=== PATIENT | male | born 1945 | race Caucasian/White ===

== ENCOUNTER → 2016-06-08 | Day surgery (SDC) | payer OTHER ==
[2016-05-26 11:11] VITALS: Ht 175.3 cm; Wt 113.6 kg
[~2016-06-08] VITALS: Ht 175.3 cm; Wt 113.6 kg
[~2016-06-08] MED LIST: ACET-24 PO; ACET-749 PO; ACET650S10 PO; ACETAMINOPHEN/CODEINE 300/30MG TAB PO PRN; ALBUT/IPRATROP 3MG/0.5MG NEB 3 ML VIAL INH PRN; ALBUT/IPRATROP 3MG/0.5MG NEB 3 ML VIAL ONE; AMIO0.1T PO; ARTICHOKE PO; ASCA500 PO; ASPCH81X PO; ATEN-174 PO; ATROPINE SULFATE 0.1 MG/ML 5ML SYR IV PRN; BUPIVACAINE 0.5 % 5 MG/1 ML PF 10ML VIAL ONE; CEFAZOLIN 2000 MG/60 ML D5W IV SCH; CEPH500C PO; COEN100C7 PO; CRD200 PO; EpHEDrine SULFATE INJ 50 MG/ML AMP IV PRN; FENTANYL CITRATE INJ 50 MCG/1 ML 2 ML VIAL IV PRN; FENTANYL CITRATE INJ 50 MCG/1 ML 2 ML VIAL ONE; FIBER PO; FLUT0.15 NAE; GLUC10007 PO; HYDR25TA4 PO; LACTATED RINGER'S 1000ML 1,000 ML IV SCH; LECI1200 PO; LECITHIN PO; LIDOCAINE HCL 2% 2 ML VIAL (20MG/ML) ONE; LIDOCAINE HCL 2% LOCAL 20 ML VIAL ONE; MCRK20 PO; MIDAZOLAM HCL 1 MG/ML 2ML VIAL ONE; MORP-157 PO; MULT-506 PO; ONDANSETRON INJ 2 MG/ML 2 ML VIAL IV PRN; POTA20TA13 PO; PROPOFOL IV EMULSION 10 MG/ML 20 ML VIAL IV ONE; RANI150T3 PO; RIVA1TAB4 PO; RXC5 PO; SODIUM CHLORIDE 0.9% 1000ML 1,000 ML IV SCH
[2016-06-08 12:24] VITALS: TEMP 36.7
--- NOTE | 2016-06-08 12:26 | Discharge Instructions-SurgCtr ---
Discharge Instructions Date of Service Jun 08, 2016. Visit Reason for Visit: Right Carpal Tunnel Syndrome Discharge Discharge Diagnosis / Problem: right carpal tunnel syndrome Discharge Goals Goal(s): Decrease discomfort, Therapeutic intervention Medications Stopped Medications Name(s): Merary last taken 06/06 Activity Recommendations Activity Limitations: per Instructions/Follow-up section limited use of right hand Anesthesia . Post Anesthesia Instructions: If you have had General Anesthesia or IV Sedation: * Do not drive today. * Resume driving when surgeon permits. * Do not make important decisions or sign legal documents today. * Call surgeon for: 1. Temperature elevations greater than 101 degrees F. 2. Uncontrollable pain. 3. Excessive bleeding. 4. Persistent nausea and vomiting. 5. Medication intolerance (nausea, vomiting or rash). * For nausea and vomiting use only clear liquids such as: tea, soda, bouillon until nausea subsides, then gradually increase diet as tolerated. * If you have any concerns or questions, call your surgeon's office. If physician is unavailable and it is an emergency, call 911 or go to the nearest emergency room. . Instructions / Follow-Up Instructions / Follow-Up MEDICATIONS: * Resume previous medications unless instructed otherwise by your surgeon. * Always take pain medication on a full stomach or with food to avoid upset stomach. * Do not drink alcohol or drive while taking narcotics. * Ibuprofen or Tylenol may be taken if narcotic not needed. SPECIAL CARE INSTRUCTIONS: __ None __ Keep extremity elevated and iced x 48 hours; apply ice 20-30 minutes 8-10 times/day. May remove at night. __ Sling __24 hrs/day __ Remove at night __ Shoulder Immobilizer __ 24 hrs/day __ Remove at night x__ Dressing x__ Maintain until seen in office, may shower with plastic over site __ Remove dressings in 24-48 hours and then may shower __ Cover incisions with band-aids after showering __ Do not remove steri-strips Call physician if chills or temperature rises above 102 degrees or pain unrelieved by prescribed pain medications at . .follow up in 2 weeks Diet Recommendations Home Diet: resume previous diet Procedures Procedures Performed: Right Carpal Tunnel Release Pending Studies Studies pending at discharge: no Medical Emergencies . Who to Call and When: Medical Emergencies: If at any time you feel your situation is an emergency, please call 911 immediately. . Non-Emergent Contact Non-Emergency issues call your: Primary Care Provider, Surgeon . . "Provider Documentation" section prepared by Elvis Enciso.
--- NOTE | 2016-06-08 12:46 | [facility] Post Operative Brief Note ---
Immediate Operative Summary Operative Date Jun 08, 2016. Pre-Operative Diagnosis Right Carpal Tunnel Syndrome Post-Operative Diagnosis Same Procedure(s) Performed Right Carpal Tunnel Release Surgeon Dr. Leung Power Generating Plant Operator Surgeon(s) Ira Enciso PA-C Estimated Blood Loss Minimal Findings Right Carpal Tunnel Syndrome Specimens None Anesthesia Local with IV Sedation Complication(s) None Disposition Recovery Room / PACU
--- NOTE | 2016-06-08 13:02 | Anesthesia Progress Nt - [facility] ---
Anesthesia Post Op Note Date & Time Jun 08, 2016 at 13:02 Vital Signs Pain Intensity: 0 Vital Signs Past 12 Hours Date Time Temp Pulse Resp B/P Pulse Ox O2 Delivery O2 Flow Rate FiO2 06/08/16 12:24 36.7 71 16 109/67 94 Room Air 06/08/16 10:27 36.5 65 16 123/77 93 Room Air Notes Mental Status: alert / awake / arousable, participated in evaluation Pt Amnestic to Procedure: Yes Nausea / Vomiting: adequately controlled Pain: adequately controlled Airway Patency, RR, SpO2: stable & adequate BP & HR: stable & adequate Hydration State: stable & adequate Anesthetic Complications: no major complications apparent
[2016-06-08 13:08] VITALS: BP 142/82; PULSE 62; O2SAT 96
--- NOTE | 2016-06-08 15:22 | OPERATIVE REPORT ---
DATE OF OPERATION: 06/08/2016 SURGEON: Ross Leung MD MANAGER RELATIONSHIP: MAHI Harris PREOPERATIVE DIAGNOSIS: Right carpal tunnel syndrome. POSTOPERATIVE DIAGNOSIS: Same. PROCEDURE PERFORMED: Right carpal tunnel release. COMPLICATIONS: None. ESTIMATED BLOOD LOSS: Minimal. TOURNIQUET TIME: 10 minutes at 250 mmHg. OPERATIVE INDICATIONS: The patient is a 71-year-old male, who has had a fairly long history of bilateral hand pain, discomfort and numbness right side greater than left. He failed all conservative care. The right hand was really bothering him significantly. Has had trouble sleeping. He had nerve studies, which revealed significant carpal tunnel syndrome on both sides with some underlying neuropathy. The patient elected to proceed with operative treatment. He is fully aware that surgery is less predictable in somebody with underlying neuropathy. OPERATIVE PROCEDURE: The patient was taken to the operating room, identified and placed on the operating table in supine position. All contact areas were appropriately padded. IV antibiotics were provided by anesthesia team. A right forearm tourniquet was placed. Some IV sedation was provided. 10 mL of a 50:50 combination of 0.5% Marcaine and 2% lidocaine was then injected in and around the proposed incision site. The right hand was then prepped and draped in the usual sterile fashion. The right arm was elevated and exsanguinated with Esmarch and tourniquet was placed at 250 mmHg. A 3 cm incision was made in the palm just ulnar to the palmaris longus tendon. Blunt dissection was carried through the subcutaneous tissue down to the level of the palmar fascia. The palmar fascia was incised longitudinally in line with skin incision. The underlying transverse carpal ligament was identified. It was transected distally with the use of a Daniels blade knife and bluntly spread. Attention was then drawn proximally. Blunt dissection was carried out above and below the ligament proximally. The ligament was then transected for a minimum distance of 3 cm proximal to the wrist flexion crease. The ligament was bluntly spread and found to be completely released. Of note, his ligament was extremely thick and was extremely tight. The tourniquet was then let down for a tourniquet time of 10 minutes. Hemostasis was assured with use of electrocautery. The wound was once again irrigated. The skin was then closed with 4-0 nylon suture in a simple fashion. The hand was then cleaned and dried and a sterile dressing of Xeroform, 4x4, sterile cast padding and Markell bandage were applied. The patient then transferred to the recovery room in stable condition. The patient tolerated the procedure well with no complications. All needle and sponge counts were correct at the end of the operation. I attest to the content of the Intraoperative Record and any orders documented therein. Any exceptio ns are noted below.
== END | disposition home or self-care (01) ==
LOC: X.SURG 10:02
PROVIDERS: ATTEND Orthopaedic Surgery Sports Medicine
DX: G56.01 Carpal tunnel syndrome, right upper limb (principal); I51.9 Heart disease, unspecified; I10 Essential (primary) hypertension; Z88.8 Allergy status to other drugs, medicaments and biological substances

== ENCOUNTER → 2016-07-08 | Outpatient (CLI) | payer OTHER ==
[~2016-07-08] MED LIST changes: -ACETAMINOPHEN/CODEINE 300/30MG TAB PO PRN; -ALBUT/IPRATROP 3MG/0.5MG NEB 3 ML VIAL INH PRN; -ALBUT/IPRATROP 3MG/0.5MG NEB 3 ML VIAL ONE; -ATROPINE SULFATE 0.1 MG/ML 5ML SYR IV PRN; -BUPIVACAINE 0.5 % 5 MG/1 ML PF 10ML VIAL ONE; -CEFAZOLIN 2000 MG/60 ML D5W IV SCH; -EpHEDrine SULFATE INJ 50 MG/ML AMP IV PRN; -FENTANYL CITRATE INJ 50 MCG/1 ML 2 ML VIAL IV PRN; -FENTANYL CITRATE INJ 50 MCG/1 ML 2 ML VIAL ONE; -LACTATED RINGER'S 1000ML 1,000 ML IV SCH; -LIDOCAINE HCL 2% 2 ML VIAL (20MG/ML) ONE; -LIDOCAINE HCL 2% LOCAL 20 ML VIAL ONE; -MIDAZOLAM HCL 1 MG/ML 2ML VIAL ONE; -ONDANSETRON INJ 2 MG/ML 2 ML VIAL IV PRN; -PROPOFOL IV EMULSION 10 MG/ML 20 ML VIAL IV ONE; -SODIUM CHLORIDE 0.9% 1000ML 1,000 ML IV SCH
[2016-07-08 12:57] LABS: CHOLESTEROL/HDL RATIO 5.5
== END | disposition home or self-care (01) ==
LOC: C.LABPVFM 09:25
PROVIDERS: ATTEND Nurse Practitioner
DX: E78.00 Pure hypercholesterolemia, unspecified (principal)

== ENCOUNTER → 2016-08-18 | Outpatient (CLI) | payer OTHER | END | disposition home or self-care (01) | LOC: C.LAB1850 13:35 | PROVIDERS: ATTEND Internal Medicine Pulmonary Disease | DX: J44.9 Chronic obstructive pulmonary disease, unspecified (principal) ==

== ENCOUNTER 2016-12-22 10:25 | Inpatient (IN) | payer OTHER ==
[2016-11-21 10:57] VITALS: BMI 38.0
--- NOTE | 2016-11-21 11:42 | PAT Medication Instructions ---
Service Date Nov 21, 2016. Current Home Medication List Acetaminophen (Tylenol), 1 TAB PO DAILY PRN for Pain Amiodarone Hcl (Amiodarone Hcl), 100 MG PO QAM Ascorbic Acid (Vitamin C), 1 TAB PO QPM Aspirin (Aspirin Chewable), 81 MG PO QPM Atenolol (Tenormin), 0.5 TAB PO BID Coenzyme Q10 (Ubidecarenone) (Coq10), 1 CAP PO QAM Fiber Laxative (Fiber Laxative), 1 TAB PO QPM Fluticasone Propionate (Nasal) (Flonase Allergy Relief), 1 SPRAY INGRID DAILY PRN for PRN Glucosamine Sulfate (Glucosamine), 1,000 MG PO QPM Hydrochlorothiazide (Hctz), 25 MG PO QAM Lecithin (Lecithin), 1,200 MG PO QAM Multivitamin (Multivitamin), 1 TAB PO QPM Potassium Chloride Microencaps (Potassium Chloride Er), 20 MEQ PO QAM Ranitidine Hcl (Zantac), 150 MG PO QAM Rivaroxaban (Xarelto), 20 MG PO QAM [artichoke], 1 TAB PO QAM Medication Instructions For Your Scheduled Surgery - Check with surgeon/hvac design engineer for instructions: Rivaroxaban (Xarelto), 20 MG PO QAM - Hold the following medications 2 weeks prior to surgery: [artichoke], 1 TAB PO QAM Lecithin (Lecithin), 1,200 MG PO QAM Glucosamine Sulfate (Glucosamine), 1,000 MG PO QPM Coenzyme Q10 (Ubidecarenone) (Coq10), 1 CAP PO QAM - Hold the following medications the morning of surgery: Potassium Chloride Microencaps (Potassium Chloride Er), 20 MEQ PO QAM Ranitidine Hcl (Zantac), 150 MG PO QAM Hydrochlorothiazide (Hctz), 25 MG PO QAM Ascorbic Acid (Vitamin C), 1 TAB PO QPM - Take the following medications the morning of surgery with a sip of water: Fluticasone Propionate (Nasal) (Flonase Allergy Relief), 1 SPRAY INGRID DAILY PRN for PRN (if needed) Atenolol (Tenormin), 0.5 TAB PO BID Acetaminophen (Tylenol), 1 TAB PO DAILY PRN for Pain Amiodarone Hcl (Amiodarone Hcl), 100 MG PO QAM - Take the following medications as scheduled the night before surgery: Multivitamin (Multivitamin), 1 TAB PO QPM Fluticasone Propionate (Nasal) (Flonase Allergy Relief), 1 SPRAY INGRID DAILY PRN for PRN (if needed) Fiber Laxative (Fiber Laxative), 1 TAB PO QPM Atenolol (Tenormin), 0.5 TAB PO BID Aspirin (Aspirin Chewable), 81 MG PO QPM (okay to continue per surgeon) Acetaminophen (Tylenol), 1 TAB PO DAILY PRN for Pain If you have any questions please call us at [phone] or [phone] or [phone]
[2016-11-21 12:21] LABS: BASO % 0.4 %; BASO ABS # 0.03 K/uL (0-0.2); COMPLETE YES; EOS % 2.5 %; HEMATOCRIT 52.1 % (42-52); IG% 0.2 %; LYMPH % 31.6 %; LYMPH ABS # 2.54 K/uL (1.2-3.4); MEAN CELL VOLUME 90.6 fL (80-100); MEAN CORPUSCULAR HEMOGLOBIN 28.5 pg (25-34); MEAN CORPUSCULAR HGB CONC 31.5 g/dl (32-36); MEAN PLATELET VOLUME 9.9 fL (7.4-10.4); MONO % 11.1 %; NEUT % 54.2 %; PLATELET COUNT 225 K/uL (130-400); RED BLOOD COUNT 5.75 M/uL (4.7-6.1); WHITE BLOOD COUNT 8.04 K/uL (4.8-10.8)
--- NOTE | 2016-11-21 12:29 | DIAGNOSTIC IMAGING REPORT ---
CHEST PREADMISSION(PA/LAT) CLINICAL HISTORY: Preoperative chest COMPARISON STUDY: 05/06/2013 FINDINGS: The cardiac and mediastinal contours are normal. There is no evidence of focal pulmonary consolidation. There is no evidence of failure. No pleural effusions are visualized.[ There is bibasal atelectasis/scarring. IMPRESSION: No active disease in the chest. Electronically signed by: Alan Aldana M.D. 11/21/2016 12:28 PM Dictated Date/Time: 11/21/2016 12:28 PM
[2016-11-21 12:36] LABS: BUN/CREATININE RATIO 20.7 (10-20); CREATININE 0.95 mg/dl (0.60-1.40); POTASSIUM 4.6 mmol/L (3.5-5.1)
[2016-11-21 12:59] LABS: INR 1.3 (0.9-1.1); PARTIAL THROMBOPLASTIN RATIO 1.7; PROTHROMBIN TIME (PATIENT) 14.6 SECONDS (9.0-12.0)
--- NOTE | 2016-12-17 22:59 | HISTORY & PHYSICAL EXAMINATION ---
DATE OF ADMISSION: 12/22/2016 CHIEF COMPLAINT: Right knee pain. 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 He has had a long history of bilateral knee pain and discomfort. He describes it has gotten worse over time. We have been putting shots in his knees every 3 months. He did pretty well up to about a year ago when he started having increased pain and discomfort, and less response to the shots. He has significant instability in his knees. The more he walks, the more it hurts. They feel like they are going to give out. He would like to begin having knee replacement surgery. Of note, patient has atrial fibrillation. He has been on Xarelto. He has been seen by Dr. Stoddard and cleared for surgery. PAST MEDICAL HISTORY: 1. Hypertension. 2. History of atrial fibrillation. 3. Emphysema/COPD. 4. Sleep apnea with CPAP machine. 5. Obesity. 6. Back pain. PAST SURGICAL HISTORY: Include: 1. Right knee arthroscopy done by Dr. Ring. 2. Right carpal tunnel release. ALLERGIES: HAYFEVER AND LISINOPRIL. CURRENT MEDICINES: 1. Amiodarone. 2. Aspirin. 3. Atenolol 50 mg a day. 4. Coenzyme Q. 5. Fluticasone nasal spray. 6. Hydrochlorothiazide 25 mg. 7. Unspecified med-120 mg a day. 8. Multivitamin once a day. 9. Naproxen. 10. Potassium chloride 20 mEq a day. 11. Ventolin inhaler 2 puffs every 4 hours. 12. Xarelto 20 mg a day. 13. Zantac 150 mg once a day. SOCIAL HISTORY: A 71-year-old male. 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. FAMILY HISTORY: Noncontributory. REVIEW OF SYSTEMS: Negative for diabetes, neurologic problems, vascular problems, bleeding disorders. He is on Xarelto. He has no current chest pain or shortness of breath. Has does have a history of atrial fibrillation. PHYSICAL EXAMINATION: GENERAL: Shows a pleasant, middle-aged male. He looks to be in reasonably good health. HEENT: Benign. NECK: Supple. No lymphadenopathy. LUNGS: Clear to auscultation. HEART: Regular rate and rhythm. ABDOMEN: Soft, nontender, nondistended. EXTREMITIES: Grossly neurovascularly intact except as follows: Examination of the right knee reveals patient ambulates independently. He has got varus alignment to his right knee. He has got small knee effusion. He has got varus thrust with weightbearing. He is tender over the medial joint line. Range of motion is 5-120. No instability. X-RAYS: X-rays of the right knee reviewed. It shows advanced right knee DJD. He has got complete loss of his medial joint space. He has got cystic changes and sclerotic changes in the medial femoral condyle and medial tibial plateau. ASSESSMENT: A 71-year-old male with a history of atrial fibrillation intermittently and a history of right knee arthroscopy in the past with advanced right knee degenerative joint disease. He has failed conservative treatment and would like to have his right knee replaced. He has been seen by Dr. Stoddard and cleared for surgery. PLAN: We are going to take him to the operating room and do a right total knee replacement. The risks and benefits of this procedure were explained to patient including but not limited to DVT, PE, , infection, neurological injury, vascular injury, bleeding problem, pain, limited range of motion, stiffness, failure to relieve symptoms, incomplete relief of symptoms, need for further surgery, anesthesia, fracture, leg length inequality, nerve palsy, persistent pain, etc. The patient understands and desires to proceed. Informed consent was obtained. He was instructed to stop his Xarelto 3 days preop. We will have Dr. Stoddard likely follow him in the hospital. He is hoping to be discharged to home with [facility] home health program. He was instructed also to take his amiodarone and his atenolol on the morning of surgery. ABILIO
[~2016-12-22] VITALS: Ht 175.3 cm; Wt 117.7 kg
[2016-12-22] VITALS (9 sets, daily range): BP systolic 121–162; BP diastolic 69–94; PULSE 66–74; TEMP 36.2–36.7; O2SAT 87–96; Ht 175.3 cm; Wt 117.7 kg
[~2016-12-22 10:25] MED LIST changes: -ACET-24 PO; -ACET-749 PO; +ACETAMINOPHEN 500 MG TAB PO SCH; +BUPIVACAINE 0.25% 30 ML VIAL ONE; +BUPIVACAINE 0.5 % 5 MG/1 ML PF 10ML VIAL ONE; +BUPIVACAINE LIPOSOME 266 MG, BUPIVACAINE/EPINEPHRINE INJ 50 ML, SODIUM CHLORIDE 0.9% PF... INFIL SCH; +CEFAZOLIN 2000 MG/60 ML D5W 60 ML IV SCH; -CEPH500C PO; -CRD200 PO; +FAMOTIDINE 20 MG TAB PO SCH; +GABAPENTIN 300 MG CAP PO SCH; +GENERAL ORDER PROBLEM SCH; +LACTATED RINGER'S 1000ML 1,000 ML IV SCH; +LACTATED RINGER'S 1000ML 500 ML IV ONE; +LACTATED RINGER'S 1000ML IV SCH; -LECITHIN PO; -MCRK20 PO; +METOCLOPRAMIDE HCL 10 MG TAB PO SCH; -MORP-157 PO; -RXC5 PO; +SCOPOLAMINE 1.5 MG TDSY TD SCH
--- NOTE | 2016-12-22 11:03 | History & Physical Bridge Note ---
H&P Re-Evaluation Bridge Note: I have examined the patient, reviewed the History & Physical and in the interval since the performance of the History & Physical I have noted the following changes of clinical significance: No changes noted
[2016-12-22] MEDS ORDERED: MIDAZOLAM HCL 1 MG/ML 2ML VIAL ONE (11:48)
[2016-12-22] MEDS ORDERED: FENTANYL CITRATE INJ 50 MCG/1 ML 2 ML VIAL ONE (11:48)
[2016-12-22] MEDS ORDERED: BUPIVACAINE LIPOSOME 1/3% 266 MG/20 ML VIAL INFIL ONE (12:41)
[2016-12-22] MEDS ORDERED: BACITRACIN 50000 UNIT VIAL ONE (12:41)
[2016-12-22] MEDS ORDERED: SODIUM CHLORIDE 0.9% PF 50 ML VIAL ONE (12:41)
[2016-12-22] MEDS ORDERED: BUPIVACAINE/EPINEPHRINE 0.25% 1:200,000 30 ML VIAL ONE (12:41)
[2016-12-22] MEDS ORDERED: ONDANSETRON INJ 2 MG/ML 2 ML VIAL ONE (13:38)
[2016-12-22] MEDS ORDERED: PROPOFOL IV EMULSION 10 MG/ML 20 ML VIAL IV ONE ×2 (13:38→15:03)
[2016-12-22] MEDS ORDERED: KETAMINE HCL INJ 50 MG/ML 10 ML VIAL ONE (13:38)
[2016-12-22] MEDS ORDERED: LIDOCAINE HCL 2% 2 ML VIAL (20MG/ML) ONE (13:38)
[2016-12-22] MEDS ORDERED: VANCOMYCIN HCL 1000MG/20ML VIAL ONE (13:40)
[2016-12-22] MEDS ORDERED: KETOROLAC TROMETHAMINE 15 MG/ML VIAL IV. PRN (13:45)
[2016-12-22] MEDS ORDERED: ATROPINE SULFATE 0.1 MG/ML 5ML SYR IV PRN (13:45)
[2016-12-22] MEDS ORDERED: PHENYLEPHRINE 100MCG/ML 5ML SYR IV PRN (13:45)
[2016-12-22] MEDS ORDERED: ONDANSETRON INJ 2 MG/ML 2 ML VIAL IV PRN ×2 (13:45→15:15)
[2016-12-22] MEDS ORDERED: HYDROmorphone INJ 2 MG/ML SYR/VIAL IV PRN (13:45)
[2016-12-22] MEDS ORDERED: EpHEDrine SULFATE INJ 50 MG/ML AMP IV PRN (13:45)
[2016-12-22] MEDS ORDERED: TRANEXAMIC ACID INJ 1,000 MG in SODIUM CHLORIDE 0.9% 100ML 100 ML IV ONE (14:30)
--- NOTE | 2016-12-22 15:11 | [facility] Post Operative Brief Note ---
Immediate Operative Summary Operative Date Dec 22, 2016. Pre-Operative Diagnosis Right knee degenerative joint disease Post-Operative Diagnosis Same as preoperative diagnosis Procedure(s) Performed Right total knee replacement Surgeon Dr. Ross Leung Blast Furnace Helper Surgeon(s) Elvis Enciso PA-C Estimated Blood Loss 50ml Findings Right Knee DJD Fluids (cc crystalloids) 1000 cc Specimens a. right knee bone and tissue Drains None Anesthesia Spinal Complication(s) None Disposition Recovery Room / PACU
[2016-12-22] MEDS ORDERED: MAGNESIUM HYDROXIDE SUSP 30 ML UDC PO PRN (15:15)
[2016-12-22] MEDS ORDERED: TAMSULOSIN HCL 0.4 MG CAP PO PRN (15:15)
[2016-12-22] MEDS ORDERED: FLUTICASONE PROPIONATE NA SPR 16 GM BTL NAE PRN (15:15)
[2016-12-22] MEDS ORDERED: METOCLOPRAMIDE HCL INJ 5 MG/ML 2 ML VIAL IV PRN (15:15)
[2016-12-22] MEDS ORDERED: BISACODYL 10 MG SUPP PR PRN (15:15)
[2016-12-22] MEDS ORDERED: HYDROmorphone INJ 0.5 MG/0.5 ML SYR IV PRN (15:15)
[2016-12-22] MEDS ORDERED: ZOLPIDEM TARTRATE 5 MG TAB PO PRN (15:15)
[2016-12-22] MEDS ORDERED: SILVER SULFADIAZINE 1% CR 50 GM JAR EXT PRN (15:15)
[2016-12-22] MEDS ORDERED: ALUMINUM/MAGNESIUM/SIMETH (MAALOX MAX) 30 ML UDC PO PRN (15:15)
[2016-12-22] MEDS: CHECK SCOPOLAMINE PATCH PLACEMENT SCH ×2 (16:00→23:48)
--- NOTE | 2016-12-22 16:18 | Anesthesiology Progress Note ---
Anesthesia Post Op Note Date & Time Dec 22, 2016 at 16:18 Vital Signs Pain Intensity: 0 Vital Signs Past 12 Hours Date Time Temp Pulse Resp B/P (MAP) Pulse Ox O2 Delivery O2 Flow Rate FiO2 12/22/16 15:15 36.2 16 116/56 97 Mask 10 12/22/16 10:43 36.7 66 20 129/73 92 Room Air Notes Mental Status: alert / awake / arousable, participated in evaluation Pt Amnestic to Procedure: Yes Nausea / Vomiting: adequately controlled Pain: adequately controlled Airway Patency, RR, SpO2: stable & adequate BP & HR: stable & adequate Hydration State: stable & adequate Neuraxial Anesthesia: was administered, sensory block is resolving Anesthetic Complications: no major complications apparent
--- NOTE | 2016-12-22 16:35 | DIAGNOSTIC IMAGING REPORT ---
R KNEE 1 OR 2 VIEWS ROUTINE CLINICAL HISTORY: AP/LATERAL IN PACU RIGHT KNEE joint replacement COMPARISON: None. DISCUSSION: Total right knee prosthetic in good position. Good contact between prosthetic and underlying bone. Expected postoperative soft tissue change. IMPRESSION: Anatomic alignment status post total right knee arthroplasty The above report was generated using voice recognition software. It may contain grammatical, syntax or spelling errors. Electronically signed by: Hansel Smith M.D. 12/22/2016 4:34 PM Dictated Date/Time: 12/22/2016 4:34 PM
[2016-12-22] MEDS: D5W AND 1/2NSS + 20MEQ KCL 1,000 ML IV SCH (17:57)
[2016-12-22] MEDS: FERROUS GLUCONATE 324 MG TAB PO SCH (17:58)
[2016-12-22] MEDS: KETOROLAC TROMETHAMINE 15 MG/ML VIAL IV. SCH ×2 (17:58→23:49)
--- NOTE | 2016-12-22 18:26 | Cardiology Follow-Up ---
Subjective Date of Service: Dec 22, 2016. Pt evaluation today including: conversation w/ patient, physical exam, chart review, lab review, review of studies, review of inpatient medication list History of Present Illness I was asked to see Mr. Villatoro for routine postop evaluation. Currently he is feeling well. He is just now beginning to have some discomfort in the right knee. He denies any breathing difficulty. He is tolerating his dinner. He has not report any chest pain or sense of palpitation. He does have some chronic numbness in the right hand. Social History Smoking Status: Former Smoker History of Alcohol Use: No Review of Systems Respiratory: + shortness of breath Cardiac: + palpitations Objective Vital Signs Past 12 Hours Date Time Temp Pulse Resp B/P (MAP) Pulse Ox O2 Delivery O2 Flow Rate FiO2 12/22/16 17:49 36.7 72 18 162/81 (108) 96 Room Air 4.0 12/22/16 17:21 36.2 71 18 144/74 (97) 96 Nasal Cannula 4.0 12/22/16 17:09 36.2 73 16 144/69 (94) 87 Nasal Cannula 4.0 12/22/16 17:03 87 Nasal Cannula 4.0 12/22/16 16:36 114/69 12/22/16 16:34 71 20 91 12/22/16 16:34 71 20 12/22/16 16:31 130/67 12/22/16 16:29 70 12 95 12/22/16 16:29 71 12 12/22/16 16:26 123/66 12/22/16 16:24 69 23 93 12/22/16 16:24 70 23 12/22/16 16:21 130/73 12/22/16 16:19 71 22 91 12/22/16 16:19 71 22 12/22/16 16:16 123/69 12/22/16 16:14 71 21 12/22/16 16:14 71 21 92 12/22/16 16:11 128/70 12/22/16 16:09 67 20 12/22/16 16:09 68 20 93 12/22/16 16:08 121/66 12/22/16 16:04 71 22 12/22/16 16:04 68 22 93 12/22/16 16:02 111/56 12/22/16 15:59 69 21 93 12/22/16 15:59 68 21 12/22/16 15:56 112/64 12/22/16 15:54 73 25 109/64 92 12/22/16 15:54 64 25 12/22/16 15:52 73/60 12/22/16 15:49 69 21 93 12/22/16 15:49 69 21 12/22/16 15:47 105/52 12/22/16 15:44 69 19 12/22/16 15:44 69 19 91 12/22/16 15:42 107/58 12/22/16 15:39 72 22 12/22/16 15:39 73 22 93 12/22/16 15:37 115/53 12/22/16 15:34 73 21 12/22/16 15:34 72 21 97 12/22/16 15:32 109/58 12/22/16 15:29 68 18 12/22/16 15:29 68 18 97 12/22/16 15:27 107/53 12/22/16 15:24 70 17 12/22/16 15:24 70 17 97 12/22/16 15:22 108/65 12/22/16 15:19 69 23 97 12/22/16 15:19 69 23 12/22/16 15:16 116/56 12/22/16 15:15 36.2 16 116/56 97 Mask 10 12/22/16 15:14 71 97 12/22/16 15:14 71 12/22/16 10:43 36.7 66 20 129/73 92 Room Air Last Recorded Weight-Kilograms: 117.700 Intake & Output 8-Hour Column 12/22/16 12/23/16 12/23/16 16:00 00:00 08:00 Intake Total 1250 ml Output Total 225 ml Balance 1025 ml 24-Hour Column 12/23/16 08:00 Intake Total 1250 ml Output Total 225 ml Balance 1025 ml Physical Exam The patient is alert and oriented. Mood and affect appeared normal. He answered all questions appropriately. HEENT: Pupils are equal and reactive to light and accommodation. Extraocular movements are intact. The sclerae are anicteric. Neuro: Cranial nerves intact Neck: Patient's neck is supple but redundant. He has palpable carotid pulses bilaterally without bruits on auscultation. There is no evidence of jugular venous distention. The thyroid is not enlarged. Lungs: Some crackles in the bases bilaterally Cardiac: Heart demonstrates a regular rate and rhythm. Normal S1 and S2. No murmurs on examination. Pulses: The patient has palpable radial pulses bilaterally that are equal in intensity Extremities: There was no evidence of hypoperfusion. There is no cyanosis or clubbing of the hands Skin: I did not appreciate any rashes on examination today. Assessment and Plan The patient seems to be doing well postoperatively. He has a regular rhythm. His breathing appears comfortable. He does have some bibasilar crackles which may improve with incentive spirometry. He is known to have preserved LV systolic function. He has a history of some conduction disease and atrial flutter. No sense of arrhythmia currently. Blood pressure is slightly elevated but may improve with better pain control. Recommendations: Continue outpatient medications as currently prescribed Restart Xarelto at the discretion of his surgeon Will reassess his blood pressure and rhythm tomorrow
--- NOTE | 2016-12-22 18:47 | OPERATIVE REPORT ---
DATE OF OPERATION: 12/22/2016 SURGEON: Dr. Ross Leung. LOCOMOTIVE INSPECTOR: MAHI Harris PREOPERATIVE DIAGNOSIS: Right knee degenerative joint disease. POSTOPERATIVE DIAGNOSIS: Same. PROCEDURE PERFORMED: Right cemented posterior stabilized total knee arthroplasty. COMPLICATIONS: None. ESTIMATED BLOOD LOSS: 50 mL. FLUID REPLACEMENT: 1000 mL crystalloid fluid replacement. ANESTHESIA: Spinal with adductor canal block. DRAINS: None. SPECIMENS: Right knee sent for pathology. TOURNIQUET TIME: 60 minutes at 300 mmHg. 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 We have been treating him over the years with injections. This became less successful over time. The right knee was bothered him more than the left. He was having trouble getting around and doing things he needed to do and he elected to proceed with right total knee arthroplasty. OPERATIVE FINDINGS: Operative findings revealed extensive grade 4 changes of medial femoral condyle and medial tibial plateau. He had a fixed varus deformity to his knee. The remained 2 compartments of his knee were fairly well preserved. He had a large knee joint effusion. OPERATIVE IMPLANTS: Operative implants consisted of: 1. Biomet Vanguard size 67.5 right posterior stabilized femoral component. 2. Biomet size 79 tibial tray. 3. A 10-mm posterior stabilized polyethylene insert. 4. A 31 x 8 all poly patella. OPERATIVE PROCEDURE: The patient was taken to the operating room, identified and placed on the operating table in the supine position. All contact areas were appropriately padded. IV antibiotics were provided by the anesthesia team. A spinal anesthetic and adductor canal block had been provided in the holding area. Sherwood catheter was placed in sterile fashion. Right thigh tourniquet was then placed and the right lower extremity was then prepped and draped in the usual sterile fashion. The right leg was elevated and exsanguinated with Esmarch and tourniquet was placed at 300 mmHg. An anterior approach to the right knee was then performed through a longitudinal incision centered over the patella. Sharp dissection was carried through the subcutaneous tissues down to the level of the extensor mechanism. A medial parapatellar arthrotomy incision was made. Some subperiosteal dissection was carried out medially. The fat pad was resected from beneath the patellar tendon. The lateral patellofemoral ligament was released. The patella was everted and the knee was flexed. The osteophytes were taken off the distal femur. The ACL and PCL were then released from the distal femur and the tibia subluxated anteriorly. The external tibial alignment jig was then placed in the anterior face of the tibia and adjusted 16 mm medially. Proximal tibial cut was made to take about a millimeter of bone from the most deficient aspect of the posteromedial tibial plateau. Tibia was then sized to a size 79. Some osteophytes were taken off medial and posteromedially. Attention was then drawn to the femur. The distal femur was entered with a sharp drill. Intramedullary canal was suctioned. A right 6-degree valgus cutting guide was placed. The distal femoral cutting block was pinned in place. Distal femoral cut was made to take an additional 3 mm of bone off the distal femur. The femur was then sized to a size 67.5. We did downsize this almost an entire size. The AP cutting block was pinned parallel to the epicondylar axis, which was 3 degrees of external rotation. The anterior cut, anterior chamfer, posterior cut, and posterior chamfer cuts were made. The box cutting guide was placed. It was adjusted slightly laterally. The box cut was made. The knee was flexed. The remnants of the medial and lateral menisci were excised. The osteophytes were taken off the posterior aspect of the femur. Trial femoral component was placed. Tibial tray was pinned in maximum external rotation and drill and stem punch were used to create defect in proximal tibia for the tibial tray. The knee was then trialed and a 10-mm insert fit most appropriately. Attention was then drawn to the patella. The patella was cleaned of all soft tissues. Patellar thickness measured 25 mm of thickness and it was cut down to 15. It was sized to a size 31 patella. Lug holes were drilled for the 31 patella. Lateral osteophyte was removed. Patella button was placed. Knee was taken through range of motion and the patella tracked nicely with no thumbs test. Attention was then drawn toward placement of the permanent components. All trial components were removed. A bone plug was placed in the distal femur to limit blood loss. A double batch of Palacos G cement was mixed. I did add an additional gram of vancomycin due to his tendency to get multiple scars and scabs onto his legs. A right size 67.5 posterior stabilized femoral component, size 79 tibial tray, a 10-mm posterior stabilized polyethylene insert, and a 31 x 8 all poly patella were then cemented in place. The knee was brought out into full extension until cement hardened. A final cement check was then performed. Pericapsular tissues were injected with a total of 100 mL of a combination of 20 mL of Exparel, 30 mL of normal saline, and 50 mL of 0.25% Marcaine with epinephrine. The patient did receive 1 gram of tranexamic acid. Of note, the patient is not in atrial fibrillation. The tourniquet was then let down for a tourniquet time of 60 minutes. Hemostasis was assured with use of electrocautery. The extensor mechanism was then closed with a combination of #1 PDS suture and #1 Vicryl suture in a [id number] fashion. Extensor mechanism was checked and found to be intact. Subcutaneous tissues were then closed with 2-0 Dexon suture in a buried interrupted fashion. Skin was closed skin stacey. Leg was then cleaned and dried and a sterile dressing of Xeroform, 4 x 4, sterile cast padding and Markell bandage were applied. The patient then transferred to the recovery room in stable condition. The patient tolerated the procedure well with no complications. All needle and sponge counts were correct at the end of the operation. I attest to the content of the Intraoperative Record and any orders documented therein. Any exception s are noted below.
[2016-12-22] MEDS ORDERED: INFLUENZA VACCINE HIGH DOSE 65+ 0.5 ML SYR IM. ONE (21:00)
[2016-12-22] MEDS ORDERED: INFLUENZA ADMINISTRATION CHARGE ONE (21:00)
[2016-12-22] MEDS: SENNA 8.6 MG TAB PO SCH (21:36)
[2016-12-22] MEDS: CALCIUM POLYCARBOPHIL 1 TAB PO SCH (21:37)
[2016-12-22] MEDS: MULTIVITAMIN TAB PO SCH (21:37)
[2016-12-22] MEDS: ASPIRIN 81 MG ECTAB PO SCH (21:37)
[2016-12-22] MEDS: TAPENTADOL ER 50 MG TABCR PO SCH (21:38)
[2016-12-22] MEDS: DOCUSATE SODIUM 100 MG CAP PO SCH (21:38)
[2016-12-22] MEDS: ASCORBIC ACID 500 MG TAB PO SCH (21:39)
[2016-12-22] MEDS: ACETAMINOPHEN 500 MG TAB PO SCH (21:48)
[2016-12-22] MEDS: CEFAZOLIN IV 2,000 MG in DEXTROSE 5% 50ML 50 ML IV SCH (21:49)
[2016-12-23] VITALS (7 sets, daily range): BP systolic 100–149; BP diastolic 52–71; PULSE 68–85; TEMP 36.4–37.2; O2SAT 91–94
[2016-12-23] MEDS: D5W AND 1/2NSS + 20MEQ KCL 1,000 ML IV SCH ×2 (01:19→09:32)
[2016-12-23] MEDS: CEFAZOLIN IV 2,000 MG in DEXTROSE 5% 50ML 50 ML IV SCH (05:24)
[2016-12-23] MEDS: ACETAMINOPHEN 500 MG TAB PO SCH ×3 (05:25→21:01)
[2016-12-23] MEDS: KETOROLAC TROMETHAMINE 15 MG/ML VIAL IV. SCH ×2 (05:25→11:41)
[2016-12-23 06:02] LABS: HEMATOCRIT 42.5 % (42-52); MEAN CORPUSCULAR HEMOGLOBIN 29.7 pg (25-34); MEAN CORPUSCULAR HGB CONC 32.9 g/dl (32-36); MEAN PLATELET VOLUME 10.3 fL (7.4-10.4); PLATELET COUNT 154 K/uL (130-400); RED BLOOD COUNT 4.72 M/uL (4.7-6.1); WHITE BLOOD COUNT 10.51 K/uL (4.8-10.8)
[2016-12-23 06:32] LABS: CREATININE 0.89 mg/dl (0.60-1.40)
[2016-12-23 06:33] LABS: BUN/CREATININE RATIO 24.4 (10-20); CALCIUM 8.2 mg/dl (8.5-10.1); POTASSIUM 4.3 mmol/L (3.5-5.1)
[2016-12-23] MEDS: OXYCODONE HCL IR 5 MG TAB (IMMEDIATE RELEASE) PO PRN ×4 (08:02→22:42)
[2016-12-23] MEDS: CHECK SCOPOLAMINE PATCH PLACEMENT SCH ×2 (08:02→15:41)
--- NOTE | 2016-12-23 08:02 | PROGRESS NOTE ---
DATE: 12/23/2016 SUBJECTIVE: A 71-year-old gentleman, postop day #1 from right knee replacement. He is doing pretty well. He says his pain has been off and on. No chest pain or shortness of breath. He is not feeling dizzy or lightheaded. OBJECTIVE: VITAL SIGNS: Temperature is 36.7. Vital signs are stable. GENERAL: Reveals a pleasant elderly male. He is sitting up in bed and doing his heel props. He looks pretty comfortable. LUNGS: Clear to auscultation. HEART: Regular rate and rhythm. ABDOMEN: Soft, nontender and nondistended. EXTREMITIES: Grossly neurovascularly intact except as follows: Examination of the right leg reveals a little bit of bloody drainage on the dressing. He can dorsiflex and plantarflex his foot appropriately. He is neurologically intact. LABORATORY DATA: Hemoglobin is 14.0 and hematocrit 42.5. Electrolytes are stable. ASSESSMENT: A 71-year-old gentleman postoperative day #1 from right knee replacement, doing pretty well. The pain seems to be controlled. He is neurologically intact. PLAN: 1. DVT prophylaxis including thigh-high TEDs, SCDs and Xarelto. We are going to start him back on prophylactic dose of Xarelto 24 hours postoperatively and then increase this probably in 2 days to the therapeutic dose. 2. PT/OT. Weight-bear as tolerated. Right total knee protocol. 3. Pain control, doing well with current pain regimen. 4. Disposition. He is planning to be discharged to home with some home health once medically stable. ABILIO
--- NOTE | 2016-12-23 08:25 | Anesthesiology Progress Note ---
Anesthesia Post Op Note Date & Time Dec 23, 2016 at 08:25 Vital Signs Pain Intensity: 8.0 Vital Signs Past 12 Hours Date Time Temp Pulse Resp B/P (MAP) Pulse Ox O2 Delivery O2 Flow Rate FiO2 12/23/16 08:14 Room Air 12/23/16 06:56 36.7 72 16 149/66 (93) 92 CPAP 12/23/16 03:21 36.4 68 16 100/58 (72) 94 CPAP 12/23/16 01:49 CPAP 12/22/16 23:06 36.6 74 18 121/71 (88) 91 Room Air 12/22/16 21:25 73 158/94 (115) Notes Mental Status: alert / awake / arousable, participated in evaluation Pt Amnestic to Procedure: Yes Nausea / Vomiting: adequately controlled Pain: adequately controlled, improving with treatment Airway Patency, RR, SpO2: stable & adequate BP & HR: stable & adequate Hydration State: stable & adequate Anesthetic Complications: no major complications apparent
[2016-12-23] MEDS: RANITIDINE HCL 150 MG TAB PO SCH (08:33)
[2016-12-23] MEDS: POTASSIUM CHLORIDE 20 MEQ TABCR PO SCH (08:33)
[2016-12-23] MEDS: FERROUS GLUCONATE 324 MG TAB PO SCH ×3 (08:33→18:12)
[2016-12-23] MEDS: TAPENTADOL ER 50 MG TABCR PO SCH ×2 (08:34→21:01)
[2016-12-23] MEDS: AMIODARONE 200 MG TAB PO SCH (08:34)
[2016-12-23] MEDS: DOCUSATE SODIUM 100 MG CAP PO SCH ×2 (08:34→19:42)
[2016-12-23] MEDS: PANTOprazole SOD 40 MG TAB PO SCH (08:34)
[2016-12-23] MEDS: HYDROCHLOROTHIAZIDE 25 MG TAB PO SCH (08:34)
--- NOTE | 2016-12-23 08:54 | Cardiology Follow-Up ---
Subjective Date of Service: Dec 23, 2016. Pt evaluation today including: conversation w/ patient, physical exam, chart review, lab review, review of inpatient medication list History of Present Illness This morning the patient feels well with the exception of some discomfort at the operative site. He has quit to be out of bed. He claims to have normal breathing. He has no symptoms of chest discomfort or sense of palpitation. Social History Smoking Status: Former Smoker History of Alcohol Use: No Review of Systems Respiratory: + shortness of breath Cardiac: + palpitations Objective Vital Signs Past 12 Hours Date Time Temp Pulse Resp B/P (MAP) Pulse Ox O2 Delivery O2 Flow Rate FiO2 12/23/16 08:14 Room Air 12/23/16 06:56 36.7 72 16 149/66 (93) 92 CPAP 12/23/16 03:21 36.4 68 16 100/58 (72) 94 CPAP 12/23/16 01:49 CPAP 12/22/16 23:06 36.6 74 18 121/71 (88) 91 Room Air 12/22/16 21:25 73 158/94 (115) Last Recorded Weight-Kilograms: 117.700 Physical Exam The patient is alert and oriented. Mood and affect appeared normal. He answered all questions appropriately. HEENT: Pupils are equal and reactive to light and accommodation. Extraocular movements are intact. The sclerae are anicteric. Neuro: Cranial nerves intact Neck: Patient's neck is supple but redundant. He has palpable carotid pulses bilaterally without bruits on auscultation. There is no evidence of jugular venous distention. The thyroid is not enlarged. Lungs: Bases were clear. There was occasional expiratory wheezing but no rales Cardiac: Heart demonstrates a regular rate and rhythm. Normal S1 and S2. No murmurs on examination. Pulses: The patient has palpable radial pulses bilaterally that are equal in intensity Extremities: There was no evidence of hypoperfusion. There is no cyanosis or clubbing of the hands Skin: I did not appreciate any rashes on examination today. Data Laboratory Results: Last 24 Hours Test 12/23/16 05:17 White Blood Count 10.51 K/uL Red Blood Count 4.72 M/uL Hemoglobin 14.0 g/dL Hematocrit 42.5 % Mean Corpuscular Volume 90.0 fL Mean Corpuscular Hemoglobin 29.7 pg Mean Corpuscular Hemoglobin Concent 32.9 g/dl RDW Standard Deviation 46.2 fL RDW Coefficient of Variation 14.0 % Platelet Count 154 K/uL Mean Platelet Volume 10.3 fL Sodium Level 137 mmol/L Potassium Level 4.3 mmol/L Chloride Level 104 mmol/L Carbon Dioxide Level 25 mmol/L Anion Gap 8.0 mmol/L Blood Urea Nitrogen 22 mg/dl Creatinine 0.89 mg/dl Est Creatinine Clear Calc Drug Dose 99.2 ml/min Estimated GFR () 101.1 Estimated GFR (Non- 87.2 BUN/Creatinine Ratio 24.4 Random Glucose 135 mg/dl Calcium Level 8.2 mg/dl Assessment and Plan He appears to be recovering well. His rhythm is normal. He has no symptoms of pulmonary vascular congestion. His overall blood pressure appears to be improved. He would be reasonable to continue him on his usual outpatient medical regimen including Xarelto. He is currently on a lower dose of Xarelto. At some point should be increased to his usual outpatient dose of 20 mg daily. The timing of this change can be left to the discretion of his surgeon.
[2016-12-23] MEDS ORDERED: NON-FORMULARY MEDICATION (Coenzyme Q10 (Ubidecarenone) (Coq10) 1 CAP) PO SCH (09:00)
[2016-12-23] MEDS ORDERED: NON-FORMULARY MEDICATION (Lecithin 1,200 MG) PO SCH (09:00)
[2016-12-23] MEDS ORDERED: MULTIVITAMIN TAB PO SCH (09:00)
[2016-12-23] MEDS ORDERED: RIVAROXABAN 10 MG TAB PO SCH (16:00)
[2016-12-23] MEDS: ASPIRIN 81 MG ECTAB PO SCH (19:42)
[2016-12-23] MEDS: SENNA 8.6 MG TAB PO SCH (19:42)
[2016-12-23] MEDS: MULTIVITAMIN TAB PO SCH (19:42)
[2016-12-23] MEDS: ASCORBIC ACID 500 MG TAB PO SCH (19:43)
[2016-12-23] MEDS ORDERED: ACET-24 PO (20:57)
[2016-12-23] MEDS ORDERED: RXC5 PO (20:57)
[2016-12-23] MEDS ORDERED: MORP-157 PO (20:57)
--- NOTE | 2016-12-23 20:59 | Discharge Instructions ---
Discharge Instructions Date of Service Dec 23, 2016. Admission Reason for Admission: Right Knee Degenerative Joint Disease Discharge Discharge Diagnosis / Problem: Right Knee Replacement Discharge Goals Goal(s): Decrease discomfort, Improve function, Increase independence, Improve disease control, Therapeutic intervention Activity Recommendations Activity Limitations: per Instructions/Follow-up section Weightbearing Status: Right weightbearing . Instructions / Follow-Up Instructions / Follow-Up ACTIVITY RECOMMENDATIONS: Physical Therapy: * You will go to physical therapy three times each week for four to six weeks after your surgery in order to regain your knee range of motion and to retrain your knee to work properly. * It is just as important to make sure you are getting your knee perfectly straight as it is to regain your knee bend. * Taking a pain pill an hour before therapy can help you have a more productive and comfortable therapy session. Home Exercise: * You were shown a series of exercises (heel props, heel slides, etc.) in the hospital. Do these exercises three to four times each day including the exercises you were shown in physical therapy. Walking: * Get up and walk several times each day. For the first four weeks, try not to stand or walk for more than one hour at a time. If you do stand or walk for more than one hour, you will not hurt anything, but your knee and leg will likely swell. * As you feel comfortable, you may change from the walker or crutches to a cane and then to independent walking. MEDICATIONS: New Medicine: * You will likely be taking one or more of these medications: 1. MS Contin - A long-acting pain medication. Take 1 tablet twice a day for the first ten days to decrease your baseline level of pain. 2. Oxycodone - A quick and shorter-acting pain medication. Take one to two tablets every four to six hours to lessen your pain. * The most common side effects of pain medicine and iron are nausea and constipation. If nausea or constipation is too much of a problem or if you have any questions about your new medicines or doses, call [facility] at [phone]. We will try to help you manage these issues. VERY IMPORTANT TO READ AND REVIEW" Pain: * The immediate post-operative period after knee replacement surgery is often quite painful. * You are given a prescription for pain medicine. You should take it, as directed, when you need it, especially before physical therapy and before going to bed. Pain that interferes with sleep is very common and can last several months. * You will likely need pain medicine for the first four to six weeks. It will not stop all of the pain. The pain will lessen and as you feel better, you may change to milder pain medicine such as Tylenol. * The most common side effects of pain medicine are nausea and constipation, so don't take more than you need. SPECIAL CARE INSTRUCTIONS: TEDs/Elastic Stockings: * The white elastic stockings help limit swelling and prevent blood clots from forming in your legs. The more you wear them, the more they work. * Wear them for six weeks after knee replacement surgery and four weeks after partial knee replacement. Prevention of Infection: * Take antibiotics one hour before any dental cleaning, dental work, urological procedure, gastrointestinal procedure or any invasive surgery in order to prevent your new joint from getting infected. * You may get the antibiotics from the doctor performing the procedure or you may call our office at before and we will call in a prescription to the pharmacy of your choice. Things to Watch For: * Drainage from the incision site that occurs more than one week after your surgery. * Severely increased knee/leg pain or swelling. * Increased redness at the incision site. * Fever above 102 degrees Fahrenheit. * Unusual chest pain or shortness of breath. * Unusual pain or burning with urination. Call [facility] at with any of the above problems or if you have any questions about your medicines or recovery. FOLLOW UP VISIT: Make an appointment to see your doctor for approximately two weeks after surgery for a progress check and staple removal by calling the office at . Current Hospital Diet Patient's current hospital diet: Regular Diet Discharge Diet Recommended Diet: Regular Diet Procedures Procedures Performed: Right total knee replacement Pending Studies Studies pending at discharge: no Medical Emergencies . Who to Call and When: Medical Emergencies: If at any time you feel your situation is an emergency, please call [phone] immediately. . Non-Emergent Contact Non-Emergency issues call your: Surgeon . "Provider Documentation" section prepared by Ross Leung. . VTE Core Measure Inpt VTE Proph given/why not?: Other Anticoagulation, T.E.D. Stockings, SCD's
[2016-12-23] MEDS: CALCIUM POLYCARBOPHIL 1 TAB PO SCH (21:01)
[2016-12-24] MEDS: OXYCODONE HCL IR 5 MG TAB (IMMEDIATE RELEASE) PO PRN ×2 (03:03→08:11)
[2016-12-24] MEDS: ACETAMINOPHEN 500 MG TAB PO SCH (05:43)
[2016-12-24 07:08] VITALS: BP 151/76; PULSE 81; TEMP 36.6; O2SAT 91
[2016-12-24] MEDS: CHECK SCOPOLAMINE PATCH PLACEMENT SCH ×2 (08:00)
[2016-12-24] MEDS: TAPENTADOL ER 50 MG TABCR PO SCH (08:11)
[2016-12-24] MEDS: PANTOprazole SOD 40 MG TAB PO SCH (08:11)
[2016-12-24] MEDS: FERROUS GLUCONATE 324 MG TAB PO SCH (08:11)
[2016-12-24] MEDS: RANITIDINE HCL 150 MG TAB PO SCH (08:12)
[2016-12-24] MEDS: POTASSIUM CHLORIDE 20 MEQ TABCR PO SCH (08:12)
[2016-12-24] MEDS: HYDROCHLOROTHIAZIDE 25 MG TAB PO SCH (08:12)
[2016-12-24] MEDS: AMIODARONE 200 MG TAB PO SCH (08:12)
[2016-12-24] MEDS: DOCUSATE SODIUM 100 MG CAP PO SCH (08:13)
--- NOTE | 2016-12-24 08:37 | PROGRESS NOTE ---
DATE: 12/24/2016 SUBJECTIVE: A 71-year-old gentleman postop day 2 from right knee replacement. He is doing pretty well. Pain is a little better today. He is getting around reasonably well. No chest pain or shortness of breath. Not feeling dizzy or lightheaded. OBJECTIVE: VITAL SIGNS: Temperature 36.6. Vital signs stable. PHYSICAL EXAMINATION: GENERAL: Reveals a healthy, pleasant middle-aged male. He is walking around his room with his walker when I visited him this morning. EXTREMITIES: Examination of the right leg reveals just a little bit of bloody drainage at the inferior aspect of his incision site. Leg is well aligned. Not a lot of swelling. NEUROLOGIC: He is neurologically intact. ASSESSMENT: A 71-year-old gentleman postop day 2 from right knee replacement, doing pretty well. PLAN: 1. DVT prophylaxis including thigh-high TEDs, SCDs, and he is back on Xarelto. He is on prophylactic dose today and we will increase him to a therapeutic dose tomorrow. 2. PT/OT. Weightbear as tolerated. Right total knee protocol. 3. Pain control, doing pretty well with current pain regimen. 4. Disposition: Plan to discharge to home with some home health, later today.
[2016-12-24 09:50] VITALS: BP 151/76; PULSE 81; TEMP 36.6; O2SAT 91
[2016-12-24 09:58] VITALS: BP 151/76; PULSE 81; O2SAT 91
--- NOTE | 2017-01-02 14:35 | DISCHARGE SUMMARY ---
ADMITTING PHYSICIAN AND SURGEON: Dr. Leung. ADMITTING DIAGNOSIS: Right knee degenerative joint disease. SURGERY PERFORMED: Right total knee arthroplasty. SECONDARY DIAGNOSES: Hypertension, atrial fibrillation, emphysema, COPD, sleep apnea, obesity, back pain. CONSULTS: Dr. Stoddard for postoperative cardiac management. HISTORY AND PHYSICAL EXAMINATION: Well documented in the patient's chart. HOSPITAL COURSE: The patient was admitted on 12/22/2016 and underwent total knee arthroplasty. He tolerated the procedure well. There were no complications. He was transferred to the PACU postoperatively and later to the orthopedic floor for further care. He was given Ancef for antibiotic prophylaxis, SMITA stockings, SCDs and Xarelto for DVT prophylaxis. Hemoglobin, hematocrit and vital signs were monitored during his hospital stay and remained stable. He did not require any blood transfusions. There were no complications. By postoperative day 2, he was tolerating a regular diet. Pain was controlled with oral pain medicine. He was participating in physical therapy and had no signs or symptoms of deep vein thrombosis. On postop day 2, he was discharged home and set up with home health services, given printed discharge instructions including new prescriptions for extra strength Tylenol, MS Contin and oxycodone. Continue his home medications including Xarelto. He was instructed to stop aspirin, continue physical therapy, weightbearing as tolerated, SMITA stockings. Follow up in 10-12 days or sooner if there are any problems or concerns.
== END 2016-12-24 10:22 | disposition home health service (06) | DRG 470 ==
LOC: C.ACU 10:25 → C.3E 11:18 → ENRESERV 16:15
PROVIDERS: ADMIT Orthopaedic Surgery Sports Medicine; ATTEND Orthopaedic Surgery Sports Medicine
PROC: 0SRC0J9 Replacement of Right Knee Joint with Synthetic Substitute, Cemented, Open Approach (ICD-10-PCS; principal; 2016-12-22 12:45)
DX: M17.11 Unilateral primary osteoarthritis, right knee (principal); I48.92 Unspecified atrial flutter; I48.91 Unspecified atrial fibrillation; I11.9 Hypertensive heart disease without heart failure; J44.9 Chronic obstructive pulmonary disease, unspecified; G47.30 Sleep apnea, unspecified; E66.9 Obesity, unspecified; Z79.899 Other long term (current) drug therapy; Z79.01 Long term (current) use of anticoagulants; Z79.82 Long term (current) use of aspirin; Z68.38 Body mass index [BMI] 38.0-38.9, adult; Z87.891 Personal history of nicotine dependence

== ENCOUNTER → 2017-01-09 | Outpatient (CLI) | payer OTHER ==
[~2017-01-09] MED LIST changes: +ACET-24 PO; -ACETAMINOPHEN 500 MG TAB PO SCH; -ASPCH81X PO; -BUPIVACAINE 0.25% 30 ML VIAL ONE; -BUPIVACAINE 0.5 % 5 MG/1 ML PF 10ML VIAL ONE; -BUPIVACAINE LIPOSOME 266 MG, BUPIVACAINE/EPINEPHRINE INJ 50 ML, SODIUM CHLORIDE 0.9% PF... INFIL SCH; -CEFAZOLIN 2000 MG/60 ML D5W 60 ML IV SCH; -FAMOTIDINE 20 MG TAB PO SCH; -GABAPENTIN 300 MG CAP PO SCH; -GENERAL ORDER PROBLEM SCH; -LACTATED RINGER'S 1000ML 1,000 ML IV SCH; -LACTATED RINGER'S 1000ML 500 ML IV ONE; -LACTATED RINGER'S 1000ML IV SCH; -METOCLOPRAMIDE HCL 10 MG TAB PO SCH; +RXC5 PO; -SCOPOLAMINE 1.5 MG TDSY TD SCH
[2017-01-09 16:33] LABS: CHOLESTEROL/HDL RATIO 2.7
== END | disposition home or self-care (01) ==
LOC: C.LABPVFM 10:00
PROVIDERS: ATTEND Internal Medicine Cardiovascular Disease
DX: E78.00 Pure hypercholesterolemia, unspecified (principal)

== ENCOUNTER → 2017-04-25 | Outpatient (CLI) | payer BC | END | disposition home or self-care (01) | LOC: C.LABPVFM 12:52 | PROVIDERS: ATTEND Family Medicine | DX: R10.9 Unspecified abdominal pain (principal); N39.0 Urinary tract infection, site not specified ==

== ENCOUNTER → 2017-05-04 | Outpatient (CLI) | payer BC ==
[2017-05-04 18:15] LABS: BLOOD UREA NITROGEN 17 mg/dl (7-18); CALCIUM 9.1 mg/dl (8.5-10.1); CARBON DIOXIDE 26 mmol/L (21-32); CREATININE 0.96 mg/dl (0.60-1.40); GLUCOSE 91 mg/dl (70-99); SODIUM 134 mmol/L (136-145)
== END | disposition home or self-care (01) ==
LOC: C.LABPVFM 14:11
PROVIDERS: ATTEND Nurse Practitioner
DX: I10 Essential (primary) hypertension (principal)

== ENCOUNTER 2020-08-11 06:27 | Inpatient (IN) ==
--- NOTE | 2020-06-30 09:08 | PAT Medication Instructions ---
Medication Instructions Date of Service June 30, 2020 Home Medications Medication Instructions Recorded amoxicillin 500 mg tablet 2,000 mg PO ONCE #4 tab 06/06/19 albuterol sulfate 90 mcg/actuation 2 puff INHALATION Q4H PRN #18 gm 03/11/20 aerosol inhaler rivaroxaban 20 mg tablet 20 mg PO HS #90 tab 04/06/20 potassium chloride 20 mEq 20 meq PO QAM #90 tab 06/15/20 tablet,extended release ascorbic acid (vitamin C) 500 mg tablet 500 mg PO QPM coenzyme Q10 100 mg capsule 100 mg PO QAM fluticasone propionate 50 mcg/actuation nasal spray,suspension 2 sprays INTRANASAL DAILY PRN amoxicillin 500 mg tablet 2,000 mg PO ONCE acetaminophen 650 mg tablet,extended release 650 mg PO Q4H PRN Artichoke Extract 1 tab PO QAM vit C,M-Xb-zvepr-lutein-zeaxan [PreserVision AREDS-2] 1 tab PO BID albuterol sulfate 90 mcg/actuation aerosol inhaler 2 puff INHALATION Q4H PRN rivaroxaban 20 mg tablet 20 mg PO HS Barley Supplement 1 dose PO QPM amiodarone 100 mg PO QAM atenolol 25 mg PO BID cholecalciferol (vitamin D3) 2,000 units PO QAM fiber 1 cap PO QPM glucosamine sulfate [Glucosamine] 500 mg PO QPM hydrochlorothiazide 25 mg PO QAM multivitamin 1 tab PO QAM potassium chloride 20 mEq tablet,extended release 20 meq PO QAM Continue as directed amoxicillin 500 mg tablet 2,000 mg PO ONCE (prior to dental procedure) ASK your prescriber and surgeon rivaroxaban 20 mg tablet 20 mg PO HS STOP taking 2 weeks before surgery (or as soon as possible if surgery is within 2 weeks) coenzyme Q10 100 mg capsule 100 mg PO QAM Artichoke Extract 1 tab PO QAM vit C,Z-Qx-dnuqd-lutein-zeaxan [PreserVision AREDS-2] 1 tab PO BID glucosamine sulfate [Glucosamine] 500 mg PO QPM DO NOT take the morning of surgery cholecalciferol (vitamin D3) 2,000 units PO QAM hydrochlorothiazide 25 mg PO QAM multivitamin 1 tab PO QAM potassium chloride 20 mEq tablet,extended release 20 meq PO QAM Take morning of surgery With a small sip of water, OTHERWISE NOTHING TO EAT OR DRINK AFTER MIDNIGHT: fluticasone propionate 50 mcg/actuation nasal spray,suspension 2 sprays INTRANASAL DAILY PRN (if needed) acetaminophen 650 mg tablet,extended release 650 mg PO Q4H PRN (okay to take up to 4 hours prior to surgery if needed) albuterol sulfate 90 mcg/actuation aerosol inhaler 2 puff INHALATION Q4H PRN (use if needed; please bring rescue inhaler with you to hospital day of surgery if possible) amiodarone 100 mg PO QAM atenolol 25 mg PO BID Take evening before surgery ascorbic acid (vitamin C) 500 mg tablet 500 mg PO QPM fluticasone propionate 50 mcg/actuation nasal spray,suspension 2 sprays INTRANASAL DAILY PRN (if needed) acetaminophen 650 mg tablet,extended release 650 mg PO Q4H PRN (if needed) albuterol sulfate 90 mcg/actuation aerosol inhaler 2 puff INHALATION Q4H PRN (if needed) Barley Supplement 1 dose PO QPM atenolol 25 mg PO BID fiber 1 cap PO QPM Other Notes If you have any questions please call us at [phone] or [phone] or [phone] or [phone]
--- NOTE | 2020-07-01 10:51 | Anesthesiology Consultation ---
Date of Service July 01, 2020 Assessment & Plan (1) Encounter for pre-operative examination: - COVID screening: Per assessment on 07/01: Travel screen negative, no known COVID-19 positive contacts or current COVID-19 related symptoms. Patient fully vaccinated. Surgeon arranged preop COVID testing (done 07/01 at surgeon's office). Awaiting results. - Cardiology office visit (03/11/20): "The patient is stable from a cardiovascul ar standpoint. He demonstrates excellent control of his blood pressure and LDL cholesterol. He is tolerating rhythm control and long-term anticoagulation without difficulty." - Xarelto instructions: per surgeon/prescriber Chart Review Chart Review: Acceptable Risk for Surgery and Patient seen in Pre Admission Testing Teaching & Discussion Pre-Anesthesia Teaching/Discussion Notes: Instructed NPO after midnight before surgery,except medications with 15 cc of water. Medication instructions provided according to the PAT guidelines. History Surgery Operation Date: 07/07/20 08:50 Proposed Procedures p Percutaneous Endovascular Aneurysm Repair - Mohsen Juarez MD Height/Weight Height: 5 ft 7 in Weight: 128.1 kg Allergies Allergy/AdvReac Type Severity Reaction Status Date / Time lisinopril Allergy Severe Angioedema Verified 06/30/20 14:21 adhesive Allergy Unknown Rash Verified 06/11/20 09:23 latex Allergy Unknown Contact Verified 06/30/20 14:21 dermatitis SEASONAL Allergy Unknown Hayfever Uncoded 06/30/20 14:21 s/s Medications Home Medications Medication Instructions Recorded Confirmed Last Taken ascorbic acid (vitamin C) 500 mg 500 mg PO QPM tab 12/18/18 06/11/20 Unknown tablet coenzyme Q10 100 mg capsule 100 mg PO QAM cap 12/18/18 06/11/20 02/06/20 fluticasone propionate 50 2 sprays INTRANASAL DAILY PRN #16 12/18/18 06/11/20 Unknown mcg/actuation nasal gm spray,suspension amoxicillin 500 mg tablet 2,000 mg PO ONCE #4 tab 06/06/19 06/11/20 Unknown acetaminophen 650 mg 650 mg PO Q4H PRN tab 09/09/19 06/11/20 Unknown tablet,extended release Artichoke Extract 1 tab PO QAM 02/06/20 06/11/20 Unknown vit C,R-Oc-gcvot-lutein-zeaxan 1 tab PO BID 02/06/20 06/11/20 Unknown [PreserVision AREDS-2] albuterol sulfate 90 mcg/actuation 2 puff INHALATION Q4H PRN #18 gm 03/11/20 Unknown aerosol inhaler rivaroxaban 20 mg tablet 20 mg PO HS #90 tab 04/06/20 06/11/20 Unknown Barley Supplement 1 dose PO QPM 06/11/20 06/11/20 Unknown amiodarone 100 mg PO QAM 06/11/20 06/11/20 Unknown atenolol 25 mg PO BID 06/11/20 06/11/20 Unknown cholecalciferol (vitamin D3) 2,000 units PO QAM 06/11/20 06/11/20 Unknown fiber 1 cap PO QPM 06/11/20 06/11/20 Unknown glucosamine sulfate [Glucosamine] 500 mg PO QPM 06/11/20 06/11/20 Unknown hydrochlorothiazide 25 mg PO QAM 06/11/20 06/11/20 Unknown multivitamin 1 tab PO QAM 06/11/20 06/11/20 Unknown potassium chloride 20 mEq 20 meq PO QAM #90 tab 06/15/20 Unknown tablet,extended release Past Medical History Medical History AAA (abdominal aortic aneurysm) Infrarenal AAA (67 mm) per 05/2020 CTA Abdomen/Pelvis Atrial fibrillation follows with Dr. Stoddard; on xarelto Carotid artery stenosis mild <50% B/L ICA stenosis on recent imaging per vascular note (Dr. Juarez) COPD (chronic obstructive pulmonary disease) [place] (hard of hearing) B/L DONATO HTN (hypertension) Macular degeneration Morbid obesity Neuropathy Osteoarthritis Sleep apnea Bi-PAP Exercise / Class Metabolic Activity III < 4 Walking/Shop/Light housework Past Family History Family History Mother Breast cancer Other Family history of breast cancer No family history of adverse response to anesthesia Denies family history of Ovarian cancer Prostate cancer Myocardial infarction Colorectal cancer Past Surgical History Surgical History History of carpal tunnel release Right History of right knee joint replacement Right TKA (12/22/16): SAB at L3/L4 + PNB at [facility] Past Anesthesia History No Hx of Anesthesia Complications and No Family Hx of Anesthesia Complications History of PONV No Hx of PONV and No Hx of Motion Sickness Social History Smoking Status: Former smoker Do You Dip or Chew Tobacco: No Smoking End Date: Quit years ago Hx Alcohol Use: No Hx Substance Use: No substance use type: does not use Review of Systems Patient denies chest pain, shortness of breath, dyspnea on exertion, fever, chills, cough, wheezing, palpitations. Physical Exam Vital Signs VITALS BP 132/77 P 62 TEMP 97.8 SP02 94%RA RESP 18 PHYSICAL Full cervical extension range of motion. Full TMJ range of motion. TMD 2.5 finger breaths Mallampati Score 2 (large tongue) Dentition: several missing teeth including front teeth, poor dentition/broken teeth Lungs: clear throughout to auscultation Cardiac: regular rate and rhythm, distant heart sounds Spine: normal Carotid arteries: negative bruit Extremities: no edema Testing Laboratory Results 07/01/20 11:14 07/01/20 11:14 PT 11.6 Seconds (9.0-12.0) 07/01/20 11:14 INR 1.2 (0.9-1.1) H 07/01/20 11:14 APTT 38.2 Seconds (21.0-31.0) H 07/01/20 11:14 Blood Type A Positive 07/01/20 11:14 Antibody Screen NEGATIVE 07/01/20 11:14 Electrocardiogram Date: 02/06/20 NSR at 67bpm. iRBBB. No significant change compared to 09/2017 per test grader review. Chest X-Ray Date: 07/01/20 FINDINGS: The heart is mildly enlarged. There is stable mild interstitial thickening likely chronic. There is left basilar atelectasis/scarring. There is no acute parenchymal consolidation. There is no failure. Degenerative changes are present within the dorsal spine[ IMPRESSION: No active disease in the chest. Echocardiogram Date: 01/04/19 EF 60 to 65%. No significant valvular disease. Mild concentric LVH. No significant valvular pathology. Grade 1 diastolic dysfunction. Mild LAD. Compared to study dated 11/25/2016, no significant change per report. Other Testing Abdomen/Pelvix CTA: 05/25/20: Images to the lung bases reveal pulmonary emphysema with subpleural reticulation and microcysts is a 22 mm left lower lobe pulmonary cyst. There is a minimal increase in the size of a 16 mm solid right lower lobe pulmonary nodule. This nodule has been visualized studies dating back to 2012, and given the minimal growth is likely benign. Continued interval enlargement of an infrarenal abdominal aortic aneurysm, currently measuring 67 mm in diameter. There is hepatic steatosis.
--- NOTE | 2020-07-01 12:08 | XRay Report ---
XR chest Pre-admission PA/Lat CLINICAL HISTORY: Preoperative chest COMPARISON STUDY: 02/06/2020 FINDINGS: The heart is mildly enlarged. There is stable mild interstitial thickening likely chronic. There is left basilar atelectasis/scarring. There is no acute parenchymal consolidation. There is no failure. Degenerative changes are present within the dorsal spine[ IMPRESSION: No active disease in the chest. ACT 112: Negative or not required by law. Electronically signed by: Alan Aldana M.D. 07/01/2020 12:06 PM
[2020-07-01 12:38] LABS: Basophils # (auto) 0.02 K/uL (0-0.2); Basophils % (auto) 0.2 %; Eosinophils # (auto) 0.19 K/uL (0-0.5); Eosinophils % (auto) 2.3 %; Hematocrit (blood only) 46.7 % (42-52); Hemoglobin 15.9 g/dL (14.0-18.0); Immature Granulocytes # (auto) 0.02 K/uL (0.00-0.02); Immature Granulocytes % (auto) 0.2 %; Lymphocytes # (auto) 2.34 K/uL (1.2-3.4); Lymphocytes % (auto) 27.8 %; Mean Corpuscular Hemoglobin 30.2 pg (25-34); Mean Corpuscular Volume 88.8 fL (80-100); Mean Platelet Volume 10.5 fL (7.4-10.4); Monocytes # (auto) 1.07 K/uL (0.11-0.59); Monocytes % (auto) 12.7 %; Neutrophils # (auto) 4.79 K/uL (1.4-6.5); Neutrophils % (auto) 56.8 %; Platelet Count 199 K/uL (130-400); RDW Coefficient of Variation 14.5 % (11.5-14.5); RDW Standard Deviation 47.2 fL (36.4-46.3); Red Blood Count 5.26 M/uL (4.7-6.1); White Blood Count 8.43 K/uL (4.8-10.8)
[2020-07-01 12:49] LABS: INR 1.2 (0.9-1.1); Partial Thromboplastin Ratio 1.5; Partial Thromboplastin Time 38.2 Seconds (21.0-31.0); Prothrombin Time 11.6 Seconds (9.0-12.0)
[2020-07-01 12:56] LABS: BUN Creatinine Ratio 22.7 (10-20); Calcium 9.1 mg/dl (8.5-10.1); Creatinine Clr Calc Pharmacy 98.4 ml/min; Est GFR (African American) 99.7; Potassium 4.2 mmol/L (3.5-5.1)
--- NOTE | 2020-08-11 06:16 | History & Physical Report ---
Date of Service August 11, 2020 Assessment & Plan (1) AAA (abdominal aortic aneurysm) without rupture: Patient admitted for a PEVAR of his AAA. I have discussed the risks options and benefits of the procedure with the patient. The patient understands the risks options and benefits and agrees to the procedure. History of Present Illness Primary Care Provider: Shweta Loyd MD Mr. Ghosh is an elderly male who presents to Dr. Juarez's vascular surgery clinic today for a 1 year follow-up visit regarding his abdominal aortic aneurysm and carotid stenosis. He underwent carotid ultrasound prior to today's appointment which continues to demonstrate less than 50% stenosis of his of bilateral internal carotid arteries, although there is calcified plaque at the bifurcation. His aortoiliac ultrasound continues to demonstrate an infrarenal abdominal aortic aneurysm, however, it appears to be measuring 5.6 x 5.7 cm, which is an increase compared to the ultrasound from last year of about 2 mm. When his initial surveillance ultrasound had indicated his aneurysm to be over 5 cm approximately 3 or 4 years ago, patient was sent for a CT angiogram which demonstrated a tortuous aorta that did not appear to be over 5 cm. Ultrasounds performed since that time had not demonstrated significant changes until this year. Patient continues to have problems with macular degeneration, and recent ly underwent injection in his right eye which is causing him some discomfort today. He denies any new neurological symptoms, including amaurosis, extremity weakness numbness or tingling, sudden onset confusion, difficulty speaking or swallowing, facial droop. Additionally he continues to have some knee discomfort but denies any lower extremity claudication, rest pain, nonhealing wounds or ulcers, other complaints. Allergies Allergy/AdvReac Type Severity Reaction Status Date / Time lisinopril Allergy Severe Angioedema Verified 07/03/20 11:04 adhesive Allergy Unknown Rash Verified 07/03/20 11:04 latex Allergy Unknown Contact Verified 07/03/20 11:04 dermatitis SEASONAL Allergy Unknown Hayfever Uncoded 07/03/20 11:04 s/s Home Medications Medication Instructions Recorded Confirmed Type ascorbic acid (vitamin C) 500 mg 500 mg PO QPM tab 12/18/18 07/03/20 History tablet coenzyme Q10 100 mg capsule 100 mg PO QAM cap 12/18/18 07/03/20 History fluticasone propionate 50 2 sprays INTRANASAL DAILY PRN #16 12/18/18 07/03/20 History mcg/actuation nasal gm spray,suspension amoxicillin 500 mg tablet 2,000 mg PO ONCE #4 tab 06/06/19 07/03/20 Rx acetaminophen 650 mg 650 mg PO Q4H PRN tab 09/09/19 07/03/20 History tablet,extended release Artichoke Extract 1 tab PO QAM 02/06/20 07/03/20 History vit C,M-Uz-bsutk-lutein-zeaxan 1 tab PO BID 02/06/20 07/03/20 History [PreserVision AREDS-2] albuterol sulfate 90 mcg/actuation 2 puff INHALATION Q4H PRN #18 gm 03/11/20 07/03/20 Rx aerosol inhaler rivaroxaban 20 mg tablet 20 mg PO HS #90 tab 04/06/20 07/03/20 Rx Barley Supplement 1 dose PO QPM 06/11/20 07/03/20 History amiodarone 100 mg PO QAM 06/11/20 07/03/20 History atenolol 25 mg PO BID 06/11/20 07/03/20 History cholecalciferol (vitamin D3) 2,000 units PO QAM 06/11/20 07/03/20 History fiber 1 cap PO QPM 06/11/20 07/03/20 History glucosamine sulfate [Glucosamine] 500 mg PO QPM 06/11/20 07/03/20 History hydrochlorothiazide 25 mg PO QAM 06/11/20 07/03/20 History multivitamin 1 tab PO QAM 06/11/20 07/03/20 History potassium chloride 20 mEq 20 meq PO QAM #90 tab 06/15/20 07/03/20 Rx tablet,extended release Past Med/Surg History Medical History AAA (abdominal aortic aneurysm) Infrarenal AAA (67 mm) per 05/2020 CTA Abdomen/Pelvis Atrial fibrillation follows with Dr. Stoddard; on xarelto Carotid artery stenosis mild <50% B/L ICA stenosis on recent imaging per vascular note (Dr. Juarez) COPD (chronic obstructive pulmonary disease) [place] (hard of hearing) B/L DONATO HTN (hypertension) Macular degeneration Morbid obesity Neuropathy Osteoarthritis Sleep apnea Bi-PAP Surgical History History of carpal tunnel release Right History of right knee joint replacement Right TKA (12/22/16): SAB at L3/L4 + PNB at [facility] Family History Mother Breast cancer Other Family history of breast cancer No family history of adverse response to anesthesia Denies family history of Ovarian cancer Prostate cancer Myocardial infarction Colorectal cancer Social History Smoking Status: Never smoker Second Hand Exposure: No; Hx Alcohol Use: No Hx Substance Use: No Preferred Language: Czech Communication Ability: Effective Steel Fabricator Required: No Beliefs That Will Affect Care: None marital status: Current Living Situation: Spouse Feels Safe at Home: Yes Dental Care, Regularly: Yes Seatbelt Use: always Assistive Devices: Cane, Glasses and Hearing Aid - Bilateral Review of Systems All systems reviewed & are unremarkable except as noted in HPI & below Physical Exam Physical Exam: Constitutional: In general patient is an obese but generally healthy-appearing well-nourished well-developed elderly male no distress. He is alert and oriented without any focal deficits. His heart is irregular, lungs are clear throughout. He does have a faint bilateral carotid bruits. His abdomen is soft and nontender, but is protuberant due to body habitus, was also inhibits the ability to palpate his aneurysm. Femoral pulses are +3 bilaterally. Lower extremities the pulses are +1. His brisk capillary refill and no sign of distal ischemia. There is trace edema at the ankles
[~2020-08-11 06:27] MED LIST changes: -ACET-24 PO; -ACET650S10 PO; -AMIO0.1T PO; -ARTICHOKE PO; -ASCA500 PO; -ATEN-174 PO; +CEFAZOLIN IV SCH; -COEN100C7 PO; +DEXTROSE IV SCH; -FIBER PO; -FLUT0.15 NAE; -GLUC10007 PO; -HYDR25TA4 PO; +LACTATED RINGER'S 1,000 ML IV SCH; -LECI1200 PO; +LR 15ML/HR IV SCH; -MULT-506 PO; -POTA20TA13 PO; -RANI150T3 PO; -RIVA1TAB4 PO; -RXC5 PO
[2020-08-11] MEDS ORDERED: ACETAMINOPHEN 1000 MG/100 ML IV IV ONE (07:20)
[2020-08-11] MEDS ORDERED: ROCURONIUM BROMIDE 10 MG/ML 5 ML VIAL IV ONE ×3 (07:21→09:29)
[2020-08-11] MEDS ORDERED: MIDAZOLAM HCL 1 MG/ML 2ML VIAL ONE (07:29)
[2020-08-11] MEDS ORDERED: fentaNYL citrate 100 MCG/2 ML VIAL ONE (07:30)
--- NOTE | 2020-08-11 07:39 | History & Physical Bridge Note ---
Date of Service August 11, 2020 History & Physical Bridge Note I have examined the patient, reviewed the History & Physical and in the interval since the performance of the History & Physical I have noted the following changes of clinical significance: no changes noted
[2020-08-11] MEDS ORDERED: fentaNYL citrate 100 MCG/2 ML VIAL IV PRN (08:58)
[2020-08-11] MEDS ORDERED: ONDANSETRON INJ 2 MG/ML 2 ML VIAL IV PRN ×2 (08:58→11:37)
[2020-08-11] MEDS ORDERED: ePHEDrine sulfate 50 MG/ML AMP IV PRN (08:58)
[2020-08-11] MEDS ORDERED: ATROPINE SULFATE 0.1 MG/ML 10ML SYR IV PRN (08:58)
--- NOTE | 2020-08-11 09:00 | Procedure Note ---
Procedure Note Date of Service August 11, 2020 Radial arterial line placed in OR 12 after induction in preparation for PEVAR with Dr. Juarez. Left wrist prepped with chlorhexidine and draped with sterile towels. 20 G angiocath placed under sterile technique utilizing sterile gloves, surgical hats and masks. Catheter threaded using seldinger technique with return of pulsatile, bright red blood. Site covered with occlusive dressing and taped in place. Waveform consistent with correct arterial placement. After placement, fingers of procedural hand had normal perfusion. Patient tolerated procedure well without complications. Mansi Adorno MD, PhD Anesthesiologist Coding
[2020-08-11] MEDS ORDERED: PROPOFOL IV EMULSION 10 MG/ML 20 ML VIAL IV ONE (09:01)
[2020-08-11] MEDS ORDERED: LIDOCAINE 2% 2 ML VIAL/AMP(20MG/ML) INFIL ONE (09:02)
[2020-08-11] MEDS ORDERED: ePHEDrine sulfate 50 MG/ML AMP ONE ×2 (09:02→09:42)
[2020-08-11] MEDS ORDERED: PHENYLEPHRINE HCL 10 MG/ML VIAL ONE (09:02)
[2020-08-11] MEDS ORDERED: EPINEPHrine INJ 1 MG/ML AMP ONE (09:02)
[2020-08-11] MEDS ORDERED: ONDANSETRON INJ 2 MG/ML 2 ML VIAL ONE (09:28)
[2020-08-11] MEDS ORDERED: VISIPAQUE IV PRN (10:01)
[2020-08-11] MEDS ORDERED: ARISTA ABSORBABLE HEMOSTAT 3GM TOP ONE (10:01)
[2020-08-11] MEDS ORDERED: SUGAMMADEX SODIUM 200 MG/2 ML VIAL IV ONE (10:04)
--- NOTE | 2020-08-11 10:09 | Operative Report ---
Post Operative Report Pre & Post Diagnosis Operation Date: 08/11/20 08:00 Pre-Op Diagnosis: Abdominal Aortic Aneurysm Post-Op Diagnosis: Abdominal Aortic Aneurysm I identified the patient and participated in the time-out.: Yes Procedure Operation Date: 08/11/20 08:00 Actual Procedures p Percutaneous Endovascular Aneurysm Repair, Percutaneous Approach Bilateral, Ultrasound Localization Of Right Femoral Arteries(Bilateral) - Mohsen Juarez MD Surgeon Mohsen Juarez MD Carpenter Apprentice Simi,PAC Estimated Blood Loss 100 Findings Consistent with Post-Op Diagnosis Specimens none Anesthesia Type General Complications none Disposition Accompanied Patient To Recovery: No Disposition: Recovery Room Indications This 75-year-old gentleman with a large abdominal aortic aneurysm. Endovascular pair is recommended. I have discussed the risks options and benefits of the procedure with the patient. The patient understands the risks options and benefits and agrees to the procedure. Description of Procedure The patient was taken to the operating room and placed in supine position. After general anesthesia was accomplished the groins were prepped and draped in a sterile manner. The patient was identified and a timeout was performed. Using ultrasound the right common femoral artery was identified. It was patent. Under ultrasound guidance a puncture was made of the right common femoral artery. A 5 Canadian sheath was inserted. Arteriography was performed showing the puncture to be in the common femoral artery proper. 2 Pro-glide devices w ere then placed in the right common femoral artery at 10:00 and 2:00. The sheath was exchanged an 8 Canadian sheath. Same procedure was done on the left side. The artery was punctured without the use of ultrasound due to knowing where the common femoral location was because of the right side. A 5 Canadian sheath was inserted. Arteriography confirmed that the puncture was in the common femoral artery proper. 2 pro glide devices were then placed again at 10:00 and 2:00. 8 Canadian sheath was then inserted. 035 Glidewire was inserted through the right groin. This was passed up into the infrarenal aortic neck. Kumpe catheter was then passed over the wire. The wire was exchanged to a Dominguez wire. The 8 Canadian sheath was removed. Used a 12 Canadian dilator followed by a 16 Canadian dry seal sheath into the right groin. Next the 035 wire was passed up the left groin again followed by a Kumpe. Dominguez wire was exchanged for the 035 wire and placed in the suprarenal aorta. The Kumpe was removed. The 8 Canadian sheath was removed using a 12 Canadian 16 Canadian dilators the puncture site was dilated. 18 Canadian dry seal sheath was then inserted. Pigtail was then passed up the right groin. Arteriography was performed showing the renal artery origins. The excluder device was placed up the left groin. We used a 28.5 x 14-1/2 x 16 cm C3. This was placed right at the inferior margin of the renal arteries. It was deployed at that level. Arteriography then confirmed the positioning to be just below the renals. The pigtail was pulled out into the sac and the hooks deployed. We then tried to cannulate the gate from the right side. The gate cannot be cannulated after using multiple wires. We then passed an 035 followed by a fine's supervisor screen making the left groin after deploying the left limb. Arteriography was performed prior to deployment to reyes the internal iliac artery origins. The graft was pushed up slightly so deployed just in front of the internal iliac origin. Once this was done using the fine's hook the 035 wire was passed down through the gate. 25 mm snare was then passed up the right groin and the wire snared. Wire was brought out through the right groin. Kumpe catheter was then inserted up to the main body. The wire was removed and a stiff wire was inserted. Pigtail was inserted over the wire. The sheath was pulled back into the external iliac. An injection confirmed the location of the internal iliac artery. It was decided to use a 16 x 23 x 10 mm contralateral limb. 12 Canadian sheath was reinserted over the wire and the sheath advanced into the gate. The device was then inserted. Sheath was pulled back and the device was deployed in the appropriate position. After this was done the Q50 balloon was passed up the left side. All attachment sites and overlaps were then ballooned without difficulty. The balloon was passed up the left groin and the left groin attachment sites were then ballooned. Pigtail was then reinserted. Completion arteriogram was then performed which showed a small type II endoleak in the midportion. No type I endoleak's were noted. Good flow was seen through the graft. The and an 035 wire was then reinserted and the pigtail removed. The 16 Canadian sheath was then pulled and the proglide sutures tied. Added hemostasis was noted on the right side. Same was done on the left side. Again active hemostasis was noted. Pressure dressings were then applied to the groins.The patient left the operation room in satisfactory condition and tolerated the procedure well. All needle and sponge counts were correct at the end of the procedure. [place] Barnes Pac assisted due to lack of resident availability and was necessary for positioning, draping, retraction, wound closure deep layers, subcutaneous tissue, and skin closure and was necessary for assisting with the case. I attest to the content of the Intraoperative Record and any orders documented therein. Any exceptions are noted below.
[2020-08-11] MEDS ORDERED: ALBUTEROL HFA 8 GM INHALER INH PRN (11:37)
[2020-08-11] MEDS ORDERED: NON-FORMULARY MEDICATION (Amoxicillin 500 mg tablet) PO SCH (11:37)
[2020-08-11] MEDS ORDERED: FLUTICASONE PROPIONATE NA SPR 16 GM BTL PRN (11:37)
--- NOTE | 2020-08-11 11:42 | Anesthesiology Progress Note ---
Date of Service August 11, 2020 Anesthesia Post Procedure Vital Signs Vital Signs: Temp Pulse Pulse Resp BP BP Pulse Ox 08/11/20 11:05 36.2 C L 61 18 144/61 H 93 08/11/20 11:00 65 22 150/69 H 92 08/11/20 10:50 66 18 141/61 H 92 08/11/20 10:40 66 22 137/66 92 08/11/20 10:30 71 20 147/67 H 93 08/11/20 10:20 36.2 C L 72 15 119/62 94 08/11/20 07:25 36.9 C 73 22 153/81 H 94 Pain Intensity Right Leg: Pain Intensity: 6 Transfer of Care Handoff Completed per policy Notes Mental Status: alert / awake / arousable and participated in evaluation Patient Amnestic to Procedure: Yes Nausea / Vomiting: adequately controlled Pain: adequately controlled Airway Patency, RR, SpO2: stable & adequate BP & HR: stable & adequate Hydration State: stable & adequate Anesthetic Complications: no major complications apparent and Pt Satisfied with anesthetic care
--- NOTE | 2020-08-11 11:43 | Critical Care Consultation ---
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 He is doing well clinically. Recommendations: 1. Endovascular repair of aortic aneurysm: Management per vascular surgery. Will defer blood pressure management to them. 2. Sleep disordered breathing: Patient states his has his BiPAP unit. I will have them bring it in and use it when the patient is sleeping. Were unable to get his unit, empiric BiPAP will be used when the patient is sleeping. 3. Atrial fibrillation: Rate controlled currently. Continue amiodarone. Blood pressure medications per vascular surgery. Anticoagulation per vascular surgery 4. COPD: Not bronchospastic currently. Continue outpatient regiment. As needed duo nebs. Incentive spirometry and out of bed as tolerated. 5. Await postoperative labs and will make additional changes to the medical regimen as needed. Thanks for the opportunity to participate in the care of this patient. Feel free to contact us with additional critical care questions. History of Present Illness Attending Physician: Mohsen Juarez MD History of Present Illness Asked by vascular surgery to assist in management of this patient postoperative endovascular repair of an aortic aneurysm. History is obtained from discussion with the patient as well as review of the electronic medical record. The patient is a 75-year-old male who is been followed in the vascular clinic for an abdominal aortic aneurysm as well as carotid stenosis. Recent imaging demonstrated that the abdominal aneurysm was increasing in size and the patient was felt appropriate to undergo endovascular repair. He was taken to the OR today where he underwent endovascular repair of the aortic aneurysm. He returns to the ICU awake alert and conversant without neurological complaints. His blood pressure has been stable. He denies nausea vomiting chest pain palpitations or significant shortness of breath. Patient has a history of advanced COPD and is under the care of Dr. Osorio. He also has significant sleep disordered breathing treated with auto titrating BiPAP. Allergies Allergy/AdvReac Type Severity Reaction Status Date / Time lisinopril Allergy Severe Angioedema Verified 08/11/20 06:59 adhesive Allergy Unknown Rash Verified 08/11/20 06:59 latex Allergy Unknown Contact Verified 08/11/20 06:59 dermatitis SEASONAL Allergy Unknown Hayfever Uncoded 08/11/20 06:59 s/s Home Medications Medication Instructions Recorded Confirmed Type ascorbic acid (vitamin C) 500 mg 500 mg PO QPM tab 12/18/18 08/11/20 History tablet coenzyme Q10 100 mg capsule 100 mg PO QAM cap 12/18/18 08/11/20 History fluticasone propionate 50 2 sprays INTRANASAL DAILY PRN #16 12/18/18 08/11/20 History mcg/actuation nasal gm spray,suspension amoxicillin 500 mg tablet 2,000 mg PO ONCE #4 tab 06/06/19 08/11/20 Rx acetaminophen 650 mg 650 mg PO Q4H PRN tab 09/09/19 08/11/20 History tablet,extended release Artichoke Extract 1 tab PO QAM 02/06/20 08/11/20 History vit C,N-Ol-pmxxh-lutein-zeaxan 1 tab PO BID 02/06/20 08/11/20 History [PreserVision AREDS-2] albuterol sulfate 90 mcg/actuation 2 puff INHALATION Q4H PRN #18 gm 03/11/20 07/03/20 Rx aerosol inhaler rivaroxaban 20 mg tablet 20 mg PO HS #90 tab 04/06/20 08/11/20 Rx Barley Supplement 1 dose PO QPM 06/11/20 08/11/20 History amiodarone 100 mg PO QAM 06/11/20 08/11/20 History atenolol 25 mg PO BID 06/11/20 08/11/20 History fiber 1 cap PO QPM 06/11/20 08/11/20 History glucosamine sulfate [Glucosamine] 500 mg PO QPM 06/11/20 08/11/20 History hydrochlorothiazide 25 mg PO QAM 06/11/20 08/11/20 History multivitamin 1 tab PO QAM 06/11/20 08/11/20 History potassium chloride 20 mEq 20 meq PO QAM #90 tab 06/15/20 08/11/20 Rx tablet,extended release Patient History Medical History AAA (abdominal aortic aneurysm) Infrarenal AAA (67 mm) per 05/2020 CTA Abdomen/Pelvis Atrial fibrillation follows with Dr. Stoddard; on xarelto Carotid artery stenosis mild <50% B/L ICA stenosis on recent imaging per vascular note (Dr. Juarez) COPD (chronic obstructive pulmonary disease) [place] (hard of hearing) B/L DONATO HTN (hypertension) Macular degeneration Morbid obesity Neuropathy Osteoarthritis Sleep apnea Bi-PAP Surgical History History of carpal tunnel release Right History of right knee joint replacement Right TKA (12/22/16): SAB at L3/L4 + PNB at [facility] Family History Mother Breast cancer Other Family history of breast cancer No family history of adverse response to anesthesia Denies family history of Ovarian cancer Prostate cancer Myocardial infarction Colorectal cancer Social History Smoking Status: Never smoker Smoking End Date: Quit years ago; Second Hand Exposure: No; Do You Dip or Chew Tobacco: No; Tobacco Cessation Education Requested by Patient: No Hx Alcohol Use: No Hx Substance Use: No Preferred Language: Faroese Communication Ability: Effective Smoking Pipe Coater Required: No Beliefs That Will Affect Care: None marital status: Current Living Situation: Spouse Feels Safe at Home: Yes Safety Concerns: Feels Safe At This Time Dental Care, Regularly: Yes Seatbelt Use: always Assistive Devices: Cane, Glasses and Hearing Aid - Bilateral Review of Systems Review of Systems: See H&P. No changes Physical Exam Constitutional: WD/WN, vitals as above + obese Neck: trachea midline, no thyromegaly Respiratory: normal respiratory effort, lungs clear to auscultation Cardiovascular: RRR, no murmur, no edema Gastrointestinal (Abdomen): normal bowel sounds, soft, nontender, no hepatosplenomegaly Musculoskeletal: Extremities: extremities normal to inspection Skin: no rashes, warm and dry Neurologic: Nonfocal exam Lymphatic: no cervical lymphadenopathy Results & Data Results & Data ([facility]) Vital Signs (Past 12 Hours) Vital Signs Temp Pulse Pulse Resp BP BP Pulse Ox 08/11/20 11:05 36.2 C L 61 18 144/61 H 93 08/11/20 11:00 65 22 150/69 H 92 08/11/20 10:50 66 18 141/61 H 92 08/11/20 10:40 66 22 137/66 92 08/11/20 10:30 71 20 147/67 H 93 08/11/20 10:20 36.2 C L 72 15 119/62 94 08/11/20 07:25 36.9 C 73 22 153/81 H 94 Laboratory Results 07/01/20 11:14 07/01/20 11:14 Postoperative labs are currently pending Diagnostic Findings Preoperative chest x-ray from 07/01/2020 was reviewed. Lungs are well aerated without focal airspace opacity or interstitial markings. Coding Level of Care Code 66819 Inpt Consult Level 4 Diagnoses AAA (abdominal aortic aneurysm) without rupture I71.4 Paroxysmal atrial fibrillation I48.0 COPD (chronic obstructive pulmonary disease) case management patient J44.9 GERRY (obstructive sleep apnea) G47.33 Time Spent (min) 45
[2020-08-11 11:48] LABS: Hematocrit (blood only) 45.2 % (42-52); Hemoglobin 14.9 g/dL (14.0-18.0)
[2020-08-11] MEDS ORDERED: ACETAMINOPHEN 325 MG TAB PO PRN (12:04)
[2020-08-11] MEDS: MoRPHine SULFATE 4 MG/ML 1 ML CARP\\VIAL IV PRN ×2 (12:11→15:18)
[2020-08-11] MEDS ORDERED: NEOSTIGMINE METHYLSULFATE 1 MG/ML 10ML VIAL ONE (12:15)
[2020-08-11] MEDS ORDERED: GLYCOPYRROLATE 0.2 MG/ML VIAL ONE (12:15)
[2020-08-11] MEDS ORDERED: HEPARIN SOD (PORCINE) 1000 UNIT/ML ONE (12:16)
[2020-08-11] MEDS: D5W AND 1/2NSS 1,000 ML IV SCH ×2 (12:33→20:42)
[2020-08-11] MEDS: ceFAZolin 2000MG 2,000 MG/15 ML SYR IV SCH ×2 (15:17→23:57)
[2020-08-11] MEDS: oxyCODONE/ACETAMINOPHEN 5mg/325mg TAB PO PRN (19:51)
[2020-08-11] MEDS: ATENOLOL 25 MG TABLET PO SCH (19:53)
[2020-08-11] MEDS: MULTIVITAMIN TAB PO SCH (19:54)
[2020-08-11] MEDS: CEROVITE ADV FORMULA TAB PO SCH (19:55)
[2020-08-11] MEDS ORDERED: [UNRECOGNIZED DRUG - OTHER] PO SCH (21:00)
[2020-08-11] MEDS ORDERED: ASCORBIC ACID 500 MG TAB PO SCH (21:00)
[2020-08-11] MEDS ORDERED: RIVAROXABAN 20 MG TAB PO SCH (21:00)
[2020-08-11] MEDS ORDERED: GLUCOSAMINE SULFATE 500 MG CAP PO SCH (21:00)
[2020-08-11] MEDS ORDERED: NON-FORMULARY MEDICATION (Fiber Capsule) PO SCH (21:00)
[2020-08-12] MEDS: oxyCODONE/ACETAMINOPHEN 5mg/325mg TAB PO PRN ×2 (00:09→08:23)
[2020-08-12] MEDS: D5W AND 1/2NSS 1,000 ML IV SCH ×2 (02:08→10:39)
[2020-08-12 05:12] LABS: Basophils # (auto) 0.02 K/uL (0-0.2); Basophils % (auto) 0.2 %; Eosinophils % (auto) 1.8 %; Hematocrit (blood only) 46.6 % (42-52); Hemoglobin 14.9 g/dL (14.0-18.0); Immature Granulocytes # (auto) 0.03 K/uL (0.00-0.02); Immature Granulocytes % (auto) 0.3 %; Lymphocytes # (auto) 1.74 K/uL (1.2-3.4); Lymphocytes % (auto) 15.2 %; Mean Corpuscular Volume 90.7 fL (80-100); Mean Platelet Volume 10.2 fL (7.4-10.4); Monocytes % (auto) 12.3 %; Neutrophils # (auto) 8.03 K/uL (1.4-6.5); Neutrophils % (auto) 70.2 %; Platelet Count 184 K/uL (130-400); RDW Coefficient of Variation 14.4 % (11.5-14.5); RDW Standard Deviation 48.1 fL (36.4-46.3); Red Blood Count 5.14 M/uL (4.7-6.1); White Blood Count 11.42 K/uL (4.8-10.8)
[2020-08-12 05:27] LABS: BUN Creatinine Ratio 17.6 (10-20); Calcium 8.4 mg/dl (8.5-10.1); Creatinine Clr Calc Pharmacy 101.5 ml/min; Est GFR (African American) 100.7 ml/min; Est GFR (Non-African American) 86.9 ml/min; Potassium 4.5 mmol/L (3.5-5.1)
[2020-08-12] MEDS: CEROVITE ADV FORMULA TAB PO SCH (08:21)
[2020-08-12] MEDS: MULTIVITAMIN TAB PO SCH (08:21)
[2020-08-12] MEDS: ATENOLOL 25 MG TABLET PO SCH (08:21)
[2020-08-12] MEDS ORDERED: NON-FORMULARY MEDICATION (Coenzyme Q10 100 mg capsule) PO SCH (09:00)
[2020-08-12] MEDS ORDERED: POTASSIUM CHLORIDE CRTAB 20 MEQ TABCR PO SCH (09:00)
[2020-08-12] MEDS ORDERED: ARTICHOKE EXTRACT PO SCH (09:00)
[2020-08-12] MEDS ORDERED: hydroCHLOROthiazide 25 MG TAB PO SCH (09:00)
[2020-08-12] MEDS ORDERED: AMIODARONE 200 MG TAB PO SCH (09:00)
--- NOTE | 2020-08-12 10:10 | Pulmonology Progress Note ---
Date of Service August 12, 2020 Assessment & Plan (1) AAA (abdominal aortic aneurysm) without rupture: (2) Paroxysmal atrial fibrillation: (3) COPD (chronic obstructive pulmonary disease) case management patient: (4) GERRY (obstructive sleep apnea): Impression: 75-year-old male with severe COPD and GERRY/overlap syndrome postop day 1 endovascular repair of an aneurysm. He is doing well clinically. Recommendations: 1. Endovascular repair of aortic aneurysm: Management per vascular surgery. Will defer blood pressure management to them. 2. Sleep disordered breathing: Continue home BiPAP when sleeping 3. Atrial fibrillation: Rate controlled currently. Continue amiodarone. Blood pressure medications per vascular surgery. Anticoagulation per vascular surgery 4. COPD: Not bronchospastic currently. Continue outpatient regiment. As needed duo nebs. Incentive spirometry and out of bed as tolerated. Can follow- up with his outpatient pediatrician managing partner as needed Patient appears to be doing well clinically. Disposition per vascular surgery. His critical care issues appear to have resolved. Critical care services will sign off. Feel free to contact us if we can be of additional assistance Admission and Anticipated Discharge Date Admission Date: August 11, 2020 Subjective Patient seen and examined. EMR reviewed. Discussed with patient and critical c are nurse at bedside. The patient is doing well clinically. He denies any chest pain palpitations or shortness of breath. He is tolerating a diet. No abdominal pain. No significant paresthesias or numbness. Review of Systems Review of Systems: All systems reviewed & are unremarkable except as noted in HPI & below Physical Exam Constitutional: WD/WN, vitals as above + obese Neck: trachea midline, no thyromegaly Respiratory: normal respiratory effort, lungs clear to auscultation Cardiovascular: RRR, no murmur, no edema Gastrointestinal (Abdomen): normal bowel sounds, soft, nontender, no hepatosplenomegaly Musculoskeletal: Extremities: extremities normal to inspection Skin: no rashes, warm and dry Lymphatic: no cervical lymphadenopathy Results & Data Results & Data ([facility]) Vital Signs (Past 12 Hours) Vital Signs Temp Pulse Resp BP Pulse Ox 08/12/20 09:23 36.8 C 08/12/20 09:00 76 25 H 113/46 L 90 08/12/20 08:01 78 127/53 L 91 08/12/20 08:00 83 25 H 91 05/19/21 07:00 75 22 118/49 L 91 08/12/20 06:04 80 19 90 08/12/20 06:03 79 24 132/67 91 08/12/20 05:00 70 23 117/58 L 92 08/12/20 04:00 36.9 C 68 21 118/57 L 93 08/12/20 03:00 66 22 115/57 L 92 08/12/20 02:00 71 21 113/52 L 91 08/12/20 01:00 69 23 117/54 L 90 08/12/20 00:00 36.8 C 78 27 H 138/68 92 08/11/20 23:00 67 25 H 122/58 L 90 Laboratory Results 08/12/20 04:52 08/12/20 04:52 Diagnostic Findings No new imaging PG Care Time/CCT Total # of Minutes Spent Total Time Spent with Patient: Total time spent is greater than 50% in coordination of care (as documented) at patient's floor/unit and/or counseling patient: Coding Level of Care Code 87765 Subseq Hosp Care Lvl 2 Diagnoses AAA (abdominal aortic aneurysm) without rupture I71.4 Paroxysmal atrial fibrillation I48.0 COPD (chronic obstructive pulmonary disease) case management patient J44.9 GERRY (obstructive sleep apnea) G47.33
[2020-08-12] MEDS: MoRPHine SULFATE 4 MG/ML 1 ML CARP\\VIAL IV PRN (11:49)
--- NOTE | 2020-08-12 12:21 | Surgery Progress Note ---
Date of Service August 12, 2020 Assessment & Plan (1) AAA (abdominal aortic aneurysm) without rupture: Post endovascular repair of his AAA. Doing well. d/c today Admission and Anticipated Discharge Date Admission Date: August 11, 2020 Subjective Awake and alert. Up in chair. No complaints. Physical Exam Constitutional: well developed and well nourished Respiratory: normal respiratory effort Cardiovascular: Rate/Rhythm: regular rate and regular rhythm Gastrointestinal (Abdomen): Inspection/Auscultation: abdomen normal to inspection Percussion/Palpation: abdomen soft; abdomen nontender Skin: + incision (dry and clean, no hematomas) Results & Data ([facility]) Vital Signs (Past 12 Hours) Vital Signs Temp Pulse Resp BP Pulse Ox 08/12/20 10:01 75 24 90 08/12/20 10:00 72 26 H 119/47 L 91 08/12/20 09:23 36.8 C 08/12/20 09:00 76 25 H 113/46 L 90 08/12/20 08:01 78 127/53 L 91 08/12/20 08:00 83 25 H 91 08/12/20 07:00 75 22 118/49 L 91 08/12/20 06:04 80 19 90 08/12/20 06:03 79 24 132/67 91 08/12/20 05:00 70 23 117/58 L 92 08/12/20 04:00 36.9 C 68 21 118/57 L 93 08/12/20 03:00 66 22 115/57 L 92 08/12/20 02:00 71 21 113/52 L 91 08/12/20 01:00 69 23 117/54 L 90
--- NOTE | 2020-08-14 08:43 | Discharge Summary ---
Date of Service August 14, 2020 Admission HPI Per Admitting Provider Mr. Ghosh is an elderly male who presents to Dr. Juarez's vascular surgery clinic today for a 1 year follow-up visit regarding his abdominal aortic aneurysm and carotid stenosis. He underwent carotid ultrasound prior to today's appointment which continues to demonstrate less than 50% stenosis of his of bilateral internal carotid arteries, although there is calcified plaque at the bifurcation. His aortoiliac ultrasound continues to demonstrate an infrarenal abdominal aortic aneurysm, however, it appears to be measuring 5.6 x 5.7 cm, which is an increase compared to the ultrasound from last year of about 2 mm. When his initial surveillance ultrasound had indicated his aneurysm to be over 5 cm approximately 3 or 4 years ago, patient was sent for a CT angiogram which demonstrated a tortuous aorta that did not appear to be over 5 cm. Ultrasounds performed since that time had not demonstrated significant changes until this year. Patient continues to have problems with macular degeneration, and recently underwent injection in his right eye which is causing him some discomfort today. He denies any new neurological symptoms, including amaurosis, extremity weakness numbness or tingling, sudden onset confusion, difficulty speaking or swallowing, facial droop. Additionally he continues to have some knee discomfort but denies any lower extremity claudication, rest pain, nonhealing wounds or ulcers, other complaints. Admission Exam Per Admitting Provider Constitutional: In general patient is an obese but generally healthy-appearing well-nourished well-developed elderly male no distress. He is alert and oriented without any focal deficits. His heart is irregular, lungs are clear throughout. He does have a faint bilateral carotid bruits. His abdomen is soft and nontender, but is protuberant due to body habitus, was also inhibits the ability to palpate his aneurysm. Femoral pulses are +3 bilaterally. Lower extremities the pulses are +1. His brisk capillary refill and no sign of distal ischemia. There is trace edema at the ankles Principal Diagnosis 1. s/p PEVAR 2. AAA Discharge Exam Constitutional well developed and well nourished Respiratory normal respiratory effort Cardiovascular Rate/Rhythm: regular rate and regular rhythm Gastrointestinal (Abdomen) Inspection/Auscultation: abdomen normal to inspection Percussion/Palpation: abdomen soft; abdomen nontender Skin + incision (dry and clean, no hematomas) Discharge Data Allergies Allergy/AdvReac Type Severity Reaction Status Date / Time lisinopril Allergy Severe Angioedema Verified 08/11/20 06:59 adhesive Allergy Unknown Rash Verified 08/11/20 06:59 latex Allergy Unknown Contact Verified 08/11/20 06:59 dermatitis SEASONAL Allergy Unknown Hayfever Uncoded 08/11/20 06:59 s/s Consultations 08/11/20 07:40 Consult Coffee Shop Manager Routine Procedures Performed Operation Date: 08/11/20 08:00 Actual Procedures p Percutaneous Endovascular Aneurysm Repair, Percutaneous Approach Bilateral, Ultrasound Localization Of Bilateral Femoral Arteries(Bilateral) - Mohsen Juarez MD Ordered Studies 08/11/20 07:27 EV AAA repair aorta only Routine US EV guide vascular access Routine Hospital Course (1) AAA (abdominal aortic aneurysm) without rupture: Day 1 Post endovascular repair of his AAA. Doing well. d/c home today Total Time Total Time Spent Total Time Spent (In Minutes): 0 Discharge Plan Discharge Items Patient Disposition: Home - Self-Care Reason For Visit: Abdominal Aortic Aneurysm Discharge Diagnosis: AAA, post endovascular repair Activity: Per Instructions section Non-emergency contact: Surgeon Call non-emergency contact if: your temperature is above 101.5, your wound has increased redness, your wound has increased drainage and your wound pain has increased Follow-up/Referrals: Shweta Loyd MD [Primary Care Provider] - Diet: Heart Healthy Addtl Attending Provider Instructions: SPECIAL CARE INSTRUCTIONS: Medications: * Continue to take your medications as directed. Incision/Puncture Site Care: * You will have an incision or puncture in each of your groins. Liquid glue will be used to seal your incisions/puncture site. This will lift off as the incisions/puncture sites heal. * If Liquid glue is not used, there will be small dressings covering your incisions. After you get home, you may remove the dressings and shower - allowing the warm soapy water to run over it. * Be sure to dry the sites well and keep them dry. * DO NOT SOAK IN A TUB/POOL/etc. UNTIL ALL SURGICAL SITES ARE HEALED. DO NOT REMOVE THE GLUE UNTIL THE INCISIONS HEAL. 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 * You may walk and go up and down steps. * Avoid excessive bending or movement at the level of the incisions or punctures. Risks and Possible Complications: * Infection/Drainage/Bleeding - Drainage or bleeding from the incisions/puncture site should be minimal. If you have excessive bleeding or drainage, call our office ([phone]) right away. * Pain/Numbness - You may experience some mild pain or soreness at your incision sites. You may also have some numbness around the incisions or into the insides of your thighs. Bruising is normal and should resolve within 2 weeks. * Changes in Appetite or Bowel Habits - Mostly related to anesthesia and pain medication, some patients have reported decreased appetite and/or problems with constipation. These symptoms usually improve over a few weeks. Remembering to take an flza-vsw-ydqdvrs stool softener, as directed, will help you to avoid constipation. Call our office and seek emergent treatment if you develop: * Fever or chills * Have a temperature greater than 101 degrees F * Any redness or purulent drainage from your incisions or punctures * Severe abdominal, chest or back pain SKIN IRRITATION: * You may experience some redness and/or swelling in the area where radiation was administered. If any skin irritation occurs, please contact your family physician. You will be receiving a call from the Vascular Surgery Nurse after you are discharged. FOLLOW UP VISIT: It is important for you to keep your follow up appointments with your medical provider. Keep any scheduled doctor appointments. Call [phone] to schedule a follow up appointment if one not already scheduled. Pending Studies at Discharge: No Stand-Alone Forms: My [facility] [employer], Smoking Cessation Medications and DC Order Prescriptions: New oxycodone-acetaminophen [Percocet] 5-325 mg tablet 1 tab PO Q6H PRN (Reason: pain) Qty: 20 RF: 0 Continued amoxicillin 500 mg tablet 2,000 mg PO ONCE Qty: 4 RF: 2 Xarelto 20 mg tablet 20 mg PO HS Qty: 90 RF: 3 potassium chloride 20 mEq tablet extended release 20 meq PO QAM Qty: 90 RF: 3 acetaminophen [Tylenol 8 Hour] 650 mg tablet extended release 650 mg PO Q4H PRN (Reason: pain) RF: 0 albuterol sulfate 90 mcg/actuation HFA aerosol inhaler 2 puff inhalation Q4H PRN (Reason: shortness of breath or wheezing) Qty: 18 RF: 11 fluticasone propionate 50 mcg/actuation spray,suspension 2 sprays intranasal DAILY PRN (Reason: Congestion) Qty: 16 RF: 0 coenzyme Q10 100 mg capsule 100 mg PO QAM RF: 0 ascorbic acid (vitamin C) 500 mg tablet 500 mg PO QPM RF: 0 Artichoke Extract 0 mg 1 tab PO QAM RF: 0 PreserVision AREDS-2 [id number] cq-jlge-wb-mg Capsule 1 tab PO BID RF: 0 hydrochlorothiazide 25 mg tablet 25 mg PO QAM RF: 0 atenolol 50 mg tablet 25 mg PO BID RF: 0 amiodarone 100 mg tablet 100 mg PO QAM RF: 0 multivitamin Tablet 1 tab PO QAM RF: 0 glucosamine sulfate [Glucosamine] 500 mg Tablet 500 mg PO QPM RF: 0 fiber Capsule 1 cap PO QPM RF: 0 Barley Supplement 1 dose PO QPM RF: 0 Discharge Orders: Discharge Order (Routine); Ordered 08/12/20 Ordered By: Mohsen Juarez Admission Data Admit Date/Time: 08/11/20 07:39 Attending Provider: Mohsen Juarez Admit Provider: Mohsen Juarez Primary Care Provider: Shweta Loyd Other Providers: Donte Garibay ; Oh Garcia ; Alo Penny ; Robert Crawford ; Mike Ochoa ; Nando Ewing ; Madhu Leon Other Interventions: Discharge Summary Assessment (RN) Last Done: 08/12/20 12:23
== END 2020-08-12 13:30 | disposition home or self-care (01) | DRG 269 ==
LOC: ASU 06:27 → 1E 07:39

== ENCOUNTER 2022-03-09 06:38 | Inpatient (IN) ==
--- NOTE | 2022-01-25 15:01 | PAT Medication Instructions ---
Medication Instructions Date of Service January 25, 2022 Home Medications Medication Instructions Recorded albuterol sulfate 90 mcg/actuation 2 puff inhalation Q4H PRN 03/11/20 aerosol inhaler shortness of breath or wheezing #18 grams Lift Chair #1 ea 05/11/21 potassium chloride 20 mEq 20 meq PO QAM #90 tabs 06/14/21 tablet,extended release rivaroxaban 20 mg tablet (Xarelto) 20 mg PO HS #90 tabs 06/14/21 atenolol 50 mg tablet 25 mg PO BID #90 tabs 06/18/21 hydrochlorothiazide 25 mg tablet 25 mg PO QAM #90 tabs 06/18/21 amiodarone 100 mg tablet 100 mg PO QAM #90 tabs 11/30/21 Wheeled Walker #1 ea 01/21/22 ascorbic acid (vitamin C) 500 mg tablet 500 mg PO QPM coenzyme Q10 100 mg capsule 100 mg PO QAM fluticasone propionate 50 mcg/actuation nasal spray,suspension 2 sprays intranasal DAILY PRN acetaminophen 650 mg tablet,extended release (Tylenol 8 Hour) 650 mg PO Q4H PRN Artichoke Extract 1 tab PO QAM vit C 250 mg-vit E 90 mg-zinc 40 mg-copper 1 zr-drvwpf-tkphsb capsule (PreserVision AREDS-2) 1 tab PO BID albuterol sulfate 90 mcg/actuation aerosol inhaler 2 puff inhalation Q4H PRN Barley Supplement 1 dose PO QPM fiber 1 cap PO QPM multivitamin 1 tab PO QAM Lift Chair potassium chloride 20 mEq tablet,extended release 20 meq PO QAM rivaroxaban 20 mg tablet (Xarelto) 20 mg PO HS atenolol 50 mg tablet 25 mg PO BID hydrochlorothiazide 25 mg tablet 25 mg PO QAM glucosamine 750 ts-gjedfmwwkfm-tfv no1 644 mg-C 30 mg-jesu 1 mg tablet (Osteo Bi-Flex Triple Strength) 1 tab PO BID amiodarone 100 mg tablet 100 mg PO QAM amoxicillin 500 mg tablet 2,000 mg PO DIRECTED PRN PRIOR TO DENTAL APPT famotidine 20 mg tablet (Pepcid AC) 20 mg PO BID Wheeled Lanre cinnamon bark 500 mg capsule (Cinnamon) 500 mg PO QAM magnesium oxide 250 mg PO QAM melatonin 10 mg tablet 10 mg PO HS vit [id number]-aapuovr-pnckchiav-[id number] 500 mg-50 mg-25 mg-40 mg tablet (Bioflex) 1 tab PO BID Continue as directed fluticasone propionate 50 mcg/actuation nasal spray,suspension 2 sprays intranasal DAILY PRN(if needed) amoxicillin 500 mg tablet 2,000 mg PO DIRECTED PRN PRIOR TO DENTAL APPT(if needed) ASK your prescriber and surgeon rivaroxaban 20 mg tablet (Xarelto) 20 mg PO HS(in order for spinal or epidural anesthesia, Xarelto needs to be stopped 72 hours/3 days before surgery. Please check if okay with doctor that prescribes this to you) STOP taking 2 weeks before surgery Or as soon as possible if surgery is within 2 weeks coenzyme Q10 100 mg capsule 100 mg PO QAM Artichoke Extract 1 tab PO QAM vit C 250 mg-vit E 90 mg-zinc 40 mg-copper 1 zu-hxuviz-nggoav capsule (PreserVision AREDS-2) 1 tab PO BID Barley Supplement 1 dose PO QPM glucosamine 750 uv-vfsutdwcjhz-vaj no1 644 mg-C 30 mg-jesu 1 mg tablet (Osteo Bi-Flex Triple Strength) 1 tab PO BID cinnamon bark 500 mg capsule (Cinnamon) 500 mg PO QAM vit S-gxqkjgt-nqlddgefw-rutin-axuc476 500 mg-50 mg-25 mg-40 mg tablet (Bioflex) 1 tab PO BID DO NOT take the morning of surgery multivitamin 1 tab PO QAM potassium chloride 20 mEq tablet,extended release 20 meq PO QAM hydrochlorothiazide 25 mg tablet 25 mg PO QAM magnesium oxide 250 mg PO QAM Take morning of surgery With a small sip of water, OTHERWISE NOTHING TO EAT OR DRINK AFTER MIDNIGHT: acetaminophen 650 mg tablet,extended release (Tylenol 8 Hour) 650 mg PO Q4H PRN (if needed) albuterol sulfate 90 mcg/actuation aerosol inhaler 2 puff inhalation Q4H PRN(use if needed; please bring with you to hospital day of surgery if possible) atenolol 50 mg tablet 25 mg PO BID amiodarone 100 mg tablet 100 mg PO QAM famotidine 20 mg tablet (Pepcid AC) 20 mg PO BID Take evening before surgery ascorbic acid (vitamin C) 500 mg tablet 500 mg PO QPM acetaminophen 650 mg tablet,extended release (Tylenol 8 Hour) 650 mg PO Q4H PRN (if needed) albuterol sulfate 90 mcg/actuation aerosol inhaler 2 puff inhalation Q4H PRN(if needed) fiber 1 cap PO QPM atenolol 50 mg tablet 25 mg PO BID famotidine 20 mg tablet (Pepcid AC) 20 mg PO BID melatonin 10 mg tablet 10 mg PO HS Other Notes If you have any questions please call us at [phone] or [phone] or [phone] or [phone]
--- NOTE | 2022-01-28 10:26 | Anesthesiology Consultation ---
Date of Service January 28, 2022 Assessment & Plan (1) Encounter for preoperative assessment: - wheezing on exam-consistent since PCP visit per PCP records, dyspnea with 1 FOS denied to cardio, pt declining maintenance inhalers per PCP note. Case discussed in detail with Dr. Edwards who advised patient can proceed at this time from his anesthesia standpoint not requiring further evaluation, testing or intervention. - PCP pre-op evaluation 01/12/22 [place]: "...COPD, GERRY, AAA s/p EVAR, atrial fibrillation, hypertension, LVH, carotid stenosis, GERD, and DJD of multiple joints who presents for follow up from ER and for preoperative evaluation. Regarding the abdominal pain/chest pain that led him to the emergency room, I suspect that this is most likely related to acid reflux versus gallbladder sludge versus component of constipation. I have a lower suspicion for cardiopulmonary etiology given his work-up in the ER and evaluation by cardiology 1 day ago. I recommend continuing with Pepcid and as needed Tums. I also recommended maintaining soft regular bowel movementsdiscussed initiating bowel regimen if he becomes constipated again. For his gallbladder sludge, I referred him to general surgery for discussion of management. One of the questions would be whether or not they recommend having a cholecystectomy and if so the timing of that in relation to pursuing hip replacement surgery. Regarding hepatic steatosis, we discussed fatty liver disease and its progressio n the possible hepatic cirrhosis. He has been intolerant to statins in the past. He is already making some lifestyle changes from a dietary standpoint which ought to help. We will continue to monitor this. For his right hip arthritis and preoperative evaluation for total hip arthroplasty, his NSQIP surgical risk calculator places him at an average to above average risk of complications across multiple domains. I discussed this at length with patient and his , and ultimately was agreed to that for quality life standpoint, they would like to pursue right hip replacement in spite of the risks. Reassuringly, patient has been evaluated by cardiology and has been deemed at an acceptable risk for hip surgery. He also follows with pulmonology for his COPD and GERRY, last seen August 2021. Controller inhalers have previously been discussed, but patient elects to use only as needed rescue inhaler, which he uses only rarely, however he does have extensive wheezing on exam. He does use his BiPAP compliantly..." - cardiology 01/11/22 [place]: "...stable from cardiovascular standpoint. He demonstrates excellent control of his blood pressure and LDL cholesterol. His HDL cholesterol remains low. Fortunately, there has been no recurrence of his atrial fibrillation. He is tolerating rhythm control and long-term anticoagulation without difficulty. He is an acceptable cardiac risk for hip replacement surgery without further testing. Demonstrates excellent functional status without limiting cardiac symptoms. Highly complex medical issues were managed and discussed today...Acceptable cardiac risk for hip replacement surgery without further testing. Patient knows to hold Xarelto 3 full days prior to any surgical procedure..." Chart Review Chart Review: Acceptable Risk for Surgery and Patient seen in Pre Admission Testing Teaching & Discussion Pre-Anesthesia Teaching/Discussion Notes: Instructed NPO after midnight before surgery, except medications with 15 cc of water. Medication instructions provided according to the PAT guidelines. History Surgery Operation Date: 02/15/22 08:50 Proposed Procedures p Right Total Hip Arthroplasty - Ross Leung MD Height/Weight Height: 5 ft 7 in Weight: 129.8 kg Allergies Allergy/AdvReac Type Severity Reaction Status Date / Time lisinopril Allergy Severe Angioedema Verified 01/27/22 10:31 adhesive Allergy Intermediate Rash Verified 01/27/22 10:31 latex Allergy Intermediate Contact Verified 01/27/22 10:31 dermatitis SEASONAL Allergy Intermediate Hayfever Uncoded 01/27/22 10:31 s/s Medications Home Medications Medication Instructions Recorded Confirmed Last Taken ascorbic acid (vitamin C) 500 mg 500 mg PO QPM 12/18/18 01/27/22 01/04/22 tablet coenzyme Q10 100 mg capsule 100 mg PO QAM 12/18/18 01/27/22 01/05/22 fluticasone propionate 50 2 sprays intranasal DAILY PRN 12/18/18 01/27/22 08/10/20 20:00 mcg/actuation nasal Congestion #16 grams spray,suspension acetaminophen 650 mg 650 mg PO Q4H PRN pain 09/09/19 01/27/22 Unknown tablet,extended release (Tylenol 8 Hour) Artichoke Extract 1 tab PO QAM cholesterol 02/06/20 01/27/22 01/05/22 vit C 250 mg-vit E 90 mg-zinc 40 1 tab PO BID 02/06/20 01/27/22 01/05/22 08:00 mg-copper 1 [id number] capsule (PreserVision AREDS-2) albuterol sulfate 90 mcg/actuation 2 puff inhalation Q4H PRN 03/11/20 01/27/22 Unknown aerosol inhaler shortness of breath or wheezing #18 grams Barley Supplement 1 dose PO QPM 06/11/20 01/27/22 01/04/22 fiber 1 cap PO QPM 06/11/20 01/27/22 01/04/22 multivitamin 1 tab PO QAM 06/11/20 01/27/22 01/05/22 Lift Chair #1 ea 05/11/21 01/27/22 Unknown potassium chloride 20 mEq 20 meq PO QAM #90 tabs 06/14/21 01/27/22 01/05/22 tablet,extended release rivaroxaban 20 mg tablet (Xarelto) 20 mg PO HS #90 tabs 06/14/21 01/27/22 01/04/22 atenolol 50 mg tablet 25 mg PO BID #90 tabs 06/18/21 01/27/22 01/05/22 08:00 hydrochlorothiazide 25 mg tablet 25 mg PO QAM #90 tabs 06/18/21 01/27/22 01/05/22 glucosamine 750 [id number]-[id number] 1 tab PO BID 09/16/21 01/27/22 01/05/22 08:00 no1 644 mg-C 30 mg-jesu 1 mg tablet (Osteo Bi-Flex Triple Strength) amiodarone 100 mg tablet 100 mg PO QAM #90 tabs 11/30/21 01/27/22 01/05/22 amoxicillin 500 mg tablet 2,000 mg PO DIRECTED PRN PRIOR 01/05/22 01/27/22 Unknown TO DENTAL APPT. famotidine 20 mg tablet (Pepcid AC) 20 mg PO BID 01/12/22 01/27/22 Unknown Wheeled Walker #1 ea 01/21/22 01/27/22 Unknown cinnamon bark 500 mg capsule 500 mg PO QAM 01/25/22 01/27/22 Unknown (Cinnamon) magnesium oxide 250 mg PO QAM 01/25/22 01/27/22 Unknown melatonin 10 mg tablet 10 mg PO HS 01/25/22 01/27/22 Unknown vit 1 tab PO BID 01/25/22 01/27/22 Unknown [id number] 500 mg-50 mg-25 mg-40 mg tablet (Vivaty) Past Medical History Medical History (Updated 01/28/22 @ 11:11 by Daniella Marlow PA-C) AAA (abdominal aortic aneurysm) s/p repair 07/2020 Atrial fibrillation follows with Dr. Stoddard; on xarelto Carotid artery stenosis 50-69% stenosis L ICA, < 50% stenosis R ICA COPD (chronic obstructive pulmonary disease) controlled, stable per pt; last rescue inhaler use 1 month ago Degenerative joint disease of right hip GERD (gastroesophageal reflux disease) controlled, stable per pt [place] (hard of hearing) B/L DONATO HTN (hypertension) controlled, stable per pt Macular degeneration Morbid obesity Neuropathy feet bilat Pulmonary nodule Second-degree heart block Sleep apnea [id number] Sludge in gallbladder general surgery 01/27/22 "would not push to have [laparoscopic cholecy stectomy] unless he has more symptoms..." Patient denies h/o stroke, seizures, heart attack, heart failure, DM, blood clots or blood transfusions. Exercise / Class Metabolic Activity II 4-5 Yardwork/Stairs/Walk up hill (SOB with 1 FOS, ongoing x several yrs, denies change or worsening; denies chest discomfort) Past Family History Family History Mother Breast cancer Other Family history of breast cancer No family history of adverse response to anesthesia Denies family history of Ovarian cancer Prostate cancer Myocardial infarction Colorectal cancer Past Surgical History Surgical History (Updated 01/28/22 @ 10:31 by Daniella Marlow PA-C) History of carpal tunnel release Right History of right knee joint replacement RT. 12/22/16: SAB at L3-L4 + PNB. History of tooth extraction S/P aneurysm repair Percutaneous Endovascular Aneurysm Repair 08/11/2020: Grade 2 view, MAC 4, ETT 8. Past Anesthesia History No Hx of Anesthesia Complications and No Family Hx of Anesthesia Complications History of PONV No Hx of PONV and No Hx of Motion Sickness Social History Smoking Status: Former smoker tobacco type: cigarettes Do You Dip or Chew Tobacco: No Smoking End Date: OVER 20 YEARS AGO ??? Hx Alcohol Use: No substance use type: does not use Review of Systems Chronic intermittent cough and wheezing with COPD, denies change or worsening. Patient denies chest pain, fever, chills, dizziness, lightheadedness, visual changes, syncope or palpitations. Physical Exam Vital Signs Vitals BP 140/76 P 63 TEMP 97.9 SP02 94% on RA RESP 17 Physical Full cervical extension range of motion without pain TMD 3.5 finger breadths Mallampati Score 3 Dentition: multiple missing teeth; denies chipped or loose teeth, caps/crowns, implants or bridges Lungs: normal respiratory effort. Normal respiratory effort, good air movement; mild end expiratory wheezes throughout, no rales or rhonchi Cardiac: regular rate and rhythm, no murmurs noted Carotid arteries: negative bruit bilat Lab Results Anesthesia Preop Results Results Anesthesia Widget: WBC 8.69 K/ul (4.8-10.8) 01/05/22 Hgb 15.2 g/dl (14.0-18.0) 01/05/22 Hct 45.9 % (40.1-51.0) 01/05/22 Plt 236 K/uL (130-400) 01/05/22 Na 134 mmol/L (136-145) L 01/05/22 K 4.0 mmol/L (3.5-5.1) 01/05/22 Cl 97 mmol/L (98-107) L 01/05/22 CO2 29 mmol/L (21-32) 01/05/22 BUN 19 mg/dl (6-23) 01/05/22 Creat 0.86 mg/dl (0.6-1.4) 01/05/22 Glucose Level 108 mg/dl (70-99(Fasting)) H 01/05/22 PT 11.6 Seconds (9.0-12.0) 01/28/22 PTT 34.7 Seconds (21.0-31.0) H 01/28/22 INR 1.1 (0.9-1.1) 01/28/22 Urine Color Yellow 01/05/22 Urine Appearance Clear (Clear) 01/05/22 Urine pH 7.5 (4.5-7.5) 01/05/22 Urine Specific [place] 1.016 (1.000-1.030) 01/05/22 Urine Protein Negative (Negative) 01/05/22 Urine Glucose (UA) Negative (Negative) 01/05/22 Urine Ketones Negative (Negative) 01/05/22 Urine Blood Negative (Negative) 01/05/22 Urine Nitrite Negative (Negative) 01/05/22 Urine Bilirubin Negative (Negative) 01/05/22 Urine Urobilinogen Negative (Negative) 01/05/22 Urine Leukocyte Esterase Negative (Negative) 01/05/22 Blood Type A Positive 01/28/22 Antibody Screen NEGATIVE 01/28/22 Testing Electrocardiogram Date: 01/05/22 NSR, rate 65 bpm Incomplete RBBB Cannot rule out anterior infarct, age undetermined Minimal criteria for anterior infarct now present when compared with 02/06/2020 ECG T wave inversion now evident in anterior leads Cleared at [place] 01/11/22 cardiology appointment for upcoming surgery Chest X-Ray Date: 01/28/22 No pneumothorax. No pleural effusions. The heart is top normal in size. No new focal lung consolidations to suggest a pneumonia. No evidence for pulmonary edema. Bibasilar linear densities persist and favor subsegmental atelectasis or scarring. There is mild chronic interstitial thickening, unchanged. There is a partially visualized aortic stent. Mild emphysema again noted. IMPRESSION: 1. No significant change compared to the prior study. No acute process. 2. Emphysema and mild chronic interstitial thickening persists. Echocardiogram Date: 01/04/19 EF 60-65% Mild cLVH No regional wall motion abnormalities Grade I diastolic dysfunction No significant valvular pathology Other Testing Abdomen pelvis CT 01/05/22 1. Satisfactory appearance of aortobiiliac stent graft. No endoleak in this nondedicated exam. 2. Diverticulosis without diverticulitis. 3. Questionable irregularity of the liver which may represent cirrhosis. Abdomen pelvis CTA 04/16/21 1. Status post placement of a bifurcated aortoiliac stent graft. No endoleak. Slight decrease in aneurysm sac size, now measuring 6.6 x 5.8 cm. 2. No acute process within the abdomen or pelvis. 3. Colonic diverticulosis without evidence for acute diverticulitis. 4. Possible cirrhosis. Carotid doppler 01/04/19 50-69% stenosis L ICA < 50% stenosis R ICA COVID-19 Risk Screen Screening Information COVID-19 Screen Date: 01/28/22 Exposure 21 Days Family/Household +COVID Last 21 Days: No Exposure 10 Days Any COVID Exposure Last 10 Days: No Symptoms Last 10 Days Experienced COVID Sx Last 10 Days: No + COVID 0-90 Days COVID + in Last 0-90 Days: No
--- NOTE | 2022-03-04 18:38 | History and Physical Report ---
CHIEF COMPLAINT: Persistent right hip pain and discomfort, stiffness. HISTORY OF PRESENT ILLNESS: The patient is a 77-year-old gentleman who I have been following for raymundo albarado for multiple orthopedic issues. He did have his right knee replaced about 5 years ago. More rece ntly, he has developed increasing right leg pain and discomfort and stiffness. On exam, an x-ray lisa wed advanced right hip arthritis. His knee exam is pretty benign. We treated him conservatively, he continues to be limited by pain. He limps more as the day goes on. He has been through extensive c onservative treatment, which has become less successful. He does have some left knee arthritis, whic h is being treated conservatively and acceptably. He would now like to have his right hip replaced. He was scheduled about 2 weeks ago, but came down with an illness and has now recovered and would li ke to proceed. The patient does see Dr. Stoddard has been cleared from a cardiac standpoint. He recently had some gall bladder issues and saw Dr. Wallace and they have elected to treat this nonoperatively. He would like to have his right hip fixed. PAST MEDICAL HISTORY: 1. Hypertension. 2. Atrial fibrillation, on Xarelto. 3. Emphysema/COPD 4. Sleep apnea. 5. Obesity, BMI 45. 6. Low back pain. PAST SURGICAL HISTORY: Includes; 1. Right knee replacement done on 12/22/2016. 2. Carpal tunnel release. ALLERGIES: LISINOPRIL AND LATEX. CURRENT MEDICATIONS: Include; 1. Tylenol. 2. Albuterol. 3. Amiodarone. 4. Ascorbic acid. 5. Atenolol. 6. Coenzyme Q. 7. Pepcid. 8. Glucosamine. 9. Hydrochlorothiazide. 10. Multivitamin. SOCIAL HISTORY: Significant for a 77-year-old male. 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 . Does not smo ke. FAMILY HISTORY: Noncontributory. REVIEW OF SYSTEMS: Significant for atrial fibrillation, on Xarelto. He has been cleared by Dr. Nisreen mehta. No current chest pain or shortness of breath. No PE in the past. He does have a history of AAA repair. He also has gallbladder issue, which seems to calm down. PHYSICAL EXAMINATION: GENERAL: Shows a large middle-aged male. Looks to be in reasonably good health. HEENT: Benign. NECK: Supple. No lymphadenopathy. LUNGS: Clear to auscultation. HEART: Irregular rate and rhythm. ABDOMEN: Fairly large, but soft and nontender. He has got positive bowel sounds. EXTREMITIES: Grossly neurovascularly intact except as follows. Examination of the right hip revealed patient walks with a slight bit of a limp. Leg lengths are pre tty equal. He does have stiffness with hip motion. Limited internal rotation to about neutral. Thi s does recreate pain. Negative straight leg raise. Examination of the right knee reveals a well-healed incision. No real significant swelling. Range o f motion is 0 to 120. Good straight leg raise. X-RAYS: X-rays of the right hip are reviewed. It shows advanced right hip DJD. He has got complete loss of superior joint space. He has got Cam type impingement. X-rays of the right knee reveal cemented posterior stabilized total knee arthroplasty. Components lo oked to be in good position. No signs of problems. ASSESSMENT: A 77-year-old male with multiple medical comorbidities including atrial fibrillation, mo rbid obesity, emphysema, hypertension, sleep apnea, status post a right knee replacement with advance d right hip degenerative joint disease. He has failed conservative treatment. I suspect some of his knee pain is probably coming from his hip. He has been previously scheduled for hip surgery, but ca nceled 2 weeks ago due to an illness and would like to now proceed. PLAN: We are going to proceed with right hip replacement. Risks and benefits of this procedure were explained to the patient and include but not limited to DVT, PE, , infection, neurological inju ry, vascular injury, bleeding problem, pain, limited range of motion, stiffness, failure to relieve s ymptoms, incomplete relief of symptoms, need for further surgery in the future, etc. The patient und erstands and desires to proceed. Informed consent was obtained. I did tell him that I think he is a t some risk from a medical standpoint just due to his large size and obesity and he is fully aware of this keep living like he is. He has held his Xarelto 3 days preop. He is planned to be disch arged to home with [facility] program. Job ID: [id number]
[~2022-03-09 06:38] MED LIST changes: +ACETAMINOPHEN 500 MG TAB PO SCH; +BUPIVACAINE 0.5 % 5 MG/1 ML PF 10ML VIAL ONE; -CEFAZOLIN IV SCH; +CeleBREX 200 MG CAP PO SCH; -DEXTROSE IV SCH; +FAMOTIDINE 20 MG TAB PO SCH; -LACTATED RINGER'S 1,000 ML IV SCH; -LR 15ML/HR IV SCH; +LR 500ML BOLUS, THEN 15ML/HR IV SCH; +LR 60ML/HR IV SCH; +METOCLOPRAMIDE HCL 10 MG TABLET PO SCH; +TRANEXAMIC ACID 1,000 MG **IV Pre-op IV SCH
--- NOTE | 2022-03-09 06:54 | History & Physical Bridge Note ---
Date of Service March 09, 2022 History & Physical Bridge Note I have examined the patient, reviewed the History & Physical and in the interval since the performance of the History & Physical I have noted the following changes of clinical significance: no changes noted
[2022-03-09] MEDS ORDERED: MIDAZOLAM HCL 1 MG/ML 2ML VIAL ONE ×2 (07:17→07:32)
[2022-03-09] MEDS ORDERED: ATROPINE SULFATE 0.1 MG/ML 10ML SYR IV PRN (08:07)
[2022-03-09] MEDS ORDERED: ePHEDrine sulfate 50 MG/ML AMP IV PRN (08:07)
[2022-03-09] MEDS ORDERED: fentaNYL citrate 100 MCG/2 ML VIAL IV PRN (08:07)
[2022-03-09] MEDS ORDERED: ONDANSETRON INJ 2 MG/ML 2 ML VIAL IV PRN ×2 (08:07→13:33)
[2022-03-09] MEDS ORDERED: BUPIVACAINE/EPINEPHRINE 0.5% MPF 1:200,000 30 ML VIAL ONE (08:37)
[2022-03-09] MEDS ORDERED: KETAMINE 50 MG/5 ML SYRINGE ONE (09:16)
[2022-03-09] MEDS ORDERED: ONDANSETRON INJ 2 MG/ML 2 ML VIAL ONE (09:18)
[2022-03-09] MEDS ORDERED: GLYCOPYRROLATE 0.2 MG/ML VIAL ONE (09:18)
[2022-03-09] MEDS ORDERED: PROPOFOL IV EMULSION 10 MG/ML 20 ML VIAL IV ONE ×5 (09:27→09:40)
--- NOTE | 2022-03-09 11:01 | Operative Report ---
PG Post Operative Report Pre & Post Diagnosis Operation Date: 03/09/22 08:50 Pre-Op Diagnosis: Right Hip Degenerative Joint Disease Post-Op Diagnosis: Right Hip Degenerative Joint Disease I identified the patient and participated in the time-out.: Yes Procedure Operation Date: 03/09/22 08:50 Actual Procedures p Right Total Hip Arthroplasty, Uncemented(Right) - Ross Leung MD Surgeon Ross Leung MD Furniture Builder Kulwant Jimenez PA-C Estimated Blood Loss 200 Findings Consistent with Post-Op Diagnosis Fluids 1500 cc Specimens Right femoral head sent for pathology Complications none Disposition Accompanied Patient To Recovery: No Indications Patient 77-year-old gentleman who has a several year history of gradual progressive increased right hip pain discomfort describes gotten worse over time. Failed conservative measures. X-rays show progressive hip arthritis. He elected proceed with surgical treatment. Description of Procedure Operative implants consist of: 1 Biomet G7 size 58 mm acetabular shell. 2. 6.5 cancellous acetabular screws 1 of 35 mm in length and 1 of 30 mm length. 3. [place] hole singer and unloader. 4. Highly cross-linked polyethylene liner with a 58 mm outer diam and 36 mm inner diameter. 5. DePuy Karaya size 12 KLA femoral stem. 6. +5/36 mm ceramic articular ball. The patient was taken the operating, identified, placed on the operating table supine position protectors were properly padded. IV antibiotics tried by anesthesia team. Spinal anesthetic and been implemented holding area. Sherwood catheter was placed in sterile fashion. The patient then placed in the right lateral decubitus position. Axillary roll was placed. Stulberg hip positioner was used for positioning. The right hip and leg were then prepped and draped in usual sterile fashion. A posterolateral approach of the right hip was then performed through a curvilinear incision centered over the greater trochanter. Sharp dissection Through subcutaneous tissue down to the IT band gluteal fascia. IT band gluteal fascia incised longitudinally in line with skin incision. The underlying greater bursa was excised. The piriformis and external rotators and the posterior hip joint capsule released from the posterior aspect hip as a single layer. Hip was internally rotated and dislocated. Great care was taken throughout the procedure protect the sciatic nerve at all times. A femoral neck osteotomy cut was made with Final Cut about 15 mm above the lesser trochanter. Femoral head was removed and sent for pathology. It did did look quite diseased. Attention drawn the acetabulum. The acetabulum was excised. The pulmonary fat was excised. Sequential reaming the acetabular was then performed begin with size 49 and progressing up to 57. I did ream some with a 58 reamer and then placed a 58 mm Biomet G7 acetabular shell in about 40 degrees lateral opening and 20 degrees of anteversion. It was fixed with two 6.5 cancellous acetabular screws. A trial liner was placed. Attention drawn the femur. The proximal femur was entered with a cookie cutter followed by canal finder. I then broached beginning with a size 8 and progressing up to a 12. Got excellent fit at 12. I trialed the hip and the +5 articular ball seem to recreate soft tissue tension appropriately and was fully stable in full extension and external rotation and flexion to 9 degrees internal Tatian over [address] I like to place these implants. All trial implants were removed. An apex hole singer and unloader was placed. Highly cross-linked polyethylene liner was placed. A size 12 KLA femoral stem was impacted in position. +5/36 mm ceramic articular ball was placed. Hip was located once again found to be stable. Wounds irrigated cosigns pulsatile lavage solution. I did inject locally with 60 cc of half percent Marcaine with epinephrine. The patient did get 1 g tranexamic acid. The posterior hip joint capsule and the external rotators were then repaired through drill holes in the posterior trochanter with #2 Tycron suture. The IT band gluteal fascia then closed in 1 PDS suture in a running fashion. The subcutaneous tissues then closed with 2 layers with a deep layer #1 Vicryl suture and subcutaneous tissues with 2-0 Dexon suture in a buried interrupted fashion. Skin was closed skin stacey. Leg was then cleaned and dried a sterile dressing was Xeroform, 4 x 4's, sterile ABD pad and foam tape was applied. The patient then transferred to the recovery room in stable condition. The patient tolerated procedure well no complications. Kulwant Jimenez, my physician nursing assistants teacher, was present for the entire procedure. His assistance was required for proper patient positioning, prepping and draping, surgical exposure, retraction, perform the technical details the operation, closure of the wound, placement implants, and placement of the sterile bandage. I attest to the content of the Intraoperative Record and any orders documented therein. Any exceptions are noted below.
--- NOTE | 2022-03-09 11:35 | XRay Report ---
XR hip 1V RT w pelvis HISTORY: 77 years-old Male IN PACU - Post Surgical right hip arthroplasty COMPARISON: Hip radiographs 01/06/2022 TECHNIQUE: AP view of the pelvis with crosstable lateral view of the right hip FINDINGS: Mild to moderate left hip osteoarthritis. Surgical clips of the scrotum. Right hip total joint arthro plasty demonstrates satisfactory alignment. Overlying skin stacey are noted along with expected post operative soft tissue swelling with deep tissue air. No acute fracture or unexpected opaque foreign b ronda identified. IMPRESSION: Right hip total joint arthroplasty with expected postoperative findings. ACT 112: Negative or not required by law. The above report was generated using voice recognition software. It may contain grammatical, syntax o r spelling errors. Electronically signed by: Gonzalo Sanz M.D. 03/09/2022 11:34 AM
--- NOTE | 2022-03-09 12:41 | Anesthesiology Progress Note ---
Date of Service March 09, 2022 Anesthesia Post Procedure Vital Signs Vital Signs: Temp Pulse Pulse Resp BP Pulse Ox O2 Del Method 03/09/22 12:30 60 20 106/54 L 93 Oxymask 03/09/22 12:20 64 19 113/62 93 Oxymask 03/09/22 12:10 60 18 91/55 L 92 Oxymask 03/09/22 12:00 97.5 F L 64 17 94/48 L 93 Nasal Cannula 03/09/22 11:50 65 18 93/49 L 95 Oxymask 03/09/22 11:40 65 22 91/49 L 95 Oxymask 03/09/22 11:30 70 24 98/52 L 94 Oxymask 03/09/22 11:20 75 22 92/46 L 94 Oxymask 03/09/22 11:10 81 19 91/48 L 94 Oxymask 03/09/22 11:00 96.8 F L 78 19 121/50 L 95 Oxymask 03/09/22 07:31 97.9 F 64 20 139/59 L 95 Room Air 03/09/22 07:31 BiPAP O2 Flow Rate 03/09/22 12:30 3 03/09/22 12:20 4 03/09/22 12:10 4 03/09/22 12:00 2.5 03/09/22 11:50 4 03/09/22 11:40 4 03/09/22 11:30 6 03/09/22 11:20 6 03/09/22 11:10 10 03/09/22 11:00 15 03/09/22 07:31 03/09/22 07:31 Pain Intensity Right Hip: Pain Intensity: 8 Right Knee: Pain Intensity: 5 Transfer of Care Handoff Completed per policy Notes Mental Status: alert / awake / arousable and participated in evaluation Patient Amnestic to Procedure: Yes Nausea / Vomiting: adequately controlled Pain: adequately controlled Airway Patency, RR, SpO2: stable & adequate BP & HR: stable & adequate Hydration State: stable & adequate Neuraxial Anesthesia: was administered and sensory block is resolving Anesthetic Complications: no major complications apparent and Pt Satisfied with anesthetic care
[2022-03-09] MEDS ORDERED: ALUMINUM/MAGNESIUM SUSP 30 ML UDC PO PRN (13:33)
[2022-03-09] MEDS ORDERED: MAGNESIUM HYDROXIDE SUSP 30 ML UDC PO PRN (13:33)
[2022-03-09] MEDS ORDERED: bisacodyL 10 MG SUPP PR PRN (13:33)
[2022-03-09] MEDS ORDERED: METOCLOPRAMIDE HCL INJ 5 MG/ML 2 ML VIAL IV PRN (13:33)
[2022-03-09] MEDS ORDERED: ALBUTEROL HFA 8 GM INHALER INH PRN (13:33)
[2022-03-09] MEDS ORDERED: NALOXONE HCL 0.4 MG/1 ML VIAL/CARP IV PRN (13:33)
[2022-03-09] MEDS ORDERED: FLUTICASONE PROPIONATE NA SPR 16 GM BTL NAE PRN (13:33)
[2022-03-09] MEDS: SODIUM CHLORIDE 0.9% 1000ML 1,000 ML IV SCH (13:45)
[2022-03-09] MEDS: HYDROmorphone INJ 0.5 MG/0.5 ML SYR IV PRN ×2 (13:55→21:30)
[2022-03-09] MEDS: KETOROLAC TROMETHAMINE 15 MG/ML VIAL IV SCH ×2 (13:58→18:34)
[2022-03-09] MEDS ORDERED: NON-FORMULARY MEDICATION (Amino Acids [Amino Acid] Capsule) PO SCH (14:00)
[2022-03-09] MEDS: ACETAMINOPHEN 500 MG TAB PO SCH ×2 (14:54→21:21)
[2022-03-09] MEDS: traMADol HCL 50 MG TABLET PO PRN ×2 (15:36→22:51)
[2022-03-09] MEDS: ceFAZolin 2000MG 2,000 MG/15 ML SYR IV SCH (16:20)
[2022-03-09] MEDS: TAMSULOSIN HCL 0.4 MG CAP PO SCH (16:51)
[2022-03-09] MEDS ORDERED: TRANEXAMIC ACID / 0.7% NACL 1,000 MG/100 ML BAG IV SCH (17:00)
--- NOTE | 2022-03-09 19:23 | Progress Notes ---
SUBJECTIVE: A 77-year-old gentleman postop from a right hip replacement. He is doing pretty well. He was having a decent amount of pain earlier, but much improved after the medicine. No chest pain o r shortness of breath. Not feeling dizzy or lightheaded. OBJECTIVE/PHYSICAL EXAMINATION: VITAL SIGNS: Temperature is 36.7. Vital signs are stable. GENERAL: A large middle-aged male. He was lying in bed, sleeping when I had to wake him this evenin g. LUNGS: Clear to auscultation. HEART: Regular rate and rhythm. ABDOMEN: Soft, nontender, nondistended. EXTREMITIES: Grossly neurovascularly intact except as follows. Examination of the right hip and leg reveals the leg lengths were equal. Dressing is clean, dry and intact. Thigh is soft and supple. He can dorsiflex and plantarflex his foot appropriately. X-RAYS: X-rays of the right hip from recovery room are reviewed. It shows right uncemented total hi p arthroplasty, but components looked to be in good position. No signs of problems. ASSESSMENT: A 77-year-old gentleman, postoperative from a right hip replacement, doing well. He has got multiple medical comorbidities, but seems to be doing well. His pain is controlled. His hip is located. He is neurologically intact. PLAN: 1. DVT prophylaxis includes bilateral thigh-high TEDs, SCDs and we will start him back on his Xarelt o at a prophylactic dose 24 hours postop. 2. PT/OT, weightbear as tolerated. Right total hip protocol. 3. Pain control, doing okay with current pain regimen. 4. IV antibiotics x24 hours. 5. Disposition: Plan to discharge to home with some home health once adequately recovered and medic ally stable. We will see how therapy goes tomorrow. Job ID: [id number]
[2022-03-09] MEDS: MELATONIN 3 MG TAB PO SCH (20:13)
[2022-03-09] MEDS: FAMOTIDINE 20 MG TAB PO SCH (20:14)
[2022-03-09] MEDS: hydroCHLOROthiazide 25 MG TAB PO SCH (20:14)
[2022-03-09] MEDS: CALCIUM POLYCARBOPHIL 625MG TAB PO SCH (20:15)
[2022-03-09] MEDS: ATENOLOL 25 MG TABLET PO SCH (20:15)
[2022-03-09] MEDS: ASCORBIC ACID 500 MG TAB PO SCH (20:15)
[2022-03-09] MEDS: DOCUSATE SODIUM/SENNA 50/8.6MG TAB PO SCH (20:15)
[2022-03-09] MEDS: DOCUSATE SODIUM 100 MG CAP PO SCH (20:16)
[2022-03-09] MEDS: SENNA 8.6 MG TAB PO SCH (20:16)
[2022-03-09] MEDS ORDERED: NON-FORMULARY MEDICATION (Vit C-Bioflav-Hesp-Rutin-Hb196 [Bioflex] 500-50-25-40 mg Tablet) PO SCH (21:00)
[2022-03-09] MEDS ORDERED: CEROVITE ADV FORMULA TAB PO SCH (21:00)
[2022-03-09] MEDS ORDERED: NON-FORMULARY MEDICATION (Glucosam-Chon-Msm1-C-Mang-Bosw [Osteo Bi-Flex Triple Strength] 7 PO SCH (21:00)
[2022-03-09] MEDS ORDERED: [UNRECOGNIZED DRUG - OTHER] PO SCH (21:00)
[2022-03-10] MEDS: SODIUM CHLORIDE 0.9% 1000ML 1,000 ML IV SCH (00:08)
[2022-03-10] MEDS: ceFAZolin 2000MG 2,000 MG/15 ML SYR IV SCH (01:02)
[2022-03-10] MEDS: KETOROLAC TROMETHAMINE 15 MG/ML VIAL IV SCH ×2 (01:03→08:50)
[2022-03-10] MEDS: ACETAMINOPHEN 500 MG TAB PO SCH ×3 (05:46→20:41)
[2022-03-10 07:46] LABS: Basophils # (auto) 0.02 K/uL (0-0.2); Basophils % (auto) 0.2 %; Eosinophils # (auto) 0.02 K/uL (0-0.50); Eosinophils % (auto) 0.2 %; Hematocrit (blood only) 38.6 % (40.1-51.0); Hemoglobin 12.3 g/dl (14.0-18.0); Immature Granulocytes # (auto) 0.05 K/uL (0.00-0.02); Immature Granulocytes % (auto) 0.4 %; Lymphocytes # (auto) 1.02 K/uL (1.2-3.4); Lymphocytes % (auto) 8.1 %; Mean Corpuscular Hemoglobin 28.7 pg (25.0-34.0); Mean Corpuscular Hgb Conc 31.9 g/dL (32.0-36.0); Monocytes # (auto) 1.67 K/uL (0.24-0.82); Monocytes % (auto) 13.3 %; Neutrophils # (auto) 9.77 K/uL (1.4-6.5); Neutrophils % (auto) 77.8 %; Platelet Count 178 K/uL (130-400); Red Blood Count 4.29 M/uL (4.63-6.08); White Blood Count 12.55 K/ul (4.8-10.8)
[2022-03-10] MEDS ORDERED: dexAMETHasone 10 MG in SYRINGE 0 ML IV SCH (08:00)
[2022-03-10 08:14] LABS: Calcium 8.3 mg/dl (8.5-10.1); Creatinine Clr Calc Pharmacy 86.3 ml/min; Est GFR (African American) 89.3 ml/min; Potassium 4.4 mmol/L (3.5-5.1)
--- NOTE | 2022-03-10 08:19 | Progress Notes ---
SUBJECTIVE: A 77-year-old gentleman, postoperative day 1 from right hip replacement. He is doing pretty well thi s morning. Really not having any pain in bed. He got up and walked around yesterday and seemed to d o okay. OBJECTIVE: VITAL SIGNS: Temperature is 37.0. Vital signs are stable. GENERAL: Shows a pleasant, elderly male. He is lying in bed, looks pretty comfortable. EXTREMITIES: Examination of the right hip reveals the leg to be well aligned. Dressing is clean, dr y and intact. He can dorsiflex and plantarflex his foot appropriately. He is neurologically intact. LABORATORY DATA: Hemoglobin is 12.3. Hematocrit 38.6. Electrolytes are pending. ASSESSMENT: A 77-year-old gentleman postoperative day 1 from right hip replacement, doing pretty wel l. Pain is controlled. His hip is located. He is neurologically intact. He does have multiple com orbidities. PLAN: 1. DVT prophylaxis includes thigh-high TEDs, SCDs, and start him back on his Xarelto. We will start him at a prophylactic dose today and then a full dose on discharge. 2. PT/OT, weightbear as tolerated. Right total hip protocol. 3. Pain control, doing okay with current pain regimen. 4. Disposition: Plan to discharge to home with some home health. We will see how he does in therap y today. Job ID: [id number]
[2022-03-10] MEDS: AMIODARONE 200 MG TAB PO SCH (08:45)
[2022-03-10] MEDS: CEROVITE ADV FORMULA TAB PO SCH (08:46)
[2022-03-10] MEDS: TAMSULOSIN HCL 0.4 MG CAP PO SCH (08:47)
[2022-03-10] MEDS: MAGNESIUM OXIDE 400 MG TAB PO SCH (08:47)
[2022-03-10] MEDS: POTASSIUM CHLORIDE CRTAB 20 MEQ TABCR PO SCH (08:48)
[2022-03-10] MEDS: ATENOLOL 25 MG TABLET PO SCH ×2 (08:49→20:12)
[2022-03-10] MEDS: FAMOTIDINE 20 MG TAB PO SCH (08:49)
[2022-03-10] MEDS: DOCUSATE SODIUM 100 MG CAP PO SCH ×2 (08:49→20:11)
[2022-03-10] MEDS: DOCUSATE SODIUM/SENNA 50/8.6MG TAB PO SCH ×2 (08:50→20:12)
[2022-03-10] MEDS ORDERED: ARTICHOKE EXTRACT PO SCH (09:00)
[2022-03-10] MEDS ORDERED: NON-FORMULARY MEDICATION (Multivitamin Tablet) PO SCH (09:00)
[2022-03-10] MEDS ORDERED: MULTIVITAMIN TAB PO SCH (09:00)
[2022-03-10] MEDS ORDERED: TAMSULOSIN HCL 0.4 MG CAP PO SCH (09:00)
[2022-03-10] MEDS ORDERED: NON-FORMULARY MEDICATION (Coenzyme Q10 100 mg capsule) PO SCH (09:00)
[2022-03-10] MEDS: RIVAROXABAN 10 MG TABLET PO SCH (12:13)
--- NOTE | 2022-03-10 12:27 | Hospitalist Consultation ---
Date of Consultation March 10, 2022 Assessment & Plan (1) Hypoxia: -Patient is currently afebrile, hemodynamically stable, and stable on 5L NC -At this time the patient's acute hypoxia is most likely due to pulmonary edema from volume overload with IV fluids. He also has baseline COPD and GERRY on HS Bipap, but has not been getting consistent breathing treatments/pulm hygiene and was not ordered his HS Bipap -Patient is currently comfortable and asymptomatic. -No chest pain, No acute ECG changes, CXR showing pulm edema and pleural effusions, no obvious consolidation at this time -Would hold all IV fluids at this time. -Will place the patient on his Bipap for 2-3 hours, giving 20 mg IV lasix now, i ncentive spirometry, flutter therapy, and scheduled DuoNebs ordered. -Nurse will reach out to respiratory now -Will also place the patient on aspiration precautions and have him evaluated by speech language pathology today to monitor for high risk of aspiration -If patient does not improve with the current treatment plan would obtain procal and consider CTPE to monitor for PE -Will continue to monitor closely, HS bipap ordered -Will follow up with VBG and troponin ordered at the time of the consult (2) Status post right hip replacement: -No reported complications -Pain control, DVT PPX, and Abx per the primary team -Continue PT/OT (3) GERD (gastroesophageal reflux disease): -on pepcid at home (4) Atrial fibrillation with rapid ventricular response: -Currently rate controlled ,in NSR -Continue amiodarone and agree with restarting Xarelto as long as the primary team is comfortable at this time (5) GERRY (obstructive sleep apnea): -HS bipap now ordered (6) Hypertension: -Continue atenlol and hydrochlorothiazide (7) LVH (left ventricular hypertrophy): -Last echo was in 2019, will order repeat while admitted to monitor for any progression of known HFpEF -Continue hydrochlorothiazide and giving 20 mg IV lasix (8) COPD with emphysema: -Ordered scheduled DuoNebs and pulmonary hygiene -Goal SpO2 is 89-92 %, confirmed that his O2 order shows this -Wean to RA as able Plan The patient was discussed with Dr. Brennan at the time of the consult Supervising Physician Co-Signing Physician Notes PA Supervision Note: I personally saw and examined the patient. I verified all rizzo points and agree with MAHI Liz with the following exceptions and/or additions: S-Pt feeling fine. Does not feel any dyspnea over his usual with his COPD. Denies CP, nausea. Has been having trouble swallowing he thinks for several weeks at least. His tongue is large but his tells me on the phone it doesn't look any bigger to her than it usually is but since he doesn't wear his dentures and had his teeth removed, it does seem bigger. But she did notice his speech seemed a little different over the phone today. He does not feel his tongue is swollen or tingly. Does not feel throat is swollen. He does have a h/o angioedema from lisinopril requiring ICU stay w/ intubation. New medications recently include pepcid and amino acids prior to surgery. History and ROS reviewed O- Vitals reviewed Gen: [AAOx3, NAD,obese] HEENT: [anicteric sclerae, EOMI, large tongue but widely patent airway when palate elevated] CV: [RRR no mgr nl S1S2] Pulm: [+bilat exp wheezes,diminished BS throughout due to body habitus] Abd: [+BS soft NT ND no masses or hernias] Ext: [SCDs in place, trace edema legs] Skin: [no rashes, warm/dry] Labs, Rads, and ECG reviewed, ECHO reviewed A/P-77 yo male here with acute respiratory failure with hypoxia in setting of likely acute HFpEF and COPD. Diuresing as above start nebs scheduled encouraged ICS, flutter valve Speech consult appreciated for swallowing issues--> plan for VFSS tomorrow With enlarged tongue--> not sure if any worse than usual. Airway does appear patent, no distress, no lip swelling. Will STOP home Pepcid and AMino Acids in case causing issues fo rhim Discussed care with on phone History of Present Illness Reason for Consultation: Hypoxia and post-op medical management Requesting Physician: Ross Leung MD Attending Physician: Dr. Natividad Brennan History of Present Illness Ross is a 77 year old male with a PMH significant for Afib on Xarelto, HTN, Hyperlipidemia, S/P AAA repair in 07/[address] Juarez, left ventricular hypertrophy (LVEF of 60-65%, Grade I diastolic dysfunction as of 2019) , diastolic dysfunction, cerebral vascular disease, GERD, GERRY, COPD, who presented to the [facility] on 03/09/22 for elective right total hip arthropathy with Dr. Leung. Per the post-op report on 03/09/22 EBL was listed as 200, the patient received 1500 cc of fluids, and no intraoperative complications were reported. Labs this morning were remarkable for a leukocytosis of 12.55, hgb of 12.3 (down from 15 as of 03/02/22), left shift of 9.77, stable platelets, stable renal function, elevated BUN at 25, calcium of 8.3, otherwise no other electrolyte abnormalities. Of note, the patient tested negative for covid 19 on 03/09/22. At the time of the exam the patient was lying comfortably in bed in no acute distress, currently having the ECG ordered by myself obtained. He is currently stable on 5L via NC. When asked, he states that he is feeling good. He denies recent fevers, chills, headache, changes in vision , hearing, taste, and smell, chest pain, SOB, abdominal pain, nausea, vomiting, dysuria, hematuria, and recent falls. He has been noting a wet, productive cough since last night. He states that his sputum is white-yellow. When asked, his nurse states that the patient did receive IV fluids overnight. The patient confirmed that he normally wears HS Bipap, his nurse reports that it was not used last night as it had not been ordered yesterday. When asked, his nurse states that the patient has been on O2 since yesterday, but had been on 2-3L NC for most of his admission. She states that he has been saturating between 89-90% for most of his admission. I explained that with his COPD the patient's goal SpO2 should be 89-92%. The patient still has a stevenson catheter inserted and his nurse confirms that he has been having good urine output. I asked if he felt as though his tongue/mouth/throat was swollen at all and he denied any issues. He did mention, however, that for the past 3 weeks he has had to tilt his head the whole way back in order to drink liquids. When asked if he has been chocking recently when eating or drinking he said he has been at times. Please refer to Dr. Brennan's attestation for any changes to the treatment plan. Allergies Allergy/AdvReac Type Severity Reaction Status Date / Time lisinopril Allergy Severe Angioedema Verified 03/09/22 07:19 adhesive Allergy Intermediate Rash Verified 03/09/22 07:19 latex Allergy Intermediate Contact Verified 03/09/22 07:19 dermatitis SEASONAL Allergy Intermediate Hayfever Uncoded 03/09/22 07:19 s/s Home Medications Medication Instructions Recorded Confirmed Type ascorbic acid (vitamin C) 500 mg 500 mg PO QPM 12/18/18 03/09/22 History tablet coenzyme Q10 100 mg capsule 100 mg PO QAM 12/18/18 03/09/22 History fluticasone propionate 50 2 sprays intranasal DAILY PRN 12/18/18 03/09/22 History mcg/actuation nasal Congestion #16 grams spray,suspension acetaminophen 650 mg 650 mg PO Q4H PRN pain 09/09/19 03/09/22 History tablet,extended release (Tylenol 8 Hour) Artichoke Extract 1 tab PO QAM cholesterol 02/06/20 03/09/22 History vit C 250 mg-vit E 90 mg-zinc 40 1 tab PO BID 02/06/20 03/09/22 History mg-copper 1 bx-mjtokt-[id number] capsule (PreserVision AREDS-2) albuterol sulfate 90 mcg/actuation 2 puff inhalation Q4H PRN 03/11/20 03/09/22 Rx aerosol inhaler shortness of breath or wheezing #18 grams Barley Supplement 1 dose PO QPM 06/11/20 03/09/22 History fiber 1 cap PO QPM 06/11/20 03/09/22 History multivitamin 1 tab PO QAM 06/11/20 03/09/22 History Lift Chair #1 ea 05/11/21 01/27/22 Rx potassium chloride 20 mEq 20 meq PO QAM #90 tabs 06/14/21 03/09/22 Rx tablet,extended release rivaroxaban 20 mg tablet (Xarelto) 20 mg PO HS #90 tabs 06/14/21 03/09/22 Rx atenolol 50 mg tablet 25 mg PO BID #90 tabs 06/18/21 03/09/22 Rx glucosamine 750 it-tjvljbxbtaa-kvn 1 tab PO BID 09/16/21 03/09/22 History no1 644 mg-C 30 mg-jesu 1 mg tablet (Osteo Bi-Flex Triple Strength) amoxicillin 500 mg tablet 2,000 mg PO DIRECTED PRN PRIOR 01/05/22 03/09/22 History TO DENTAL APPT. famotidine 20 mg tablet (Pepcid AC) 20 mg PO BID 01/12/22 03/09/22 History Wheeled Walker #1 ea 01/21/22 01/27/22 Rx magnesium oxide 250 mg PO QAM 01/25/22 03/09/22 History melatonin 10 mg tablet 10 mg PO HS 01/25/22 03/09/22 History vit 1 tab PO BID 01/25/22 01/27/22 History [id number] 500 mg-50 mg-25 mg-40 mg tablet (Bioflex) acetaminophen 500 mg capsule 1,000 mg PO TID Pain 30 days #180 02/14/22 03/09/22 Rx caps ondansetron HCl 4 mg tablet 4 mg PO Q6 PRN nausea #20 tabs 02/14/22 03/09/22 Rx sennosides 8.6 mg-docusate sodium 1 tab-cap PO BID 14 days #28 tabs 02/14/22 03/09/22 Rx 50 mg tablet (Senokot-S) tamsulosin 0.4 mg capsule (Flomax) 0.4 mg PO DAILY #7 caps 02/14/22 03/09/22 Rx tramadol 50 mg tablet 50 - 100 mg PO Q6H PRN pain #40 02/14/22 03/09/22 Rx tabs amino acids (Amino Acid capsule) 2 cap PO TID 03/09/22 03/09/22 History amiodarone 100 mg tablet (Pacerone) 100 mg PO QAM 03/09/22 03/09/22 History hydrochlorothiazide 25 mg tablet 25 mg PO QPM 03/09/22 03/09/22 History Patient History Medical History (Updated 03/10/22 @ 13:16 by Santiago Liz PA-C) AAA (abdominal aortic aneurysm) s/p repair 07/2020 Atrial fibrillation follows with Dr. Stoddard; on xarelto Carotid artery stenosis 50-69% stenosis L ICA, < 50% stenosis R ICA COPD (chronic obstructive pulmonary disease) controlled, stable per pt; last rescue inhaler use 1 month ago Degenerative joint disease of right hip GERD (gastroesophageal reflux disease) controlled, stable per pt NUIQSUT (hard of hearing) B/L DONATO HTN (hypertension) controlled, stable per pt Macular degeneration Morbid obesity Neuropathy feet bilat Pulmonary nodule Second-degree heart block Sleep apnea Jg-ORV-mmejryyik Sludge in gallbladder general surgery 01/27/22 "would not push to have [laparoscopic cholecystectomy] unless he has more symptoms..." Surgical History (Updated 03/10/22 @ 13:16 by Santiago Liz PA-C) History of carpal tunnel release Right History of right knee joint replacement RT. 12/22/16: SAB at L3-L4 + PNB. History of tooth extraction S/P aneurysm repair Percutaneous Endovascular Aneurysm Repair 08/11/2020: Grade 2 view, MAC 4, ETT 8. Family History Mother Breast cancer Other Family history of breast cancer No family history of adverse response to anesthesia Denies family history of Ovarian cancer Prostate cancer Myocardial infarction Colorectal cancer Social History Smoking Status: Former smoker Smoking End Date: OVER 20 YEARS AGO ???; Do You Dip or Chew Tobacco: No; Hx Alcohol Use: No Preferred Language: Mohawk Communication Ability: Effective Visual Impairment: No Limitations Hearing Ability: Use of Hearing Aid New Product Trainer Required: No Beliefs That Will Affect Care: None marital status: Current Living Situation: Spouse Feels Safe at Home: Yes Safety Concerns: Feels Safe At This Time Dental Care, Regularly: Yes Seatbelt Use: always Assistive Devices: BiPap, Cane and Walker Review of Systems Review of Systems: Denies current fever, chills, headache, changes in vision, hearing, taste, and smell, chest pain, SOB, abdominal pain, nausea, vomiting, diarrhea, hematemesis, melena, dysuria, hematuria, and recent falls. All systems have been reviewed and are otherwise negative. Physical Exam Physical Exam: Physical Exam: General: In no acute distress, stated age, chronically ill-appearing, non- toxic appearing HEENT: Normocephalic, atraumatic, no scleral icterus, pupils around round, symmetrical, and reactive to light, large tongue, dry mucus membranes, trachea midline, no thyromegaly Chest/Pulm: No respiratory distress, symmetrical chest expansion, decrease breath sounds in the BL lower lung garcia, expiratory wheezing and crackles noted in all other lung garcia Cardiac: RRR, no murmurs noted Abdomen: Negative for ascites and bruising, normoactive bowel sounds, soft, non-tender to palpation throughout Musculoskeletal: Patient with bandage over the right hip which is clean and without signs of drainage, intake ROM in the upper and lower extremities Extremities: Radial, dorsalis pedis, and posterior tibial pulses are intact and symmetrical, patient currently with SMITA stockings on the BL LE's, no signifi cant pitting edema noted Skin: Warm, dry, no rashes , lesions, or scars noted Neuro: Alert and oriented to person, place, month, year, and president, no focal defects, CN II-XII tested and intact, finger to nose test negative, no tremors noted Psych: No acute distress, calm and cooperative during the exam Results & Data Results & Data ([facility]) Vital Signs (Past 12 Hours) Vital Signs Temp Pulse Resp BP BP Pulse Ox O2 Del Method 03/10/22 12:10 36.9 C 76 18 120/67 92 Nasal Cannula 03/10/22 11:14 36.8 C 76 20 114/62 91 Nasal Cannula 03/10/22 07:40 Nasal Cannula 03/10/22 09:42 37 C 88 18 133/67 95 Nasal Cannula 03/10/22 08:36 37 C 80 18 132/66 91 Nasal Cannula 03/10/22 07:51 37.0 C 80 20 115/55 L 90 Nasal Cannula 03/10/22 05:57 37.2 C 75 18 104/62 Nasal Cannula O2 Flow Rate FiO2 03/10/22 12:10 5 03/10/22 11:14 4 03/10/22 07:40 5 03/10/22 09:42 5 03/10/22 08:36 4 03/10/22 07:51 4 03/10/22 05:57 4 93 Laboratory Results Abnormal lab results 03/10/22 03/10/22 03/10/22 Range/Units 07:14 07:14 07:14 WBC 12.55 H (4.8-10.8) K/ul RBC 4.29 L (4.63-6.08) M/uL Hgb 12.3 L (14.0-18.0) g/dl Hct 38.6 L (40.1-51.0) % MCHC 31.9 L (32.0-36.0) g/dL Neut # (Auto) 9.77 H (1.4-6.5) K/uL Lymph # (Auto) 1.02 L (1.2-3.4) K/uL [place] # (Auto) 1.67 H (0.24-0.82) K/uL Immature Gran # (Auto) 0.05 H (0.00-0.02) K/uL BUN 25 H (6-23) mg/dl BUN/Creatinine Ratio 26.0 H (10-20) Glucose 135 H (70-99(Fasting)) mg/dl Calcium 8.3 L (8.5-10.1) mg/dl Total Creatine Kinase 2871 H (30-223) U/L Diagnostic Findings Hip/Pelvis X-Ray 03/09/22 10:59 XR hip 1V RT w pelvis HISTORY: 77 years-old Male IN PACU - Post Surgical right hip arthroplasty COMPARISON: Hip radiographs 01/06/2022 TECHNIQUE: AP view of the pelvis with crosstable lateral view of the right hip FINDINGS: Mild to moderate left hip osteoarthritis. Surgical clips of the scrotum. Right hip total joint arthroplasty demonstrates satisfactory alignment. Overlying skin stacey are noted along with expected postoperative soft tissue swelling with deep tissue air. No acute fracture or unexpected opaque foreign body identified. IMPRESSION: Right hip total joint arthroplasty with expected postoperative findings. ACT 112: Negative or not required by law. The above report was generated using voice recognition software. It may contain grammatical, syntax or spelling errors. Electronically signed by: Gonzalo Sanz M.D. 03/09/2022 11:34 AM Chest X-Ray 03/10/22 12:20 SINGLE VIEW CHEST CLINICAL HISTORY: Hypoxia. FINDINGS: An AP, portable, upright chest radiograph is compared to study dated 01/28/2022 and correlated with chest CT dated 01/25/2016. The heart is enlarged. Atherosclerotic calcification of the thoracic aorta. There is pulmonary vascular congestion. Bilateral airspace opacities likely represent pulmonary edema. Emphysema and chronic interstitial thickening similar to previous. There are small pleural effusions with dependent consolidation. No pneumothorax is seen. The skeletal structures are osteopenic. The bony thorax is grossly intact. Degenerative change is noted in the shoulders and spine. IMPRESSION: 1. Cardiomegaly and emphysema with evidence of congestive failure. 2. Bilateral airspace opacities likely represent pulmonary edema. Correlate clinically for evidence of a superimposed infectious/inflammatory pneumonitis. Radiographic follow-up to resolution is recommended. 3. Small pleural effusions with dependent consolidation ACT 112: Negative or not required by law. Electronically signed by: Donte Canseco M.D. 03/10/2022 12:39 PM ECG Additional Comments: Sinus rhythm with 1st degree A-V block Otherwise normal ECG When compared with ECG of 05-JAN-2022 16:52, Minimal criteria for Anterior infarct are no longer Present QT has shortened PG Care Time/CCT Total # of Minutes Spent Total Time Spent with Patient: Total time spent is greater than 50% in coordination of care (as documented) at patient's floor/unit and/or counseling patient: Coding [place] [address] Office/OBS Consult Lvl 4 Patient Type Established Medical Decision Making Moderate Complexity Diagnoses Hypoxia R09.02 Status post right hip replacement Z96.641 GERD (gastroesophageal reflux disease) K21.9 Atrial fibrillation with rapid ventricular response I48.91 GERRY (obstructive sleep apnea) G47.33 Hypertension I10 LVH (left ventricular hypertrophy) I51.7 COPD with emphysema J43.9
--- NOTE | 2022-03-10 12:40 | XRay Report ---
SINGLE VIEW CHEST CLINICAL HISTORY: Hypoxia. FINDINGS: An AP, portable, upright chest radiograph is compared to study dated 01/28/2022 and correlat ed with chest CT dated 01/25/2016. The heart is enlarged. Atherosclerotic calcification of the thorac ic aorta. There is pulmonary vascular congestion. Bilateral airspace opacities likely represent pulmo nary edema. Emphysema and chronic interstitial thickening similar to previous. There are small pleura l effusions with dependent consolidation. No pneumothorax is seen. The skeletal structures are osteop enic. The bony thorax is grossly intact. Degenerative change is noted in the shoulders and spine. IMPRESSION: 1. Cardiomegaly and emphysema with evidence of congestive failure. 2. Bilateral airspace opacities likely represent pulmonary edema. Correlate clinically for evidence o f a superimposed infectious/inflammatory pneumonitis. Radiographic follow-up to resolution is recomme nded. 3. Small pleural effusions with dependent consolidation ACT 112: Negative or not required by law. Electronically signed by: Donte Canseco M.D. 03/10/2022 12:39 PM
[2022-03-10 12:57] LABS: Troponin I High Sensitivity 10.6 pg/ml (0-20)
[2022-03-10 13:00] LABS: HCO3 VBG 32 mmol/L; Oxygen Saturation VBG 66.8 %; PCO2 VBG 55 mmHg (38-50); PO2 VBG 37 mmHg; pH VBG 7.37 (7.36-7.41)
[2022-03-10] MEDS ORDERED: FUROSEMIDE INJ 20 MG/2 ML VIAL IV ONE (13:09)
[2022-03-10] MEDS: ALBUT/IPRATROP 3MG/0.5MG NEB 3 ML VIAL NEB SCH ×3 (13:36→20:00)
--- NOTE | 2022-03-10 15:01 | Electrocardiogram Report ---
Test Reason : Blood Pressure : / mmHG Vent. Rate : 067 BPM Atrial Rate : 067 BPM P-R Int : 216 ms QRS Dur : 096 ms QT Int : 388 ms P-R-T Axes : 055 023 046 degrees QTc Int : 409 ms Sinus rhythm with 1st degree A-V block Incomplete right bundle branch block Otherwise normal ECG When compared with ECG of 05-JAN-2022 16:52, Minimal criteria for Anterior infarct are no longer Present Confirmed by Dakota Capellan ([id number]) on 03/10/2022 3:00:55 PM Referred By: Ross Leung Confirmed By:Dakota Capellan
--- NOTE | 2022-03-10 15:30 | XCELERA ---
[id number]
[2022-03-10] MEDS: HYDROmorphone INJ 0.5 MG/0.5 ML SYR IV PRN ×2 (15:45→23:17)
[2022-03-10] MEDS: CALCIUM POLYCARBOPHIL 625MG TAB PO SCH (20:11)
[2022-03-10] MEDS: MELATONIN 3 MG TAB PO SCH (20:11)
[2022-03-10] MEDS: hydroCHLOROthiazide 25 MG TAB PO SCH (20:11)
[2022-03-10] MEDS: SENNA 8.6 MG TAB PO SCH (20:11)
[2022-03-10] MEDS: ASCORBIC ACID 500 MG TAB PO SCH (20:11)
[2022-03-10] MEDS: traMADol HCL 50 MG TABLET PO PRN (20:40)
[2022-03-10] MEDS ORDERED: PANTOprazole 40 MG TAB PO SCH (21:00)
[2022-03-11] MEDS: ACETAMINOPHEN 500 MG TAB PO SCH ×3 (06:21→21:12)
[2022-03-11] MEDS: ALBUT/IPRATROP 3MG/0.5MG NEB 3 ML VIAL NEB SCH ×4 (07:32→20:03)
[2022-03-11] MEDS: CEROVITE ADV FORMULA TAB PO SCH (08:36)
[2022-03-11] MEDS: ATENOLOL 25 MG TABLET PO SCH ×3 (08:36→21:12)
[2022-03-11] MEDS: DOCUSATE SODIUM 100 MG CAP PO SCH ×2 (08:36→19:57)
[2022-03-11] MEDS: RIVAROXABAN 10 MG TABLET PO SCH (08:37)
[2022-03-11] MEDS: AMIODARONE 200 MG TAB PO SCH (08:37)
[2022-03-11] MEDS: MAGNESIUM OXIDE 400 MG TAB PO SCH (08:38)
[2022-03-11] MEDS: POTASSIUM CHLORIDE CRTAB 20 MEQ TABCR PO SCH (08:39)
[2022-03-11] MEDS: TAMSULOSIN HCL 0.4 MG CAP PO SCH (08:39)
[2022-03-11] MEDS: DOCUSATE SODIUM/SENNA 50/8.6MG TAB PO SCH ×2 (08:40→20:07)
[2022-03-11 09:01] LABS: Basophils # (auto) 0.03 K/uL (0-0.2); Basophils % (auto) 0.2 %; Hematocrit (blood only) 37.9 % (40.1-51.0); Hemoglobin 12.3 g/dl (14.0-18.0); Immature Granulocytes # (auto) 0.14 K/uL (0.00-0.02); Immature Granulocytes % (auto) 0.7 %; Lymphocytes # (auto) 1.39 K/uL (1.2-3.4); Lymphocytes % (auto) 7.4 %; Mean Corpuscular Hemoglobin 28.7 pg (25.0-34.0); Mean Corpuscular Hgb Conc 32.5 g/dL (32.0-36.0); Mean Corpuscular Volume 88.6 fL (80.0-100.0); Mean Platelet Volume 10.5 fL (9.4-12.4); Monocytes % (auto) 12.3 %; Neutrophils # (auto) 14.85 K/uL (1.4-6.5); Neutrophils % (auto) 79.4 %; Platelet Count 184 K/uL (130-400); RDW Coefficient of Variation 14.1 % (11.5-14.5); RDW Standard Deviation 45.1 fL (36.4-46.3); Red Blood Count 4.28 M/uL (4.63-6.08); White Blood Count 18.71 K/ul (4.8-10.8)
[2022-03-11 09:24] LABS: BUN Creatinine Ratio 28.4 (10-20); Calcium 9.5 mg/dl (8.5-10.1); Creatinine Clr Calc Pharmacy 102.2 ml/min; Est GFR (African American) 100.8 ml/min; Est GFR (Non-African American) 86.9 ml/min; Magnesium 2.1 mg/dl (1.7-2.4); Potassium 3.9 mmol/L (3.5-5.1)
[2022-03-11] MEDS ORDERED: FUROSEMIDE INJ 20 MG/2 ML VIAL IV ONE (10:22)
--- NOTE | 2022-03-11 11:01 | Fluoroscopy Report ---
MODIFIED BARIUM SWALLOW CLINICAL HISTORY: r/o aspiration COMPARISON STUDY: None. FLUOROSCOPY TIME: 2.8 minutes. TECHNIQUE: A modified barium swallow was performed in conjunction with Speech Pathology. The patient ingested varying consistencies of barium containing material. Video fluoroscopy was performed. FINDINGS: Several episodes of penetration were noted with thin liquids. However, no tracheal aspirati on was noted. There is no aspiration with thin liquids, mildly thick liquids, pudding or crackers wit h paste. Epiglottic inversion was normal. Laryngeal elevation was normal. Severe esophageal dysmotili ty was incidentally noted. IMPRESSION: 1. No tracheal aspiration. Several episodes of penetration with thin liquids. 2. Severe esophageal dysmotility. 3. Full recommendations by Speech pathology to follow. ACT 112: Negative or not required by law. Electronically signed by: Austin Kaur M.D. 03/11/2022 10:58 AM
--- NOTE | 2022-03-11 11:43 | Progress Notes ---
SUBJECTIVE: A 77-year-old gentleman, postoperative day 2 from a right hip replacement. He is doing okay. His O2 sats were down yesterday and we got Medicine to see him, they have been working on tryi ng to maximize his pulmonary function. He is really asymptomatic from this. He is currently using t he nebulizer. His pain seems to be controlled. No chest pain or shortness of breath. He says his b reathing feels normal. OBJECTIVE: VITAL SIGNS: Temperature 36.7. Vital signs are stable. GENERAL: This is a large middle-aged male. He is sitting up in bed and using the nebulizer. EXTREMITIES: Examination of the right hip reveals the dressing to be clean, dry, and intact. The le g lengths are equal. He is neurologically intact. ASSESSMENT: A 77-year-old gentleman, postoperative day 2 from a right hip replacement, doing okay. His O2 sats had dropped, probably not too much below what his baseline is. He has been asymptomatic. Could be some component of fat emboli in addition. PLAN: 1. DVT prophylaxis includes thigh-high TEDs, SCDs, and back on his Xarelto. 2. PT/OT, weightbear as tolerated. Right total hip protocol. He can weight bear as tolerated. 3. Pain control, doing okay with current pain regimen. 4. Medical management. Medicines to try and optimize his pulmonary function. We will see how this progresses. 5. Disposition: Plan to discharge to home with some home health once adequately recovered and medic ally stable. Job ID: [id number]
[2022-03-11] MEDS: traMADol HCL 50 MG TABLET PO PRN (11:49)
[2022-03-11] MEDS: HYDROmorphone INJ 0.5 MG/0.5 ML SYR IV PRN (14:46)
--- NOTE | 2022-03-11 16:19 | Hospitalist Progress Note ---
Date of Service March 11, 2022 Assessment & Plan (1) Hypoxia: Plan: 77 yo male here with acute respiratory failure with hypoxia in setting of likely acute HFpEF and COPD. Diuresing and improving-was on 5LNC, now weaned down to 3LNC Had some wheezing; CXR with bilat pleural effusions and atelectasis compressive Trop and ECG negative, no CP ECHO with preserved EF, no WMAs, no significant valvular disease -continue scheduled nebs , encouraged ICS, flutter valve -with GERRY on HS Bipap -continue supplemental O2 as needed to keep POx>90 -give another dose of IV lasix today (2) (HFpEF) heart failure with preserved ejection fraction: Plan: as above (3) Status post right hip replacement: Plan: -No reported complications -Pain control, DVT PPX, and Abx per the primary team -Continue PT/OT -WBC count up due to dexamethasone received yesterday continue bowel regimen for constipation (4) GERD (gastroesophageal reflux disease): Plan: -on pepcid (5) Atrial fibrillation with rapid ventricular response: Plan: -Currently rate controlled ,in NSR -Continue amiodarone and agree with restarting Xarelto as long as the primary team is comfortable at this time (6) GERRY (obstructive sleep apnea): Plan: -HS bipap ordered (7) Hypertension: Plan: -Continue atenlol and hydrochlorothiazide BPs controlled to somewhat elevated (8) COPD with emphysema: Plan: -Ordered scheduled DuoNebs and pulmonary hygiene -Goal SpO2 is 89-92 %, confirmed that his O2 order shows this -Wean to RA as able (9) Enlarged tongue: Plan: -With enlarged tongue--> not sure if any worse than usual. Airway does appear patent, no distress, no lip swelling. 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 No SOB, weaned to 3LNC, working on ICS. His is at bedside and feels his tongue size and speech seem much less and improved today. He wore his BiPAP through the night. No nausea. No BM yet. No CP. Review of Systems Review of Systems: All systems reviewed & are unremarkable except as noted in HPI & below Physical Exam Constitutional: WD/WN, vitals as above Eyes: + anicteric sclerae ENMT: Large tongue but much smaller than yesterday; edentulous except a few bottom teeth OP widely patent Neck: trachea midline, no thyromegaly Respiratory: normal respiratory effort; no cough Auscultation: + diminished lung sounds (at bases); no crackles, no rhonchi and no wheezes NC in place Cardiovascular: RRR, no murmur, no edema Chest (Breasts): Chest: normal inspection of chest Gastrointestinal (Abdomen): normal bowel sounds, soft, nontender, no hepatosplenomegaly Musculoskeletal: Extremities: + extremities abnormal to inspection (Rt lateral hip with dressing c/d/i), no cyanosis and no clubbing Skin: no rashes, warm and dry Neurologic: moves all extremities and awake; no focal motor deficits Psychiatric: A+Ox3, euthymic affect Genitourinary: Sherwood catheter in place Lymphatic: no lymphedema Results & Data Results & Data ([facility]) Vital Signs (Past 12 Hours) Vital Signs Temp Pulse Resp BP BP Pulse Ox O2 Del Method 03/11/22 15:19 36.4 C L 62 16 141/62 H 92 CPAP 03/11/22 15:14 71 18 93 CPAP 03/11/22 07:40 Nasal Cannula 03/11/22 11:20 86 18 93 Room Air 03/11/22 08:35 85 146/72 H 03/11/22 08:05 88 155/85 H 03/11/22 07:36 20 92 Nasal Cannula 03/11/22 07:05 36.7 C 76 18 150/64 H 94 CPAP O2 Flow Rate 03/11/22 15:19 7 03/11/22 15:14 3 03/11/22 07:40 4 03/11/22 11:20 03/11/22 08:35 03/11/22 08:05 03/11/22 07:36 3 03/11/22 07:05 3 Laboratory Results 03/11/22 03/11/22 Range/Units 07:34 07:34 WBC 18.71 H (4.8-10.8) K/ul RBC 4.28 L (4.63-6.08) M/uL Hgb 12.3 L (14.0-18.0) g/dl Hct 37.9 L (40.1-51.0) % MCV 88.6 (80.0-100.0) fL MCH 28.7 (25.0-34.0) pg MCHC 32.5 (32.0-36.0) g/dL RDW Std Deviation 45.1 (36.4-46.3) fL RDW Coeff of Salome 14.1 (11.5-14.5) % Plt Count 184 (130-400) K/uL MPV 10.5 (9.4-12.4) fL Immature Gran % (Auto) 0.7 % Neut % (Auto) 79.4 % Lymph % (Auto) 7.4 % [place] % (Auto) 12.3 % Eos % (Auto) 0.0 % Baso % (Auto) 0.2 % Neut # (Auto) 14.85 H (1.4-6.5) K/uL Lymph # (Auto) 1.39 (1.2-3.4) K/uL [place] # (Auto) 2.30 H (0.24-0.82) K/uL Eos # (Auto) 0.00 (0-0.50) K/uL Baso # (Auto) 0.03 (0-0.2) K/uL Immature Gran # (Auto) 0.14 H (0.00-0.02) K/uL Sodium 137 (136-145) mmol/L Potassium 3.9 (3.5-5.1) mmol/L Chloride 99 (98-107) mmol/L Carbon Dioxide 31 (21-32) mmol/L Anion Gap 7 (3-11) BUN 23 (6-23) mg/dl Creatinine 0.81 (0.6-1.4) mg/dl Est Cr Clr Drug Dosing 102.2 ml/min Est GFR ( Amer) 100.8 ml/min Est GFR (Non-Af Amer) 86.9 ml/min BUN/Creatinine Ratio 28.4 H (10-20) Glucose 123 H (70-99(Fasting)) mg/dl Calcium 9.5 (8.5-10.1) mg/dl Magnesium 2.1 (1.7-2.4) mg/dl PG Care Time/CCT Total # of Minutes Spent Total Time Spent with Patient: Total time spent is greater than 50% in coordination of care (as documented) at patient's floor/unit and/or counseling patient: Coding Level of Care Code 58713 Subseq Hosp Care Lvl 3 Diagnoses Hypoxia R09.02 (HFpEF) heart failure with preserved ejection fraction I50.30 Status post right hip replacement Z96.641 GERD (gastroesophageal reflux disease) K21.9 Atrial fibrillation with rapid ventricular response I48.91 GERRY (obstructive sleep apnea) G47.33 Hypertension I10 COPD with emphysema J43.9 Enlarged tongue K14.8 Dysphagia R13.10
[2022-03-11] MEDS: ASCORBIC ACID 500 MG TAB PO SCH (20:07)
[2022-03-11] MEDS: SENNA 8.6 MG TAB PO SCH (20:07)
[2022-03-11] MEDS: CALCIUM POLYCARBOPHIL 625MG TAB PO SCH (20:07)
[2022-03-11] MEDS: MELATONIN 3 MG TAB PO SCH (20:08)
[2022-03-11] MEDS: hydroCHLOROthiazide 25 MG TAB PO SCH (20:09)
[2022-03-12] MEDS: traMADol HCL 50 MG TABLET PO PRN (05:05)
[2022-03-12] MEDS: ACETAMINOPHEN 500 MG TAB PO SCH ×3 (05:05→22:42)
[2022-03-12] MEDS: ALBUT/IPRATROP 3MG/0.5MG NEB 3 ML VIAL NEB SCH ×4 (07:12→19:15)
--- NOTE | 2022-03-12 09:02 | Progress Notes ---
DATE OF NOTE: 03/12/2022. SUBJECTIVE: A 77-year-old gentleman now postop day 3 from a right total hip replacement. He seems t o be improving. He has intermittent bouts of pain that seems to kind of wax and wane. His breathing seems to be getting a little bit better. He denies any real complaints with respect to breathing. No chest pain or shortness of breath. OBJECTIVE: VITAL SIGNS: Temperature is 36.9. Vital signs are stable. GENERAL: Shows a pleasant, elderly male. I did wake him this morning. He is lying in bed and looks comfortable. EXTREMITIES: Examination of the right hip reveals dressing to be clean, dry and intact. Leg lengths were equal. Hip is located. He is neurologically intact. LABORATORY DATA: No new labs. ASSESSMENT: A 77-year-old gentleman with multiple medical comorbidities, now postop day 3 from a rig ht total hip replacement. Orthopedically doing fine. He has had a little bit of fluid/congestive he art failure and respiratory difficulties, which seemed to be improving with diuresis and steroids. H is pain is controlled. Hip is located. He is neurologically intact. He is a very large gentleman, who is deconditioned with multiple medical issues. PLAN: 1. DVT prophylaxis includes thigh-high TEDs, SCDs and he is back on his Xarelto. He is currently at a prophylactic dose. 2. PT/OT weightbear as tolerated. Right total hip protocol. 3. Pain control, seems to be doing okay with current pain regimen. 4. Medical management. This is the thing that is keeping him in the hospital at this point along wi th just therapy issues and mobilization. Continue medical management as per the medicine service. 5. Disposition. He is orthopedically okay for discharge any time. He is a large gentleman. I think he would best go to rehab. He is considering this. We will see how his medical situation is today. We will see how therapy goes. Any orthopedic questions can be directed to me at [phone]. Job ID: [id number]
[2022-03-12] MEDS: DOCUSATE SODIUM/SENNA 50/8.6MG TAB PO SCH ×2 (09:52→20:03)
[2022-03-12] MEDS: AMIODARONE 200 MG TAB PO SCH (09:52)
[2022-03-12] MEDS: MAGNESIUM OXIDE 400 MG TAB PO SCH (09:53)
[2022-03-12] MEDS: ATENOLOL 25 MG TABLET PO SCH ×2 (09:53→20:05)
[2022-03-12] MEDS: DOCUSATE SODIUM 100 MG CAP PO SCH ×2 (09:53→20:04)
[2022-03-12] MEDS: CEROVITE ADV FORMULA TAB PO SCH (09:54)
[2022-03-12] MEDS: TAMSULOSIN HCL 0.4 MG CAP PO SCH (09:54)
[2022-03-12] MEDS: POTASSIUM CHLORIDE CRTAB 20 MEQ TABCR PO SCH (09:54)
[2022-03-12] MEDS: RIVAROXABAN 10 MG TABLET PO SCH (09:54)
[2022-03-12 11:11] LABS: Basophils # (auto) 0.05 K/uL (0-0.2); Basophils % (auto) 0.3 %; Eosinophils # (auto) 0.07 K/uL (0-0.50); Eosinophils % (auto) 0.5 %; Hematocrit (blood only) 40.7 % (40.1-51.0); Hemoglobin 13.2 g/dl (14.0-18.0); Immature Granulocytes # (auto) 0.08 K/uL (0.00-0.02); Immature Granulocytes % (auto) 0.6 %; Lymphocytes # (auto) 1.54 K/uL (1.2-3.4); Lymphocytes % (auto) 10.6 %; Mean Corpuscular Hemoglobin 28.5 pg (25.0-34.0); Mean Corpuscular Hgb Conc 32.4 g/dL (32.0-36.0); Mean Corpuscular Volume 87.9 fL (80.0-100.0); Mean Platelet Volume 10.2 fL (9.4-12.4); Monocytes # (auto) 1.55 K/uL (0.24-0.82); Monocytes % (auto) 10.7 %; Neutrophils # (auto) 11.19 K/uL (1.4-6.5); Neutrophils % (auto) 77.3 %; Platelet Count 220 K/uL (130-400); RDW Coefficient of Variation 14.4 % (11.5-14.5); RDW Standard Deviation 45.5 fL (36.4-46.3); Red Blood Count 4.63 M/uL (4.63-6.08); White Blood Count 14.48 K/ul (4.8-10.8)
[2022-03-12 11:37] LABS: BUN Creatinine Ratio 32.5 (10-20); Calcium 9.6 mg/dl (8.5-10.1); Creatinine Clr Calc Pharmacy 103.5 ml/min; Est GFR (African American) 101.3 ml/min; Est GFR (Non-African American) 87.4 ml/min; Potassium 3.7 mmol/L (3.5-5.1)
[2022-03-12] MEDS ORDERED: FUROSEMIDE 40 MG/4 ML VIAL IV ONE (13:42)
--- NOTE | 2022-03-12 14:15 | Hospitalist Progress Note ---
Date of Service March 12, 2022 Assessment & Plan (1) Hypoxia: Plan: 77 yo male here with acute respiratory failure with hypoxia in setting of likely acute HFpEF and COPD. Diuresing and with some improvement-was on 5LNC, now weaned down to 3LNC but not able to further wean at this point Had some wheezing; CXR with bilat pleural effusions and compressive atelectasis Trop and ECG negative, no CP ECHO with preserved EF, no WMAs, no significant valvular disease -continue scheduled nebs , encouraged ICS, flutter valve, mobilization with physical therapy -Continue with GERRY on HS Bipap -continue supplemental O2 as needed to keep POx>90 -Increased dose of Lasix to 40 Mg IV today to achieve increased diuresis -Add fluid restriction of 1500 mL and change diet to low-sodium from regular -Continue daily HCTZ -Ordered daily weights (2) (HFpEF) heart failure with preserved ejection fraction: Plan: as above (3) Status post right hip replacement: Plan: -No reported complications -Pain control, DVT PPX, and Abx per the primary team -Continue PT/OT -WBC count up due to dexamethasone received on the day of surgery is now impro ving -Continue bowel regimen for constipation-had a bowel movement on 03/12 (4) GERD (gastroesophageal reflux disease): Plan: discontinued Pepcid as he reports difficulty swallowing and enlarged tongue over the last several weeks and this is a new medication for him His tongue swelling is improved since discontinuing Pepcid but now he is having indigestion He reports he has gotten sick in the past with Protonix so we will avoid that -Add Tums as needed (5) Atrial fibrillation with rapid ventricular response: Plan: -Currently rate controlled ,in NSR -Continue amiodarone -Discussed with orthopedics today-okay to increase Xarelto to 20 mg daily for tomorrow's dose (6) GERRY (obstructive sleep apnea): Plan: -HS bipap ordered and he is compliant with this (7) Hypertension: Plan: -Continue atenolol and hydrochlorothiazide, Lasix BPs controlled (8) COPD with emphysema: Plan: -Continue scheduled DuoNebs and pulmonary toilet -Goal SpO2 is 89-92 %, confirmed that his O2 order shows this -Wean to RA as able but given severe underlying COPD, most likely will need O2 on discharge (9) Enlarged tongue: Plan: -With enlarged tongue--> appeared quite enlarged on the day of surgery postoperatively but airway does appear patent, no distress, no lip swelling. He reports difficulty with swallowing for the last several weeks. 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 He reports he cannot take Protonix because it makes him feel sick. Otherwise denies shortness of breath and nursing reports he frequently takes off the supplemental O2. Attempts to wean him down off of it so far have been unsuccessful. He still complains of pain in the hip. He is urinating quite a bit and moved his bowels today. I did discuss his care with his attending physician, Dr. Leung of orthopedics. Review of Systems Review of Systems: All systems reviewed & are unremarkable except as noted in HPI & below Physical Exam Constitutional: WD/WN, vitals as above Eyes: + anicteric sclerae ENMT: Tongue is enlarged but much smaller than previous Neck: trachea midline, no thyromegaly Respiratory: normal respiratory effort; no cough Auscultation: + diminished lung sounds (at bases); no crackles, no rhonchi and no wheezes Cardiovascular: RRR, no murmur, no edema Chest (Breasts): Chest: normal inspection of chest Gastrointestinal (Abdomen): normal bowel sounds, soft, nontender, no hepatosplenomegaly Musculoskeletal: Extremities: + extremities abnormal to inspection (Rt lateral hip with dressing c/d/i), no cyanosis and no clubbing Skin: no rashes, warm and dry Neurologic: moves all extremities and awake; no focal motor deficits Psychiatric: A+Ox3, euthymic affect Lymphatic: no lymphedema Results & Data Results & Data ([facility]) Vital Signs (Past 12 Hours) Vital Signs Temp Pulse Resp BP Pulse Ox O2 Del Method O2 Flow Rate 03/12/22 09:28 Nasal Cannula 3 03/12/22 11:00 94 Nasal Cannula 3 03/12/22 11:08 86 16 90 Nasal Cannula 3 03/12/22 07:53 36.9 C 80 16 145/63 H 93 Nasal Cannula 3 03/12/22 07:12 79 16 93 Nasal Cannula 3 Laboratory Results 03/12/22 03/12/22 Range/Units 10:22 10:22 WBC 14.48 H (4.8-10.8) K/ul RBC 4.63 (4.63-6.08) M/uL Hgb 13.2 L (14.0-18.0) g/dl Hct 40.7 (40.1-51.0) % MCV 87.9 (80.0-100.0) fL MCH 28.5 (25.0-34.0) pg MCHC 32.4 (32.0-36.0) g/dL RDW Std Deviation 45.5 (36.4-46.3) fL RDW Coeff of Salome 14.4 (11.5-14.5) % Plt Count 220 (130-400) K/uL MPV 10.2 (9.4-12.4) fL Immature Gran % (Auto) 0.6 % Neut % (Auto) 77.3 % Lymph % (Auto) 10.6 % [place] % (Auto) 10.7 % Eos % (Auto) 0.5 % Baso % (Auto) 0.3 % Neut # (Auto) 11.19 H (1.4-6.5) K/uL Lymph # (Auto) 1.54 (1.2-3.4) K/uL [place] # (Auto) 1.55 H (0.24-0.82) K/uL Eos # (Auto) 0.07 (0-0.50) K/uL Baso # (Auto) 0.05 (0-0.2) K/uL Immature Gran # (Auto) 0.08 H (0.00-0.02) K/uL Sodium 138 (136-145) mmol/L Potassium 3.7 (3.5-5.1) mmol/L Chloride 98 (98-107) mmol/L Carbon Dioxide 29 (21-32) mmol/L Anion Gap 11 (3-11) BUN 26 H (6-23) mg/dl Creatinine 0.80 (0.6-1.4) mg/dl Est Cr Clr Drug Dosing 103.5 ml/min Est GFR ( Amer) 101.3 ml/min Est GFR (Non-Af Amer) 87.4 ml/min BUN/Creatinine Ratio 32.5 H (10-20) Glucose 150 H (70-99(Fasting)) mg/dl Calcium 9.6 (8.5-10.1) mg/dl Magnesium 2.0 (1.7-2.4) mg/dl PG Care Time/CCT Total # of Minutes Spent Total Time Spent with Patient: Total time spent is greater than 50% in coordination of care (as documented) at patient's floor/unit and/or counseling patient: Coding Level of Care Code 64226 Subseq Hosp Care Lvl 3 Diagnoses Hypoxia R09.02 (HFpEF) heart failure with preserved ejection fraction I50.30 Status post right hip replacement Z96.641 GERD (gastroesophageal reflux disease) K21.9 Atrial fibrillation with rapid ventricular response I48.91 GERRY (obstructive sleep apnea) G47.33 Hypertension I10 COPD with emphysema J43.9 Enlarged tongue K14.8 Dysphagia R13.10
[2022-03-12] MEDS: CALCIUM CARBONATE 500 MG CHEWABLE TAB PO PRN (14:18)
[2022-03-12] MEDS: hydroCHLOROthiazide 25 MG TAB PO SCH (20:03)
[2022-03-12] MEDS: MELATONIN 3 MG TAB PO SCH (20:03)
[2022-03-12] MEDS: CALCIUM POLYCARBOPHIL 625MG TAB PO SCH (20:03)
[2022-03-12] MEDS: ASCORBIC ACID 500 MG TAB PO SCH (20:04)
[2022-03-12] MEDS: SENNA 8.6 MG TAB PO SCH (20:05)
[2022-03-13] MEDS: ACETAMINOPHEN 500 MG TAB PO SCH ×3 (05:33→21:13)
[2022-03-13 05:56] LABS: Basophils # (auto) 0.04 K/uL (0-0.2); Basophils % (auto) 0.3 %; Eosinophils # (auto) 0.11 K/uL (0-0.50); Eosinophils % (auto) 0.9 %; Hematocrit (blood only) 40.6 % (40.1-51.0); Hemoglobin 13.4 g/dl (14.0-18.0); Immature Granulocytes # (auto) 0.05 K/uL (0.00-0.02); Immature Granulocytes % (auto) 0.4 %; Lymphocytes # (auto) 1.63 K/uL (1.2-3.4); Lymphocytes % (auto) 14.1 %; Mean Corpuscular Hemoglobin 28.6 pg (25.0-34.0); Mean Corpuscular Volume 86.8 fL (80.0-100.0); Mean Platelet Volume 10.2 fL (9.4-12.4); Monocytes # (auto) 1.35 K/uL (0.24-0.82); Monocytes % (auto) 11.6 %; Neutrophils # (auto) 8.41 K/uL (1.4-6.5); Neutrophils % (auto) 72.7 %; Platelet Count 212 K/uL (130-400); RDW Coefficient of Variation 14.1 % (11.5-14.5); RDW Standard Deviation 44.5 fL (36.4-46.3); Red Blood Count 4.68 M/uL (4.63-6.08); White Blood Count 11.59 K/ul (4.8-10.8)
[2022-03-13 06:45] LABS: BUN Creatinine Ratio 38.8 (10-20); Calcium 9.2 mg/dl (8.5-10.1); Creatinine Clr Calc Pharmacy 123.6 ml/min; Est GFR (African American) 108.9 ml/min; Magnesium 2.1 mg/dl (1.7-2.4); Potassium 4.1 mmol/L (3.5-5.1)
[2022-03-13] MEDS: ALBUT/IPRATROP 3MG/0.5MG NEB 3 ML VIAL NEB SCH ×4 (07:16→20:13)
--- NOTE | 2022-03-13 08:39 | Progress Notes ---
DATE OF SERVICE: 03/13/2022 SUBJECTIVE: A 77-year-old gentleman postoperative day #4 from a right uncemented hip replacement. This has been complicated postoperatively with some hypoxia, likely related to some slight heart failure and pulmon anum edema. The medicine's team has been gently diuresing him and he seems to be improving. He has h ad no complaints during the whole time. Denies any chest pain or shortness of breath. OBJECTIVE: VITAL SIGNS: Temperature 36.7. Vital signs are stable. O2 sats is 91%. GENERAL: Shows a pleasant, elderly male. We had to wake him this morning. He is lying in bed, look s pretty comfortable. He is miserable with the oxygen as it is drying the mouth. EXTREMITIES: Examination of the right hip reveals the dressing clean, dry and intact. Leg lengths w ere equal. He is neurologically intact. LABORATORY DATA: Hemoglobin 13.4. Hematocrit 40.6. Electrolytes are stable. ASSESSMENT: A 77-year-old gentleman, postoperative day #4 from right uncemented hip replacement, com plicated by some hypoxia and fluid overload. He seems to be improving. O2 sats acceptable but I wou ld imagine pretty much his baseline. He is asymptomatic. BUN and creatinine look stable. Volume st atus appears pretty good. PLAN: 1. DVT prophylaxis includes thigh-high TEDs, SCDs and back on his regular Xarelto. He can be on ful l-strength at this time. 2. PT/OT. Weightbear as tolerated. Right total hip protocol. 3. Pain control, doing okay with current pain regimen. 4. Medical management as per the medicine service. 5. Disposition: Plan to discharge to rehab once medically stable. Job ID: [id number]
[2022-03-13] MEDS: AMIODARONE 200 MG TAB PO SCH (08:49)
[2022-03-13] MEDS: ATENOLOL 25 MG TABLET PO SCH ×2 (08:50→21:07)
[2022-03-13] MEDS: FUROSEMIDE 40 MG/4 ML VIAL IV SCH (08:50)
[2022-03-13] MEDS: DOCUSATE SODIUM/SENNA 50/8.6MG TAB PO SCH ×2 (08:50→21:08)
[2022-03-13] MEDS: DOCUSATE SODIUM 100 MG CAP PO SCH ×2 (08:50→21:08)
[2022-03-13] MEDS: MAGNESIUM OXIDE 400 MG TAB PO SCH (08:50)
[2022-03-13] MEDS: TAMSULOSIN HCL 0.4 MG CAP PO SCH (08:51)
[2022-03-13] MEDS: CEROVITE ADV FORMULA TAB PO SCH (08:51)
[2022-03-13] MEDS: RIVAROXABAN 20 MG TAB PO SCH (08:51)
[2022-03-13] MEDS: POTASSIUM CHLORIDE CRTAB 20 MEQ TABCR PO SCH (08:51)
[2022-03-13] MEDS ORDERED: SODIUM CHLORIDE 0.65% NA SOLN 45 ML (OCEAN) PRN (15:09)
[2022-03-13] MEDS: FLUTICASONE PROPIONATE NA SPR 16 GM BTL NAE SCH (16:08)
[2022-03-13] MEDS: guaiFENesin 600 MG TABCR PO SCH ×2 (16:08→21:09)
--- NOTE | 2022-03-13 17:31 | Hospitalist Progress Note ---
Date of Service March 13, 2022 Assessment & Plan (1) Hypoxia: Plan: Acute respiratory failure with hypoxia in setting of likely acute HFpEF and COPD. Peak O2 requirement was 5LNC - now weaned to RA this am. ECHO with preserved EF with normal LV wall motion. No significant valvular disease. Due to sinus congestion, nasal congestion, etc - recheck a COVID/flu/RSV swab. (2) (HFpEF) heart failure with preserved ejection fraction: Plan: cont IV diuresis would recommend changing atenolol to metoprolol succinate hold HCTZ while on IV lasix overall his volume status is improving (3) Status post right hip replacement: Plan: POD #4 s/p right THR by Dr Leung. DVT proph - Xarelto 20mg daily. Received steroids day of operation - mild leukocytosis was likely due to such and/or stress of #1. Pain in hip overall controlled. PT, OT. defer management to ortho (4) GERD (gastroesophageal reflux disease): Plan: issues with both PPI and pepcid add carafate or tums prn (5) Atrial fibrillation with rapid ventricular response: Plan: cont amiodarone change atenolol to metoprolol succinate cont Xarelto examines in NSR today (6) GERRY (obstructive sleep apnea): Plan: has home BIPAP unit at bedside cont such (7) Hypertension: Plan: change atenolol to metoprolol succinate hold HCTZ while on IV lasix follow BPs (8) COPD with emphysema: Plan: noted cont nebs scheduled add mucinex pulm toilet with flutter valve & incentive lizet mild exacerbation? (9) Enlarged tongue: Plan: per prior attending the tongue seemed large on day of his right THR since then the tongue has improved per prior attending etiology?? due to trauma from surgery? amyloid process? other? TSH 08/2021 wnl follow this carefully (10) Dysphagia: Plan: mild oropharyngeal airway dysphagia and suspected esophageal dysmotility as per speech therapy aspiration precautions and slippery diet recommended Plan DVT proph - xarelto 20mg daily not medically ready for d/c - needs further diuresis family updated at bedside Admission and Anticipated Discharge Date Admission Date: March 11, 2022 Subjective patient states that overall his breathing is ok however, when he rolled over in the bed, he looked outwardly dyspneic he continues to produce copious urine with IV lasix , son were at bedside during the visit; questions answered moving bowels right hip pain remains but not severe feels congested in nose/sinuses mild cough only with respect to tongue - he feels it is normal size for him today Review of Systems Review of Systems: gen - no fevers cv - no chest pain, no orthopnea pulm - mild dyspnea, mild wheeze GI - no nausea or emesis Physical Exam Physical Exam: gen - morbidly obese, became dyspneic with moving in bed neck - mild JVD present mouth - relative macroglossia, MM slightly dry, no oral lesions heart - RRR, s1 s2, 2/6 systolic murmur lungs - mild end-exp wheezes b/l, occasional crackle, got tachypneic with moving in bed but no retractions abd - soft NT BS+ ext - no edema, pulses 2+ b/l skin - dressings intact right hip region psych - a/o x 3 Results & Data Results & Data ([facility]) Vital Signs (Past 12 Hours) Vital Signs Temp Pulse Pulse Resp BP Pulse Ox O2 Del Method 03/13/22 17:04 94 Room Air 03/13/22 16:13 36.8 C 80 16 162/72 H 90 Room Air 03/13/22 14:49 78 16 91 Room Air 03/13/22 09:23 Nasal Cannula 03/13/22 10:57 75 16 90 Room Air 03/13/22 07:50 36.7 C 75 16 155/72 H 91 Nasal Cannula 03/13/22 07:17 74 16 90 Nasal Cannula O2 Flow Rate 03/13/22 17:04 03/13/22 16:13 03/13/22 14:49 03/13/22 09:23 3 03/13/22 10:57 03/13/22 07:50 3 03/13/22 07:17 3 Laboratory Results Laboratory Results - last 24 hr 03/13/22 03/13/22 05:24 18:30 Sodium 137 Potassium 4.1 Chloride 99 Carbon Dioxide 30 Anion Gap 8 BUN 26 H Creatinine 0.67 Est Cr Clr Drug Dosing 123.6 Est GFR ( Amer) 108.9 Est GFR (Non-Af Amer) 94.0 BUN/Creatinine Ratio 38.8 H Glucose 120 H Calcium 9.2 Magnesium 2.1 SARS-CoV-2 (PCR) NEGATIVE Influenza Type A (PCR) Negative Influenza Type B (PCR) Negative RSV (RT-PCR) Negative PG Care Time/CCT Total # of Minutes Spent Total Time Spent with Patient: Total time spent is greater than 50% in coordination of care (as documented) at patient's floor/unit and/or counseling patient: Coding Level of Care Code 87131 Subseq Hosp Care Lvl 3 Diagnoses Hypoxia R09.02 (HFpEF) heart failure with preserved ejection fraction I50.30 Status post right hip replacement Z96.641 GERD (gastroesophageal reflux disease) K21.9 Atrial fibrillation with rapid ventricular response I48.91 GERRY (obstructive sleep apnea) G47.33 Hypertension I10 COPD with emphysema J43.9 Enlarged tongue K14.8 Dysphagia R13.10
[2022-03-13 19:17] LABS: Influenza A virus by PCR Negative (Neg); Influenza B virus by PCR Negative (Neg); RSV by PCR Negative (Neg); SARS CoV2 RNA(COVID-19) Ceph NEGATIVE (Negative)
[2022-03-13] MEDS: ASCORBIC ACID 500 MG TAB PO SCH (21:07)
[2022-03-13] MEDS: CALCIUM POLYCARBOPHIL 625MG TAB PO SCH (21:08)
[2022-03-13] MEDS: MELATONIN 3 MG TAB PO SCH (21:10)
[2022-03-13] MEDS: SENNA 8.6 MG TAB PO SCH (21:11)
[2022-03-13] MEDS: CALCIUM CARBONATE 500 MG CHEWABLE TAB PO PRN (22:11)
[2022-03-14] MEDS: traMADol HCL 50 MG TABLET PO PRN (00:17)
[2022-03-14] MEDS: ACETAMINOPHEN 500 MG TAB PO SCH ×3 (05:16→21:34)
[2022-03-14] MEDS: ALBUT/IPRATROP 3MG/0.5MG NEB 3 ML VIAL NEB SCH ×4 (07:31→19:50)
--- NOTE | 2022-03-14 08:04 | Progress Notes ---
DATE OF SERVICE: 03/14/2022. SUBJECTIVE: A 77-year-old gentleman postoperative day #5 from a right hip replacement. He continues to make gradual improvements daily. Really his pain is getting better. No other real complaints. Denies any chest pain or shortness of breath. He says he feels normal. OBJECTIVE: VITAL SIGNS: Temperature 36.8. Vital signs are stable. O2 sats 94%. GENERAL: Shows a pleasant, elderly male. He is lying in bed, looks pretty comfortable. EXTREMITIES: Examination of the right hip reveals dressing clean, dry and intact. Thigh is soft and supple. Leg lengths were equal. He is neurologically intact. ASSESSMENT: A 77-year-old gentleman postoperative day #5 from a right hip replacement, doing better. Had little bit of heart failure/pulmonary edema, congestion, but now seems to be better. sym ptoms. Looks at baseline. PLAN: 1. DVT prophylaxis includes thigh-high TEDs, SCDs and back on regular Xarelto. 2. PT, OT, weightbear as tolerated. Right total hip protocol. 3. Pain control, doing okay with current pain regimen. 4. Disposition: Plan to discharge to rehab today if accepted. If not, possibly discharged to home if medically acceptable. Job ID: [id number]
[2022-03-14] MEDS: DOCUSATE SODIUM/SENNA 50/8.6MG TAB PO SCH ×2 (08:15→20:26)
[2022-03-14] MEDS: POTASSIUM CHLORIDE CRTAB 20 MEQ TABCR PO SCH (08:15)
[2022-03-14] MEDS: DOCUSATE SODIUM 100 MG CAP PO SCH ×2 (08:15→20:27)
[2022-03-14] MEDS: TAMSULOSIN HCL 0.4 MG CAP PO SCH (08:16)
[2022-03-14] MEDS: CEROVITE ADV FORMULA TAB PO SCH (08:16)
[2022-03-14] MEDS: RIVAROXABAN 20 MG TAB PO SCH (08:16)
[2022-03-14] MEDS: FLUTICASONE PROPIONATE NA SPR 16 GM BTL NAE SCH (08:17)
[2022-03-14] MEDS: AMIODARONE 200 MG TAB PO SCH (08:17)
[2022-03-14] MEDS: MAGNESIUM OXIDE 400 MG TAB PO SCH (08:18)
[2022-03-14] MEDS: guaiFENesin 600 MG TABCR PO SCH ×2 (08:18→20:25)
[2022-03-14] MEDS: FLUTICASONE/VILANTEROL 100/25MCG 14 PUFFS/INHALER INH SCH (08:18)
[2022-03-14 08:46] LABS: Hematocrit (blood only) 42.5 % (40.1-51.0); Mean Corpuscular Hemoglobin 28.7 pg (25.0-34.0); Mean Corpuscular Hgb Conc 32.9 g/dL (32.0-36.0); Mean Corpuscular Volume 87.1 fL (80.0-100.0); Mean Platelet Volume 10.4 fL (9.4-12.4); Platelet Count 248 K/uL (130-400); RDW Coefficient of Variation 13.9 % (11.5-14.5); RDW Standard Deviation 43.7 fL (36.4-46.3); Red Blood Count 4.88 M/uL (4.63-6.08); White Blood Count 11.81 K/ul (4.8-10.8)
[2022-03-14] MEDS: FUROSEMIDE 40 MG/4 ML VIAL IV SCH (08:59)
[2022-03-14] MEDS ORDERED: METOPROLOL SUCC 25MG EXT REL TAB PO SCH (09:00)
[2022-03-14 09:21] LABS: BUN Creatinine Ratio 40.2 (10-20); Calcium 9.3 mg/dl (8.5-10.1); Creatinine Clr Calc Pharmacy 96.2 ml/min; Est GFR (African American) 100.3 ml/min; Est GFR (Non-African American) 86.5 ml/min; Potassium 3.6 mmol/L (3.5-5.1)
--- NOTE | 2022-03-14 20:05 | Hospitalist Progress Note ---
Date of Service March 14, 2022 Assessment & Plan (1) Hypoxia: Plan: Acute respiratory failure with hypoxia in setting of likely acute HFpEF and COPD. Peak O2 requirement was 5LNC - now weaned to RA 03/13/22. ECHO with preserved EF with normal LV wall motion. No significant valvular disease. Due to sinus congestion, nasal congestion, etc - rechecked a COVID/flu/RSV swab - fully negative. (2) (HFpEF) heart failure with preserved ejection fraction: Plan: volume status looks euvolemic today stop IV lasix today re-eval tomorrow BMP in am hold HCTZ as well until am labs return (3) Status post right hip replacement: Plan: POD #5 s/p right THR by Dr Leung. DVT proph - Xarelto 20mg daily. Received steroids day of operation - mild leukocytosis was likely due to such and/or stress of #1. Pain in hip overall controlled. PT, OT. defer management to ortho (4) GERD (gastroesophageal reflux disease): Plan: issues with both PPI and pepcid add carafate or tums prn if needed (5) Atrial fibrillation with rapid ventricular response: Plan: cont amiodarone changed atenolol to metoprolol succinate; titrate latter for HR/BP control cont Xarelto examines in NSR once again today EKG several days ago with NSR (6) GERRY (obstructive sleep apnea): Plan: has home BIPAP unit at bedside cont such (7) Hypertension: Plan: changed atenolol to metoprolol succinate due to CHF, a.fib, etc. titrate metoprolol as needed hold HCTZ again today follow BPs recheck BMP am (8) COPD with emphysema: Plan: noted cont nebs scheduled cont mucinex pulm toilet with flutter valve & incentive lizet recent wheezing was likely due to pulmonary edema rather than COPD flare or infectious process wheezing resolved today (9) Enlarged tongue: Plan: per prior attending the tongue seemed large on day of his right THR since then the tongue has improved per prior attending etiology?? due to trauma from surgery? amyloid process? other? TSH 08/2021 wnl follow this carefully (10) Dysphagia: Plan: mild oropharyngeal airway dysphagia and suspected esophageal dysmotility as per speech therapy aspiration precautions and slippery diet recommended keep MM moist in mouth we discussed sucking on hard candy, frequent sips of water, Biotene, etc Plan DVT proph - xarelto 20mg daily will message Dr Leung regarding his medical status Admission and Anticipated Discharge Date Admission Date: March 11, 2022 Subjective patient feels MUCH better breathing siddiqui denies cough, dyspnea or NIELSEN no orthopnea eating well walked well in hallway today with PT - mild R hip pain only nasal congestion slightly better today Review of Systems Review of Systems: gen - no fevers mouth - very dry MM - this is chronic CV - no chest pain pulm - no sputum GI - no abd pain Physical Exam Physical Exam: gen - morbidly obese, NAD, lying flat in bed comfortably neck - no JVD present mouth - relative macroglossia, MM dry, no oral lesions heart - RRR, s1 s2, 2/6 systolic murmur lungs - CTA b/l; no rales/wheeze today abd - soft NT BS+ ext - no edema, pulses 2+ b/l skin - dressings intact right hip region psych - a/o x 3 Results & Data Results & Data ([facility]) Vital Signs (Past 12 Hours) Vital Signs Temp Pulse Resp BP Pulse Ox O2 Del Method 03/14/22 19:52 101 H 18 91 Room Air 03/14/22 15:25 37.1 C 76 16 157/69 H 90 Room Air 03/14/22 14:56 85 18 90 Room Air 03/14/22 11:08 81 18 91 Room Air Laboratory Results Laboratory Results - last 24 hr 03/14/22 03/14/22 07:45 07:45 WBC 11.81 H RBC 4.88 Hgb 14.0 Hct 42.5 MCV 87.1 MCH 28.7 MCHC 32.9 RDW Std Deviation 43.7 RDW Coeff of Salome 13.9 Plt Count 248 MPV 10.4 Sodium 140 Potassium 3.6 Chloride 100 Carbon Dioxide 29 Anion Gap 11 BUN 33 H Creatinine 0.82 Est Cr Clr Drug Dosing 96.2 Est GFR ( Amer) 100.3 Est GFR (Non-Af Amer) 86.5 BUN/Creatinine Ratio 40.2 H Glucose 126 H Calcium 9.3 PG Care Time/CCT Total # of Minutes Spent Total Time Spent with Patient: Total time spent is greater than 50% in coordination of care (as documented) at patient's floor/unit and/or counseling patient: Coding Level of Care Code 92199 Subseq Hosp Care Lvl 2 Diagnoses Hypoxia R09.02 (HFpEF) heart failure with preserved ejection fraction I50.30 Status post right hip replacement Z96.641 GERD (gastroesophageal reflux disease) K21.9 Atrial fibrillation with rapid ventricular response I48.91 GERRY (obstructive sleep apnea) G47.33 Hypertension I10 COPD with emphysema J43.9 Enlarged tongue K14.8 Dysphagia R13.10
[2022-03-14] MEDS: MELATONIN 3 MG TAB PO SCH (20:24)
[2022-03-14] MEDS: SENNA 8.6 MG TAB PO SCH (20:27)
[2022-03-14] MEDS: CALCIUM POLYCARBOPHIL 625MG TAB PO SCH (20:28)
[2022-03-14] MEDS: ASCORBIC ACID 500 MG TAB PO SCH (20:28)
[2022-03-15] MEDS: FLUTICASONE PROPIONATE NA SPR 16 GM BTL NAE SCH ×2 (00:27→08:42)
[2022-03-15] MEDS: traMADol HCL 50 MG TABLET PO PRN ×2 (00:36→20:18)
[2022-03-15] MEDS: ACETAMINOPHEN 500 MG TAB PO SCH ×3 (06:21→22:30)
--- NOTE | 2022-03-15 07:55 | Progress Notes ---
DATE OF SERVICE: 03/15/2022 SUBJECTIVE: A 77-year-old gentleman postoperative day #6 from a right uncemented total hip replaceme nt. He is doing well. Feels he is back to baseline. Hoping to go home. OBJECTIVE: VITAL SIGNS: Temperature is 37.1. Vital signs are stable. GENERAL: Shows a pleasant middle-aged male. He is lying in bed and looks comfortable this morning. EXTREMITIES: Examination of the right hip reveals dressing is clean, dry and intact. Hip is located . Leg lengths were equal. He is neurologically intact. ASSESSMENT: A 77-year-old gentleman with multiple medical comorbidities, now 6 days out from a total hip replacement. We have been waiting for rehab placement. That has been difficult. He did have s ome congestive heart failure, fluid overload, but looks back to baseline. PLAN: 1. DVT prophylaxis includes thigh-high TEDs, SCDs and back on his Xarelto. 2. PT, OT, weightbear as tolerated. Right total hip protocol. 3. Pain control, doing okay with current pain regimen. 4. Disposition, waiting for rehab approval. It is likely we may send him home with home health if [facility] okay with that. Job ID: [id number]
[2022-03-15] MEDS: ALBUT/IPRATROP 3MG/0.5MG NEB 3 ML VIAL NEB SCH ×4 (07:56→18:52)
[2022-03-15] MEDS: RIVAROXABAN 20 MG TAB PO SCH (08:40)
[2022-03-15] MEDS: TAMSULOSIN HCL 0.4 MG CAP PO SCH (08:40)
[2022-03-15] MEDS: POTASSIUM CHLORIDE CRTAB 20 MEQ TABCR PO SCH (08:41)
[2022-03-15] MEDS: AMIODARONE 200 MG TAB PO SCH (08:41)
[2022-03-15] MEDS: CEROVITE ADV FORMULA TAB PO SCH (08:41)
[2022-03-15] MEDS: MAGNESIUM OXIDE 400 MG TAB PO SCH (08:41)
[2022-03-15] MEDS: DOCUSATE SODIUM 100 MG CAP PO SCH ×2 (08:42→20:20)
[2022-03-15] MEDS: guaiFENesin 600 MG TABCR PO SCH ×2 (08:42→20:18)
[2022-03-15] MEDS: FLUTICASONE/VILANTEROL 100/25MCG 14 PUFFS/INHALER INH SCH (08:42)
[2022-03-15] MEDS: DOCUSATE SODIUM/SENNA 50/8.6MG TAB PO SCH ×2 (08:42→20:21)
[2022-03-15] MEDS ORDERED: METOPROLOL SUCC 50MG EXT REL TAB PO SCH (09:00)
[2022-03-15 10:48] LABS: BUN Creatinine Ratio 40.6 (10-20); Creatinine Clr Calc Pharmacy 82.1 ml/min; Est GFR (African American) 89.3 ml/min; Potassium 3.5 mmol/L (3.5-5.1)
--- NOTE | 2022-03-15 11:19 | XRay Report ---
XR chest 2V PA/lateral CLINICAL HISTORY: recent CHF, interval change COMPARISON STUDY: Chest radiograph March 10, 2022. FINDINGS: Lung volumes are normal. There is no pneumothorax or pleural effusion. Cardiomegaly is unch anged. Linear left basilar opacities favor atelectasis or scarring. Additional linear opacities withi n lungs favor scarring. These are unchanged from earlier exams. Interstitial thickening shown on rece nt chest radiograph has improved. No evidence for pulmonary edema is noted on this exam. IMPRESSION: Interval resolution of pulmonary edema. ACT 112: Negative or not required by law. Electronically signed by: Austin Kaur M.D. 03/15/2022 11:18 AM
[2022-03-15] MEDS ORDERED: COUGH DROP (SUGAR FREE) LOZ 24 LOZ/1 BOX BUCCAL PRN (14:05)
[2022-03-15] MEDS: CALCIUM POLYCARBOPHIL 625MG TAB PO SCH (20:19)
[2022-03-15] MEDS: SENNA 8.6 MG TAB PO SCH (20:19)
[2022-03-15] MEDS: MELATONIN 3 MG TAB PO SCH (20:20)
[2022-03-15] MEDS: ASCORBIC ACID 500 MG TAB PO SCH (20:21)
[2022-03-15] MEDS: METOPROLOL SUCC 50MG EXT REL TAB PO SCH (20:21)
--- NOTE | 2022-03-15 21:08 | Hospitalist Progress Note ---
Date of Service March 15, 2022 Assessment & Plan (1) Hypoxia: Plan: Acute respiratory failure with hypoxia in setting of likely acute HFpEF and COPD. Peak O2 requirement was 5LNC - now weaned to RA 03/13/22. ECHO with preserved EF with normal LV wall motion. No significant valvular disease. Due to sinus congestion, nasal congestion, etc - rechecked a COVID/flu/RSV swab - fully negative. O2 sats are borderline low at times despite aggressive diuresis while here. Suspect ongoing borderline hypoxia is from COPD. He will need a formal 2-step here if he goes home, or a 2step at [facility] after his rehab stay there. (2) (HFpEF) heart failure with preserved ejection fraction: Plan: volume status - again euvolemic today no further lasix hold HCTZ today BMP in am atenolol has been changed to metoprolol succinate 50mg BID (3) Status post right hip replacement: Plan: POD #6 s/p right THR by Dr Leung. DVT proph - Xarelto 20mg daily. Received steroids day of operation - mild leukocytosis was likely due to such and/or stress of #1. Pain in hip overall controlled. PT, OT. awaiting auth for rehab (4) GERD (gastroesophageal reflux disease): Plan: issues with both PPI and pepcid add carafate or tums prn if needed (5) Atrial fibrillation with rapid ventricular response: Plan: cont amiodarone changed atenolol to metoprolol succinate; titrated latter for HR/BP control cont Xarelto examines in NSR once again today EKG several days ago with NSR EKG today also with NSR (6) GERRY (obstructive sleep apnea): Plan: has home BIPAP unit at bedside cont such (7) Hypertension: Plan: changed atenolol to metoprolol succinate due to CHF, a.fib, etc. titrate metoprolol to 50mg BID hold HCTZ again today (BUN nearly 39 following diuresis) but resume 03/16 flomax for BPH will also provide some BP control follow BPs recheck BMP am (8) COPD with emphysema: Plan: noted cont nebs scheduled cont mucinex pulm toilet with flutter valve & incentive lizet recent wheezing was likely due to pulmonary edema rather than COPD flare or infectious process wheezing resolved will need 2 step to assess for home O2 (9) Enlarged tongue: Plan: per prior attending the tongue seemed large on day of his right THR since then the tongue has improved per prior attending etiology?? due to trauma from surgery? amyloid process? other? TSH 08/2021 wnl follow this carefully (10) Dysphagia: Plan: mild oropharyngeal airway dysphagia and suspected esophageal dysmotility as per speech therapy aspiration precautions and slippery diet recommended keep MM moist in mouth we discussed sucking on hard candy, frequent sips of water, Biotene, etc Plan DVT proph - xarelto 20mg daily sent message Dr Leung regarding his medical status will cont to follow Admission and Anticipated Discharge Date Admission Date: March 11, 2022 Subjective patient without any cough, dyspnea or NIELSEN despite such his O2 sats at rest are often 89% or so he feels good with walking mild right hip pain only waiting on insurance auth for [facility] voiding ok no new complaints Review of Systems Review of Systems: gen - anxious to leave hospital, eating ok pulm - using his BiPAP device for GERRY; no dyspnea GI - moved bowels 2 days ago, passing flatus, no nausea or emesis cv - no orthopnea or PND Physical Exam Physical Exam: gen - morbidly obese, NAD, lying flat in bed comfortably neck - no JVD present mouth - relative macroglossia, MM dry, no oral lesions heart - RRR, s1 s2, 2/6 systolic murmur lungs - CTA b/l; no rales/wheeze today abd - soft NT BS+ND ext - no edema, pulses 2+ b/l skin - dressings intact right hip region psych - a/o x 3 Results & Data Results & Data ([facility]) Vital Signs (Past 12 Hours) Vital Signs Temp Pulse Resp BP BP Pulse Ox O2 Del Method 03/15/22 18:52 93 H 18 93 Room Air 03/15/22 15:23 36.8 C 110 H 20 149/79 H 92 Room Air 03/15/22 14:35 87 18 89 L Room Air 03/15/22 11:23 99 H 18 90 Room Air 03/15/22 10:39 104 H 160/81 H 91 Room Air Laboratory Results Laboratory Results - last 24 hr 03/15/22 09:52 Sodium 142 Potassium 3.5 Chloride 103 Carbon Dioxide 29 Anion Gap 10 BUN 39 H Creatinine 0.96 Est Cr Clr Drug Dosing 82.1 Est GFR ( Amer) 89.3 Est GFR (Non-Af Amer) 77.0 BUN/Creatinine Ratio 40.6 H Glucose 206 H Calcium 10.0 PG Care Time/CCT Total # of Minutes Spent Total Time Spent with Patient: Total time spent is greater than 50% in coordination of care (as documented) at patient's floor/unit and/or counseling patient: Coding Level of Care Code 08525 Subseq Hosp Care Lvl 2 Diagnoses Hypoxia R09.02 (HFpEF) heart failure with preserved ejection fraction I50.30 Status post right hip replacement Z96.641 GERD (gastroesophageal reflux disease) K21.9 Atrial fibrillation with rapid ventricular response I48.91 GERRY (obstructive sleep apnea) G47.33 Hypertension I10 COPD with emphysema J43.9 Enlarged tongue K14.8 Dysphagia R13.10
[2022-03-16] MEDS: ACETAMINOPHEN 500 MG TAB PO SCH ×2 (05:54→14:30)
[2022-03-16 08:15] LABS: BUN Creatinine Ratio 44.7 (10-20); Calcium 9.1 mg/dl (8.5-10.1); Creatinine Clr Calc Pharmacy 94.4 ml/min; Est GFR (African American) 98.8 ml/min; Est GFR (Non-African American) 85.2 ml/min; Potassium 3.9 mmol/L (3.5-5.1)
[2022-03-16] MEDS: ALBUT/IPRATROP 3MG/0.5MG NEB 3 ML VIAL NEB SCH ×3 (08:23→16:28)
[2022-03-16 08:43] LABS: Estimated Average Glucose 134 mg/dl; Hemoglobin A1C 6.3 % (4.5-5.6)
[2022-03-16] MEDS: MAGNESIUM OXIDE 400 MG TAB PO SCH (08:52)
[2022-03-16] MEDS: METOPROLOL SUCC 50MG EXT REL TAB PO SCH (08:52)
[2022-03-16] MEDS: POTASSIUM CHLORIDE CRTAB 20 MEQ TABCR PO SCH (08:53)
[2022-03-16] MEDS: RIVAROXABAN 20 MG TAB PO SCH (08:53)
[2022-03-16] MEDS: TAMSULOSIN HCL 0.4 MG CAP PO SCH (08:53)
[2022-03-16] MEDS: AMIODARONE 200 MG TAB PO SCH (08:54)
[2022-03-16] MEDS: DOCUSATE SODIUM/SENNA 50/8.6MG TAB PO SCH (08:54)
[2022-03-16] MEDS: CEROVITE ADV FORMULA TAB PO SCH (08:54)
[2022-03-16] MEDS: guaiFENesin 600 MG TABCR PO SCH (08:55)
[2022-03-16] MEDS: DOCUSATE SODIUM 100 MG CAP PO SCH (08:55)
[2022-03-16] MEDS: FLUTICASONE PROPIONATE NA SPR 16 GM BTL NAE SCH (08:57)
[2022-03-16] MEDS: FLUTICASONE/VILANTEROL 100/25MCG 14 PUFFS/INHALER INH SCH (08:57)
--- NOTE | 2022-03-16 09:17 | Orthopedic Progress Note ---
Date of Service March 16, 2022 Assessment & Plan (1) Status post right hip replacement: Doing well on POD 6 -DVT ppx w/ thigh high teds/SCDs; back on Xarelto -PT/OT; WBAT RLE; THR protocol -Pain controlled with current regimen Dispo: He has inpatient rehab referral pending approval. He seems stable to be discharged home with home health from Ortho perspective. Will need 2 step prior to discharge d/t oxygenation per Medicine. D/w Dr. Leung. Subjective Feels good today. Minimal pain. No issues breathing. Ready to go home. Review of Systems All systems reviewed & are unremarkable except as noted in HPI & below. Physical Exam General: Pleasant 77 y/o/m resting comfortably in chair in no acute distress. AAO x 4. RLE: Dressing clean/dry/intact. Minimal incisional tenderness, no swelling/ecchymosis. Distally NVI. Results & Data Results & Data Laboratory Results Reviewed - Stable . Diagnostic Findings None recent . PG Care Time/CCT Total # of Minutes Spent Total Time Spent with Patient: Total time spent is greater than 50% in coordination of care (as documented) at patient's floor/unit and/or counseling patient: Coding Level of Care Code 25177 Post Operative Follow-Up Diagnoses Status post right hip replacement Z96.641
--- NOTE | 2022-03-16 12:51 | Hospitalist Progress Note ---
Date of Service March 16, 2022 Assessment & Plan (1) Hypoxia: Plan: Acute respiratory failure with hypoxia in setting of likely acute HFpEF and COPD. Peak O2 requirement was 5LNC - now weaned to room air ECHO with preserved EF with normal LV wall motion. No significant valvular disease. Due to sinus congestion, nasal congestion, etc - rechecked a COVID/flu/RSV swab - fully negative. 2 step - does not qualify for O2 No wheezing on exam (2) (HFpEF) heart failure with preserved ejection fraction: Plan: volume status - euvolemic no further lasix Can restart HCTZ on discharge Atenolol switched to metoprolol succinate 50mg BID on discharge meds (3) Status post right hip replacement: Plan: POD #6 s/p right THR by Dr Leung. DVT proph - Xarelto 20mg daily. Received steroids day of operation - mild leukocytosis was likely due to such and/or stress of #1. Pain in hip overall controlled. PT, OT. awaiting auth for rehab (4) GERD (gastroesophageal reflux disease): Plan: issues with both PPI and pepcid add carafate or tums prn if needed (5) Atrial fibrillation with rapid ventricular response: Plan: cont amiodarone changed atenolol to metoprolol succinate; titrated latter for HR/BP control cont Xarelto examines in NSR once again today EKG several days ago with NSR EKG today also with NSR (6) GERRY (obstructive sleep apnea): Plan: has home BIPAP unit at bedside cont such (7) Hypertension: Plan: changed atenolol to metoprolol succinate due to CHF, a.fib, etc. titrate metoprolol to 50mg BID hold HCTZ again today (BUN nearly 39 following diuresis) but resume 03/16 flomax for BPH will also provide some BP control follow BPs recheck BMP am (8) COPD with emphysema: Plan: noted cont nebs scheduled cont mucinex pulm toilet with flutter valve & incentive lizet recent wheezing was likely due to pulmonary edema rather than COPD flare or infectious process wheezing resolved will need 2 step to assess for home O2 (9) Enlarged tongue: Plan: per prior attending the tongue seemed large on day of his right THR since then the tongue has improved per prior attending etiology?? due to trauma from surgery? amyloid process? other? TSH 08/2021 wnl follow this carefully (10) Dysphagia: Plan: mild oropharyngeal airway dysphagia and suspected esophageal dysmotility as per speech therapy aspiration precautions and slippery diet recommended keep MM moist in mouth we discussed sucking on hard candy, frequent sips of water, Biotene, etc Plan DVT proph - xarelto 20mg daily sent message Dr Leung regarding his medical status will cont to follow Admission and Anticipated Discharge Date Admission Date: March 11, 2022 Subjective Passed 2 step with no need for oxygen. Wanting to go home today and ok for discharge per orthopedics. No shortness of breath on exertion per patient and back to baseline from this perspective. No chest pain. Reports his tongue is always dry. Had 3 BM this morning (takes BID Senokot-S normally - not watery). Review of Systems Review of Systems: All systems reviewed & are unremarkable except as noted in Subjective Physical Exam Constitutional: WD/WN, vitals as above + morbidly obese Eyes: + anicteric sclerae; normal pupil size Respiratory: normal respiratory effort, lungs clear to auscultation Cardiovascular: Rate/Rhythm: regular rate and regular rhythm Extremities: normal capillary refill; no pedal edema Gastrointestinal (Abdomen): normal bowel sounds, soft, nontender, no hepatosplenomegaly Psychiatric: A+Ox3, euthymic affect Results & Data Results & Data ([facility]) Vital Signs (Past 12 Hours) Vital Signs Temp Pulse Pulse Pulse Pulse Resp Resp 03/16/22 12:24 90 93 H 82 26 H 03/16/22 08:50 91 H 03/16/22 07:15 36.9 C 82 16 Resp Resp BP Pulse Ox Pulse Ox Pulse Ox Pulse Ox 03/16/22 12:24 26 H 20 90 92 91 03/16/22 08:50 146/78 H 89 L 03/16/22 07:15 118/67 88 L O2 Del Method 03/16/22 12:24 03/16/22 08:50 Room Air 03/16/22 07:15 Room Air PG Care Time/CCT Total # of Minutes Spent Total Time Spent with Patient: Total time spent is greater than 50% in coordination of care (as documented) at patient's floor/unit and/or counseling patient: Coding Diagnoses Hypoxia R09.02 (HFpEF) heart failure with preserved ejection fraction I50.30 Status post right hip replacement Z96.641 GERD (gastroesophageal reflux disease) K21.9 Atrial fibrillation with rapid ventricular response I48.91 GERRY (obstructive sleep apnea) G47.33 Hypertension I10 COPD with emphysema J43.9 Enlarged tongue K14.8 Dysphagia R13.10
[2022-03-16 15:44] LABS: Appearance Urine Clear (Clear); Bilirubin Urine Negative (Negative); Blood Urine Negative (Negative); Color Urine Dark Yellow; Glucose Urine UA Negative (Negative); Ketones Urine Negative (Negative); Leukocyte Esterase Urine Negative (Negative); Nitrite Urine Negative (Negative); Protein Urine Negative (Negative); Specific Gravity Urine 1.026 (1.000-1.030); Urobilinogen Urine Negative (Negative)
--- NOTE | 2022-03-17 22:38 | Electrocardiogram Report ---
Test Reason : Blood Pressure : / mmHG Vent. Rate : 087 BPM Atrial Rate : 087 BPM P-R Int : 160 ms QRS Dur : 100 ms QT Int : 398 ms P-R-T Axes : 064 021 058 degrees QTc Int : 478 ms Normal sinus rhythm Incomplete right bundle branch block Prolonged QT When compared with ECG of 10-MAR-2022 12:38, [place] interval has decreased QT has lengthened Confirmed by Vincent Duff ([id number] on 03/17/2022 10:38:42 PM Referred By: Ross Leung Confirmed By:Vincent Duff
--- NOTE | 2022-03-18 09:24 | Discharge Summary ---
Date of Service March 18, 2022 Admission HPI (Per Admitting) HISTORY OF PRESENT ILLNESS: The patient is a 77-year-old gentleman who I have been following for years for multiple orthopedic issues. He did have his right knee replaced about 5 years ago. More recently, he has developed increasing right leg pain and discomfort and stiffness. On exam, an x-ray showed advanced right hip arthritis. His knee exam is pretty benign. We treated him conservatively, he continues to be limited by pain. He limps more as the day goes on. He has been through extensive conservative treatment, which has become less successful. 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 He would now like to have his right hip replaced. He was scheduled about 2 weeks ago, but came down with an illness and has now recovered and would like to proceed. The patient does see Dr. Stoddard has been cleared from a cardiac standpoint. He recently had some gallbladder issues and saw Dr. Wallace and they have elected to treat this nonoperatively. He would like to have his right hip fixed. PAST MEDICAL HISTORY: 1. Hypertension. 2. Atrial fibrillation, on Xarelto. 3. Emphysema/COPD 4. Sleep apnea. 5. Obesity, BMI 45. 6. Low back pain. PAST SURGICAL HISTORY: Includes; 1. Right knee replacement done on 12/22/2016. 2. Carpal tunnel release. ALLERGIES: LISINOPRIL AND LATEX. CURRENT MEDICATIONS: Include; 1. Tylenol. 2. Albuterol. 3. Amiodarone. 4. Ascorbic acid. 5. Atenolol. 6. Coenzyme Q. 7. Pepcid. 8. Glucosamine. 9. Hydrochlorothiazide. 10. Multivitamin. SOCIAL HISTORY: Significant for a 77-year-old male. 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 . Does not smoke. FAMILY HISTORY: Noncontributory. REVIEW OF SYSTEMS: Significant for atrial fibrillation, on Xarelto. He has been cleared by Dr. Stoddard. No current chest pain or shortness of breath. No PE in the past. He does have a history of AAA repair. He also has gallbladder issue, which seems to calm down. PHYSICAL EXAMINATION: GENERAL: Shows a large middle-aged male. Looks to be in reasonably good health. HEENT: Benign. NECK: Supple. No lymphadenopathy. LUNGS: Clear to auscultation. HEART: Irregular rate and rhythm. ABDOMEN: Fairly large, but soft and nontender. He has got positive bowel sounds. EXTREMITIES: Grossly neurovascularly intact except as follows. Principal Diagnosis Same as "Discharge Diagnosis" noted below under Discharge Instructions. Discharge Exam General: Pleasant 77 y/o/m resting comfortably in chair in no acute distress. AAO x 4. RLE: Dressing clean/dry/intact. Minimal incisional tenderness, no swelling/ecchymosis. Distally NVI. Discharge Data Consultations 03/10/22 12:03 Consult Hospitalist Routine Procedures Performed Operation Date: 03/09/22 08:50 Actual Procedures p Right Total Hip Arthroplasty, Uncemented(Right) - Ross Leung MD Ordered Studies 03/11/22 10:00 FL video swallow Routine Hospital Course (1) S/P total right hip arthroplasty: Admitted post operatively after elective R THR on 03/09. Procedure was without complications, post operatively he developed asymptomatic hypoxia. He required supplemental O2 and was treated with diuresis and inhalers. He was able to be weaned from supplemental oxygen. He otherwise did well after surgery and was discharged home with home health on 03/16. PG Care Time/CCT Total # of Minutes Spent Total Time Spent with Patient: Total time spent is greater than 50% in coordination of care (as documented) at patient's floor/unit and/or counseling patient: Discharge Plan Discharge Items Patient Disposition: Home - Home Health Services Reason For Visit: Right Hip Degenerative Joint Disease Discharge Diagnosis: Right Hip Replacement Acute heart failure with preserved ejection fraction Urinary retention Activity: Per Instructions section Activity Comment: Follow/Obey hip precautions at all times. Non-emergency contact: Surgeon Call non-emergency contact if: you have any medication questions Follow-up/Referrals: Niraj Galvez DO [Physician] - 03/25/22 10:30 am (1-2 week follow up for urinary retention) Shweta Loyd MD [Primary Care Provider] - Diet: Regular Addtl Attending Provider Instructions: ACTIVITY RECOMMENDATIONS: Physical Therapy: * Aggressive physical therapy is not usually needed. You will learn to take care of yourself safely and walk. * Follow the "Hip Precautions Instructions." * In some cases, the high school social science teacher at the hospital will arrange to have a therapist come to your house for the first couple of weeks to help you learn these skills. * You need to practice on your own or with the help of a family member as needed. * When you learn these skills, most of the therapy can be done on your own. Home Exercise: * You were shown a series of exercises in the hospital. Do these exercises three to four times each day including the exercises you were shown in physical therapy. Walking: * Get up and walk several times each day. For the first four weeks, try not to stand or walk for more than one hour at a time. If you do stand or walk for more than one hour, you will not hurt anything, but your leg will likely swell. * As you feel comfortable, you may change from the walker or crutches to a cane and then to independent walking. MEDICATIONS: New Medicine: * You will likely be taking one or more of these medicines: 1. Tramadol - Take, as directed, when you need it, every six hours to control your pain. 2. Xarelto - Thins your blood to lessen the chance of forming a blood clot. * The most common side effects of pain medicine and iron are nausea and constipation. If nausea or constipation is too much of a problem or if you have any questions about your new medicines or doses, call [facility] at . We will try to help you manage these issues. "VERY IMPORTANT TO READ AND REVIEW" Pain: * The immediate post-operative period after hip replacement surgery is often quite painful. * You are given a prescription for pain medicine. You should take it, as directed, when you need it, especially before physical therapy and before going to bed. Pain that interferes with sleep is very common and can last several months. * You will likely need pain medicine for the first two to four weeks. It will not stop all of the pain. The pain will lessen and as you feel better, you may change to milder pain medicine such as Tylenol. * The most common side effects of pain medicine are nausea and constipation, so don't take more than you need. SPECIAL CARE INSTRUCTIONS: TEDs/Elastic Stockings: * The white elastic stockings help limit swelling and prevent blood clots from forming in your legs. The more you wear them, the more they work. * Wear them for six weeks. Incision Site Care: * Remove dressing postoperative day 2 and then shower. Keep direct shower pressure off the incision site. * After showering, cover stacey with dry gauze and change daily or more frequently if the dressing is getting saturated with drainage. * May completely stop using bandage if wound is dry and no drainage * [place] are removed between 2 and 3 weeks post-op. If your follow-up appointment is made before 2 weeks, please have your appointment re- scheduled. It is too early to remove the stacey. Prevention of Infection: * Take antibiotics one hour before any dental cleaning, dental work, urological procedure, gastrointestinal procedure or any invasive surgery in order to prevent your new joint from getting infected. * You may get the antibiotics from the doctor performing the procedure or you may call our office at before and we will call in a prescription to the pharmacy of your choice. Things to Watch For: * Drainage from the incision site that occurs more than one week after your surgery. * Severely increased leg pain or swelling. * Increased redness at the incision site. * Fever above 102 degrees Fahrenheit. * Unusual chest pain or shortness of breath. * Unusual pain or burning with urination. Call [facility] at with any of the above problems or if you have any questions about your medicines or recovery. FOLLOW UP VISIT: Make an appointment to see your doctor for approximately two weeks after surgery for a progress check and staple removal by calling the office at . [employer] Consultant Provider Instructions: Medicine consultation: Postoperative complication of diastolic congestive heart failure. Now resolved. Atenolol switched to Metoprolol succinate due to heart failure diagnosis. Please resume hydrochlorothiazide on discharge - consider taking this in the morning if it is causing you to urinate throughout the night. If still having diarrhea on discharge consider reducing your laxatives (Senokot- S) to aim for 1 BM/day. You also had urinary retention which was treated with a stevenson catheter. You are already taking tamsulosin and should continue this and follow up with urology in 1-2 weeks for trial without a catheter. Please call for an appointment with urology (number above). Pending Studies at Discharge: No Stand-Alone Forms: My [facility] [employer], Pain - Opioid Pain Management, Smoking Cessation Medications and DC Order Prescriptions: New metoprolol succinate [Toprol XL] 50 mg tablet extended release 24 hr 50 mg PO BID Qty: 60 0RF Continued (DME) Lift Chair Misc See Rx Instructions .Route Qty: 1 0RF Rx Instructions: As directed Dx:M51.36 potassium chloride 20 mEq tablet extended release 20 meq PO QAM Qty: 90 3RF Xarelto 20 mg tablet 20 mg PO HS Qty: 90 3RF ondansetron HCl 4 mg tablet 4 mg PO Q6 PRN (Reason: nausea) Qty: 20 1RF sennosides-docusate sodium [Senokot-S] 8.6-50 mg tablet 1 tab-cap PO BID 14 Days Qty: 28 0RF Rx Instructions: Take twice daily to prevent constipation tramadol 50 mg tablet 50 - 100 mg PO Q6H PRN (Reason: pain) Qty: 40 0RF Rx Instructions: Take as needed for Pain. tamsulosin [Flomax] 0.4 mg capsule 0.4 mg PO DAILY Qty: 7 0RF Rx Instructions: Begin night BEFORE surgery to prevent urinary retention acetaminophen 500 mg capsule 1,000 mg PO TID 30 Days Qty: 180 0RF Rx Instructions: Take 3 times per day to lessen pain. albuterol sulfate 90 mcg/actuation HFA aerosol inhaler 2 puff inhalation Q4H PRN (Reason: shortness of breath or wheezing) Qty: 18 11RF fluticasone propionate 50 mcg/actuation spray,suspension 2 sprays intranasal DAILY PRN (Reason: Congestion) Qty: 16 coenzyme Q10 100 mg capsule 100 mg PO QAM ascorbic acid (vitamin C) 500 mg tablet 500 mg PO QPM Label Comments: 500 MG PO DAILY; Rx Instructions: unknown strength. does not take daily Osteo Bi-Flex Triple Strength 750 mg-644 mg- 30 mg-1 mg tablet 1 tab PO BID famotidine [Pepcid AC] 20 mg tablet 20 mg PO BID (DME) Wheeled Walker [facility] See Rx Instructions .MEDSUPPLY Qty: 1 0RF Rx Instructions: As directed Artichoke Extract 0 mg 1 tab PO QAM PreserVision AREDS-2 [id number] Capsule 1 tab PO BID multivitamin Tablet 1 tab PO QAM fiber Capsule 1 cap PO QPM Barley Supplement 1 dose PO QPM amoxicillin 500 mg tablet 2,000 mg PO DIRECTED PRN (Reason: PRIOR TO DENTAL APPT.) Rx Instructions: TAKE 4 TABLETS ONE HOUR PRIOR TO DENTAL WORK Bioflex [id number] mg Tablet 1 tab PO BID melatonin 10 mg Tablet 10 mg PO HS magnesium oxide 250 mg magnesium Tablet 250 mg PO QAM hydrochlorothiazide 25 mg tablet 25 mg PO QPM amiodarone [Pacerone] 100 mg tablet 100 mg PO QAM Discontinued atenolol 50 mg tablet 25 mg PO BID Qty: 90 3RF acetaminophen [Tylenol 8 Hour] 650 mg tablet extended release 650 mg PO Q4H PRN (Reason: pain) Discharge Orders: Discharge Order (Routine); Ordered 03/15/22 Ordered By: Ross Ball/Other Patient Handouts: Prediabetes, 5 Steps for Eating Healthier, In dwelling Urinary Catheter Dc, Leg Bag Care Dc Admission Data Admit Date/Time: 03/11/22 19:18 Attending Provider: Ross Leung Admit Provider: Ross Leung Primary Care Provider: Shweta Loyd Other Providers: [facility] ; Abad Hutchinson ; Mikel Arguelles Other Interventions: Discharge Summary Assessment (RN) Last Done: 03/16/22 13:44
== END 2022-03-16 16:50 | disposition home health service (06) | DRG 469 ==
LOC: 3W 06:38 → ASU 06:38 → 3N 03-16 08:23

== ENCOUNTER 2022-03-19 11:57 | Inpatient (IN) ==
[2022-03-19] MEDS ORDERED: SODIUM CHLORIDE 0.9% 500 ML IV STA (12:32)
[2022-03-19 12:42] LABS: Basophils # (auto) 0.06 K/uL (0-0.2); Basophils % (auto) 0.3 %; Eosinophils # (auto) 0.06 K/uL (0-0.50); Eosinophils % (auto) 0.3 %; Hematocrit (blood only) 32.1 % (40.1-51.0); Hemoglobin 10.3 g/dl (14.0-18.0); Immature Granulocytes # (auto) 0.45 K/uL (0.00-0.02); Immature Granulocytes % (auto) 2.3 %; Lymphocytes # (auto) 2.04 K/uL (1.2-3.4); Lymphocytes % (auto) 10.4 %; Mean Corpuscular Hemoglobin 28.8 pg (25.0-34.0); Mean Corpuscular Hgb Conc 32.1 g/dL (32.0-36.0); Mean Corpuscular Volume 89.7 fL (80.0-100.0); Mean Platelet Volume 10.2 fL (9.4-12.4); Monocytes # (auto) 1.07 K/uL (0.24-0.82); Monocytes % (auto) 5.5 %; Neutrophils # (auto) 15.88 K/uL (1.4-6.5); Neutrophils % (auto) 81.2 %; Platelet Count 349 K/uL (130-400); RDW Standard Deviation 45.8 fL (36.4-46.3); Red Blood Count 3.58 M/uL (4.63-6.08); White Blood Count 19.56 K/ul (4.8-10.8)
--- NOTE | 2022-03-19 12:45 | Emergency Department Note ---
Impression & Plan Acute lower GI bleeding, Anemia ED Provider Note NAME: JANIE CURRAN AGE: 77 SEX: M : 1945 ARRIVES VIA: Ambulance INFORMANT: Patient, ED PROVIDER(S): Heriberto Bynum DO CHIEF COMPLAINT: Lower GI bleeding HPI: The patient is a 77-year-old male who presented to the emergency department for lower GI bleeding. The patient has a history of having similar episodes in the past from time to time but he states he was told by his family doctor that he likely has internal hemorrhoids. The patient has never had a colonoscopy. He denies having any abdominal pain. He does complain of dizziness upon standing as well as generalized weakness. He had multiple episodes of loose bowel movements this morning that had ru blood. He denies having any chest pain or difficulty breathing. He does take Xarelto for history of paroxysmal atrial fibrillation. The patient states that he was recent discharged from our facility. He was admitted for right hip replacement. He denies having any lower extremity swelling greater than usual. ROS: See above HPI for pertinent positives & negatives. A total of 10 systems reviewed and were otherwise negative. PAST MEDICAL HISTORY: See Below PAST SURGICAL HISTORY: See Below FAMILY HISTORY: See Below SOCIAL HISTORY: See Below HOME MEDICATIONS: See Below ALLERGIES: See Below VITALS: See Below PHYSICAL EXAMINATION: GENERAL: Patient is awake alert in no acute distress patient is resting comfortably and showing no signs of anxiety EYES: The conjunctivae are clear. The pupils are round and reactive. EARS, NOSE, MOUTH AND THROAT: The nose is without any evidence of any deformity. Mucous membranes are moist. Tongue is midline. NECK: The neck is nontender and supple. RESPIRATORY: Normal respiratory effort is noted there is no evidence of wheezing rhonchi or rales CARDIOVASCULAR: Regular rate and rhythm noted there no murmurs rubs or gallops normal S1 normal S2. GASTROINTESTINAL: The abdomen is soft and nondistended. There is no tenderness guarding rigidity. Rectal exam revealed gross blood per rectum. MUSCULOSKELETAL/EXTREMITIES: There is no evidence of gross deformity in either lower extremities. SKIN: No edema was noted bilaterally. Surgical site on the right lateral hip was evaluated. Skin stacey are in place. There is no drainage erythema or dehiscence. NEUROLOGIC: Patient is awake alert and oriented x3. MEDICAL DECISION MAKING: The patient is a 77-year-old male who presented to the emergency department for an evaluation of lower GI bleeding. The patient was told that he had a history of internal hemorrhoids but he never had a colonoscopy. He is currently taking blood thinners. The patient was found to have anemia but this could also be because he recently had his hip replaced. I discussed the patient's laboratory and radiographic studies with him. He was treated with a small fluid bolus. I also discussed his case with the on-call [facility]. They have agreed to evaluate the patient in the emergency department for further management and disposition. Triage Nursing notes reviewed. Prior medical records reviewed Vital Signs: reviewed and remarkable for no significant abnormalities Differential diagnosis: Diverticulosis, AVM, coagulopathy, colitis, inflammatory bowel disease, malignancy, Maritza-Ramirez tear, esophagitis, peptic ulcer disease, variceal bleed, gastritis, epistaxis, fissure, hemorrhoids, as well as other pathologies. ER treatment provided: See below Diagnostics interpreted by me: ECG: EKG was obtained in the emergency department. My interpretation is normal sinus rhythm at 93 bpm. Single PVC was noted. Nonspecific ST segment abnormalities were noted in the lower lateral leads. This was compared to a tracing from March 18, 2022. No changes were noted. Cardiac Monitoring: An order was placed for continuous cardiac monitoring. The monitor shows a rate of 79 bpm with sinus rhythm. Laboratory studies: As stated above and show below. Imaging studies: See below Consultation(s): I discussed this case with Santiago who is on for the [facility]. Past Med/Surg History Medical History (Updated 03/19/22 @ 17:33 by Heriberto Bynum DO) (HFpEF) heart failure with preserved ejection fraction AAA (abdominal aortic aneurysm) s/p repair 07/2020 Atrial fibrillation follows with Dr. Stoddard; on xarelto Carotid artery stenosis 50-69% stenosis L ICA, < 50% stenosis R ICA COPD (chronic obstructive pulmonary disease) controlled, stable per pt; last rescue inhaler use 1 month ago Degenerative joint disease of right hip Dysphagia GERD (gastroesophageal reflux disease) controlled, stable per pt [place] (hard of hearing) B/L DONATO HTN (hypertension) controlled, stable per pt Macular degeneration Morbid obesity Neuropathy feet bilat Pulmonary nodule Second-degree heart block Sleep apnea [id number] Sludge in gallbladder general surgery 01/27/22 "would not push to have [laparoscopic cholecystectomy] unless he has more symptoms..." Surgical History History of carpal tunnel release Right History of right knee joint replacement RT. 12/22/16: SAB at L3-L4 + PNB. History of tooth extraction S/P aneurysm repair Percutaneous Endovascular Aneurysm Repair 08/11/2020: Grade 2 view, MAC 4, ETT 8. Family History Mother Breast cancer Other Family history of breast cancer No family history of adverse response to anesthesia Denies family history of Ovarian cancer Prostate cancer Myocardial infarction Colorectal cancer Social History Smoking Status: Former smoker Hx Alcohol Use: No Preferred Language: Divehi Communication Ability: Effective Visual Impairment: No Limitations Hearing Ability: Use of Hearing Aid [place] Required: No Beliefs That Will Affect Care: None marital status: Current Living Situation: Spouse Feels Safe at Home: Yes Dental Care, Regularly: Yes Seatbelt Use: always Assistive Devices: BiPap, Cane and Walker Allergies Allergies Allergy/AdvReac Type Severity Reaction Status Date / Time lisinopril Allergy Severe Angioedema Verified 03/17/22 11:04 adhesive Allergy Intermediate Rash Verified 03/17/22 11:04 latex Allergy Intermediate Contact Verified 03/17/22 11:04 dermatitis Home Meds Home Medications Medication Instructions Recorded Confirmed ascorbic acid (vitamin C) 500 mg 500 mg PO QPM 12/18/18 03/19/22 tablet coenzyme Q10 100 mg capsule 100 mg PO QAM 12/18/18 03/19/22 fluticasone propionate 50 2 sprays intranasal DAILY PRN 12/18/18 03/19/22 mcg/actuation nasal Congestion #16 grams spray,suspension Artichoke Extract 1 tab PO QAM cholesterol 02/06/20 03/19/22 vit C 250 mg-vit E 90 mg-zinc 40 1 tab PO BID 02/06/20 03/19/22 mg-copper 1 ne-stkldw-aosujh capsule (PreserVision AREDS-2) Barley Supplement 1 dose PO QPM 06/11/20 03/19/22 fiber 1 cap PO QPM 06/11/20 03/19/22 multivitamin 1 tab PO QAM 06/11/20 03/19/22 glucosamine 750 vv-pbtqwwriwyf-aaf 1 tab PO BID 09/16/21 03/19/22 no1 644 mg-C 30 mg-jesu 1 mg tablet (Osteo Bi-Flex Triple Strength) amoxicillin 500 mg tablet 2,000 mg PO DIRECTED PRN PRIOR 01/05/22 03/19/22 TO DENTAL APPT. famotidine 20 mg tablet (Pepcid AC) 20 mg PO BID 01/12/22 03/19/22 magnesium oxide 250 mg PO QAM 01/25/22 03/19/22 melatonin 10 mg tablet 10 mg PO HS 01/25/22 03/19/22 vit 1 tab PO BID 01/25/22 03/19/22 O-oaxpvbv-jnjurnndm-rutin-lcok780 500 mg-50 mg-25 mg-40 mg tablet (Bioflex) amiodarone 100 mg tablet (Pacerone) 100 mg PO QAM 03/09/22 03/19/22 hydrochlorothiazide 25 mg tablet 25 mg PO QPM 03/09/22 03/19/22 Previous Rx's Medication Instructions Recorded albuterol sulfate 90 mcg/actuation 2 puff inhalation Q4H PRN 03/11/20 aerosol inhaler shortness of breath or wheezing #18 grams Lift Chair #1 ea 05/11/21 potassium chloride 20 mEq 20 meq PO QAM #90 tabs 06/14/21 tablet,extended release rivaroxaban 20 mg tablet (Xarelto) 20 mg PO HS #90 tabs 06/14/21 Wheeled Walker #1 ea 01/21/22 acetaminophen 500 mg capsule 1,000 mg PO TID Pain 30 days #180 02/14/22 caps ondansetron HCl 4 mg tablet 4 mg PO Q6 PRN nausea #20 tabs 02/14/22 sennosides 8.6 mg-docusate sodium 1 tab-cap PO BID 14 days #28 tabs 02/14/22 50 mg tablet (Senokot-S) tamsulosin 0.4 mg capsule (Flomax) 0.4 mg PO DAILY #7 caps 02/14/22 tramadol 50 mg tablet 50 - 100 mg PO Q6H PRN pain #40 02/14/22 tabs metoprolol succinate 50 mg 50 mg PO BID #60 tabs 03/16/22 tablet,extended release 24 hr (Toprol XL) Results & Data (ED) Vital Signs Vital Signs - 24 hr 03/19/22 12:07 03/19/22 12:07 03/19/22 12:38 Temperature 36.6 C Temperature Source Oral Pulse Rate 96 H Pulse Rate [Right Finger] 91 H Respiratory Rate 23 Blood Pressure 110/56 L Blood Pressure Mean 74 Pulse Oximetry 94 94 Oxygen Delivery Method Room Air Room Air Sepsis Recent Fever Within 48 Hours No Sepsis New/Unexplained Change in Mental Status No Sepsis Action Taken by Nursing No Action Required Home Medications Current Medication List: was personally reviewed by me Laboratory Data Attestation: I reviewed the patient's lab results. Result diagrams: 03/19/22 17:04 03/19/22 12:16 Lab Results 03/19/22 03/19/22 03/19/22 Range/Units 12:14 12:16 12:16 WBC 19.56 H (4.8-10.8) K/ul RBC 3.58 L (4.63-6.08) M/uL Hgb 10.3 L (14.0-18.0) g/dl Hct 32.1 L (40.1-51.0) % MCV 89.7 (80.0-100.0) fL MCH 28.8 (25.0-34.0) pg MCHC 32.1 (32.0-36.0) g/dL RDW Std Deviation 45.8 (36.4-46.3) fL RDW Coeff of Salome 14.0 (11.5-14.5) % Plt Count 349 (130-400) K/uL MPV 10.2 (9.4-12.4) fL Immature Gran % (Auto) 2.3 % Neut % (Auto) 81.2 % Lymph % (Auto) 10.4 % Nye % (Auto) 5.5 % Eos % (Auto) 0.3 % Baso % (Auto) 0.3 % Neut # (Auto) 15.88 H (1.4-6.5) K/uL Lymph # (Auto) 2.04 (1.2-3.4) K/uL Nye # (Auto) 1.07 H (0.24-0.82) K/uL Eos # (Auto) 0.06 (0-0.50) K/uL Baso # (Auto) 0.06 (0-0.2) K/uL Immature Gran # (Auto) 0.45 H (0.00-0.02) K/uL PT 13.0 H (9.0-12.0) Seconds INR 1.2 H (0.9-1.1) APTT 25.7 (21.0-31.0) Seconds PTT Ratio 0.9 Sodium (136-145) mmol/L Potassium (3.5-5.1) mmol/L Chloride (98-107) mmol/L Carbon Dioxide (21-32) mmol/L Anion Gap (3-11) BUN (6-23) mg/dl Creatinine (0.6-1.4) mg/dl Est Cr Clr Drug Dosing ml/min Est GFR ( Amer) ml/min Est GFR (Non-Af Amer) ml/min BUN/Creatinine Ratio (10-20) Glucose (70-99(Fasting)) mg/dl Calcium (8.5-10.1) mg/dl Total Bilirubin (0.2-1.0) mg/dl AST (13-39) U/L ALT (7-52) U/L Alkaline Phosphatase (34-104) U/L Troponin I High Sens (0-20) pg/ml Total Protein (6.0-8.3) gm/dl Albumin (3.4-5.0) gm/dl Globulin (2.5-4.0) gm/dl Albumin/Globulin Ratio (0.9-2) Lipase (11-82) U/L SARS-CoV-2, RNA, NAAT (NEGATIVE) Blood Type A Positive Antibody Screen NEGATIVE 03/19/22 03/19/22 Range/Units 12:16 12:43 WBC (4.8-10.8) K/ul RBC (4.63-6.08) M/uL Hgb (14.0-18.0) g/dl Hct (40.1-51.0) % MCV (80.0-100.0) fL MCH (25.0-34.0) pg MCHC (32.0-36.0) g/dL RDW Std Deviation (36.4-46.3) fL RDW Coeff of Salome (11.5-14.5) % Plt Count (130-400) K/uL MPV (9.4-12.4) fL Immature Gran % (Auto) % Neut % (Auto) % Lymph % (Auto) % Nye % (Auto) % Eos % (Auto) % Baso % (Auto) % Neut # (Auto) (1.4-6.5) K/uL Lymph # (Auto) (1.2-3.4) K/uL Nye # (Auto) (0.24-0.82) K/uL Eos # (Auto) (0-0.50) K/uL Baso # (Auto) (0-0.2) K/uL Immature Gran # (Auto) (0.00-0.02) K/uL PT (9.0-12.0) Seconds INR (0.9-1.1) APTT (21.0-31.0) Seconds PTT Ratio Sodium 143 (136-145) mmol/L Potassium 4.7 (3.5-5.1) mmol/L Chloride 108 H (98-107) mmol/L Carbon Dioxide 25 (21-32) mmol/L Anion Gap 10 (3-11) BUN 45 H (6-23) mg/dl Creatinine 1.20 (0.6-1.4) mg/dl Est Cr Clr Drug Dosing 69.2 ml/min Est GFR ( Amer) 68.1 ml/min Est GFR (Non-Af Amer) 58.8 ml/min BUN/Creatinine Ratio 37.5 H (10-20) Glucose 220 H (70-99(Fasting)) mg/dl Calcium 8.6 (8.5-10.1) mg/dl Total Bilirubin 0.4 (0.2-1.0) mg/dl AST 14 (13-39) U/L ALT 31 (7-52) U/L Alkaline Phosphatase 58 (34-104) U/L Troponin I High Sens 15.9 (0-20) pg/ml Total Protein 6.3 (6.0-8.3) gm/dl Albumin 3.0 L (3.4-5.0) gm/dl Globulin 3.3 (2.5-4.0) gm/dl Albumin/Globulin Ratio 0.9 (0.9-2) Lipase 25 (11-82) U/L SARS-CoV-2, RNA, NAAT NEGATIVE (NEGATIVE) Blood Type Antibody Screen Administered Medications Discontinued Medications Sodium Chloride (Nss) 500 mls @ 999 mls/hr IV .Q31M STA Stop: 03/19/22 13:02 Last Infusion: 03/19/22 13:17 Dose: 0 mls/hr Documented By: Admin: 03/19/22 12:44 Dose: 999 mls/hr Documented By: ESTER Piperacillin Sod/Tazobactam Sod (Zosyn) 4.5 gm in 120 mls @ 240 mls/hr IV NOW STA Stop: 03/19/22 14:59 Last Infusion: 03/19/22 15:55 Dose: 0 mls/hr Documented By: Admin: 03/19/22 14:43 Dose: 240 mls/hr Documented By: ESTER Morphine Sulfate (Morphine Sulfate 4 Mg/Ml 1 Ml Carp\\Vial) 4 mg IV Q30M PRN PRN Reason: Pain Stop: 04/02/22 13:14 Last Admin: 03/19/22 13:20 Dose: 4 mg Documented By: ESTER Ondansetron HCl (Ondansetron Inj 2 Mg/Ml 2 Ml Vial) 4 mg IV NOW STA Stop: 03/19/22 13:16 Last Admin: 03/19/22 13:20 Dose: 4 mg Documented By: ESTER Pantoprazole Sodium (Pantoprazole 40 Mg Tab) 40 mg PO DAILY STA Stop: 03/19/22 14:38 Last Admin: 03/19/22 16:47 Dose: 40 mg Documented By: KTS Imaging Data Radiologist's Impression: Chest X-Ray 03/19/22 12:33 XR chest 1V portable CLINICAL HISTORY: GIB TECHNIQUE: Single frontal radiograph of the chest was obtained. Comparison: Comparison is made to chest radiograph 03/15/2022 FINDINGS: No lines and tubes are seen. Calcified aortic knob is seen. The lungs are clear. No evidence of pleural effusion or pneumothorax. IMPRESSION: No acute chest disease. ACT 112: Negative or not required by law. Electronically signed by: George Miller M.D. 03/19/2022 12:55 PM Discharge Plan Visit Data Chief Complaint: Rectal Bleed Stated Complaint: BLEEDING FROM HEMORRHOIDS ED Provider: Heriberto Bynum Discharge Problem: Acute lower GI bleeding, Anemia Patient Disposition: Admitted As Inpatient Discharge Instructions Interventions: ED Discharge Assessment Last Done: 03/19/22 14:41
[2022-03-19 12:50] LABS: INR 1.2 (0.9-1.1); Partial Thromboplastin Ratio 0.9; Partial Thromboplastin Time 25.7 Seconds (21.0-31.0)
--- NOTE | 2022-03-19 12:56 | XRay Report ---
XR chest 1V portable CLINICAL HISTORY: GIB TECHNIQUE: Single frontal radiograph of the chest was obtained. Comparison: Comparison is made to chest radiograph 03/15/2022 FINDINGS: No lines and tubes are seen. Calcified aortic knob is seen. The lungs are clear. No evidence of pleur al effusion or pneumothorax. IMPRESSION: No acute chest disease. ACT 112: Negative or not required by law. Electronically signed by: George Miller M.D. 03/19/2022 12:55 PM
[2022-03-19 12:58] LABS: Troponin I High Sensitivity 15.9 pg/ml (0-20)
[2022-03-19 13:06] LABS: Albumin Globulin Ratio 0.9 (0.9-2); BUN Creatinine Ratio 37.5 (10-20); Bilirubin,Total 0.4 mg/dl (0.2-1.0); Calcium 8.6 mg/dl (8.5-10.1); Creatinine Clr Calc Pharmacy 69.2 ml/min; Est GFR (African American) 68.1 ml/min; Est GFR (Non-African American) 58.8 ml/min; Globulin 3.3 gm/dl (2.5-4.0); Potassium 4.7 mmol/L (3.5-5.1); Total Protein 6.3 gm/dl (6.0-8.3)
[2022-03-19] MEDS ORDERED: MoRPHine SULFATE 4 MG/ML 1 ML CARP\\VIAL IV PRN (13:15)
[2022-03-19] MEDS ORDERED: ONDANSETRON INJ 2 MG/ML 2 ML VIAL IV STA (13:15)
--- NOTE | 2022-03-19 13:30 | History & Physical Report ---
Date of Service March 19, 2022 Assessment & Plan (1) Rectal bleeding: Plan: -Admit to med tele -Patient is currently afebrile, hemodynamically stable, and stable on RA -Patient noted to have multiple bloody bowel moments this am prior to ED arrival, Hgb today noted to be 10, was 14 on 03/14/22 -Patient is on Xarelto for Afib and is S/P right hip arthropathy on 03/09/[address] leung. -Unsure if his Hgb drop can be totally attributed to his GI bleed with his recent surgery -Type/screen ordered, patient's blood consent from last admission will also cover this admission -Monitor CBC q6h, transfuse as needed -Would likely need lasix with any blood transfusions if needed with his CHF history -Two large bore IV and orthostatic vitals ordered -Monitor on tele and pulse oximetry -Will start a clear liquid diet for now -Patient is S/P 1L NSS bolus in the ED, hold additional IV fluids for now with his CHF history -AM CMP as well (2) (HFpEF) heart failure with preserved ejection fraction: Plan: -Appears Euvolemic on exam -Will continue with his metoprolol succinate as prescribed on last admission -Continue HCTZ for now, but would likely hold if he needs to be NPO (3) S/P total right hip arthroplasty: Plan: -Stable -Fall precautions ordered -Continue tylenol and tramadol for pain (4) GERD (gastroesophageal reflux disease): Plan: -Daily pantoprazole for ulcer prophylaxis (5) GERRY (obstructive sleep apnea): Plan: -HS Bipap ordered (6) Hypertension: Plan: -Continue metoprolol and hydrochlorothiazide (7) Paroxysmal atrial fibrillation: Plan: -Rate controlled -Continue metoprolol and amiodarone -Hold Xarelto for now with GI bleed (8) COPD with emphysema: Plan: -Stable on RA -Continue breathing treatments and pulm hygiene (9) Dysphagia: Plan: -Aspiration precautions ordered -Would switched to minced/moist diet when his diet can be advanced Plan The patient was discussed with Dr. Berger at the time of the admission History of Present Illness Chief Complaint: Rectal bleeding Primary Care Provider: Shweta Loyd MD Ross is a 77 year old male with a PMH significant for Afib on Xarelto, HTN, Hyperlipidemia, S/P AAA repair in 07/[address] Juarez, left ventricular hypertrophy (LVEF of 60-65%, Grade I diastolic dysfunction as of 2018) , diastolic dysfunction, cerebral vascular disease, GERD, GERRY, COPD, who presented to the [facility] ED on 03/19/22 with a chief complaint of rectal bleeding. In the ED the patient was found to be afebrile, hemodynamically stable, and stable on RA. Labs were remarkable for Leukocytosis of 19.56 with left shift 15.88, Hgb of 10.3 (was 14 as of 03/14/22), INR of 1.2, Cr of 1.20 (baseline appears around 0.8), BUN of 45, stable electrolytes, glucose of 220. Chest xray was read as no acute disease. Prio to admission the patient was given 4 mg IV morphine, 1L NSS bolus, and 4 mg IV zofran. Per chart review, the patient was recently admitted to [facility] from 03/09-03/18 for elective right total hip arthropathy with Dr. Leung on 03/09/22. His admission was complicated by acute hypoxic respiratory failure thought to be due from Heart Failure exacerbation and acute urinary retention. His CHF exacerbation was treated with IV diuresis and his atenlol was switched to Metoprolol Succinate due to his CHF diagnosis. He was able to be weaned to room air prior to discharge home. He was also noted to have acute urinary retention. He was discharged home with a Stevenson catheter and has an outpatient appointment with Urology scheduled for 03/25/22. He was also evaluated by speech language pathology due to concerns for aspiration and an enlarged tongue noted on initial Hospitalist evaluation during their consult. Speech recommended aspiration precautions and a slippery diet. At the time of the exam the patient was resting comfortably in bed in no acute distress with his sitting bedside, history was obtained from both. They state that the patient had been doing well since discharge, until this morning. His states that the patient takes senna daily for consistently bowel movements. This am the patient had the sensation that he needed to have a bowel movement but was unable to get to the bathroom fast enough. He ended up having a large, bloody bowel movement. He had another large, bloody bowel movement at home prior to coming to the ED. He notes some lightheadedness/dizziness with standing and walking since having the bloody bowel movements. When asked, the patient states that he has a history of hemorrhoids but has never had a colonoscopy in the past. His last dose of Xarelto was last night as prescribed. His has been unable to brass pickler his new prescription for the metoprolol succinate so he has been taking his atenolol. He denies recent fevers, chills, headache, changes in vision, hearing, taste, and smell, chest pain, SOB, abdominal pain, nausea, vomiting, dysuria, hematuria, and recent falls. His right hip pain has been well-controlled on tylenol and tramadol since discharge. I spoke to he and his regarding code status, he is a full code and his would make decisions for him if he could not make them himself. I explained to the patient and his that we will hold his Xarelto for now with his current bleeding, I explained that his daily stroke risk is low. They expressed understading and are in agreement with holding his Xarelto for now as his bleeding risk is high than his stroke risk at this time. Please refer to Dr. Berger's attestation for any changes to the treatment plan Allergies Allergy/AdvReac Type Severity Reaction Status Date / Time lisinopril Allergy Severe Angioedema Verified 03/17/22 11:04 adhesive Allergy Intermediate Rash Verified 03/17/22 11:04 latex Allergy Intermediate Contact Verified 03/17/22 11:04 dermatitis Home Medications Medication Instructions Recorded Confirmed Type ascorbic acid (vitamin C) 500 mg 500 mg PO QPM 12/18/18 03/19/22 History tablet coenzyme Q10 100 mg capsule 100 mg PO QAM 12/18/18 03/19/22 History fluticasone propionate 50 2 sprays intranasal DAILY PRN 12/18/18 03/19/22 History mcg/actuation nasal Congestion #16 grams spray,suspension Artichoke Extract 1 tab PO QAM cholesterol 02/06/20 03/19/22 History vit C 250 mg-vit E 90 mg-zinc 40 1 tab PO BID 02/06/20 03/19/22 History mg-copper 1 sk-vodkmu-cyigau capsule (PreserVision AREDS-2) albuterol sulfate 90 mcg/actuation 2 puff inhalation Q4H PRN 03/11/20 03/19/22 Rx aerosol inhaler shortness of breath or wheezing #18 grams Barley Supplement 1 dose PO QPM 06/11/20 03/19/22 History fiber 1 cap PO QPM 06/11/20 03/19/22 History multivitamin 1 tab PO QAM 06/11/20 03/19/22 History Lift Chair #1 ea 05/11/21 03/17/22 Rx potassium chloride 20 mEq 20 meq PO QAM #90 tabs 06/14/21 03/19/22 Rx tablet,extended release rivaroxaban 20 mg tablet (Xarelto) 20 mg PO HS #90 tabs 06/14/21 03/19/22 Rx glucosamine 750 mt-ehgewararwo-aka 1 tab PO BID 09/16/21 03/19/22 History no1 644 mg-C 30 mg-jesu 1 mg tablet (Osteo Bi-Flex Triple Strength) amoxicillin 500 mg tablet 2,000 mg PO DIRECTED PRN PRIOR 01/05/22 03/19/22 History TO DENTAL APPT. famotidine 20 mg tablet (Pepcid AC) 20 mg PO BID 01/12/22 03/19/22 History Wheeled Walker #1 ea 01/21/22 03/17/22 Rx magnesium oxide 250 mg PO QAM 01/25/22 03/19/22 History melatonin 10 mg tablet 10 mg PO HS 01/25/22 03/19/22 History vit 1 tab PO BID 01/25/22 03/19/22 History I-wqqdlfx-abebnbmtf-rutin-qakd400 500 mg-50 mg-25 mg-40 mg tablet (Bioflex) acetaminophen 500 mg capsule 1,000 mg PO TID Pain 30 days #180 02/14/22 03/19/22 Rx caps ondansetron HCl 4 mg tablet 4 mg PO Q6 PRN nausea #20 tabs 02/14/22 03/19/22 Rx sennosides 8.6 mg-docusate sodium 1 tab-cap PO BID 14 days #28 tabs 02/14/22 03/19/22 Rx 50 mg tablet (Senokot-S) tamsulosin 0.4 mg capsule (Flomax) 0.4 mg PO DAILY #7 caps 02/14/22 03/19/22 Rx tramadol 50 mg tablet 50 - 100 mg PO Q6H PRN pain #40 02/14/22 03/19/22 Rx tabs amiodarone 100 mg tablet (Pacerone) 100 mg PO QAM 03/09/22 03/19/22 History hydrochlorothiazide 25 mg tablet 25 mg PO QPM 03/09/22 03/19/22 History metoprolol succinate 50 mg 50 mg PO BID #60 tabs 03/16/22 03/19/22 Rx tablet,extended release 24 hr (Toprol XL) Past Med/Surg History Medical History (Updated 03/19/22 @ 14:31 by Santiago Liz PA-C) (HFpEF) heart failure with preserved ejection fraction AAA (abdominal aortic aneurysm) s/p repair 07/2020 Atrial fibrillation follows with Dr. Stoddard; on xarelto Carotid artery stenosis 50-69% stenosis L ICA, < 50% stenosis R ICA COPD (chronic obstructive pulmonary disease) controlled, stable per pt; last rescue inhaler use 1 month ago Degenerative joint disease of right hip Dysphagia GERD (gastroesophageal reflux disease) controlled, stable per pt [place] (hard of hearing) B/L DONATO HTN (hypertension) controlled, stable per pt Macular degeneration Morbid obesity Neuropathy feet bilat Pulmonary nodule Second-degree heart block Sleep apnea Hg-PJV-nzmscovem Sludge in gallbladder general surgery 01/27/22 "would not push to have [laparoscopic cholecystectomy] unless he has more symptoms..." Surgical History History of carpal tunnel release Right History of right knee joint replacement RT. 12/22/16: SAB at L3-L4 + PNB. History of tooth extraction S/P aneurysm repair Percutaneous Endovascular Aneurysm Repair 08/11/2020: Grade 2 view, MAC 4, ETT 8. Family History Mother Breast cancer Other Family history of breast cancer No family history of adverse response to anesthesia Denies family history of Ovarian cancer Prostate cancer Myocardial infarction Colorectal cancer Social History Smoking Status: Former smoker Hx Alcohol Use: No Preferred Language: Bengali Communication Ability: Effective Visual Impairment: No Limitations Hearing Ability: Use of Hearing Aid Bulk Picker Required: No Beliefs That Will Affect Care: None marital status: Current Living Situation: Spouse Feels Safe at Home: Yes Dental Care, Regularly: Yes Seatbelt Use: always Assistive Devices: BiPap, Cane and Walker Review of Systems Review of Systems: Denies current fever, chills, headache, changes in vision, hearing, taste, and smell, chest pain, SOB, cough, abdominal pain, nausea, vomiting, hematemesis, melena, dysuria, hematuria, and recent falls. All systems have been reviewed and are otherwise negative. Physical Exam Physical Exam: Physical Exam: General: In no acute distress, stated age, chronically ill-appearing, non- toxic appearing HEENT: Normocephalic, atraumatic, no scleral icterus, pupils around round, symmetrical, and reactive to light, Dry mucus membranes, no swelling of the tongue on exam or signs of airway compromise, trachea midline, no thyromegaly Chest/Pulm: No respiratory distress, symmetrical chest expansion, expiratory wheezing noted throughout Cardiac: RRR, no murmurs noted Abdomen: Negative for ascites and bruising, normoactive bowel sounds, soft, non-tender to palpation throughout : Patient currently with stevenson catheter in place without signs of drainage, currently with clear, yellow urine in the Stevenson bag Musculoskeletal: Symmetrical and without signs of acute trauma, upper and lower extremities with full ROM, no atrophy, spasticity, or flaccidity Extremities: Radial, dorsalis pedis, and posterior tibial pulses are intact and symmetrical, no edema noted in the BL LE's Skin: Warm, dry, no rashes , lesions, or scars noted Neuro: Alert and oriented to person, place, month, year, and president, no focal defects, CN II-XII tested and intact, finger to nose test negative, no tremors noted Psych: No acute distress, calm and cooperative during the exam Results & Data Results & Data ([facility]) Vital Signs (Past 12 Hours) Vital Signs Temp Pulse Pulse Resp BP Pulse Ox O2 Del Method 03/19/22 12:38 94 Room Air 03/19/22 12:07 91 H 03/19/22 12:07 36.6 C 96 H 23 110/56 L 94 Room Air Laboratory Results Abnormal lab results 03/19/22 03/19/22 03/19/22 Range/Units 12:16 12:16 12:16 WBC 19.56 H (4.8-10.8) K/ul RBC 3.58 L (4.63-6.08) M/uL Hgb 10.3 L (14.0-18.0) g/dl Hct 32.1 L (40.1-51.0) % Neut # (Auto) 15.88 H (1.4-6.5) K/uL [place] # (Auto) 1.07 H (0.24-0.82) K/uL Immature Gran # (Auto) 0.45 H (0.00-0.02) K/uL PT 13.0 H (9.0-12.0) Seconds INR 1.2 H (0.9-1.1) Chloride 108 H (98-107) mmol/L BUN 45 H (6-23) mg/dl BUN/Creatinine Ratio 37.5 H (10-20) Glucose 220 H (70-99(Fasting)) mg/dl Albumin 3.0 L (3.4-5.0) gm/dl Diagnostic Findings Chest X-Ray 03/19/22 12:33 XR chest 1V portable CLINICAL HISTORY: GIB TECHNIQUE: Single frontal radiograph of the chest was obtained. Comparison: Comparison is made to chest radiograph 03/15/2022 FINDINGS: No lines and tubes are seen. Calcified aortic knob is seen. The lungs are clear. No evidence of pleural effusion or pneumothorax. IMPRESSION: No acute chest disease. ACT 112: Negative or not required by law. Electronically signed by: George Miller M.D. 03/19/2022 12:55 PM ECG Additional Comments: Sinus rhythm with Premature atrial complexes Otherwise normal ECG When compared with ECG of 15-MAR-2022 11:36, Premature atrial complexes are now Present Code Status & VTE Plan Code Status Full code VTE Prophylaxis Plan VTE Prophylaxis will be ordered: Yes Supervising Physician Co-Signing Physician Notes Patient was seen and examined independently I discussed the case with Santiago CHRISTOPHER I reviewed pertinent past medical social family history and also the plan of care and agree with the plan of care. Patient presents with painless bright red blood per rectum. He is history of the same and not as voluminous. He also became dizzy with this event this morning. Patient chronically takes Xarelto for atrial fibrillation. Patient recently had a hip surgery of a right total hip arthroplasty Patient is stable with regard to his vital signs but because he had voluminous hematochezia in the emergency department we will observe him to determine any reduction in his blood count. Examination is otherwise benign his hip is healing well as expected Any exceptions will be noted below PG Care Time/CCT Total # of Minutes Spent Total Time Spent with Patient: Total time spent is greater than 50% in coordination of care (as documented) at patient's floor/unit and/or counseling patient: Coding Level of Care Code Established Pt INT OBSERVATION CARE 70M LVL 3 Patient Type Established Medical Decision Making High Complexity Diagnoses Rectal bleeding K62.5 (HFpEF) heart failure with preserved ejection fraction I50.30 S/P total right hip arthroplasty Z96.641 GERD (gastroesophageal reflux disease) K21.9 GERRY (obstructive sleep apnea) G47.33 Hypertension I10 Paroxysmal atrial fibrillation I48.0 COPD with emphysema J43.9 Dysphagia R13.10
[2022-03-19] MEDS ORDERED: PIPERACILLIN/TAZOBACTAM 4.5 GM/120 ML BAG IV STA (14:30)
[2022-03-19] MEDS ORDERED: PANTOprazole 40 MG TAB PO STA (14:37)
[2022-03-19] MEDS ORDERED: ALBUTEROL HFA 8 GM INHALER INH PRN (15:45)
[2022-03-19 17:22] LABS: Hemoglobin 8.7 g/dl (14.0-18.0); Mean Corpuscular Hemoglobin 28.6 pg (25.0-34.0); Mean Corpuscular Hgb Conc 32.2 g/dL (32.0-36.0); Mean Corpuscular Volume 88.8 fL (80.0-100.0); Mean Platelet Volume 10.2 fL (9.4-12.4); Platelet Count 279 K/uL (130-400); RDW Coefficient of Variation 14.1 % (11.5-14.5); RDW Standard Deviation 45.3 fL (36.4-46.3); Red Blood Count 3.04 M/uL (4.63-6.08); White Blood Count 17.74 K/ul (4.8-10.8)
[2022-03-19] MEDS ORDERED: hydroCHLOROthiazide 25 MG TAB PO SCH (21:00)
[2022-03-19] MEDS: METOPROLOL SUCC 50MG EXT REL TAB PO SCH (21:26)
[2022-03-19] MEDS: MELATONIN 3 MG TAB PO SCH (21:26)
[2022-03-19] MEDS: DOCUSATE SODIUM/SENNA 50/8.6MG TAB PO SCH (21:28)
[2022-03-19] MEDS: PIPERACILLIN/TAZOBACTAM 3.375 GM in DEXTROSE 5% 100 ML IV SCH (22:03)
[2022-03-19] MEDS: FLUTICASONE PROPIONATE NA SPR 16 GM BTL PRN (23:09)
[2022-03-19 23:44] LABS: Hematocrit (blood only) 25.4 % (40.1-51.0); Mean Corpuscular Hemoglobin 28.8 pg (25.0-34.0); Mean Corpuscular Hgb Conc 31.5 g/dL (32.0-36.0); Mean Corpuscular Volume 91.4 fL (80.0-100.0); Mean Platelet Volume 10.1 fL (9.4-12.4); Nucleated RBC # (auto) 0.02 K/uL (0-0); Nucleated RBC % (auto) 0.1 %; Platelet Count 323 K/uL (130-400); RDW Standard Deviation 46.9 fL (36.4-46.3); Red Blood Count 2.78 M/uL (4.63-6.08); White Blood Count 22.68 K/ul (4.8-10.8)
[2022-03-20] MEDS ORDERED: SODIUM CHLORIDE 0.9% 250 ML IV PRN (00:03)
[2022-03-20] MEDS: PIPERACILLIN/TAZOBACTAM 3.375 GM in DEXTROSE 5% 100 ML IV SCH (06:10)
[2022-03-20 06:25] LABS: Appearance Urine Clear (Clear); Bacteria Urine Automated Negative (Negative); Bilirubin Urine Negative (Negative); Blood Urine 1+ (Negative); Color Urine Yellow; Epithelial Cell Urine Auto 0-5 /lpf (0-5); Glucose Urine UA Negative (Negative); Ketones Urine Negative (Negative); Leukocyte Esterase Urine Negative (Negative); Nitrite Urine Negative (Negative); Protein Urine Negative (Negative); RBC Urine Automated 0-4 /hpf (0-4); Specific Gravity Urine 1.021 (1.000-1.030); Urobilinogen Urine Negative (Negative)
[2022-03-20] MEDS: ACETAMINOPHEN 325 MG TAB PO PRN ×2 (06:41→20:23)
[2022-03-20] MEDS: METOPROLOL SUCC 50MG EXT REL TAB PO SCH ×2 (08:48→20:24)
[2022-03-20] MEDS: AMIODARONE 200 MG TAB PO SCH (09:20)
[2022-03-20] MEDS: MAGNESIUM OXIDE 400 MG TAB PO SCH (09:20)
[2022-03-20] MEDS: TAMSULOSIN HCL 0.4 MG CAP PO SCH (09:20)
[2022-03-20] MEDS: DOCUSATE SODIUM/SENNA 50/8.6MG TAB PO SCH ×2 (09:20→20:23)
[2022-03-20] MEDS: POTASSIUM CHLORIDE CRTAB 20 MEQ TABCR PO SCH (09:20)
[2022-03-20 10:14] LABS: Hematocrit (blood only) 25.4 % (40.1-51.0); Hemoglobin 8.2 g/dl (14.0-18.0); Mean Corpuscular Hemoglobin 29.7 pg (25.0-34.0); Mean Corpuscular Hgb Conc 32.3 g/dL (32.0-36.0); Mean Platelet Volume 9.9 fL (9.4-12.4); Nucleated RBC # (auto) 0.04 K/uL (0-0); Nucleated RBC % (auto) 0.2 %; Platelet Count 260 K/uL (130-400); RDW Coefficient of Variation 14.1 % (11.5-14.5); RDW Standard Deviation 46.5 fL (36.4-46.3); Red Blood Count 2.76 M/uL (4.63-6.08); White Blood Count 22.37 K/ul (4.8-10.8)
--- NOTE | 2022-03-20 10:19 | Electrocardiogram Report ---
Test Reason : Blood Pressure : / mmHG Vent. Rate : 093 BPM Atrial Rate : 093 BPM P-R Int : 150 ms QRS Dur : 090 ms QT Int : 372 ms P-R-T Axes : 054 042 054 degrees QTc Int : 462 ms Sinus rhythm with Premature ventricular complexes Otherwise normal ECG When compared with ECG of 15-MAR-2022 11:36, Premature ventricular complexes are now Present Confirmed by Rogerio Oneal ([id number]) on 03/20/2022 10:18:52 AM Referred By: REFERRED SELF Confirmed By:Rogerio Oneal
[2022-03-20 10:23] LABS: INR 1.2 (0.9-1.1); Prothrombin Time 12.4 Seconds (9.0-12.0)
[2022-03-20 10:33] LABS: Albumin Globulin Ratio 0.9 (0.9-2); Albumin Level 2.5 gm/dl (3.4-5.0); Bilirubin,Total 0.5 mg/dl (0.2-1.0); Creatinine Clr Calc Pharmacy 82.1 ml/min; Est GFR (Non-African American) 73.3 ml/min; Globulin 2.7 gm/dl (2.5-4.0); Potassium 4.1 mmol/L (3.5-5.1); Total Protein 5.2 gm/dl (6.0-8.3)
[2022-03-20] MEDS: SODIUM CHLORIDE 0.9% 1000ML 1,000 ML IV SCH (13:53)
--- NOTE | 2022-03-20 14:32 | Gastrointestinal Consultation ---
Date of Consultation March 20, 2022 History of Present Illness Attending Physician: Rasheed Avery MD History of Present Illness HPI: 77 yo M with complicated med history, notable for CHF, AAA repair, A fib on Xarelto admit last night with complaint of pain less rectal bleeding x 3. He is s/p recent hospitalition in February for hip replacement, complicated by resp failure from CHF. Normotensive on admit On admit, Hgb 10 from prior 12-14 2 weeks ago. Overnight, Xarelto held. Hgb 8 this am. , Systolic in 80-90's overnight, currently normotensive. No further rectal bleed since admit. No record of prior colonoscopy. General:Comfortable, watching TV, pleasant. HEENT:OC clear, pink Chest/Pulm: Expiratory wheezing noted throughout Cardiac:RRR, no murmurs noted Abdomen:Negative for ascites and bruising, normoactive bowel sounds, soft, non-tender to palpation throughout Extrem: Mild edema Labs sig for WBC 22, plts 260, INR 1.2, BUN 47/ Creat 1 A/P: REctal bleeding - Hold Xarelto - Consider CT AP to w/u leukocytosis - Consider cscopy Allergies Allergy/AdvReac Type Severity Reaction Status Date / Time lisinopril Allergy Severe Angioedema Verified 03/17/22 11:04 adhesive Allergy Intermediate Rash Verified 03/17/22 11:04 latex Allergy Intermediate Contact Verified 03/17/22 11:04 dermatitis Home Medications Medication Instructions Recorded Confirmed Type ascorbic acid (vitamin C) 500 mg 500 mg PO QPM 12/18/18 03/19/22 History tablet coenzyme Q10 100 mg capsule 100 mg PO QAM 12/18/18 03/19/22 History fluticasone propionate 50 2 sprays intranasal DAILY PRN 12/18/18 03/19/22 History mcg/actuation nasal Congestion #16 grams spray,suspension Artichoke Extract 1 tab PO QAM cholesterol 02/06/20 03/19/22 History vit C 250 mg-vit E 90 mg-zinc 40 1 tab PO BID 02/06/20 03/19/22 History mg-copper 1 rw-yuiphm-xvkwky capsule (PreserVision AREDS-2) albuterol sulfate 90 mcg/actuation 2 puff inhalation Q4H PRN 03/11/20 03/19/22 Rx aerosol inhaler shortness of breath or wheezing #18 grams Barley Supplement 1 dose PO QPM 06/11/20 03/19/22 History fiber 1 cap PO QPM 06/11/20 03/19/22 History multivitamin 1 tab PO QAM 06/11/20 03/19/22 History Lift Chair #1 ea 05/11/21 03/17/22 Rx potassium chloride 20 mEq 20 meq PO QAM #90 tabs 06/14/21 03/19/22 Rx tablet,extended release rivaroxaban 20 mg tablet (Xarelto) 20 mg PO HS #90 tabs 06/14/21 03/19/22 Rx glucosamine 750 ox-vbrvqsfvmqk-tfe 1 tab PO BID 09/16/21 03/19/22 History no1 644 mg-C 30 mg-jesu 1 mg tablet (Osteo Bi-Flex Triple Strength) amoxicillin 500 mg tablet 2,000 mg PO DIRECTED PRN PRIOR 01/05/22 03/19/22 History TO DENTAL APPT. famotidine 20 mg tablet (Pepcid AC) 20 mg PO BID 01/12/22 03/19/22 History Wheeled Walker #1 ea 01/21/22 03/17/22 Rx magnesium oxide 250 mg PO QAM 01/25/22 03/19/22 History melatonin 10 mg tablet 10 mg PO HS 01/25/22 03/19/22 History vit 1 tab PO BID 01/25/22 03/19/22 History G-tosojej-blhncmlhb-rutin-kmmt775 500 mg-50 mg-25 mg-40 mg tablet (Bioflex) acetaminophen 500 mg capsule 1,000 mg PO TID Pain 30 days #180 02/14/22 03/19/22 Rx caps ondansetron HCl 4 mg tablet 4 mg PO Q6 PRN nausea #20 tabs 02/14/22 03/19/22 Rx sennosides 8.6 mg-docusate sodium 1 tab-cap PO BID 14 days #28 tabs 02/14/22 03/19/22 Rx 50 mg tablet (Senokot-S) tamsulosin 0.4 mg capsule (Flomax) 0.4 mg PO DAILY #7 caps 02/14/22 03/19/22 Rx tramadol 50 mg tablet 50 - 100 mg PO Q6H PRN pain #40 02/14/22 03/19/22 Rx tabs amiodarone 100 mg tablet (Pacerone) 100 mg PO QAM 03/09/22 03/19/22 History hydrochlorothiazide 25 mg tablet 25 mg PO QPM 03/09/22 03/19/22 History metoprolol succinate 50 mg 50 mg PO BID #60 tabs 03/16/22 03/19/22 Rx tablet,extended release 24 hr (Toprol XL) Patient History Medical History (Updated 03/20/22 @ 17:29 by Rasheed Avery MD) (HFpEF) heart failure with preserved ejection fraction AAA (abdominal aortic aneurysm) s/p repair 07/2020 Atrial fibrillation follows with Dr. Stoddard; on xarelto Carotid artery stenosis 50-69% stenosis L ICA, < 50% stenosis R ICA COPD (chronic obstructive pulmonary disease) controlled, stable per pt; last rescue inhaler use 1 month ago Degenerative joint disease of right hip Dysphagia GERD (gastroesophageal reflux disease) controlled, stable per pt [place] (hard of hearing) B/L DONATO HTN (hypertension) controlled, stable per pt Macular degeneration Morbid obesity Neuropathy feet bilat Pulmonary nodule Second-degree heart block Sleep apnea Ir-GBC-kpsjunrtj Sludge in gallbladder general surgery 01/27/22 "would not push to have [laparoscopic cholecystectomy] unless he has more symptoms..." Surgical History History of carpal tunnel release Right History of right knee joint replacement RT. 12/22/16: SAB at L3-L4 + PNB. History of tooth extraction S/P aneurysm repair Percutaneous Endovascular Aneurysm Repair 08/11/2020: Grade 2 view, MAC 4, ETT 8. Family History Mother Breast cancer Other Family history of breast cancer No family history of adverse response to anesthesia Denies family history of Ovarian cancer Prostate cancer Myocardial infarction Colorectal cancer Social History Smoking Status: Former smoker Hx Alcohol Use: No Preferred Language: Bengali Communication Ability: Effective Visual Impairment: No Limitations Hearing Ability: Use of Hearing Aid Servicing Manager Required: No Beliefs That Will Affect Care: None marital status: Current Living Situation: Spouse Feels Safe at Home: Yes Dental Care, Regularly: Yes Seatbelt Use: always Assistive Devices: BiPap, Cane and Walker Results & Data ([facility]) Vital Signs (Past 12 Hours) Vital Signs Temp Pulse Pulse Resp BP BP Pulse Ox 03/20/22 06:05 36.8 C 77 20 95/59 L 93 03/20/22 05:35 36.9 C 85 18 105/64 91 03/20/22 05:05 36.9 C 83 20 92/53 L 94 03/20/22 04:35 36.8 C 83 18 93/48 L 90 03/20/22 04:20 36.8 C 82 18 79/47 L 95 03/20/22 04:20 36.8 C 82 18 79/47 L 95 03/20/22 04:00 36.8 C 85 20 82/45 L 88 L 03/20/22 03:26 36.9 C 86 20 101/61 90 03/20/22 02:57 81 O2 Del Method O2 Flow Rate 03/20/22 06:05 2 03/20/22 05:35 2 03/20/22 05:05 2 03/20/22 04:35 2 03/20/22 04:20 2 03/20/22 04:20 2 03/20/22 04:00 03/20/22 03:26 Room Air 03/20/22 02:57
--- NOTE | 2022-03-20 15:59 | Hospitalist Progress Note ---
Date of Service March 20, 2022 Assessment & Plan (1) (HFpEF) heart failure with preserved ejection fraction: Plan: -Appears Euvolemic on exam -Will continue with his metoprolol succinate as prescribed on last admission -Continue HCTZ for now, but would likely hold if he needs to be NPO (2) S/P total right hip arthroplasty: Plan: -Stable -Fall precautions ordered -Continue tylenol and tramadol for pain (3) GERD (gastroesophageal reflux disease): Plan: -Daily pantoprazole for ulcer prophylaxis (4) GERRY (obstructive sleep apnea): Plan: -HS Bipap ordered (5) Hypertension: Plan: -Continue metoprolol and hydrochlorothiazide (6) Paroxysmal atrial fibrillation: Plan: -Rate controlled -Continue metoprolol and amiodarone -Hold Xarelto for now with GI bleed (7) COPD with emphysema: Plan: -Stable on RA -Continue breathing treatments and pulm hygiene (8) Dysphagia: Plan: -Aspiration precautions ordered -Would switched to minced/moist diet when his diet can be advanced Plan The patient was discussed with Dr. Berger at the time of the admission Admission and Anticipated Discharge Date Admission Date: March 19, 2022 Review of Systems Review of Systems: Denies current fever, chills, headache, changes in vision, hearing, taste, and smell, chest pain, SOB, cough, abdominal pain, nausea, vomiting, hematemesis, melena, dysuria, hematuria, and recent falls. All systems have been reviewed and are otherwise negative. Physical Exam Physical Exam: Physical Exam: General: In no acute distress, stated age, chronically ill-appearing, non- toxic appearing HEENT: Normocephalic, atraumatic, no scleral icterus, pupils around round, symmetrical, and reactive to light, Dry mucus membranes, no swelling of the tongue on exam or signs of airway compromise, trachea midline, no thyromegaly Chest/Pulm: No respiratory distress, symmetrical chest expansion, expiratory wheezing noted throughout Cardiac: RRR, no murmurs noted Abdomen: Negative for ascites and bruising, normoactive bowel sounds, soft, non-tender to palpation throughout : Patient currently with stevenson catheter in place without signs of drainage, currently with clear, yellow urine in the Stevenson bag Musculoskeletal: Symmetrical and without signs of acute trauma, upper and lower extremities with full ROM, no atrophy, spasticity, or flaccidity Extremities: Radial, dorsalis pedis, and posterior tibial pulses are intact and symmetrical, no edema noted in the BL LE's Skin: Warm, dry, no rashes , lesions, or scars noted Neuro: Alert and oriented to person, place, month, year, and president, no focal defects, CN II-XII tested and intact, finger to nose test negative, no tremors noted Psych: No acute distress, calm and cooperative during the exam Results & Data Results & Data ([facility]) Vital Signs (Past 12 Hours) Vital Signs Temp Pulse Pulse Resp BP BP Pulse Ox 03/20/22 14:54 37.0 C 85 16 121/62 91 03/20/22 06:05 36.8 C 77 20 95/59 L 93 03/20/22 05:35 36.9 C 85 18 105/64 91 03/20/22 05:05 36.9 C 83 20 92/53 L 94 03/20/22 04:35 36.8 C 83 18 93/48 L 90 03/20/22 04:20 36.8 C 82 18 79/47 L 95 03/20/22 04:20 36.8 C 82 18 79/47 L 95 03/20/22 04:00 36.8 C 85 20 82/45 L 88 L O2 Del Method O2 Flow Rate 03/20/22 14:54 Nasal Cannula 2 03/20/22 06:05 2 03/20/22 05:35 2 03/20/22 05:05 2 03/20/22 04:35 2 03/20/22 04:20 2 03/20/22 04:20 2 03/20/22 04:00 PG Care Time/CCT Total # of Minutes Spent Total Time Spent with Patient: Total time spent is greater than 50% in coordination of care (as documented) at patient's floor/unit and/or counseling patient: Coding Diagnoses (HFpEF) heart failure with preserved ejection fraction I50.30 S/P total right hip arthroplasty Z96.641 GERD (gastroesophageal reflux disease) K21.9 GERRY (obstructive sleep apnea) G47.33 Hypertension I10 Paroxysmal atrial fibrillation I48.0 COPD with emphysema J43.9 Dysphagia R13.10
--- NOTE | 2022-03-20 17:10 | Hospitalist Progress Note ---
Date of Service March 20, 2022 Assessment & Plan (1) Rectal bleeding: Plan: The patient 77-year-old male with a past medical history significant for A. fib on Xarelto, hypertension hyperlipidemia status post AAA repair in 07/2020, diastolic heart failure stroke. Obstructive sleep apnea COPD who presented to the hospital with rectal bleed. Per chart review the patient had recently admitted to this facility from 03/09 till 03/18 for a right total hip arthroplasty. His admission was complicated with hypoxic respiratory failure possibly secondary to diastolic heart failure and CHF exacerbation responded to IV diuretic. He also developed urinary retention and discharged with Stevenson catheter to follow-up with urology scheduled for 03/25/2022. Also he was found to concern for aspiration due to enlarged tongue and speech recommended aspiration precaution and a sleepy diet -Patient had multiple bloody bowel movement prior to admission Hemoglobin dropped from 14-10 It is unclear if the whole drop in hemoglobin is because of rectal bleed or recent surgery also contribute to that -Currently on clear liquid diet Patient had episode of hypotension Hydrochlorothiazide has been held Continue metoprolol history of A. fib -Hemoglobin up to 8.2 today -Awaiting for GI input if the patient is going for colonoscopy (2) Anemia: Plan: Acute anemia, hemoglobin was 14 and now is 8 Most likely due to GI bleed, also due to recent surgery could be contributing factor (3) Leukocytosis: Plan: Evidence of ongoing active infectious process, possibly reactive to GI bleed, monitor for now off antibiotics (4) Urinary retention: Plan: Stevenson cath is placed during the recent admission, -Continue Flomax we will proceed with voiding trial (5) (HFpEF) heart failure with preserved ejection fraction: Plan: -Appears Euvolemic on exam -Will continue with his metoprolol succinate as prescribed on last admission (6) S/P total right hip arthroplasty: Plan: -Stable -Fall precautions ordered -Continue tylenol and tramadol for pain (7) GERD (gastroesophageal reflux disease): Plan: -Daily pantoprazole for ulcer prophylaxis (8) GERRY (obstructive sleep apnea): Plan: -HS Bipap ordered (9) Hypertension: Plan: -Continue metoprolol and hydrochlorothiazide (10) Paroxysmal atrial fibrillation: Plan: -Rate controlled -Continue metoprolol and amiodarone -Hold Xarelto for now with GI bleed (11) COPD with emphysema: Plan: -Stable on RA -Continue breathing treatments and pulm hygiene (12) Dysphagia: Plan: -Aspiration precautions ordered -Would switched to minced/moist diet when his diet can be advanced Plan The patient was discussed with Dr. Berger at the time of the admission Admission and Anticipated Discharge Date Admission Date: March 19, 2022 Subjective Patient presented to hospital with lower GI bleed, patient used to take antiplatelet agent, that has been stopped, hemoglobin is trending down slightly, consulted with GI for possible colonoscopy, patient leukocytosis, possibly reactive, no evidence of ongoing infectious process Review of Systems Review of Systems: Denies current fever, chills, headache, changes in vision, hearing, taste, and smell, chest pain, SOB, cough, abdominal pain, nausea, vomit ing, hematemesis, melena, dysuria, hematuria, and recent falls. All systems have been reviewed and are otherwise negative. Physical Exam Physical Exam: Physical Exam: General: In no acute distress, stated age, chronically ill-appearing, non- toxic appearing HEENT: Normocephalic, atraumatic, no scleral icterus, pupils around round, symmetrical, and reactive to light, Dry mucus membranes, no swelling of the tongue on exam or signs of airway compromise, trachea midline, no thyromegaly Chest/Pulm: No respiratory distress, symmetrical chest expansion, expiratory wheezing noted throughout Cardiac: RRR, no murmurs noted Abdomen: Negative for ascites and bruising, normoactive bowel sounds, soft, non-tender to palpation throughout : Patient currently with stevenson catheter in place without signs of drainage, currently with clear, yellow urine in the Stevenson bag Musculoskeletal: Symmetrical and without signs of acute trauma, upper and lower extremities with full ROM, no atrophy, spasticity, or flaccidity Extremities: Radial, dorsalis pedis, and posterior tibial pulses are intact and symmetrical, no edema noted in the BL LE's Skin: Warm, dry, no rashes , lesions, or scars noted Neuro: Alert and oriented to person, place, month, year, and president, no focal defects, CN II-XII tested and intact, finger to nose test negative, no tremors noted Psych: No acute distress, calm and cooperative during the exam Results & Data Results & Data ([facility]) Vital Signs (Past 12 Hours) Vital Signs Temp Pulse Pulse Resp BP BP Pulse Ox 03/20/22 15:47 03/20/22 14:54 37.0 C 85 16 121/62 91 03/20/22 06:05 36.8 C 77 20 95/59 L 93 03/20/22 05:35 36.9 C 85 18 105/64 91 O2 Del Method O2 Flow Rate 03/20/22 15:47 Room Air 03/20/22 14:54 Nasal Cannula 2 03/20/22 06:05 2 03/20/22 05:35 2 PG Care Time/CCT Total # of Minutes Spent Total Time Spent with Patient: Total time spent is greater than 50% in coordination of care (as documented) at patient's floor/unit and/or counseling patient: Coding Level of Care Code 05685 Subseq Hosp Care Lvl 3 Diagnoses Rectal bleeding K62.5 Anemia D64.9 Anemia type: unspecified type Leukocytosis D72.829 Urinary retention R33.9 (HFpEF) heart failure with preserved ejection fraction I50.30 S/P total right hip arthroplasty Z96.641 GERD (gastroesophageal reflux disease) K21.9 GERRY (obstructive sleep apnea) G47.33 Hypertension I10 Paroxysmal atrial fibrillation I48.0 COPD with emphysema J43.9 Dysphagia R13.10 (1) Anemia Anemia type: unspecified type Qualified Code(s): D64.9 - Anemia, unspecified
[2022-03-20] MEDS ORDERED: bisacodyL 5 MG TABEC PO ONE (19:23)
[2022-03-20] MEDS ORDERED: METOCLOPRAMIDE HCL INJ 5 MG/ML 2 ML VIAL IV ONE (19:24)
[2022-03-20] MEDS: LAVAGE SOLUTION 4000ML PO SCH (20:24)
[2022-03-20] MEDS: MELATONIN 3 MG TAB PO SCH (20:24)
[2022-03-21] MEDS: LAVAGE SOLUTION 4000ML PO SCH ×4 (00:07→00:10)
[2022-03-21] MEDS ORDERED: MELATONIN 3 MG TAB PO STA (01:15)
[2022-03-21] MEDS: SODIUM CHLORIDE 0.9% 1000ML 1,000 ML IV SCH ×2 (02:08→20:16)
[2022-03-21] MEDS: FLUTICASONE PROPIONATE NA SPR 16 GM BTL PRN (02:11)
[2022-03-21] MEDS ORDERED: SODIUM CHLORIDE 0.65% NA SOLN 45 ML (OCEAN) STA (02:53)
[2022-03-21] MEDS ORDERED: SODIUM CHLORIDE 0.65% NA SOLN 45 ML (OCEAN) ONE (02:54)
[2022-03-21] MEDS ORDERED: SODIUM CHLORIDE 0.65% NA SOLN 45 ML (OCEAN) PRN (03:03)
[2022-03-21] MEDS: DOCUSATE SODIUM/SENNA 50/8.6MG TAB PO SCH ×2 (08:23→20:16)
[2022-03-21] MEDS: METOPROLOL SUCC 50MG EXT REL TAB PO SCH ×2 (08:23→20:17)
[2022-03-21] MEDS: POTASSIUM CHLORIDE CRTAB 20 MEQ TABCR PO SCH (08:23)
[2022-03-21] MEDS: MAGNESIUM OXIDE 400 MG TAB PO SCH (08:23)
[2022-03-21] MEDS: AMIODARONE 200 MG TAB PO SCH (08:23)
[2022-03-21] MEDS: TAMSULOSIN HCL 0.4 MG CAP PO SCH (08:24)
[2022-03-21 08:30] LABS: INR 1.2 (0.9-1.1); Prothrombin Time 12.4 Seconds (9.0-12.0)
--- NOTE | 2022-03-21 08:39 | Anesthesiology Consultation ---
Date of Service March 21, 2022 Assessment & Plan (1) Encounter for pre-operative examination: Chart Review Chart Review: entry specialists initiated History Surgery Operation Date: 03/21/22 18:00 Proposed Procedures p Colonoscopy Dr Scott - Tramaine Scott MD Height/Weight Height: 5 ft 9 in Weight: 122.3 kg Allergies Allergy/AdvReac Type Severity Reaction Status Date / Time lisinopril Allergy Severe Angioedema Verified 03/17/22 11:04 adhesive Allergy Intermediate Rash Verified 03/17/22 11:04 latex Allergy Intermediate Contact Verified 03/17/22 11:04 dermatitis Medications Home Medications Medication Instructions Recorded Confirmed Last Taken ascorbic acid (vitamin C) 500 mg 500 mg PO QPM 12/18/18 03/19/22 03/08/22 20:00 tablet coenzyme Q10 100 mg capsule 100 mg PO QAM 12/18/18 03/19/22 03/02/22 fluticasone propionate 50 2 sprays intranasal DAILY PRN 12/18/18 03/19/22 03/08/22 23:00 mcg/actuation nasal Congestion #16 grams spray,suspension Artichoke Extract 1 tab PO QAM cholesterol 02/06/20 03/19/22 02/23/22 vit C 250 mg-vit E 90 mg-zinc 40 1 tab PO BID 02/06/20 03/19/22 02/23/22 mg-copper 1 [id number] capsule (PreserVision AREDS-2) albuterol sulfate 90 mcg/actuation 2 puff inhalation Q4H PRN 03/11/20 03/19/22 03/09/22 06:30 aerosol inhaler shortness of breath or wheezing #18 grams Barley Supplement 1 dose PO QPM 06/11/20 03/19/22 02/23/22 fiber 1 cap PO QPM 06/11/20 03/19/22 03/08/22 20:00 multivitamin 1 tab PO QAM 06/11/20 03/19/22 02/23/22 Lift Chair #1 ea 05/11/21 03/17/22 Unknown potassium chloride 20 mEq 20 meq PO QAM #90 tabs 06/14/21 03/19/22 03/08/22 08:00 tablet,extended release rivaroxaban 20 mg tablet (Xarelto) 20 mg PO HS #90 tabs 06/14/21 03/19/22 03/05/22 glucosamine 750 gu-hrvjvmzhpsj-oow 1 tab PO BID 09/16/21 03/19/22 02/23/22 no1 644 mg-C 30 mg-jesu 1 mg tablet (Osteo Bi-Flex Triple Strength) amoxicillin 500 mg tablet 2,000 mg PO DIRECTED PRN PRIOR 01/05/22 03/19/22 Unknown TO DENTAL APPT. famotidine 20 mg tablet (Pepcid AC) 20 mg PO BID 01/12/22 03/19/22 03/09/22 05:30 Wheeled Walker #1 ea 01/21/22 03/17/22 Unknown magnesium oxide 250 mg PO QAM 01/25/22 03/19/22 03/08/22 08:00 melatonin 10 mg tablet 10 mg PO HS 01/25/22 03/19/22 03/08/22 23:00 vit 1 tab PO BID 01/25/22 03/19/22 Unknown [id number] 500 mg-50 mg-25 mg-40 mg tablet (Bioflex) acetaminophen 500 mg capsule 1,000 mg PO TID Pain 30 days #180 02/14/22 03/19/22 03/09/22 05:30 caps ondansetron HCl 4 mg tablet 4 mg PO Q6 PRN nausea #20 tabs 02/14/22 03/19/22 Unknown sennosides 8.6 mg-docusate sodium 1 tab-cap PO BID 14 days #28 tabs 02/14/22 03/19/22 Unknown 50 mg tablet (Senokot-S) tamsulosin 0.4 mg capsule (Flomax) 0.4 mg PO DAILY #7 caps 02/14/22 03/19/22 03/08/22 23:00 tramadol 50 mg tablet 50 - 100 mg PO Q6H PRN pain #40 02/14/22 03/19/22 Unknown tabs amiodarone 100 mg tablet (Pacerone) 100 mg PO QAM 03/09/22 03/19/22 03/09/22 05:30 hydrochlorothiazide 25 mg tablet 25 mg PO QPM 03/09/22 03/19/22 03/07/22 metoprolol succinate 50 mg 50 mg PO BID #60 tabs 03/16/22 03/19/22 Unknown tablet,extended release 24 hr (Toprol XL) Active Medications Generic Name Dose Route Start Last Admin Trade Name Grayq PRN Reason Stop Dose Admin Acetaminophen 650 mg 03/19/22 15:45 03/20/22 20:23 Acetaminophen 325 Mg Tab PO 04/18/22 15:44 650 mg Q4H PRN Administration Pain (1,2,3) Or Fever Amiodarone HCl 100 mg 03/20/22 09:00 03/21/22 08:23 Amiodarone 200 Mg Tab PO 04/19/22 08:59 100 mg QAM YANNA Administration Fluticasone Propionate 2 sprays 03/19/22 15:45 03/21/22 02:11 Fluticasone Propionate Na Spr 16 Gm Btl NA 04/18/22 15:44 2 sprays DAILY PRN Administration Congestion Hydrochlorothiazide 25 mg 03/19/22 21:00 03/19/22 21:27 Hydrochlorothiazide 25 Mg Tab PO 04/18/22 20:59 25 mg QPM YANNA Administration Sodium Chloride 1,000 mls @ 80 mls/hr 03/20/22 13:15 03/21/22 02:08 Nss 1000ml IV 04/19/22 13:14 80 mls/hr .[id number] YANNA Administration Magnesium Oxide 400 mg 03/20/22 09:00 03/21/22 08:23 Magnesium Oxide 400 Mg Tab PO 04/19/22 08:59 400 mg QAM YANNA Administration Melatonin 9 mg 03/19/22 21:00 03/20/22 20:24 Melatonin 3 Mg Tab PO 04/18/22 20:59 Not Given HS YANNA Metoprolol Succinate 50 mg 03/19/22 21:00 03/21/22 08:23 Metoprolol Succ 50mg Ext Rel Tab PO 04/18/22 20:59 50 mg BID YANNA Administration Potassium Chloride 20 meq 03/20/22 09:00 03/21/22 08:23 Potassium Chloride Crtab 20 Meq Tabcr PO 04/19/22 08:59 20 meq QAM YANNA Administration Senna/Docusate Sodium 1 tab 03/19/22 21:00 03/21/22 08:23 Docusate Sodium/Senna 50/8.6mg Tab PO 04/18/22 20:59 1 tab BID YANNA Administration Sodium Chloride 1 sprays 03/21/22 03:03 03/21/22 03:24 Sodium Chloride 0.65% Na Soln 45 Ml (Thayer) NA 04/20/22 03:00 1 sprays Q4 PRN Administration Dryness Tamsulosin HCl 0.4 mg 03/20/22 09:00 03/21/22 08:24 Tamsulosin Hcl 0.4 Mg Cap PO 04/19/22 08:59 0.4 mg DAILY YANNA Administration Past Medical History Medical History (HFpEF) heart failure with preserved ejection fraction AAA (abdominal aortic aneurysm) s/p repair 07/2020 Atrial fibrillation follows with Dr. Stoddard; on xarelto Carotid artery stenosis 50-69% stenosis L ICA, < 50% stenosis R ICA COPD (chronic obstructive pulmonary disease) controlled, stable per pt; last rescue inhaler use 1 month ago Degenerative joint disease of right hip Dysphagia GERD (gastroesophageal reflux disease) controlled, stable per pt [place] (hard of hearing) B/L DONATO HTN (hypertension) controlled, stable per pt Macular degeneration Morbid obesity Neuropathy feet bilat Pulmonary nodule Second-degree heart block Sleep apnea [id number] Sludge in gallbladder general surgery 01/27/22 "would not push to have [laparoscopic cholecystectomy] unless he has more symptoms..." Past Family History Family History Mother Breast cancer Other Family history of breast cancer No family history of adverse response to anesthesia Denies family history of Ovarian cancer Prostate cancer Myocardial infarction Colorectal cancer Past Surgical History Surgical History History of carpal tunnel release Right History of right knee joint replacement RT. 12/22/16: SAB at L3-L4 + PNB. History of tooth extraction S/P aneurysm repair Percutaneous Endovascular Aneurysm Repair 08/11/2020: Grade 2 view, MAC 4, ETT 8. Social History Smoking Status: Former smoker tobacco type: cigarettes Hx Alcohol Use: No substance use type: does not use Physical Exam Vital Signs Last Vital Signs Temp 98.8 F 03/21/22 08:09 Pulse 91 H 03/21/22 08:09 Resp 20 03/21/22 08:09 BP 166/64 H 03/21/22 08:09 Pulse Ox 90 03/21/22 08:09 O2 Del Method 03/21/22 08:09 O2 Flow Rate 2 03/21/22 08:09 Testing Laboratory Results 03/20/22 09:59 03/20/22 09:59 PT 12.4 Seconds (9.0-12.0) H 03/21/22 07:33 INR 1.2 (0.9-1.1) H 03/21/22 07:33 APTT 25.7 Seconds (21.0-31.0) 03/19/22 12:16 Urine Color Yellow 03/20/22 05:15 Urine Appearance Clear (Clear) 03/20/22 05:15 Urine pH 5.0 (4.5-7.5) 03/20/22 05:15 Ur Specific [place] 1.021 (1.000-1.030) 03/20/22 05:15 Urine Protein Negative (Negative) 03/20/22 05:15 Urine Glucose (UA) Negative (Negative) 03/20/22 05:15 Urine Ketones Negative (Negative) 03/20/22 05:15 Urine Nitrite Negative (Negative) 03/20/22 05:15 Ur Leukocyte Esterase Negative (Negative) 03/20/22 05:15 Urine WBC (Auto) 1-5 /hpf (0-5) 03/20/22 05:15 Urine RBC (Auto) 0-4 /hpf (0-4) 03/20/22 05:15 U Hyaline Cast (Auto) 1-5 /lpf (0-5) 03/20/22 05:15 U Epithel Cells (Auto) 0-5 /lpf (0-5) 03/20/22 05:15 Urine Bacteria (Auto) Negative (Negative) 03/20/22 05:15 Blood Type A Positive 03/19/22 12:14 Antibody Screen NEGATIVE 03/19/22 12:14 Electrocardiogram Date: 03/19/22 Sinus rhythm with Premature ventricular complexes, rate 93 bpm Otherwise normal ECG When compared with ECG of 15-MAR-2022 11:36, Premature ventricular complexes are now Present Confirmed by Rogerio Oneal ([id number]) on 03/20/2022 10:18:52 AM Chest X-Ray Date: 03/19/22 Findings: + NAD Echocardiogram Date: 03/10/22 Compared with 01/04/19 study, mild pulmonary hypertension now seen, otherwise no significant change. LV systolic function is normal EF 65-70% LV wall motion is normal Mild concentric LVH Grade 1 diastolic dysfunction RV is mildly dilated RV systolic function is normal No significant valvular disease RVSP is elevated at 30-40mmHg IVC is mildly dilated
--- NOTE | 2022-03-21 09:52 | History & Physical Bridge Note ---
Date of Service March 21, 2022 History & Physical Bridge Note I have examined the patient, reviewed the History & Physical and in the interval since the performance of the History & Physical I have noted the following changes of clinical significance: no changes noted
[2022-03-21] MEDS ORDERED: PROPOFOL IV EMULSION 10 MG/ML 20 ML VIAL IV ONE ×2 (10:48→11:53)
[2022-03-21] MEDS ORDERED: fentaNYL citrate 100 MCG/2 ML VIAL ONE (10:48)
[2022-03-21] MEDS ORDERED: LIDOCAINE 2% MPF LOCAL 5 ML VIAL INFIL ONE (10:48)
[2022-03-21] MEDS ORDERED: CIPROFLOXACIN / D5W 400 MG/200 ML BAG IV STA (11:41)
[2022-03-21] MEDS ORDERED: metroNIDAZOLE 500 MG/100 ML BAG IV STA (11:42)
[2022-03-21] MEDS: CIPROFLOXACIN 400MG / 200ML D5W IV ONE ×2 (11:43→12:23)
[2022-03-21] MEDS ORDERED: PHENYLEPHRINE 100MCG/ML 5ML SYR ONE (11:53)
--- NOTE | 2022-03-21 13:15 | GI REPORT ---
Patient Name: Ross Ghosh Procedure Date: 03/21/2022 10:44 AM Date of : 1945 Admit Type: Inpatient Age: 77 Gender: Male Attending MD: Tramaine Scott MD, Procedure: Colonoscopy Providers: Tramaine Scott MD Referring MD: Rasheed Avery Md Indications: Hematochezia Medicines: See the Anesthesia note for documentation of the administered medications Complications: No immediate complications. Estimated Blood Loss: Estimated blood loss: none. Procedure: Pre-Anesthesia Assessment: - ASA Grade Assessment: III - A patient with severe systemic disease. After I obtained informed consent, the scope was passed under direct vision. Throughout the procedure, the patient's blood pressure, pulse, and oxygen saturations were monitored continuously. The Colonoscope was introduced through the anus and advanced to the terminal ileum. The colonoscopy was performed without difficulty. The patient tolerated the procedure well. The quality of the bowel preparation was poor. Findings: The perianal and digital rectal examinations were normal. There was blackish green stool throughout the entire colon. There was no blood throughout the colon, and no evidence of active bleeding. There was a 4 cm wide based sessile polyp extending over two folds at 20 cm. The pit pattern appeared non-advanced by NBI (NICE 2, Kudo 3). There were small white spots or small surface ulcers on the surface of this polyp; however, there was no evidence of high risk stigmata on this polyp. It was soft to probing, and without clear endoscopic features of submucosal invasion. This was not biopsied or tattoooed, so as to not disrupt tissue planes for future resection. There was a diverticulum at 25 cm with focal edema and erythema, with a small amount of pus. Appearance consistent with diverticulitis. There as a 5 mm polyp in the sigmoid colon removed by cold snare. Three clips placed on polypectomy site. There were diverticula throughout the entire left colon. There was a large amount of bilious fluid in the right colon, that could not be cleared. The right colon could not be well evaluated due to prep quality. It seems most likely that pt has a diverticular bleed. The large sigmoid polyp is also possible cause of bleeding, although there was an absence of stigmata of recent bleeding on polyp surface. Recommendation: Discharge pt to floor. CLEAR LIQUIDS only today. Cipro and Flagyl for diverticulitis. Regarding anti-coagulation -- there is a risk of bleeding from polyp if anticoagulation is resumed, although this risk appears low based on the endoscopic appearance of the polyp. Will defer need to resume anticoagulation to primary service; if benefits are thought to outweigh risks, AC can be resumed in 48 hours if hgb stable; I have educated pt about bleeding risk if AC is resumed. Refer for repeat procedure for resection of polyp. Tramaine Scott M.D. Tramaine Scott MD 03/21/2022 1:15:19 PM This report has been signed electronically. Note Initiated On: 03/21/2022 10:44 AM Number of Addenda: 0 I attest to the content of the Intraoperative Record and orders documented therein, exceptions below {[id number]}
--- NOTE | 2022-03-21 13:34 | GI REPORT ---
Patient Name: Ross Ghosh Procedure Date: 03/21/2022 10:45 AM Date of : 1945 Admit Type: Inpatient Age: 77 Gender: Male Attending MD: Tramaine Scott MD, Procedure: Upper GI endoscopy Providers: Tramaine Scott MD Referring MD: Rasheed Avery Md Indications: Hematochezia Medicines: See the Anesthesia note for documentation of the administered medications Complications: No immediate complications. Estimated Blood Loss: Estimated blood loss: none. Procedure: Pre-Anesthesia Assessment: - ASA Grade Assessment: III - A patient with severe systemic disease. After obtaining informed consent, the endoscope was passed under direct vision. Throughout the procedure, the patient's blood pressure, pulse, and oxygen saturations were monitored continuously. The Colonoscope was introduced through the mouth, and advanced to the third part of duodenum. The upper GI endoscopy was accomplished without difficulty. The patient tolerated the procedure well. Findings: The examined esophagus was normal. There was a small hiatal hernia. Hill 2. The stomach was normal. The examined duodenum was normal. Impression: - Normal esophagus. - Normal stomach. - Normal examined duodenum. - No specimens collected. Recommendation: - Discharge patient to floor. See colonoscopy report for recommendations. Tramaine Scott M.D. Tramaine Scott MD 03/21/2022 1:33:54 PM This report has been signed electronically. Note Initiated On: 03/21/2022 10:45 AM Number of Addenda: 0 I attest to the content of the Intraoperative Record and orders documented therein, exceptions below {[id number]}
--- NOTE | 2022-03-21 14:27 | Anesthesiology Progress Note ---
Date of Service March 21, 2022 Anesthesia Post Procedure Vital Signs Vital Signs: Temp Pulse Pulse Pulse Resp BP BP 03/21/22 13:51 36.7 C 97 H 20 116/62 03/21/22 12:21 85 18 121/43 L 03/21/22 12:06 83 18 121/42 L 03/21/22 11:51 84 18 104/47 L 03/21/22 09:52 36.6 C 92 H 20 153/71 H 03/21/22 08:09 37.1 C 91 H 20 166/64 H 03/21/22 07:27 03/21/22 07:01 98 H 03/21/22 02:48 37.0 C 97 H 18 111/62 03/21/22 00:57 64 03/21/22 00:38 03/20/22 23:27 36.7 C 94 H 18 107/64 03/20/22 19:46 36.9 C 99 H 18 108/64 03/20/22 15:47 03/20/22 14:54 37.0 C 85 16 121/62 Pulse Ox O2 Del Method O2 Flow Rate 03/21/22 13:51 91 Room Air 03/21/22 12:21 98 Nasal Cannula 2 03/21/22 12:06 91 Nasal Cannula 2 03/21/22 11:51 97 Nasal Cannula 2 03/21/22 09:52 94 Nasal Cannula 2 03/21/22 08:09 90 Nasal Cannula 2 03/21/22 07:27 Room Air, Nasal Cannula 2 03/21/22 07:01 03/21/22 02:48 92 Nasal Cannula 2 03/21/22 00:57 03/21/22 00:38 Room Air, Nasal Cannula 2 03/20/22 23:27 89 L Nasal Cannula 2 03/20/22 19:46 90 Nasal Cannula 2 03/20/22 15:47 Room Air 03/20/22 14:54 91 Nasal Cannula 2 Pain Intensity Right Hip: Pain Intensity: 3 Transfer of Care Handoff Completed per policy Notes Mental Status: alert / awake / arousable and participated in evaluation Patient Amnestic to Procedure: Yes Nausea / Vomiting: adequately controlled Pain: adequately controlled Airway Patency, RR, SpO2: stable & adequate BP & HR: stable & adequate Hydration State: stable & adequate Anesthetic Complications: no major complications apparent and Pt Satisfied with anesthetic care
[2022-03-21] MEDS ORDERED: OPTIRAY 350 100ml IV ONE (14:44)
--- NOTE | 2022-03-21 15:33 | CT Scan Report ---
CT OF THE ABDOMEN AND PELVIS WITH CONTRAST CLINICAL HISTORY: Rule out diverticulitis, also CRC stage. COMPARISON STUDY: CT of the abdomen and pelvis January 05, 2022. TECHNIQUE: Following IV administration of 83 mL of Optiray, axial images of the abdomen and pelvis we re obtained from the lung bases to the proximal femurs. Images were reviewed in the axial, sagittal, and coronal planes. IV contrast was administered without complication. Automated exposure control wa s utilized for the study. A dose lowering technique was utilized adhering to the principles of ALARA . Oral contrast was administered. CT DOSE: 1230.77 mGycm FINDINGS: Previously described right lower lobe nodule is partially imaged on this exam. This has bee n present on studies dating back to 2016. Emphysema within the lower lungs is noted. There is no pneu matosis, free air or portal venous gas. The liver is cirrhotic. A 2.1 cm medial segment hepatic lesio n on axial image 36 of 94 and a 2.2 cm caudate lobe lesion on image 28 are more conspicuous than on C T of January 05, [address] of April 16, 2021. These are highly suggestive of a neoplast ic process. There is no biliary or pancreatic ductal dilatation. Spleen, adrenal glands and kidneys a re unremarkable. There is no hydronephrosis. Bifurcated aortoiliac stent graft is in place. Aneurysm sac measures 5.9 cm in caliber and is unchanged. There is no evidence for a bowel obstruction. Endosc opic clips within the distal descending colon are noted. Adjacent soft tissues are unremarkable. Ther e is wall thickening within the mid sigmoid colon with minimal adjacent stranding. Extensive sigmoid diverticulosis is noted. Sherwood balloon and gas within the bladder are present. No enlarged abdominal or pelvic lymph nodes are present. There are no suspicious osseous lesions. IMPRESSION: 1. Two hepatic lesions measuring up to 2.2 cm. These are likely neoplastic and suspicious for metasta tic disease given the clinical history. 2. Extensive sigmoid diverticulosis. Wall thickening of the mid sigmoid colon with minimal adjacent s tranding. This may reflect mild acute diverticulitis. No free air or abscess. 3. No lymphadenopathy. 4. Cirrhosis. 5. Stable appearance of the aneurysm sac and bifurcated aortoiliac stent graft. ACT 112: Positive. There are findings on this exam that require communication between the performing entity and the patient following Patient Test Result Information Act ([place] Act 112) guidelines. Electronically signed by: Austin Kaur M.D. 03/21/2022 3:32 PM
--- NOTE | 2022-03-21 15:43 | Progress Notes ---
DATE OF SERVICE: 03/21/2022. SUBJECTIVE: A 77-year-old gentleman now about 12 days out from a right uncemented hip replacement, r eadmitted with a GI bleed. He has got multiple medical comorbidities. His hip is doing pretty well. Really not having much hip pain. Has not been up much since readmitted. He is hoping to get home. OBJECTIVE: VITAL SIGNS: Temperature 36.7. Vital signs are stable. GENERAL: Shows a pleasant, elderly male. He is sitting up in bed, talking to his , looks comfor table. EXTREMITIES: Examination of the right hip reveals incision to be clean, dry and intact. There is no drainage. Minimal swelling. Leg lengths were equal. He can dorsiflex and plantarflex his foot padmaja ropriately. He is neurologically intact. LABORATORY DATA: Hemoglobin 8.2. Hematocrit 25.4. INR 1.2. Electrolytes look stable. ASSESSMENT: A 77-year-old gentleman now about 12 days out from a right uncemented total hip replacem ent, readmitted with a GI bleed. Bleeding seems to be under control. He had a colonoscopy earlier t his morning. He is recovering from that and feels well. PLAN: 1. DVT prophylaxis includes thigh-high TEDs, SCDs, and resume Xarelto when medically able. 2. PT/OT. He can fully weightbear on this right leg. Needs to obey hip precautions. 3. Pain control, doing okay with current pain regimen. 4. Medical management as per the medicine service. 5. Disposition. He has got an appointment with us on . We will likely take the stacey out then. If he is still in the hospital, we will see him at that point and determine whether the stapl es can be removed. We will check on him daily while he is here. Any orthopedic questions can be dir ected to me at [phone]. He should resume physical therapy. He is fully weightbearing as tolera johanne. Does need to obey hip precautions. Job ID: [id number]
--- NOTE | 2022-03-21 19:55 | Hospitalist Progress Note ---
Date of Service March 21, 2022 Assessment & Plan (1) Liver lesion: Plan: Looks malignant as per CT report Proceed with liver biopsy Consulted GI reported a large suspicious lesion for precancerous polyp found during colonoscopy (2) Rectal bleeding: Plan: The patient 77-year-old male with a past medical history significant for A. fib on Xarelto, hypertension hyperlipidemia status post AAA repair in 07/2020, diastolic heart failure stroke. Obstructive sleep apnea COPD who presented to the hospital with rectal bleed. Per chart review the patient had recently admitted to this facility from 03/09 till 03/18 for a right total hip arthroplasty. His admission was complicated with hypoxic respiratory failure possibly secondary to diastolic heart failure and CHF exacerbation responded to IV diuretic. He also developed urinary retention and discharged with Stevenson catheter to follow-up with urology scheduled for 03/25/2022. Also he was found to concern for aspiration due to enlarged tongue and speech recommended aspiration precaution and a sleepy diet -Patient had multiple bloody bowel movement prior to admission Hemoglobin dropped from 14-10 It is unclear if the whole drop in hemoglobin is because of rectal bleed or recent surgery also contribute to that -Status post colonoscopy in 03/21 finding was significant for diffuse diverticulosis and large polyp looks precancerous, as well as evidence of diverticulitis Patient had episode of hypotension Hydrochlorothiazide has been held Continue metoprolol history of A. fib -Continue to hold Xarelto (3) Diverticulitis: Plan: Evidence of uncomplicated diverticulitis on CAT scan and colonoscopy report Proceed with Cipro and Flagyl CBC tomorrow (4) Anemia: Plan: -CBC tomorrow, IV iron transfusion Most likely due to GI bleed, also due to recent surgery could be contributing factor (5) Leukocytosis: Plan: Possibly multifactorial Evidence of diverticulitis as per CT done today as well as colonoscopy report Moreover patient has recent massive blood loss Evidence of hepatic lesions possibly malignant (6) Urinary retention: Plan: Stevenson cath is placed during the recent admission, -Continue Flomax we will proceed with voiding trial (7) (HFpEF) heart failure with preserved ejection fraction: Plan: -Appears Euvolemic on exam -Will continue with his metoprolol succinate as prescribed on last admission (8) S/P total right hip arthroplasty: Plan: -Stable -Fall precautions ordered -Continue tylenol and tramadol for pain (9) GERD (gastroesophageal reflux disease): Plan: -Daily pantoprazole for ulcer prophylaxis (10) GERRY (obstructive sleep apnea): Plan: -HS Bipap ordered (11) Hypertension: Plan: -Continue metoprolol and hydrochlorothiazide (12) Paroxysmal atrial fibrillation: Plan: -Rate controlled -Continue metoprolol and amiodarone -Hold Xarelto for now with GI bleed (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: Plan: -Stable on RA -Continue breathing treatments and pulm hygiene (14) Dysphagia: Plan: -Aspiration precautions ordered -Would switched to minced/moist diet when his diet can be advanced Plan The patient was discussed with Dr. Berger at the time of the admission Admission and Anticipated Discharge Date Admission Date: March 19, 2022 Subjective Status post colonoscopy, patient had a large polyp precancerous, patient had a CAT scan today showed 2 hepatic lesion very suspicious for malignancy, proceed with ultrasound-guided biopsy of the liver lesion, polyp has not removed during this colonoscopy given patient's anemia and recent using of Xarelto Physical Exam Physical Exam: Physical Exam: General: In no acute distress, stated age, chronically ill-appearing, non- toxic appearing HEENT: Normocephalic, atraumatic, no scleral icterus, pupils around round, symmetrical, and reactive to light, Dry mucus membranes, no swelling of the tongue on exam or signs of airway compromise, trachea midline, no thyromegaly Chest/Pulm: No respiratory distress, symmetrical chest expansion, expiratory wheezing noted throughout Cardiac: RRR, no murmurs noted Abdomen: Negative for ascites and bruising, normoactive bowel sounds, soft, non-tender to palpation throughout : Patient currently with stevenson catheter in place without signs of drainage, currently with clear, yellow urine in the Stevenson bag Musculoskeletal: Symmetrical and without signs of acute trauma, upper and lower extremities with full ROM, no atrophy, spasticity, or flaccidity Extremities: Radial, dorsalis pedis, and posterior tibial pulses are intact and symmetrical, no edema noted in the BL LE's Skin: Warm, dry, no rashes , lesions, or scars noted Neuro: Alert and oriented to person, place, month, year, and president, no focal defects, CN II-XII tested and intact, finger to nose test negative, no tremors noted Psych: No acute distress, calm and cooperative during the exam Results & Data Results & Data ([facility]) Vital Signs (Past 12 Hours) Vital Signs Temp Pulse Pulse Pulse Resp BP BP 03/21/22 19:21 36.9 C 91 H 20 135/60 03/21/22 15:00 03/21/22 15:13 81 03/21/22 13:51 36.7 C 97 H 20 116/62 03/21/22 12:21 85 18 121/43 L 03/21/22 12:06 83 18 121/42 L 03/21/22 11:51 84 18 104/47 L 03/21/22 09:52 36.6 C 92 H 20 153/71 H 03/21/22 08:09 37.1 C 91 H 20 166/64 H Pulse Ox Pulse Ox O2 Del Method O2 Del Method O2 Flow Rate 03/21/22 19:21 90 Room Air 03/21/22 15:00 91 Room Air 03/21/22 15:13 03/21/22 13:51 91 Room Air 03/21/22 12:21 98 Nasal Cannula 2 03/21/22 12:06 91 Nasal Cannula 2 03/21/22 11:51 97 Nasal Cannula 2 03/21/22 09:52 94 Nasal Cannula 2 03/21/22 08:09 90 Nasal Cannula 2 PG Care Time/CCT Total # of Minutes Spent Total Time Spent with Patient: Total time spent is greater than 50% in coordination of care (as documented) at patient's floor/unit and/or counseling patient: Coding Level of Care Code 14448 Subseq Hosp Care Lvl 3 Diagnoses Liver lesion K76.9 Rectal bleeding K62.5 Diverticulitis K57.92 Anemia D64.9 Anemia type: unspecified type Leukocytosis D72.829 Urinary retention R33.9 (HFpEF) heart failure with preserved ejection fraction I50.30 S/P total right hip arthroplasty Z96.641 GERD (gastroesophageal reflux disease) K21.9 GERRY (obstructive sleep apnea) G47.33 Hypertension I10 Paroxysmal atrial fibrillation I48.0 COPD with emphysema J43.9 Dysphagia R13.10 (1) Anemia Anemia type: unspecified type Qualified Code(s): D64.9 - Anemia, unspecified
[2022-03-21] MEDS: metroNIDAZOLE 500 MG/100 ML BAG IV SCH (20:17)
[2022-03-21] MEDS: MELATONIN 3 MG TAB PO SCH (20:17)
[2022-03-21] MEDS: CIPROFLOXACIN / D5W 400 MG/200 ML BAG IV SCH (21:29)
[2022-03-22] MEDS: SODIUM CHLORIDE 0.9% 1000ML 1,000 ML IV SCH ×2 (02:46→15:30)
[2022-03-22] MEDS: metroNIDAZOLE 500 MG/100 ML BAG IV SCH ×3 (03:26→19:56)
[2022-03-22] MEDS: traMADol HCL 50 MG TABLET PO PRN (07:49)
[2022-03-22] MEDS: POTASSIUM CHLORIDE CRTAB 20 MEQ TABCR PO SCH (07:49)
[2022-03-22] MEDS: DOCUSATE SODIUM/SENNA 50/8.6MG TAB PO SCH ×2 (07:50→21:15)
[2022-03-22] MEDS: TAMSULOSIN HCL 0.4 MG CAP PO SCH (07:50)
[2022-03-22] MEDS: METOPROLOL SUCC 50MG EXT REL TAB PO SCH ×2 (07:50→21:16)
[2022-03-22] MEDS: AMIODARONE 200 MG TAB PO SCH (07:51)
[2022-03-22] MEDS: MAGNESIUM OXIDE 400 MG TAB PO SCH (07:51)
[2022-03-22 08:07] LABS: Hematocrit (blood only) 17.5 % (40.1-51.0); Hemoglobin 5.5 g/dl (14.0-18.0)
[2022-03-22 08:08] LABS: INR 1.2 (0.9-1.1); Prothrombin Time 12.4 Seconds (9.0-12.0)
[2022-03-22] MEDS ORDERED: SODIUM CHLORIDE 0.9% 250 ML IV PRN ×3 (08:50→23:54)
[2022-03-22 09:01] LABS: Basophils # (auto) 0.05 K/uL (0-0.2); Basophils % (auto) 0.3 %; Eosinophils # (auto) 0.34 K/uL (0-0.50); Eosinophils % (auto) 2.1 %; Immature Granulocytes # (auto) 0.25 K/uL (0.00-0.02); Immature Granulocytes % (auto) 1.6 %; Lymphocytes # (auto) 2.03 K/uL (1.2-3.4); Lymphocytes % (auto) 12.7 %; Mean Corpuscular Hemoglobin 29.7 pg (25.0-34.0); Mean Corpuscular Hgb Conc 31.4 g/dL (32.0-36.0); Mean Corpuscular Volume 94.6 fL (80.0-100.0); Mean Platelet Volume 11.2 fL (9.4-12.4); Monocytes # (auto) 0.97 K/uL (0.24-0.82); Monocytes % (auto) 6.1 %; Neutrophils % (auto) 77.2 %; Nucleated RBC % (auto) 1.3 %; Platelet Count 234 K/uL (130-400); Polychromasia 2+; RDW Coefficient of Variation 15.9 % (11.5-14.5); RDW Standard Deviation 49.4 fL (36.4-46.3); Red Blood Count 1.85 M/uL (4.63-6.08); White Blood Count 15.94 K/ul (4.8-10.8)
[2022-03-22] MEDS: CIPROFLOXACIN / D5W 400 MG/200 ML BAG IV SCH ×2 (09:12→21:17)
--- NOTE | 2022-03-22 09:25 | Anesthesiology Consultation ---
Date of Service March 22, 2022 Assessment & Plan (1) Encounter for pre-operative examination: Chart Review Chart Review: Pending: Refer to Additional Notes / Consult section (Hb dropped to 5.5 overnight - recheck is pending - may need blood prior to procedure) History Surgery Operation Date: 03/21/22 18:00 Proposed Procedures p Colonoscopy Dr Tyler Scott MD Operation Date: 03/22/22 16:30 Proposed Procedures p Colonoscopy Dr Tyler Scott MD Height/Weight Height: 5 ft 9 in Weight: 122.8 kg Allergies Allergy/AdvReac Type Severity Reaction Status Date / Time lisinopril Allergy Severe Angioedema Verified 03/21/22 09:49 adhesive Allergy Intermediate Rash Verified 03/21/22 09:49 latex Allergy Intermediate Contact Verified 03/21/22 09:49 dermatitis Medications Home Medications Medication Instructions Recorded Confirmed Last Taken ascorbic acid (vitamin C) 500 mg 500 mg PO QPM 12/18/18 03/19/22 03/08/22 20:00 tablet coenzyme Q10 100 mg capsule 100 mg PO QAM 12/18/18 03/19/22 03/02/22 fluticasone propionate 50 2 sprays intranasal DAILY PRN 12/18/18 03/19/22 03/08/22 23:00 mcg/actuation nasal Congestion #16 grams spray,suspension Artichoke Extract 1 tab PO QAM cholesterol 02/06/20 03/19/22 02/23/22 vit C 250 mg-vit E 90 mg-zinc 40 1 tab PO BID 02/06/20 03/19/22 02/23/22 mg-copper 1 ni-abrgky-gihflb capsule (PreserVision AREDS-2) albuterol sulfate 90 mcg/actuation 2 puff inhalation Q4H PRN 03/11/20 03/19/22 03/09/22 06:30 aerosol inhaler shortness of breath or wheezing #18 grams Barley Supplement 1 dose PO QPM 06/11/20 03/19/22 02/23/22 fiber 1 cap PO QPM 06/11/20 03/19/22 03/08/22 20:00 multivitamin 1 tab PO QAM 06/11/20 03/19/22 02/23/22 Lift Chair #1 ea 05/11/21 03/17/22 Unknown potassium chloride 20 mEq 20 meq PO QAM #90 tabs 06/14/21 03/19/22 03/08/22 08:00 tablet,extended release rivaroxaban 20 mg tablet (Xarelto) 20 mg PO HS #90 tabs 06/14/21 03/19/22 03/05/22 glucosamine 750 kv-cgvdjkjaiax-sel 1 tab PO BID 09/16/21 03/19/22 02/23/22 no1 644 mg-C 30 mg-jesu 1 mg tablet (Osteo Bi-Flex Triple Strength) amoxicillin 500 mg tablet 2,000 mg PO DIRECTED PRN PRIOR 01/05/22 03/19/22 Unknown TO DENTAL APPT. famotidine 20 mg tablet (Pepcid AC) 20 mg PO BID 01/12/22 03/19/22 03/09/22 05:30 Wheeled Walker #1 ea 01/21/22 03/17/22 Unknown magnesium oxide 250 mg PO QAM 01/25/22 03/19/22 03/08/22 08:00 melatonin 10 mg tablet 10 mg PO HS 01/25/22 03/19/22 03/08/22 23:00 vit 1 tab PO BID 01/25/22 03/19/22 Unknown [id number]-iltfxzraj-rutin-[id number] 500 mg-50 mg-25 mg-40 mg tablet (Bioflex) acetaminophen 500 mg capsule 1,000 mg PO TID Pain 30 days #180 02/14/22 03/19/22 03/09/22 05:30 caps ondansetron HCl 4 mg tablet 4 mg PO Q6 PRN nausea #20 tabs 02/14/22 03/19/22 Unknown sennosides 8.6 mg-docusate sodium 1 tab-cap PO BID 14 days #28 tabs 02/14/22 03/19/22 Unknown 50 mg tablet (Senokot-S) tamsulosin 0.4 mg capsule (Flomax) 0.4 mg PO DAILY #7 caps 02/14/22 03/19/22 03/08/22 23:00 tramadol 50 mg tablet 50 - 100 mg PO Q6H PRN pain #40 02/14/22 03/19/22 Unknown tabs amiodarone 100 mg tablet (Pacerone) 100 mg PO QAM 03/09/22 03/19/22 03/09/22 05:30 hydrochlorothiazide 25 mg tablet 25 mg PO QPM 03/09/22 03/19/22 03/07/22 metoprolol succinate 50 mg 50 mg PO BID #60 tabs 03/16/22 03/19/22 Unknown tablet,extended release 24 hr (Toprol XL) Active Medications Generic Name Dose Route Start Last Admin Trade Name Freq PRN Reason Stop Dose Admin Acetaminophen 650 mg 03/19/22 15:45 03/20/22 20:23 Acetaminophen 325 Mg Tab PO 04/18/22 15:44 650 mg Q4H PRN Administration Pain (1,2,3) Or Fever Amiodarone HCl 100 mg 03/20/22 09:00 03/22/22 07:51 Amiodarone 200 Mg Tab PO 04/19/22 08:59 100 mg QAM YANNA Administration Fluticasone Propionate 2 sprays 03/19/22 15:45 03/21/22 02:11 Fluticasone Propionate Na Spr 16 Gm Btl NA 04/18/22 15:44 2 sprays DAILY PRN Administration Congestion Hydrochlorothiazide 25 mg 03/19/22 21:00 03/19/22 21:27 Hydrochlorothiazide 25 Mg Tab PO 04/18/22 20:59 25 mg QPM YANNA Administration Sodium Chloride 1,000 mls @ 80 mls/hr 03/20/22 13:15 03/22/22 02:46 Nss 1000ml IV 04/19/22 13:14 80 mls/hr .[id number] YANNA Administration Ciprofloxacin 400 mg in 200 mls @ 100 mls/hr 03/21/22 22:45 03/22/22 09:12 Cipro / D5w IV 03/31/22 22:44 100 mls/hr Q12H YANNA Administration Protocol Metronidazole 500 mg in 100 mls @ 100 mls/hr 03/21/22 20:00 03/22/22 04:26 Flagyl IV 03/31/22 19:59 Infused Q8H YANNA Infusion Magnesium Oxide 400 mg 03/20/22 09:00 03/22/22 07:51 Magnesium Oxide 400 Mg Tab PO 04/19/22 08:59 400 mg QAM YANNA Administration Melatonin 9 mg 03/19/22 21:00 03/21/22 20:17 Melatonin 3 Mg Tab PO 04/18/22 20:59 9 mg HS YANNA Administration Metoprolol Succinate 50 mg 03/19/22 21:00 03/22/22 07:50 Metoprolol Succ 50mg Ext Rel Tab PO 04/18/22 20:59 50 mg BID YANNA Administration Potassium Chloride 20 meq 03/20/22 09:00 03/22/22 07:49 Potassium Chloride Crtab 20 Meq Tabcr PO 04/19/22 08:59 20 meq QAM YANNA Administration Senna/Docusate Sodium 1 tab 03/19/22 21:00 03/22/22 07:50 Docusate Sodium/Senna 50/8.6mg Tab PO 04/18/22 20:59 1 tab BID YANNA Administration Sodium Chloride 1 sprays 03/21/22 03:03 03/21/22 03:24 Sodium Chloride 0.65% Na Soln 45 Ml ([place]) NA 04/20/22 03:00 1 sprays Q4 PRN Administration Dryness Tamsulosin HCl 0.4 mg 03/20/22 09:00 03/22/22 07:50 Tamsulosin Hcl 0.4 Mg Cap PO 04/19/22 08:59 0.4 mg DAILY YANNA Administration Tramadol HCl 50 - 100 mg 03/19/22 15:45 03/22/22 07:49 Tramadol Hcl 50 Mg Tablet PO 04/18/22 15:44 100 mg Q6H PRN Administration pain (4,5,6+) NPO Date Last Intake of Fluids: 03/21/22 Time Last Intake of Fluids: 08:30 Date Last Intake of Solids: 03/19/22 Time Last Intake of Solids: 12:00 Past Medical History Medical History (HFpEF) heart failure with preserved ejection fraction AAA (abdominal aortic aneurysm) s/p repair 07/2020 Atrial fibrillation follows with Dr. Stoddard; on xarelto Carotid artery stenosis 50-69% stenosis L ICA, < 50% stenosis R ICA COPD (chronic obstructive pulmonary disease) controlled, stable per pt; last rescue inhaler use 1 month ago Degenerative joint disease of right hip Dysphagia GERD (gastroesophageal reflux disease) controlled, stable per pt [place] (hard of hearing) B/L DONATO HTN (hypertension) controlled, stable per pt Macular degeneration Morbid obesity Neuropathy feet bilat Pulmonary nodule Second-degree heart block Sleep apnea Zi-LQK-zknyujorb Sludge in gallbladder general surgery 01/27/22 "would not push to have [laparoscopic cholecyste ctomy] unless he has more symptoms..." Past Family History Family History Mother Breast cancer Other Family history of breast cancer No family history of adverse response to anesthesia Denies family history of Ovarian cancer Prostate cancer Myocardial infarction Colorectal cancer Past Surgical History Surgical History History of carpal tunnel release Right History of right knee joint replacement RT. 12/22/16: SAB at L3-L4 + PNB. History of tooth extraction S/P aneurysm repair Percutaneous Endovascular Aneurysm Repair 08/11/2020: Grade 2 view, MAC 4, ETT 8. Social History Smoking Status: Former smoker tobacco type: cigarettes Hx Alcohol Use: No substance use type: does not use Physical Exam Vital Signs Last Vital Signs Temp 36.9 C 03/22/22 07:23 Pulse 94 H 03/22/22 07:23 Resp 20 03/22/22 07:23 BP 126/55 L 03/22/22 07:23 Pulse Ox 91 03/22/22 07:23 O2 Del Method 03/22/22 08:10 O2 Flow Rate 2 03/22/22 03:31 Testing Laboratory Results 03/20/22 09:59 PT 12.4 Seconds (9.0-12.0) H 03/22/22 07:06 INR 1.2 (0.9-1.1) H 03/22/22 07:06 APTT 25.7 Seconds (21.0-31.0) 03/19/22 12:16 Urine Color Yellow 03/20/22 05:15 Urine Appearance Clear (Clear) 03/20/22 05:15 Urine pH 5.0 (4.5-7.5) 03/20/22 05:15 Ur Specific [place] 1.021 (1.000-1.030) 03/20/22 05:15 Urine Protein Negative (Negative) 03/20/22 05:15 Urine Glucose (UA) Negative (Negative) 03/20/22 05:15 Urine Ketones Negative (Negative) 03/20/22 05:15 Urine Nitrite Negative (Negative) 03/20/22 05:15 Ur Leukocyte Esterase Negative (Negative) 03/20/22 05:15 Urine WBC (Auto) 1-5 /hpf (0-5) 03/20/22 05:15 Urine RBC (Auto) 0-4 /hpf (0-4) 03/20/22 05:15 U Hyaline Cast (Auto) 1-5 /lpf (0-5) 03/20/22 05:15 U Epithel Cells (Auto) 0-5 /lpf (0-5) 03/20/22 05:15 Urine Bacteria (Auto) Negative (Negative) 03/20/22 05:15 Blood Type A Positive 03/19/22 12:14 Antibody Screen NEGATIVE 03/19/22 12:14 Laboratory Tests 03/16/22 03/20/22 03/22/22 07:10 09:59 07:06 Hgb Plt Count INR 1.2 H Potassium 4.1 Creatinine 1.00 Hemoglobin A1c 6.3 H 03/22/22 07:06 Hgb 5.5 L* Plt Count 234 INR Potassium Creatinine Hemoglobin A1c Electrocardiogram Date: 03/19/22 Findings: + NSR @ (93) PVC Echocardiogram Date: 03/09/22 EF: 65-70% Other Findings: + LVH and + diastolic dysfunction Valvular Disease: + no significant valvular disease RV mildly dilated, systolic pressure mildly elevated
[2022-03-22 09:52] LABS: Hematocrit (blood only) 17.9 % (40.1-51.0); Hemoglobin 5.6 g/dl (14.0-18.0)
[2022-03-22] MEDS ORDERED: ENDOSCOPIC MARKER 5 ML SYR TOP ONE (13:31)
--- NOTE | 2022-03-22 13:42 | History & Physical Bridge Note ---
Date of Service March 22, 2022 History & Physical Bridge Note I have examined the patient, reviewed the History & Physical and in the interval since the performance of the History & Physical I have noted the following changes of clinical significance: no changes noted
--- NOTE | 2022-03-22 16:24 | GI REPORT ---
Patient Name: Ross Ghosh Procedure Date: 03/22/2022 1:47 PM Date of : 1945 Admit Type: Inpatient Age: 77 Gender: Male Attending MD: Tramaine Scott MD, Procedure: Colonoscopy Providers: Tramaine Scott MD Referring MD: Rasheed Avery Md Indications: Follow-up of colorectal cancer Medicines: None Complications: No immediate complications. Estimated Blood Loss: Estimated blood loss: none. Procedure: Pre-Anesthesia Assessment: - ASA Grade Assessment: III - A patient with severe systemic disease. After I obtained informed consent, the scope was passed under direct vision. Throughout the procedure, the patient's blood pressure, pulse, and oxygen saturations were monitored continuously. The Colonoscope was introduced through the anus with the intention of advancing to the ascending colon. The scope was advanced to the transverse colon before the procedure was aborted. Medications were given. The colonoscopy was performed without difficulty. The patient tolerated the procedure well. The quality of the bowel preparation was poor. Findings: The perianal and digital rectal examinations were normal. There was green stool throughout the entire examined portion of the colon. There were diverticula thorughout he left colon. Again, there was a 4-5 cm mass at 15 cm. There was a central area of pseudo-depression - this area was thought to have advanced pit pattern by NBI (JNET 3), and was firm to probing. Biopsies taken from this central area. Two injections of 0.5 cc of tattoo were done on contralateral santo were done 5 cm proximal to the mass. Recommendation: - Discharge patient to floor. - Pt will need bx of liver mass by EUS and PET scan -- will arrange as outpt. Consider chest CT if not done recently, check CEA. - Cause of his anemia remains unclear - no evidence of GIB on today's exam. Bleeding scan ordered, consider w/u hemolysis. - Abx for diverticulitis, complete 7 day course. Tramaine Scott M.D. Tramaine Scott MD 03/22/2022 4:24:20 PM This report has been signed electronically. Note Initiated On: 03/22/2022 1:47 PM Number of Addenda: 0 I attest to the content of the Intraoperative Record and orders documented therein, exceptions below {[id number]}
--- NOTE | 2022-03-22 20:30 | Hospitalist Progress Note ---
Date of Service March 22, 2022 Assessment & Plan (1) Liver lesion: Plan: Looks malignant as per CT report Proceed with liver biopsy Consulted GI reported a large suspicious lesion for precancerous polyp found during colonoscopy (2) Rectal bleeding: Plan: The patient 77-year-old male with a past medical history significant for A. fib on Xarelto, hypertension hyperlipidemia status post AAA repair in 07/2020, diastolic heart failure stroke. Obstructive sleep apnea COPD who presented to the hospital with rectal bleed. Per chart review the patient had recently admitted to this facility from 03/09 till 03/18 for a right total hip arthroplasty. His admission was complicated with hypoxic respiratory failure possibly secondary to diastolic heart failure and CHF exacerbation responded to IV diuretic. He also developed urinary retention and discharged with Stevenson catheter to follow-up with urology scheduled for 03/25/2022. Also he was found to concern for aspiration due to enlarged tongue and speech recommended aspiration precaution and a sleepy diet -Patient had multiple bloody bowel movement prior to admission Hemoglobin dropped from 14-10 It is unclear if the whole drop in hemoglobin is because of rectal bleed or recent surgery also contribute to that -Status post colonoscopy in 03/21 finding was significant for diffuse diverticulosis and large polyp looks precancerous, as well as evidence of diverticulitis Patient had episode of hypotension Hydrochlorothiazide has been held Continue metoprolol history of A. fib -Continue to hold Xarelto 03/22 Hemoglobin dropped, status posttransfusion of 1 unit of packed RBC, hemoglobin dropped to 5, patient going for another colonoscopy tomorrow for possible biopsy, patient is going for endoscopy ultrasound for biopsy of hepatic lesions Discussed with the , discussed with information systems consultant GI, BMP CBC tomorrow (3) Diverticulitis: Plan: Evidence of uncomplicated diverticulitis on CAT scan and colonoscopy report Proceed with Cipro and Flagyl CBC tomorrow (4) Anemia: Plan: -CBC tomorrow, IV iron transfusion Most likely due to GI bleed, also due to recent surgery could be contributing factor (5) Leukocytosis: Plan: Possibly multifactorial Evidence of diverticulitis as per CT done today as well as colonoscopy report Moreover patient has recent massive blood loss Evidence of hepatic lesions possibly malignant (6) Urinary retention: Plan: Stevenson cath is placed during the recent admission, -Continue Flomax we will proceed with voiding trial (7) (HFpEF) heart failure with preserved ejection fraction: Plan: -Appears Euvolemic on exam -Will continue with his metoprolol succinate as prescribed on last admission (8) S/P total right hip arthroplasty: Plan: -Stable -Fall precautions ordered -Continue tylenol and tramadol for pain (9) GERD (gastroesophageal reflux disease): Plan: -Daily pantoprazole for ulcer prophylaxis (10) GERRY (obstructive sleep apnea): Plan: -HS Bipap ordered (11) Hypertension: Plan: -Continue metoprolol and hydrochlorothiazide (12) Paroxysmal atrial fibrillation: Plan: -Rate controlled -Continue metoprolol and amiodarone -Hold Xarelto for now with GI bleed (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: Plan: -Stable on RA -Continue breathing treatments and pulm hygiene (14) Dysphagia: Plan: -Aspiration precautions ordered -Would switched to minced/moist diet when his diet can be advanced Plan The patient was discussed with Dr. Berger at the time of the admission Admission and Anticipated Discharge Date Admission Date: March 22, 2022 Physical Exam Physical Exam: Physical Exam: General: In no acute distress, stated age, chronically ill-appearing, non- toxic appearing HEENT: Normocephalic, atraumatic, no scleral icterus, pupils around round, symmetrical, and reactive to light, Dry mucus membranes, no swelling of the tongue on exam or signs of airway compromise, trachea midline, no thyromegaly Chest/Pulm: No respiratory distress, symmetrical chest expansion, expiratory wheezing noted throughout Cardiac: RRR, no murmurs noted Abdomen: Negative for ascites and bruising, normoactive bowel sounds, soft, non-tender to palpation throughout : Patient currently with stevenson catheter in place without signs of drainage, currently with clear, yellow urine in the Stevenson bag Musculoskeletal: Symmetrical and without signs of acute trauma, upper and lower extremities with full ROM, no atrophy, spasticity, or flaccidity Extremities: Radial, dorsalis pedis, and posterior tibial pulses are intact and symmetrical, no edema noted in the BL LE's Skin: Warm, dry, no rashes , lesions, or scars noted Neuro: Alert and oriented to person, place, month, year, and president, no focal defects, CN II-XII tested and intact, finger to nose test negative, no tremors noted Psych: No acute distress, calm and cooperative during the exam Results & Data Results & Data ([facility]) Vital Signs (Past 12 Hours) Vital Signs Temp Pulse Pulse Pulse Resp BP BP 03/22/22 20:00 37.1 C 79 18 03/22/22 14:50 70 18 133/50 L 03/22/22 14:35 75 16 112/50 L 03/22/22 14:30 77 16 96/53 L 03/22/22 14:26 82 16 100/56 L 03/22/22 14:22 82 16 72/47 L 03/22/22 13:34 36.4 C L 78 16 129/54 L 03/22/22 13:00 36.9 C 77 16 96/55 L 03/22/22 12:00 36.8 C 84 16 96/54 L 03/22/22 11:30 36.9 C 69 16 108/56 L 03/22/22 10:58 36.9 C 83 16 98/57 L 03/22/22 10:45 36.8 C 64 16 106/55 L 03/22/22 10:24 36.8 C 75 16 105/63 BP Pulse Ox O2 Del Method O2 Flow Rate 03/22/22 20:00 104/59 L 96 Nasal Cannula 2 03/22/22 14:50 94 Nasal Cannula 3 03/22/22 14:35 97 Nasal Cannula 3 03/22/22 14:30 97 03/22/22 14:26 97 Nasal Cannula 3 03/22/22 14:22 97 Nasal Cannula 3 03/22/22 13:34 93 Nasal Cannula 3 03/22/22 13:00 94 3 03/22/22 12:00 96 3 03/22/22 11:30 91 3 03/22/22 10:58 93 3 03/22/22 10:45 92 4 03/22/22 10:24 92 PG Care Time/CCT Total # of Minutes Spent Total Time Spent with Patient: Total time spent is greater than 50% in coordination of care (as documented) at patient's floor/unit and/or counseling patient: Coding Level of Care Code 19675 Subseq Hosp Care Lvl 3 Diagnoses Liver lesion K76.9 Rectal bleeding K62.5 Diverticulitis K57.92 Anemia D64.9 Anemia type: unspecified type Leukocytosis D72.829 Urinary retention R33.9 (HFpEF) heart failure with preserved ejection fraction I50.30 S/P total right hip arthroplasty Z96.641 GERD (gastroesophageal reflux disease) K21.9 GERRY (obstructive sleep apnea) G47.33 Hypertension I10 Paroxysmal atrial fibrillation I48.0 COPD with emphysema J43.9 Dysphagia R13.10 (1) Anemia Anemia type: unspecified type Qualified Code(s): D64.9 - Anemia, unspecified
[2022-03-22] MEDS: MELATONIN 3 MG TAB PO SCH (21:21)
[2022-03-22 23:52] LABS: Hematocrit (blood only) 18.1 % (40.1-51.0); Hemoglobin 5.7 g/dl (14.0-18.0)
[2022-03-23] MEDS: metroNIDAZOLE 500 MG/100 ML BAG IV SCH ×2 (03:49→13:13)
[2022-03-23 07:20] LABS: Hematocrit (blood only) 22.7 % (40.1-51.0); Hemoglobin 7.4 g/dl (14.0-18.0); Mean Corpuscular Hgb Conc 32.6 g/dL (32.0-36.0); Mean Corpuscular Volume 91.9 fL (80.0-100.0); Mean Platelet Volume 9.8 fL (9.4-12.4); Nucleated RBC # (auto) 0.24 K/uL (0-0); Nucleated RBC % (auto) 1.9 %; Platelet Count 234 K/uL (130-400); RDW Coefficient of Variation 15.3 % (11.5-14.5); Red Blood Count 2.47 M/uL (4.63-6.08); White Blood Count 12.47 K/ul (4.8-10.8)
[2022-03-23 08:05] LABS: BUN Creatinine Ratio 21.2 (10-20); Calcium 7.4 mg/dl (8.5-10.1); Est GFR (African American) 109.6 ml/min; Est GFR (Non-African American) 94.6 ml/min; Potassium 3.5 mmol/L (3.5-5.1)
[2022-03-23] MEDS: METOPROLOL SUCC 50MG EXT REL TAB PO SCH ×2 (08:25→20:39)
[2022-03-23] MEDS: MAGNESIUM OXIDE 400 MG TAB PO SCH (08:25)
[2022-03-23] MEDS: TAMSULOSIN HCL 0.4 MG CAP PO SCH (08:26)
[2022-03-23] MEDS: DOCUSATE SODIUM/SENNA 50/8.6MG TAB PO SCH ×2 (08:26→20:39)
[2022-03-23] MEDS: POTASSIUM CHLORIDE CRTAB 20 MEQ TABCR PO SCH (08:26)
[2022-03-23] MEDS: AMIODARONE 200 MG TAB PO SCH (08:26)
--- NOTE | 2022-03-23 09:43 | CT Scan Report ---
CT SCAN OF THE CHEST WITHOUT IV CONTRAST CLINICAL HISTORY: Metastatic survey. COMPARISON STUDY: Chest CT dated 01/25/2016. Chest x-ray dated 03/19/2022. Abdominal CT dated 022. TECHNIQUE: CT scan of the thorax was performed from the thoracic inlet to the upper abdomen. Images are reviewed in the axial, sagittal, and coronal planes. IV contrast was not administered for this ex amination as per the referring clinician. A dose lowering technique was utilized adhering to the naina Lebron. CT DOSE: 1035.47 mGy.cm FINDINGS: Thyroid: Imaged portions of the thyroid gland are normal in size and attenuation. Thoracic aorta: There is atherosclerotic calcification of the thoracic aorta, which is normal in tylor alissa and demonstrates standard 3-vessel arch anatomy. Heart: The heart is normal in size and without pericardial effusion. The coronary arteries are densel y calcified. There is diminished attenuation of the cardiac blood pool as compared to the myocardium suggesting anemia. Lungs and pleural spaces: There is moderate emphysema. The trachea and central airways are clear. The re are trace pleural effusions with dependent consolidation. Foci of parenchymal scarring are seen th roughout both lungs. A 1.7 cm paravertebral right lower lobe nodule on image #162 has been present da ting back to 2016. Mediastinum: There is no mediastinal lymphadenopathy. Nivia: Not well assessed without IV contrast. Axillae: There is no axillary lymphadenopathy. Upper abdomen: A 2.8 cm lesion in the caudate lobe of the liver is again noted. This remains suspicio us for metastatic disease. Pancreatic parenchymal calcifications suggest chronic pancreatitis. Skeletal structures: The skeletal structures are osteopenic. Spondylotic change is seen throughout th e spine. Arthritic change is noted in the shoulders. No lytic or blastic bony lesions are seen. IMPRESSION: 1. There is no evidence of intrathoracic metastatic disease. 2. Emphysema. 3. Trace pleural effusions with dependent consolidation. This could represent atelectasis versus an i nfectious/inflammatory pneumonitis, and is new from 03/21/2022. Clinical correlation will be required . 4. A 1.7 cm right lower lobe pulmonary nodule has not significantly changed dating back to 2016. 5. Advanced coronary artery calcification. 6. A lesion in the caudate lobe of the liver is again noted. This remains highly suspicious for metas tatic disease. 7. Additional findings as above. ACT 112: Negative or not required by law. Electronically signed by: Donte Canseco M.D. 03/23/2022 9:41 AM
[2022-03-23] MEDS: traMADol HCL 50 MG TABLET PO PRN (11:35)
--- NOTE | 2022-03-23 12:14 | Gastroenterology Progress Note ---
Date of Service March 23, 2022 Assessment & Plan (1) Anemia: (2) Acute lower GI bleeding: (3) Liver lesion: Plan: Pt is a 77 yo male w hx of Afib on Xarelto admitted for rectal bleeding and anemia. Suspect diverticular bleeding w also evidence of diverticulitis on colonoscopy exam. He needed 2U PRBC transfusion yesterday w appropriate rise on blood ct. Denies gross symptoms of GI bleeding, abd pain, n/v otherwise. 1. Rectal bleeding, anemia - Monitor blood ct and transfuse prn - GI bleeding scan today 2. Diverticulitis - Cipro/Flagyl antibiotics 3. Colon mass - F/U colonoscopy path from 03/22 4. Liver lesion, normal CEA - Will arrange outpt EUS liver mass bx and PET scan (4) Diverticulitis: Admission and Anticipated Discharge Date Admission Date: March 22, 2022 Supervising Physician Co-Signing Physician Notes Attg add: I interviewed and examined pt, reviewed chart and labs\. Anemia -- Hgb improved after x fusion, but unclear why hgb fell to 5 yesterday from 8 the day before. His bleeding scan at 4 hours was negative. He has had no stool output suggestive of GIB. For now, follow hgb daily, and obtain repeat bleeding scan images if hgb drops again. Diverticulitis -- On oral cipro Flagyl, plan to complete 7 day course on 03/29. 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 D/w Dr. Ellington -- Will arrange outpt EUS with liver bx, PET. Subjective Pt anxious to get discharged. Denies abd pain, n/v, no recurrence of rectal bleeding since initial colonoscopy on 03/21. Is scheduled for GI bleeding scan today Received 2U PRBC transfusion yesterday, Hgb 5 -> 7 Review of Systems Review of Systems: All systems reviewed & are unremarkable except as noted in HPI & below Physical Exam Constitutional: WD/WN, vitals as above well groomed, cooperative and comfortable Eyes: PERRL, conjunctivae normal, anicteric sclerae ENMT: external ear and nose normal, oropharynx normal Respiratory: normal respiratory effort, lungs clear to auscultation Cardiovascular: RRR, no murmur, no edema Gastrointestinal (Abdomen): normal bowel sounds, soft, nontender, no hepatosplenomegaly Skin: no rashes, warm and dry no jaundice Psychiatric: A+Ox3, euthymic affect Lymphatic: no lymphedema Results & Data ([facility]) Vital Signs (Past 12 Hours) Vital Signs Temp Pulse Pulse Resp BP BP BP 03/23/22 08:15 36.9 C 81 20 139/68 03/23/22 06:19 36.9 C 80 18 127/60 03/23/22 06:00 36.8 C 76 18 119/58 L 03/23/22 05:00 36.8 C 89 18 117/53 L 03/23/22 04:00 36.9 C 61 18 117/53 L 03/23/22 04:30 36.8 C 87 18 115/63 03/23/22 03:03 36.7 C 81 22 137/68 03/23/22 02:10 37.1 C 82 18 127/66 03/23/22 01:40 36.8 C 84 18 126/83 03/23/22 01:10 37.0 C 81 18 122/67 03/23/22 00:55 36.8 C 77 18 112/63 03/23/22 00:40 36.9 C 68 18 110/62 03/23/22 03:45 36.8 C 84 18 119/59 L 03/23/22 03:26 36.9 C 68 18 115/55 L 03/23/22 03:03 36.7 C 81 22 137/67 03/23/22 02:10 37.1 C 84 18 127/66 03/23/22 01:40 36.8 C 84 18 126/83 03/23/22 01:10 37.0 C 81 18 122/67 03/23/22 00:55 36.8 C 77 18 112/63 03/23/22 00:37 36.9 C 68 18 110/62 Pulse Ox O2 Del Method O2 Flow Rate 03/23/22 08:15 93 Nasal Cannula 2 03/23/22 06:19 95 3 03/23/22 06:00 94 3 03/23/22 05:00 94 3 03/23/22 04:00 94 3 03/23/22 04:30 94 3 03/23/22 03:03 99 Nasal Cannula 3 03/23/22 02:10 96 3 03/23/22 01:40 98 3 03/23/22 01:10 98 3 03/23/22 00:55 91 3 03/23/22 00:40 90 3 03/23/22 03:45 92 3 03/23/22 03:26 93 3 03/23/22 03:03 99 3 03/23/22 02:10 96 Nasal Cannula 3 03/23/22 01:40 98 Nasal Cannula 3 03/23/22 01:10 98 Nasal Cannula 3 03/23/22 00:55 91 3 03/23/22 00:37 90 3 (1) Anemia Anemia type: unspecified type Qualified Code(s): D64.9 - Anemia, unspecified
--- NOTE | 2022-03-23 12:20 | Nuclear Medicine Report ---
NM GI bleeding CLINICAL HISTORY: rectal bleeding TECHNIQUE: Following the intravenous injection of 23.0 mCi of Tc-99m tagged autologous RBCs, planar i mages of the abdomen were obtained over the course of one hour. COMPARISON: None available at the time of this dictation. FINDINGS: Expected radiopharmaceutical uptake is seen in the liver, spleen and blood pool. No significant pool of radiopharmaceutical activity is identified over the region of the bowel to sug gest GI blood loss. However, if patient re-bleeds within 24 hours, additional follow-up imaging may b e obtained with the current radiopharmaceutical activity. IMPRESSION: No evidence of acute gastrointestinal bleeding. ACT 112: Negative or not required by law. Electronically signed by: George Miller M.D. 03/23/2022 12:18 PM
[2022-03-23] MEDS: CIPROFLOXACIN / D5W 400 MG/200 ML BAG IV SCH (12:41)
[2022-03-23] MEDS: ACETAMINOPHEN 325 MG TAB PO PRN ×2 (13:44→23:41)
[2022-03-23] MEDS: metroNIDAZOLE 500 MG TAB PO SCH ×2 (14:48→20:38)
[2022-03-23] MEDS: CIPROFLOXACIN 500 MG TAB PO SCH ×2 (14:48→20:38)
--- NOTE | 2022-03-23 19:09 | Hospitalist Progress Note ---
Date of Service March 23, 2022 Assessment & Plan (1) Liver lesion: Plan: Looks malignant as per CT report Proceed with liver biopsy Consulted GI reported a large suspicious lesion for precancerous polyp found during colonoscopy 05/24 Status post second colonoscopy in 03/22 waiting for the path cea 2 (2) Rectal bleeding: Plan: The patient 77-year-old male with a past medical history significant for A. fib on Xarelto, hypertension hyperlipidemia status post AAA repair in 07/2020, diastolic heart failure stroke. Obstructive sleep apnea COPD who presented to the hospital with rectal bleed. Per chart review the patient had recently admitted to this facility from 03/09 till 03/18 for a right total hip arthroplasty. His admission was complicated with hypoxic respiratory failure possibly secondary to diastolic heart failure and CHF exacerbation responded to IV diuretic. He also developed urinary retention and discharged with Stevenson catheter to follow-up with urology scheduled for 03/25/2022. Also he was found to concern for aspiration due to enlarged tongue and speech recommended aspiration precaution and a sleepy diet -Patient had multiple bloody bowel movement prior to admission Hemoglobin dropped from 14-10 It is unclear if the whole drop in hemoglobin is because of rectal bleed or recent surgery also contribute to that -Status post colonoscopy in 03/21 finding was significant for diffuse diverticulosis and large polyp looks precancerous, as well as evidence of diverticulitis Patient had episode of hypotension Hydrochlorothiazide has been held Continue metoprolol history of A. fib -Continue to hold Xarelto 03/22 Hemoglobin dropped, status posttransfusion of 1 unit of packed RBC, hemoglobin dropped to 5, patient going for another colonoscopy tomorrow for possible biopsy, patient is going for endoscopy ultrasound for biopsy of hepatic lesions Discussed with the , discussed with insurance consultant GI, BMP CBC tomorrow 03/23 Hemoglobin is stable no evidence of active bleeding -Bleeding scan negative (3) Diverticulitis: Plan: Evidence of uncomplicated diverticulitis on CAT scan and colonoscopy report Proceed with Cipro and Flagyl CBC tomorrow 03/23 Continue Cipro and Flagyl, CBC is trending down (4) Anemia: Plan: -CBC tomorrow, IV iron transfusion Most likely due to GI bleed, also due to recent surgery could be contributing factor (5) Leukocytosis: Plan: Possibly multifactorial Evidence of diverticulitis as per CT done today as well as colonoscopy report Moreover patient has recent massive blood loss Evidence of hepatic lesions possibly malignant (6) Urinary retention: Plan: Stevenson cath is placed during the recent admission, -Continue Flomax we will proceed with voiding trial (7) (HFpEF) heart failure with preserved ejection fraction: Plan: -Appears Euvolemic on exam -Will continue with his metoprolol succinate as prescribed on last admission (8) S/P total right hip arthroplasty: Plan: -Stable -Fall precautions ordered -Continue tylenol and tramadol for pain (9) GERD (gastroesophageal reflux disease): Plan: -Daily pantoprazole for ulcer prophylaxis (10) GERRY (obstructive sleep apnea): Plan: -HS Bipap ordered (11) Hypertension: Plan: -Continue metoprolol and hydrochlorothiazide (12) Paroxysmal atrial fibrillation: Plan: -Rate controlled -Continue metoprolol and amiodarone -Hold Xarelto for now with GI bleed (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: Plan: -Stable on RA -Continue breathing treatments and pulm hygiene (14) Dysphagia: Plan: -Aspiration precautions ordered -Would switched to minced/moist diet when his diet can be advanced Plan The patient was discussed with Dr. Berger at the time of the admission Admission and Anticipated Discharge Date Admission Date: March 22, 2022 Subjective Hemoglobin stable around 7, will proceed with voiding trial, discussed with GI, is patient scheduled for endoscopy ultrasound/biopsy of liver on Monday, colonoscopy performed yesterday for large polyp biopsy Review of Systems Review of Systems: Denies current fever, chills, headache, changes in vision, hearing, taste, and smell, chest pain, SOB, cough, abdominal pain, nausea, vomiting, hematemesis, melena, dysuria, hematuria, and recent falls. All systems have been reviewed and are otherwise negative. Physical Exam Physical Exam: Physical Exam: General: In no acute distress, stated age, chronically ill-appearing, non- toxic appearing HEENT: Normocephalic, atraumatic, no scleral icterus, pupils around round, symmetrical, and reactive to light, Dry mucus membranes, no swelling of the tongue on exam or signs of airway compromise, trachea midline, no thyromegaly Chest/Pulm: No respiratory distress, symmetrical chest expansion, expiratory wheezing noted throughout Cardiac: RRR, no murmurs noted Abdomen: Negative for ascites and bruising, normoactive bowel sounds, soft, non-tender to palpation throughout : Patient currently with stevenson catheter in place without signs of drainage, currently with clear, yellow urine in the Stevenson bag Musculoskeletal: Symmetrical and without signs of acute trauma, upper and lower extremities with full ROM, no atrophy, spasticity, or flaccidity Extremities: Radial, dorsalis pedis, and posterior tibial pulses are intact and symmetrical, no edema noted in the BL LE's Skin: Warm, dry, no rashes , lesions, or scars noted Neuro: Alert and oriented to person, place, month, year, and president, no focal defects, CN II-XII tested and intact, finger to nose test negative, no tremors noted Psych: No acute distress, calm and cooperative during the exam Results & Data Results & Data ([facility]) Vital Signs (Past 12 Hours) Vital Signs Temp Pulse Resp BP Pulse Ox Pulse Ox O2 Del Method 03/23/22 17:16 Nasal Cannula 03/23/22 15:00 96 03/23/22 08:15 36.9 C 81 20 139/68 93 Nasal Cannula O2 Del Method O2 Flow Rate O2 Flow Rate 03/23/22 17:16 2 03/23/22 15:00 Nasal Cannula 2 03/23/22 08:15 2 PG Care Time/CCT Total # of Minutes Spent Total Time Spent with Patient: Total time spent is greater than 50% in coordination of care (as documented) at patient's floor/unit and/or counseling patient: Coding Level of Care Code 35593 Subseq Hosp Care Lvl 3 Diagnoses Liver lesion K76.9 Rectal bleeding K62.5 Diverticulitis K57.92 Anemia D64.9 Anemia type: unspecified type Leukocytosis D72.829 Urinary retention R33.9 (HFpEF) heart failure with preserved ejection fraction I50.30 S/P total right hip arthroplasty Z96.641 GERD (gastroesophageal reflux disease) K21.9 GERRY (obstructive sleep apnea) G47.33 Hypertension I10 Paroxysmal atrial fibrillation I48.0 COPD with emphysema J43.9 Dysphagia R13.10 (1) Anemia Anemia type: unspecified type Qualified Code(s): D64.9 - Anemia, unspecified
[2022-03-23] MEDS: MELATONIN 3 MG TAB PO SCH (20:40)
[2022-03-23] MEDS: FUROSEMIDE 40 MG/4 ML VIAL IV SCH (20:56)
--- NOTE | 2022-03-24 08:24 | Progress Notes ---
DATE OF NOTE: 03/24/2022. SUBJECTIVE: A 77-year-old gentleman, now about 2 weeks out from a right uncemented hip replacement. He has had multiple medical complications postoperatively. He has been pretty stable recently. Rece nt extensive workup for possible GI bleed. Hip is doing well. Fairly minimal pain. OBJECTIVE: VITAL SIGNS: Temperature 36.8. Vital signs are stable. GENERAL: Shows a pleasant middle-aged male. He is sitting up in a bedside chair, looks pretty comfo rtable this morning. EXTREMITIES: Examination of the right hip reveals the incision to be clean, dry and intact. A littl e redness around the stacey. No drainage. Thigh is soft and supple. NEUROLOGIC: He is neurologically intact. LABORATORY DATA: Hemoglobin 7.4. Hematocrit 22.7. Electrolytes are stable. ASSESSMENT: A 77-year-old gentleman now 2 weeks out from a right total hip replacement complicated b y multiple medical issues. His hemoglobin continues to be fairly well. His hip looks stable. There are no signs of bleeding to his hip area. PLAN: 1. DVT prophylaxis includes thigh-high TEDs, SCDs. Obviously had to be careful with anticoagulation in this gentleman. 2. PT/OT. He can fully weightbear as tolerated. 3. Pain control, seems to be doing well with pain control. 4. Incision management. He has an appointment in our office today for suture removal. We are going to leave the stacey in until next week. I should see him sometime early next week for staple remov al. If he is still in the hospital, we will take them out in the hospital next week. Any orthopedic questions can be directed to me at [phone]. Job ID: [id number]
[2022-03-24 08:52] LABS: Basophils # (auto) 0.05 K/uL (0-0.2); Basophils % (auto) 0.4 %; Eosinophils % (auto) 3.5 %; Hematocrit (blood only) 25.8 % (40.1-51.0); Hemoglobin 8.4 g/dl (14.0-18.0); Immature Granulocytes # (auto) 0.16 K/uL (0.00-0.02); Immature Granulocytes % (auto) 1.4 %; Lymphocytes # (auto) 1.52 K/uL (1.2-3.4); Lymphocytes % (auto) 13.3 %; Mean Corpuscular Hemoglobin 29.5 pg (25.0-34.0); Mean Corpuscular Hgb Conc 32.6 g/dL (32.0-36.0); Mean Corpuscular Volume 90.5 fL (80.0-100.0); Monocytes # (auto) 0.82 K/uL (0.24-0.82); Monocytes % (auto) 7.2 %; Neutrophils % (auto) 74.2 %; Nucleated RBC # (auto) 0.16 K/uL (0-0); Nucleated RBC % (auto) 1.4 %; Platelet Count 274 K/uL (130-400); RDW Coefficient of Variation 16.1 % (11.5-14.5); RDW Standard Deviation 50.4 fL (36.4-46.3); Red Blood Count 2.85 M/uL (4.63-6.08); White Blood Count 11.45 K/ul (4.8-10.8)
[2022-03-24] MEDS: POTASSIUM CHLORIDE CRTAB 20 MEQ TABCR PO SCH (08:58)
[2022-03-24] MEDS: FUROSEMIDE 40 MG/4 ML VIAL IV SCH ×2 (08:58→21:32)
[2022-03-24] MEDS: DOCUSATE SODIUM/SENNA 50/8.6MG TAB PO SCH ×2 (08:59→21:39)
[2022-03-24] MEDS: MAGNESIUM OXIDE 400 MG TAB PO SCH (08:59)
[2022-03-24] MEDS: TAMSULOSIN HCL 0.4 MG CAP PO SCH (08:59)
[2022-03-24] MEDS: AMIODARONE 200 MG TAB PO SCH (09:00)
[2022-03-24] MEDS: METOPROLOL SUCC 50MG EXT REL TAB PO SCH ×2 (09:00→21:32)
[2022-03-24] MEDS: CIPROFLOXACIN 500 MG TAB PO SCH ×2 (09:00→21:32)
[2022-03-24] MEDS: metroNIDAZOLE 500 MG TAB PO SCH ×3 (09:00→21:39)
[2022-03-24 09:31] LABS: Calcium 8.2 mg/dl (8.5-10.1); Creatinine Clr Calc Pharmacy 109.8 ml/min; Est GFR (African American) 103.4 ml/min; Est GFR (Non-African American) 89.2 ml/min; Potassium 3.8 mmol/L (3.5-5.1)
--- NOTE | 2022-03-24 10:26 | Gastroenterology Progress Note ---
Date of Service March 24, 2022 Assessment & Plan (1) Anemia: (2) Acute lower GI bleeding: (3) Liver lesion: Plan: Pt is a 77 yo male w hx of Afib on Xarelto admitted for rectal bleeding and anemia. Suspect diverticular bleeding vs bleeding from colon mass w also evidence of diverticulitis & colon mass on colonoscopy exam. He needed 2U PRBC transfusion 03/22 w appropriate rise on blood ct. No gross symptoms of GI bleeding, abd pain, n/v otherwise. 1. Rectal bleeding, anemia - Monitor blood ct and transfuse prn - GI bleeding scan 03/23 negative 2. Diverticulitis - Cipro/Flagyl PO antibiotics 3. Colon mass - F/U colonoscopy path from 03/22 -> adenocarcinoma - Consult Oncology 4. Liver lesion, normal CEA - Will arrange OP EUS liver mass bx & PET scan (4) Diverticulitis: Admission and Anticipated Discharge Date Admission Date: March 22, 2022 Supervising Physician Co-Signing Physician Notes Attg add: I reviewed chart and labs. Pt with stable hgb. Remains off AC. No new complaints. Agree with management as above. I had d/w pt and about pros and cons of AC. I also discussed management of AC with hospitalist. Because path shows evidence of malignancy, it is possible that his bleeding was caused by colon cancer; ddx also includes tic bleeding. He is at moderate, rather than low, risk of bleeding, should he resume AC. Hospitalist feels that his risk of TE event is high given his comorbids, and that benefits of resuming AC outweigh risks; will defer to hospitalist service. Subjective Patient had brown and loose bowel movements this morning. Denies any rectal bleeding. Denies also any nausea, vomiting, abdominal pain symptoms. Review of Systems Review of Systems: All systems reviewed & are unremarkable except as noted in HPI & below Physical Exam Constitutional: WD/WN, vitals as above well groomed, cooperative and comfortable Eyes: PERRL, conjunctivae normal, anicteric sclerae ENMT: external ear and nose normal, oropharynx normal Respiratory: Mild crackles mostly on the right lower lobe, diffuse soft wheezing noted Cardiovascular: RRR, no murmur, no edema Gastrointestinal (Abdomen): normal bowel sounds, soft, nontender, no hepatosplenomegaly Skin: no rashes, warm and dry no jaundice Psychiatric: A+Ox3, euthymic affect Lymphatic: no lymphedema Results & Data ([facility]) Vital Signs (Past 12 Hours) Vital Signs Temp Pulse Pulse Pulse Resp BP Pulse Ox 03/24/22 08:17 36.6 C 82 95 H 20 155/65 H 94 03/24/22 07:15 79 03/24/22 02:09 36.8 C 76 20 123/67 91 03/23/22 23:36 36.7 C 81 20 104/65 92 03/23/22 23:29 97 H O2 Del Method 03/24/22 08:17 Room Air 03/24/22 07:15 03/24/22 02:09 Room Air 03/23/22 23:36 Room Air 03/23/22 23:29 (1) Anemia Anemia type: unspecified type Qualified Code(s): D64.9 - Anemia, unspecified
[2022-03-24] MEDS: ACETAMINOPHEN 325 MG TAB PO PRN ×2 (10:38→15:42)
--- NOTE | 2022-03-24 18:12 | Hospitalist Progress Note ---
Date of Service March 24, 2022 Assessment & Plan (1) Rectal bleeding: Plan: Rectal bleed, hemoglobin stable, patient received multiple transfusion during his admission, patient has history of A. fib, Xarelto has been held If hemoglobin is stable tomorrow with resume anticoagulation Patient could be candidate for watchman procedure, in case of recurrence bleed, source of bleeding is not clear possibly from GI tract Patient has a malignant polyp pathology came back positive on 03/23 for adenocarcinoma Discuss[address] with Dr. Castro financial operations consultant oncology over the phone recommend outpatient follow-up, pending liver biopsy (2) Liver lesion: Plan: CT findings consistent with malignancy Patient is not a candidate for CT-guided/ultrasound-guided biopsy as per IR Discussed with GI, patient is currently scheduled for endoscopy ultrasound biopsy See if is within normal limit to (3) Diverticulitis: Plan: Started on Cipro and Flagyl Will switch to oral (4) Anemia: Plan: Secondary to GI bleed Hemoglobin stable around 8 Proceed with IV iron transfusion If hemoglobin stable tomorrow as per my discussion with GI we will put him back on anticoagulation (5) Paroxysmal atrial fibrillation: Plan: Currently sinus rhythm, of apixaban may resume like apixaban as mentioned (6) Leukocytosis: Plan: Improving possibly secondary to diverticulitis (7) Urinary retention: Plan: Sherwood catheter was removed, patient was able to void, post withdrawal volume was negligible, continue Flomax (8) (HFpEF) heart failure with preserved ejection fraction: Plan: Evidence of volume overload Start on Lasix 40 mg twice daily Monitor BMP (9) S/P total right hip arthroplasty: Plan: Sutures were removed by Ortho, patient visited by Ortho on 03/24 (10) GERD (gastroesophageal reflux disease): Plan: Continue PT (11) GERRY (obstructive sleep apnea): (12) Hypertension: Plan: Fairly controlled with the current regimen (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: (14) Dysphagia: Admission and Anticipated Discharge Date Admission Date: March 22, 2022 Subjective Pathology came back positive for adenocarcinoma, discussed with GI, patient can be started on anticoagulation tomorrow if hemoglobin stable, plan to discharge him tomorrow, he needs outpatient endoscopy ultrasound biopsy of pancreatic mass Results & Data Results & Data ([facility]) Vital Signs (Past 12 Hours) Vital Signs Temp Pulse Pulse Pulse Resp BP BP 03/24/22 15:57 36.9 C 90 18 117/62 03/24/22 14:47 78 03/24/22 12:16 37.2 C 84 20 154/64 H 03/24/22 08:17 36.6 C 82 95 H 20 155/65 H 03/24/22 07:15 79 Pulse Ox O2 Del Method 03/24/22 15:57 92 Room Air 03/24/22 14:47 03/24/22 12:16 95 Room Air 03/24/22 08:17 94 Room Air 03/24/22 07:15 PG Care Time/CCT Total # of Minutes Spent Total Time Spent with Patient: Total time spent is greater than 50% in coordination of care (as documented) at patient's floor/unit and/or counseling patient: Coding Level of Care Code 99218 Subseq Hosp Care Lvl 3 Diagnoses Rectal bleeding K62.5 Liver lesion K76.9 Diverticulitis K57.92 Anemia D64.9 Anemia type: unspecified type Paroxysmal atrial fibrillation I48.0 Leukocytosis D72.829 Urinary retention R33.9 (HFpEF) heart failure with preserved ejection fraction I50.30 S/P total right hip arthroplasty Z96.641 GERD (gastroesophageal reflux disease) K21.9 GERRY (obstructive sleep apnea) G47.33 Hypertension I10 COPD with emphysema J43.9 Dysphagia R13.10 (1) Anemia Anemia type: unspecified type Qualified Code(s): D64.9 - Anemia, unspecified
[2022-03-24] MEDS: MELATONIN 3 MG TAB PO SCH (21:31)
[2022-03-25 07:00] LABS: Hematocrit (blood only) 25.4 % (40.1-51.0); Hemoglobin 8.1 g/dl (14.0-18.0); Mean Corpuscular Hemoglobin 28.9 pg (25.0-34.0); Mean Corpuscular Hgb Conc 31.9 g/dL (32.0-36.0); Mean Corpuscular Volume 90.7 fL (80.0-100.0); Mean Platelet Volume 9.8 fL (9.4-12.4); Nucleated RBC # (auto) 0.07 K/uL (0-0); Nucleated RBC % (auto) 0.7 %; Platelet Count 270 K/uL (130-400); RDW Coefficient of Variation 15.8 % (11.5-14.5); RDW Standard Deviation 50.6 fL (36.4-46.3); White Blood Count 10.48 K/ul (4.8-10.8)
[2022-03-25 07:20] LABS: BUN Creatinine Ratio 21.6 (10-20); Calcium 7.9 mg/dl (8.5-10.1); Creatinine Clr Calc Pharmacy 112.7 ml/min; Est GFR (African American) 104.6 ml/min; Est GFR (Non-African American) 90.2 ml/min; Potassium 3.4 mmol/L (3.5-5.1)
[2022-03-25] MEDS: METOPROLOL SUCC 50MG EXT REL TAB PO SCH (08:27)
[2022-03-25] MEDS: CIPROFLOXACIN 500 MG TAB PO SCH (08:27)
[2022-03-25] MEDS: POTASSIUM CHLORIDE CRTAB 20 MEQ TABCR PO SCH (08:27)
[2022-03-25] MEDS: DOCUSATE SODIUM/SENNA 50/8.6MG TAB PO SCH (08:27)
[2022-03-25] MEDS: FUROSEMIDE 40 MG/4 ML VIAL IV SCH (08:28)
[2022-03-25] MEDS: AMIODARONE 200 MG TAB PO SCH (08:28)
[2022-03-25] MEDS: MAGNESIUM OXIDE 400 MG TAB PO SCH (08:28)
[2022-03-25] MEDS: metroNIDAZOLE 500 MG TAB PO SCH ×2 (08:28→14:06)
[2022-03-25] MEDS: TAMSULOSIN HCL 0.4 MG CAP PO SCH (08:29)
[2022-03-25] MEDS: ACETAMINOPHEN 325 MG TAB PO PRN (13:04)
--- NOTE | 2022-03-25 20:31 | Discharge Summary ---
Date of Service March 25, 2022 Admission HPI Per Admitting Provider Ross is a 77 year old male with a PMH significant for Afib on Xarelto, HTN, Hyperlipidemia, S/P AAA repair in 07/[address] Juarez, left ventricular hypertrophy (LVEF of 60-65%, Grade I diastolic dysfunction as of 2018) , diastolic dysfunction, cerebral vascular disease, GERD, GERRY, COPD, who presented to the [facility] ED on 03/19/22 with a chief complaint of rectal bleeding. In the ED the patient was found to be afebrile, hemodynamically stable, and stable on RA. Labs were remarkable for Leukocytosis of 19.56 with left shift 15.88, Hgb of 10.3 (was 14 as of 03/14/22), INR of 1.2, Cr of 1.20 (baseline appears around 0.8), BUN of 45, stable electrolytes, glucose of 220. Chest xray was read as no acute disease. Prio to admission the patient was given 4 mg IV morphine, 1L NSS bolus, and 4 mg IV zofran. Per chart review, the patient was recently admitted to [facility] from 03/09-03/18 for elective right total hip arthropathy with Dr. Leung on 03/09/22. His admission was complicated by acute hypoxic respiratory failure thought to be due from Heart Failure exacerbation and acute urinary retention. His CHF exacerbation was treated with IV diuresis and his atenlol was switched to Metoprolol Succinate due to his CHF diagnosis. He was able to be weaned to room air prior to discharge home. He was also noted to have acute urinary retention. He was discharged home with a Sherwood catheter and has an outpatient appointment with Urology scheduled for 03/25/22. He was also evaluated by speech language pathology due to concerns for aspiration and an enlarged tongue noted on initial Hospitalist evaluation during their consult. Speech recommended aspiration precautions and a slippery diet. At the time of the exam the patient was resting comfortably in bed in no acute distress with his sitting bedside, history was obtained from both. They state that the patient had been doing well since discharge, until this morning. His states that the patient takes senna daily for consistently bowel movements. This am the patient had the sensation that he needed to have a bowel movement but was unable to get to the bathroom fast enough. He ended up having a large, bloody bowel movement. He had another large, bloody bowel movement at home prior to coming to the ED. He notes some lightheadedness/dizziness with standing and walking since having the bloody bowel movements. When asked, the patient states that he has a history of hemorrhoids but has never had a colonoscopy in the past. His last dose of Xarelto was last night as prescribed. His has been unable to picker machine operator his new prescription for the metoprolol succinate so he has been taking his atenolol. He denies recent fevers, chills, headache, changes in vision, hearing, taste, and smell, chest pain, SOB, abdominal pain, nausea, vomiting, dysuria, hematuria, and recent falls. His right hip pain has been well-controlled on tylenol and tramadol since discharge. I spoke to he and his regarding code status, he is a full code and his would make decisions for him if he could not make them himself. I explained to the patient and his that we will hold his Xarelto for now with his current bleeding, I explained that his daily stroke risk is low. They expressed understading and are in agreement with holding his Xarelto for now as his bleeding risk is high than his stroke risk at this time. Please refer to Dr. Berger's attestation for any changes to the treatment plan Principal Diagnosis Adenocarcinoma of colon GI bleed acute anemia Diverticultis Discharge Exam Constitutional WD/WN, vitals as above well groomed, cooperative and comfortable; no acute distress Eyes PERRL, conjunctivae normal, anicteric sclerae ENMT external ear and nose normal, oropharynx normal Mouth: no dentition abnormality Mallampati Class: II Neck normal visual inspection Respiratory normal respiratory effort, lungs clear to auscultation normal respiratory effort; no respiratory distress Auscultation: lungs clear to auscultation bilaterally Cardiovascular RRR, no murmur, no edema Rate/Rhythm: regular rate and regular rhythm Gastrointestinal (Abdomen) normal bowel sounds, soft, nontender, no hepatosplenomegaly Musculoskeletal Spine: normal cervical ROM Skin no rashes, warm and dry no jaundice Psychiatric A+Ox3, euthymic affect Orientation: alert and oriented x 3 Lymphatic no lymphedema Discharge Data Allergies Allergy/AdvReac Type Severity Reaction Status Date / Time lisinopril Allergy Severe Angioedema Verified 03/21/22 09:49 adhesive Allergy Intermediate Rash Verified 03/21/22 09:49 latex Allergy Intermediate Contact Verified 03/21/22 09:49 dermatitis Consultations 03/19/22 13:27 ED Decision to Admit Stat 03/20/22 12:17 Consult Gastroenterology Routine 03/21/22 03:30 Consult Orthopedic Surgery Routine 03/24/22 11:36 Consult Oncology Routine 03/24/22 14:37 Consult Oncology Routine Procedures Performed Operation Date: 03/21/22 18:00 Actual Procedures p Esophagogastroduodenoscopy - Tramaine Scott MD s Colonoscopy Polypectomy - Tramaine Scott MD Operation Date: 03/22/22 16:30 Actual Procedures p Colonoscopy Biopsy Cytology - Tramaine Scott MD Operation Date: 03/25/22 07:55 <No data on this case meets the specified criteria> Ordered Studies 03/21/22 11:43 CT abd pelvis oral and IV con Routine 03/22/22 20:33 CT chest diagnostic wo con Routine Hospital Course (1) Rectal bleeding: Rectal bleed, hemoglobin stable, patient received multiple transfusion during his admission, patient has history of A. fib, Xarelto has been held If hemoglobin is stable tomorrow with resume anticoagulation Patient could be candidate for watchman procedure, in case of recurrence bleed, source of bleeding is not clear possibly from GI tract Patient has a malignant polyp pathology came back positive on 03/23 for adenocarcinoma [address] with Dr. Castro database reporting consultant oncology over the phone recommend outpatient follow-up, pending liver biopsy (2) Liver lesion: CT findings consistent with malignancy Patient is not a candidate for CT-guided/ultrasound-guided biopsy as per IR Discussed with GI, patient is currently scheduled for endoscopy ultrasound biopsy on outpatient basis (3) Diverticulitis: Started on Cipro and Flagyl Will switch to Augment (4) Anemia: Secondary to GI bleed Hemoglobin stable around 8 Proceed with IV iron transfusion If hemoglobin stable tomorrow as per my discussion with GI we will put him back on anticoagulation His anticoagulation was resumed upon discharge ( Apixban ) (5) Paroxysmal atrial fibrillation: Currently sinus rhythm, of apixaban may resume like apixaban as mentioned (6) Leukocytosis: Improving possibly secondary to diverticulitis (7) Urinary retention: Sherwood catheter was removed, patient was able to void, post withdrawal volume was negligible, continue Flomax (8) (HFpEF) heart failure with preserved ejection fraction: Evidence of volume overload Start on Lasix 40 mg twice daily Monitor BMP (9) S/P total right hip arthroplasty: Sutures were removed by Ortho, patient visited by Ortho on 03/24 (10) GERD (gastroesophageal reflux disease): Continue PT (11) GERRY (obstructive sleep apnea): (12) Hypertension: Fairly controlled with the current regimen (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: (14) Dysphagia: Total Time Total Time Spent Total Time Spent (In Minutes): 45 mins Discharge Plan Discharge Items Patient Disposition: Home - Self-Care Reason For Visit: RECTAL BLEED Discharge Diagnosis: GI bleed Colon Adenocarcinoma Hepatic lesions Acute Anemia Diverticulitis Activity: Resume your previous activity Bathing: No limitations Sexual Activity: When tolerated Exercise/Sports: Gradually increase as tolerated Driving/Machine Use: No limitations Weightbearing: Full weightbearing Non-emergency contact: Primary Care Provider, Blowing Engineer and Oncologist Call non-emergency contact if: you have any medication questions Follow-up/Referrals: Heriberto Stoddard MD [Physician] - Shweta Loyd MD [Primary Care Provider] - 04/01/22 11:30 am Tramaine Scott MD [Physician] - Reed Castro MD [Surgeon] - Diet: Heart Healthy Addtl Attending Provider Instructions: Please follow with Project Developer envelope stamping machine operator for outpatient Endoscopic Ultrasound biopsy of liver lesions , Please check your blood count (CBC) in one week You are started Apixaban you are at risk for bleeding please watch for any sign of bleeding including bloody /dark stool you are suffering form heat failure please follow with your weaver apprentice , you are started on Lasix please check your kidney profile in one week ( BMP) Because you are at risk of bleeding due to blood thinner , you could be a candidate of watchman in ldevice please discus it with your weaver apprentice Pending Studies at Discharge: No Stand-Alone Forms: My [employer], Smoking Cessation Medications and DC Order Prescriptions: New Eliquis 5 mg tablet 5 mg PO BID Qty: 90 4RF furosemide [Lasix] 40 mg tablet 40 mg PO QAM Qty: 30 0RF Vanessa-Sequels (iron-vit c) 200 mg (65 mg iron)-25 mg tablet extended release 1 tab PO DAILY Qty: 60 0RF amoxicillin-pot clavulanate [Augmentin] 500-125 mg tablet 1 tab PO BID Qty: 10 0RF lactulose [Constulose] 10 gram/15 mL solution 20 g PO QID PRN (Reason: constipation) Qty: 237 0RF Continued (DME) Lift Chair Misc See Rx Instructions .Route Qty: 1 0RF Rx Instructions: As directed Dx:M51.36 potassium chloride 20 mEq tablet extended release 20 meq PO QAM Qty: 90 3RF ondansetron HCl 4 mg tablet 4 mg PO Q6 PRN (Reason: nausea) Qty: 20 1RF sennosides-docusate sodium [Senokot-S] 8.6-50 mg tablet 1 tab-cap PO BID 14 Days Qty: 28 0RF Rx Instructions: Take twice daily to prevent constipation tramadol 50 mg tablet 50 - 100 mg PO Q6H PRN (Reason: pain) Qty: 40 0RF Rx Instructions: Take as needed for Pain. tamsulosin [Flomax] 0.4 mg capsule 0.4 mg PO DAILY Qty: 7 0RF Rx Instructions: Begin night BEFORE surgery to prevent urinary retention acetaminophen 500 mg capsule 1,000 mg PO TID 30 Days Qty: 180 0RF Rx Instructions: Take 3 times per day to lessen pain. albuterol sulfate 90 mcg/actuation HFA aerosol inhaler 2 puff inhalation Q4H PRN (Reason: shortness of breath or wheezing) Qty: 18 11RF fluticasone propionate 50 mcg/actuation spray,suspension 2 sprays intranasal DAILY PRN (Reason: Congestion) Qty: 16 coenzyme Q10 100 mg capsule 100 mg PO QAM ascorbic acid (vitamin C) 500 mg tablet 500 mg PO QPM Label Comments: 500 MG PO DAILY; Rx Instructions: unknown strength. does not take daily Osteo Bi-Flex Triple Strength 750 mg-644 mg- 30 mg-1 mg tablet 1 tab PO BID famotidine [Pepcid AC] 20 mg tablet 20 mg PO BID (DME) Wheeled Walker Misc See Rx Instructions .MEDSUPPLY Qty: 1 0RF Rx Instructions: As directed Artichoke Extract 0 mg 1 tab PO QAM PreserVision AREDS-2 [id number] sp-otoe-[id number]-mg Capsule 1 tab PO BID multivitamin Tablet 1 tab PO QAM fiber Capsule 1 cap PO QPM Barley Supplement 1 dose PO QPM Bioflex [id number] mg Tablet 1 tab PO BID melatonin 10 mg Tablet 10 mg PO HS magnesium oxide 250 mg magnesium Tablet 250 mg PO QAM hydrochlorothiazide 25 mg tablet 25 mg PO QPM amiodarone [Pacerone] 100 mg tablet 100 mg PO QAM metoprolol succinate [Toprol XL] 50 mg tablet extended release 24 hr 50 mg PO BID Qty: 60 0RF Discontinued Xarelto 20 mg tablet 20 mg PO HS Qty: 90 3RF amoxicillin 500 mg tablet 2,000 mg PO DIRECTED PRN (Reason: PRIOR TO DENTAL APPT.) Rx Instructions: TAKE 4 TABLETS ONE HOUR PRIOR TO DENTAL WORK Discharge Orders: Discharge Order (Routine); Ordered 03/25/22 Ordered By: Rasheed Avery Admission Data Admit Date/Time: 03/22/22 08:52 Attending Provider: Rasheed Avery Admit Provider: Adrian Berger Primary Care Provider: Shweta Loyd Other Providers: Adrian Berger ; Tramaine Scott ; Ross Leung ; [facility] ; Reed Castro Other Interventions: Discharge Summary Assessment (RN) Last Done: 03/25/22 13:51 Coding Level of Care Code D/C DAY MANAGEMENT >30 MINS Diagnoses Rectal bleeding K62.5 Liver lesion K76.9 Diverticulitis K57.92 Anemia D64.9 Anemia type: unspecified type Paroxysmal atrial fibrillation I48.0 Leukocytosis D72.829 Urinary retention R33.9 (HFpEF) heart failure with preserved ejection fraction I50.30 S/P total right hip arthroplasty Z96.641 GERD (gastroesophageal reflux disease) K21.9 GERRY (obstructive sleep apnea) G47.33 Hypertension I10 COPD with emphysema J43.9 Dysphagia R13.10
== END 2022-03-25 14:58 | disposition home health service (06) | DRG 374 ==
LOC: ED 11:57 → 2W 11:57 → SUATTDRO 13:40 → 2W 14:41

== ENCOUNTER 2023-03-26 15:45 | Inpatient (IN) ==
[2023-03-26] MEDS ORDERED: SODIUM CHLORIDE 0.9% 500 ML IV STA (16:03)
--- NOTE | 2023-03-26 16:03 | ED Triage Note ---
Date of Service March 26, 2023 Provider in Triage Author: Marianna Richardson History of Present Illness This patient was briefly evaluated while in triage. An abbreviated physical exam was performed. This patient is a 78-year-old Male who presents to the ED for evaluation of hypotension. Has had bronchitis and has been on antibiotics for over 1 week. Last night started with lightheadedness, heart racing, and weakness. Last night he felt SOB. Today they checked his BP at home and it was low. Tested negative for COVID 1 week ago. Physical Exam GENERAL: Non-toxic and in no acute distress. HEENT: Pupils equal. No obvious scleral icterus. HEART: Regular rate and rhythm. LUNGS: Clear to auscultation. No accessory muscle use. ABDOMEN: Soft, non-tender. NEURO: Alert and oriented. No obvious neurological deficits on quick neuro exam. Initial orders for labs and / or imaging were placed and patient was placed in the waiting area until a bed is available. Please see further documentation for the full ED course.
--- NOTE | 2023-03-26 16:41 | XRay Report ---
SINGLE VIEW CHEST CLINICAL HISTORY: Atypical chest pain. FINDINGS: An AP, portable, upright chest radiograph is compared to study dated 03/17/2023 and correla johanne with chest CT dated 01/30/2023. A left subclavian central venous infusion port is unchanged in pos ition. The heart is mildly enlarged noting atherosclerotic calcification of the thoracic aorta. The p ulmonary vasculature is noncongested. Emphysema and chronic interstitial thickening is similar to pre vious. There is bibasilar scarring/atelectasis. No airspace consolidation or large pleural effusion i s identified. No pneumothorax is seen. The skeletal structures are osteopenic. The bony thorax is kunal ssly intact. Degenerative disc change is noted in the shoulders and thoracic spine. IMPRESSION: Cardiomegaly and emphysema with no acute cardiopulmonary abnormality. ACT 112: Negative or not required by law. Electronically signed by: Donte Canseco M.D. 03/26/2023 4:39 PM
[2023-03-26 17:55] LABS: Appearance Urine Clear (Clear); Bilirubin Urine Negative (Negative); Blood Urine Negative (Negative); Color Urine Yellow; Glucose Urine UA Negative (Negative); Ketones Urine Trace (Negative); Leukocyte Esterase Urine Negative (Negative); Nitrite Urine Negative (Negative); Protein Urine Negative (Negative); Specific Gravity Urine 1.023 (1.000-1.030); Urobilinogen Urine Negative (Negative)
[2023-03-26 17:57] LABS: Basophils # (auto) 0.09 K/uL (0.00-0.20); Basophils % (auto) 0.5 %; Eosinophils # (auto) 0.17 K/uL (0.00-0.50); Hematocrit (blood only) 23.7 % (42.0-52.0); Hemoglobin 7.4 g/dl (14.0-18.0); Immature Granulocytes # (auto) 0.74 K/uL (0.01-0.20); Immature Granulocytes % (auto) 4.4 %; Lymphocytes # (auto) 1.92 K/uL (1.20-3.40); Lymphocytes % (auto) 11.5 %; Mean Corpuscular Hgb Conc 31.2 g/dL (32.0-36.0); Mean Corpuscular Volume 99.2 fL (80.0-100.0); Mean Platelet Volume 11.5 fL (9.4-12.4); Monocytes # (auto) 2.24 K/uL (0.11-0.59); Monocytes % (auto) 13.4 %; Neutrophils # (auto) 11.55 K/uL (1.40-6.50); Neutrophils % (auto) 69.2 %; Nucleated RBC # (auto) 0.19 K/uL (0.00-0.12); Nucleated RBC % (auto) 1.1 %; Platelet Count 106 K/uL (130-400); RDW Coefficient of Variation 21.5 % (11.5-14.5); RDW Standard Deviation 71.7 fL (36.4-46.3); Red Blood Count 2.39 M/uL (4.70-6.10); White Blood Count 16.71 K/ul (4.8-10.8)
[2023-03-26 18:08] LABS: INR 1.2 (0.9-1.1); Partial Thromboplastin Ratio 0.9; Partial Thromboplastin Time 24 Seconds (21-31); Prothrombin Time 12.5 Seconds (9.0-12.0)
[2023-03-26 18:13] LABS: Alanine Aminotransferase 33 U/L (7-52); Albumin Globulin Ratio 0.8 (0.9-2); Albumin Level 3.3 gm/dl (3.4-5.0); Alkaline Phosphatase 130 U/L (34-104); Anion Gap 8 (3-11); Aspartate Aminotransferase 41 U/L (13-39); BUN Creatinine Ratio 48.6 (10-20); Bilirubin,Total 0.6 mg/dl (0.2-1.0); Blood Urea Nitrogen 51 mg/dl (6-23); Calcium 8.9 mg/dl (8.6-10.3); Carbon Dioxide 29 mmol/L (21-32); Chloride 107 mmol/L (98-107); Est GFR (African American) 79.5 ml/min; Est GFR (Non-African American) 68.6 ml/min; Globulin 3.9 gm/dl (2.5-4.0); Glucose 104 mg/dl (70-99(Fasting)); Lipase 36 U/L (11-82); Magnesium 2.4 mg/dl (1.7-2.4); Sodium 144 mmol/L (136-145); Total Protein 7.2 gm/dl (6.0-8.3)
[2023-03-26 18:14] LABS: Anisocytosis Present; Polychromasia 1+; Stomatocytes 2+; Toxic Granulation 1+
[2023-03-26 18:20] LABS: Troponin I High Sensitivity 14.1 pg/ml (0-20)
[2023-03-26 18:29] LABS: Thyroid Stimulating Hormone 5.869 uIu/ml (0.300-4.500)
[2023-03-26 18:39] LABS: Adenovirus PCR Not Detected (NotDetected); Bordetella parapertussis PCR Not Detected (NotDetected); Bordetella pertussis PCR Not Detected (NotDetected); Chlamydia pneumoniae PCR Not Detected (NotDetected); Coronavirus 229E PCR Not Detected (NotDetected); Coronavirus CoV-2 (COVID19)PCR Not Detected (NotDetected); Coronavirus HKU1 PCR Not Detected (NotDetected); Coronavirus NL63 PCR Not Detected (NotDetected); Coronavirus OC43PCR Not Detected (NotDetected); Human Metapneumovirus PCR Not Detected (NotDetected); Influenza A PCR Not Detected (NotDetected); Influenza B PCR Not Detected (NotDetected); Mycoplasma pneumoniae PCR Not Detected (NotDetected); Parainfluenza Virus 1 PCR Not Detected (NotDetected); Parainfluenza Virus 2 PCR Not Detected (NotDetected); Parainfluenza Virus 3 PCR Not Detected (NotDetected); Parainfluenza Virus 4 PCR Not Detected (NotDetected); Respiratory Syncytial VirusPCR Not Detected (NotDetected); Rhinovirus/Enterovirus PCR Not Detected (NotDetected)
[2023-03-26 19:04] LABS: T4 Free Thyroxine 0.96 ng/dl (0.61-1.60)
[2023-03-26] MEDS ORDERED: PANTOprazole 40 MG in SYRINGE 0 ML IV ONE (20:39)
[2023-03-26] MEDS ORDERED: SODIUM CHLORIDE 0.9% 250 ML IV PRN (20:46)
--- NOTE | 2023-03-26 20:52 | Emergency Department Note ---
Impression & Plan Acute upper gastrointestinal bleeding, Anemia, Weakness, Chest pain on exertion, Thrombocytopenia ED Provider Note NAME: JANIE CURRAN AGE: 78 SEX: M : 1945 ARRIVES VIA: Walk-In INFORMANT: Patient, ED PROVIDER(S): Heriberto Bynum DO CHIEF COMPLAINT: Weakness HPI: The patient is a 78-year-old male who presented to the emergency department with family for an evaluation of weakness. The patient has been noticing problems with exertional dyspnea and exertional chest pain over the course last few weeks. He did note some dark stool recently. He does have a history of colon cancer. He is receiving chemotherapy. He does take blood thinners as well. He denies having any chest pain at this time. He denies having any abdominal pain. He denies having any fever. He has had some slight cough. The patient did have a workup in triage and was placed in a room after a long period of time in the waiting room. ROS: See above HPI for pertinent positives & negatives. A total of 10 systems reviewed and were otherwise negative. PAST MEDICAL HISTORY: See Below PAST SURGICAL HISTORY: See Below FAMILY HISTORY: See Below SOCIAL HISTORY: See Below HOME MEDICATIONS: See Below ALLERGIES: See Below VITALS: See Below PHYSICAL EXAMINATION: GENERAL: Patient is awake alert in no acute distress patient is resting comfortably and showing no signs of anxiety EYES: The conjunctivae are clear. The pupils are round and reactive. EARS, NOSE, MOUTH AND THROAT: The nose is without any evidence of any deformity. NECK: The neck is nontender and supple. RESPIRATORY: Diminished breath sounds are noted throughout with rales mostly in the right lung field. There is no tachypnea or conversational dyspnea. CARDIOVASCULAR: Regular rate and rhythm noted there no murmurs rubs or gallops normal S1 normal S2. GASTROINTESTINAL: The abdomen is soft. Abdomen is nontender. Rectal exam revealed black stool which was strongly heme positive. MUSCULOSKELETAL/EXTREMITIES: There is no evidence of gross deformity full range of motion is noted in the hips and shoulders. SKIN: Pedal edema was noted bilaterally. NEUROLOGIC: Patient is awake alert and oriented x3. Strength was symmetric but diminished. MEDICAL DECISION MAKING: The patient is a 78-year-old male who presented to the emergency department for an evaluation of generalized weakness. He is also been noticing exertional chest pain and exertional dyspnea. The patient has a history of colon cancer. He does take blood thinners as well. The patient presented to the emergency department today with significant other. The patient also complained of dark stool. On physical exam this appears to be consistent with an upper GI bleed. The patient was treated with Protonix. He was also treated with blood transfusion. I did consent the patient for blood transfusion. I discussed patient's laboratory and radiographic studies with him. I also [facility] have agreed to evaluate the patient in the emergency department for further management and disposition. Triage Nursing notes reviewed. Prior medical records reviewed Vital Signs: reviewed and remarkable for elevated blood pressure. Differential diagnosis: Infection, dehydration, metabolic abnormality, hypo/hyperglycemia, electrolyte disturbance, anemia, hypoxia, cardiac sources, intracerebral event, toxicologic, neurologic, as well as other pathologies. ER treatment provided: See below Diagnostics interpreted by me: ECG: EKG was obtained in the emergency department. My interpretation is normal sinus rhythm at 79 bpm. There is no ectopy. There is no acute ST segment abnormalities noted. This was compared to a tracing from March 19, 2022. No changes were noted. Cardiac Monitoring: An order was placed for continuous cardiac monitoring. The monitor shows a rate of 91 bpm with sinus rhythm. Laboratory studies: As stated above and show below. Imaging studies: See below. Radiographic imaging was reviewed by myself Consultation(s): I discussed this case with Dr. Leung [facility] COURSE: Procedures: none Critical Care: I have personally spent greater than 45 minutes of critical care time in the direct management of this patient. This includes bedside care, interpretation of diagnostic studies, and testing, discussion with consultants, patient, and family members, and other required patient management activities. This 45 minutes is in excess of all separately billable procedures. Past Med/Surg History Medical History [place] (hard of hearing) wears hearing aids Diabetes mellitus, type 2 new dx, has not started metformin per Liver cancer dx 02/2022; current chemotherapy Colon cancer dx 02/2022; last chemo 08/30/22 Dysphagia (HFpEF) heart failure with preserved ejection fraction Second-degree heart block Sludge in gallbladder general surgery 01/27/22 "would not push to have [laparoscopic cholecystectomy] unless he has more symptoms..." Degenerative joint disease of right hip Pulmonary nodule Morbid obesity Carotid artery stenosis 50-69% stenosis L ICA, < 50% stenosis R ICA HTN (hypertension) controlled, stable per pt Macular degeneration [place] (hard of hearing) B/L DONATO Neuropathy feet bilat Atrial fibrillation follows with Dr. Stoddard; on eliquis COPD (chronic obstructive pulmonary disease) controlled, stable per pt; inh prn Sleep apnea [id number] GERD (gastroesophageal reflux disease) Surgical History Hx of colonoscopy 02/2022 History of ablation of neoplasm of liver 11/11/22, [facility] History of cataract surgery right/left Port-A-Cath in place (06/16/22) Insertion of Access Port, left subclavian(Left) - Christian Gomez MD, FACS [employer] [place] [facility] [place] of total right hip arthroplasty History of tooth extraction S/P aneurysm repair Percutaneous Endovascular Aneurysm Repair 08/11/2020: Grade 2 view, MAC 4, ETT 8. History of carpal tunnel release Right History of right knee joint replacement RT. 12/22/16: SAB at L3-L4 + PNB. Family History Mother Breast cancer Father Blindness Sister No problems noted. Grandfather (Paternal) Stroke Grandfather (Maternal) Heart disease Grandmother (Maternal) No problems noted. Grandmother (Paternal) Pneumonia Other Family history of breast cancer No family history of adverse response to anesthesia Denies family history of Ovarian cancer Prostate cancer Myocardial infarction Colorectal cancer Social History Smoking Status: Never smoker Tobacco Type: Pipe Age Started Using Tobacco: 22; Age Quit Using Tobacco: 67; Second Hand Exposure: Yes (hx as child); Do You Dip or Chew Tobacco: No; Hx Alcohol Use: No Hx Substance Use: No Preferred Language: Czech Communication Ability: Effective Visual Impairment: No Limitations Hearing Ability: Use of Hearing Aid Cafeteria Cashier Required: No Beliefs That Will Affect Care: None marital status: Current Living Situation: Spouse 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al status: retired 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; 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; How many Children do You have: 3 Feels Safe at Home: Yes Childhood Exposure to Second-Hand Smoke: Yes Diet: regular caffeine: Yes Dental Care, Regularly: Yes Physical Activity Frequency: Daily Seatbelt Use: always Sunscreen Use: Yes Assistive Devices: BiPap, Cane, Glasses, Hearing Aid - Bilateral and Scooter/Electric Scooter Allergies Allergies Allergy/AdvReac Type Severity Reaction Status Date / Time lisinopril Allergy Severe Angioedema Verified 03/26/23 20:03 adhesive Allergy Intermediate Rash Verified 03/26/23 20:03 latex Allergy Intermediate Contact Verified 03/26/23 20:03 dermatitis Home Meds Home Medications Medication Instructions Recorded Confirmed ascorbic acid (vitamin C) 500 mg 500 mg PO QPM 12/18/18 03/26/23 tablet coenzyme Q10 100 mg capsule 100 mg PO QAM 12/18/18 03/26/23 fluticasone propionate 50 2 sprays intranasal DAILY PRN 12/18/18 03/26/23 mcg/actuation nasal Congestion #16 grams spray,suspension Artichoke Extract 1 tab PO QAM cholesterol 02/06/20 03/26/23 vit C 250 mg-vit E 90 mg-zinc 40 1 tab PO BID 02/06/20 03/26/23 mg-copper 1 [id number] capsule (PreserVision AREDS-2) Barley Supplement 1 dose PO QPM 06/11/20 03/26/23 fiber 1 cap PO QPM 06/11/20 03/26/23 multivitamin 1 tab PO QAM 06/11/20 03/26/23 glucosamine 750 mx-vxgiomanpyx-ill 1 tab PO BID 09/16/21 03/26/23 no1 644 mg-C 30 mg-jesu 1 mg tablet (Osteo Bi-Flex Triple Strength) famotidine 20 mg tablet (Pepcid AC) 20 mg PO BID 01/12/22 03/26/23 magnesium oxide 250 mg PO QAM 01/25/22 03/26/23 melatonin 10 mg tablet 10 mg PO HS 01/25/22 03/26/23 ferrous fumarate 200 mg (65 mg 1 tab PO QAM 06/10/22 03/26/23 iron)-vit C 25 mg tablet,extend release (Vanessa-Sequels (iron-vit c)) furosemide 40 mg tablet (Lasix) 40 mg PO DAILY PRN edema 12/08/22 03/26/23 acetaminophen 325 mg tablet 650 mg PO TID PRN PAIN/FEVER 03/26/23 03/26/23 (Tylenol) Previous Rx's Medication Instructions Recorded Lift Chair #1 ea 05/11/21 Wheeled Walker #1 ea 01/21/22 albuterol sulfate 90 mcg/actuation 2 puff inhalation Q4H PRN 05/09/22 aerosol inhaler shortness of breath or wheezing #18 grams apixaban 5 mg tablet (Eliquis) 5 mg PO BID #180 tabs 05/30/22 potassium chloride 20 mEq 20 meq PO QAM #90 tabs 06/21/22 tablet,extended release atenolol 50 mg tablet 25 mg (1/2 x 50 mg) PO BID #90 tabs 06/24/22 hydrochlorothiazide 25 mg tablet 25 mg PO QPM #90 tabs 07/15/22 metformin 500 mg tablet,extended 500 mg PO BID #180 tabs 09/12/22 release 24 hr fluticasone 250 mcg-salmeterol 50 1 inh inhalation BID #60 ea 10/10/22 mcg/dose blistr powdr for inhalation (Advair Diskus) amiodarone 100 mg tablet (Pacerone) 100 mg PO QAM #90 tabs 02/22/23 Results & Data (ED) Vital Signs Vital Signs - 24 hr 03/26/23 16:00 03/26/23 19:32 03/26/23 19:58 Temperature 36.6 C Temperature Source Temporal Artery Scan Pulse Rate 78 82 Pulse Rate [Apical] 76 Pulse Rhythm Regular Pulse Strength Normal Respiratory Rate 20 22 Respiratory Effort / Characteristics Non-Labored Spontaneous Non-Labored Spontaneous Respiratory Depth Normal Normal Respiratory Pattern Regular Regular Blood Pressure 111/49 L Blood Pressure [Right Arm] 137/58 L Blood Pressure Mean 69 Blood Pressure Mean [Right Arm] 84 Blood Pressure Position Sitting Blood Pressure Position [Right Arm] Semi-fowlers Pulse Oximetry 93 93 Oxygen Delivery Method Room Air Room Air Sepsis Recent Fever Within 48 Hours No Sepsis New/Unexplained Change in Mental Status No Sepsis Action Taken by Nursing No Action Required 03/26/23 20:00 03/26/23 20:52 Temperature Temperature Source Pulse Rate 76 Pulse Rate [Apical] 91 H Pulse Rhythm Pulse Strength Respiratory Rate 20 22 Respiratory Effort / Characteristics Non-Labored Spontaneous Respiratory Depth Normal Respiratory Pattern Regular Blood Pressure Blood Pressure [Right Arm] 144/47 H Blood Pressure Mean Blood Pressure Mean [Right Arm] 79 Blood Pressure Position Blood Pressure Position [Right Arm] Lying Pulse Oximetry 95 95 Oxygen Delivery Method Room Air Room Air Sepsis Recent Fever Within 48 Hours Sepsis New/Unexplained Change in Mental Status Sepsis Action Taken by Retirement Medications Current Medication List: was personally reviewed by me Laboratory Data Attestation: I reviewed the patient's lab results. 03/26/23 17:40 03/26/23 17:40 Lab Results 03/26/23 03/26/23 03/26/23 Range/Units 17:30 17:35 17:40 WBC 16.71 H (4.8-10.8) K/ul RBC 2.39 L (4.70-6.10) M/uL Hgb 7.4 L (14.0-18.0) g/dl Hct 23.7 L (42.0-52.0) % MCV 99.2 (80.0-100.0) fL MCH 31.0 (25.0-34.0) pg MCHC 31.2 L (32.0-36.0) g/dL RDW Std Deviation 71.7 H (36.4-46.3) fL RDW Coeff of Salome 21.5 H (11.5-14.5) % Plt Count 106 L (130-400) K/uL MPV 11.5 (9.4-12.4) fL Immature Gran % (Auto) 4.4 % Neut % (Auto) 69.2 % Lymph % (Auto) 11.5 % Cherry % (Auto) 13.4 % Eos % (Auto) 1.0 % Baso % (Auto) 0.5 % Neut # (Auto) 11.55 H (1.40-6.50) K/uL Lymph # (Auto) 1.92 (1.20-3.40) K/uL Cherry # (Auto) 2.24 H (0.11-0.59) K/uL Eos # (Auto) 0.17 (0.00-0.50) K/uL Baso # (Auto) 0.09 (0.00-0.20) K/uL Immature Gran # (Auto) 0.74 H (0.01-0.20) K/uL Absolute Nucleated RBC 0.19 H (0.00-0.12) K/uL Nucleated RBC % (auto) 1.1 % Toxic Granulation 1+ Polychromasia 1+ Anisocytosis Present Stomatocytes 2+ PT 12.5 H (9.0-12.0) Seconds INR 1.2 H (0.9-1.1) APTT 24 (21-31) Seconds PTT Ratio 0.9 Sodium 144 (136-145) mmol/L Potassium 4.0 (3.5-5.1) mmol/L Chloride 107 (98-107) mmol/L Carbon Dioxide 29 (21-32) mmol/L Anion Gap 8 (3-11) BUN 51 H (6-23) mg/dl Creatinine 1.05 (0.6-1.4) mg/dl Est Cr Clr Drug Dosing Not Reportable Est GFR ( Amer) 79.5 ml/min Est GFR (Non-Af Amer) 68.6 ml/min BUN/Creatinine Ratio 48.6 H (10-20) Glucose 104 H (70-99(Fasting)) mg/dl Calcium 8.9 (8.6-10.3) mg/dl Magnesium 2.4 (1.7-2.4) mg/dl Total Bilirubin 0.6 (0.2-1.0) mg/dl AST 41 H (13-39) U/L ALT 33 (7-52) U/L Alkaline Phosphatase 130 H (34-104) U/L Troponin I High Sens 14.1 (0-20) pg/ml Total Protein 7.2 (6.0-8.3) gm/dl Albumin 3.3 L (3.4-5.0) gm/dl Globulin 3.9 (2.5-4.0) gm/dl Albumin/Globulin Ratio 0.8 L (0.9-2) Lipase 36 (11-82) U/L TSH 5.869 H (0.300-4.500) uIu/ml Free T4 0.96 (0.61-1.60) ng/dl Urine Color Yellow Urine Appearance Clear (Clear) Urine pH 6.0 (4.5-7.5) Ur Specific [place] 1.023 (1.000-1.030) Urine Protein Negative (Negative) Urine Glucose (UA) Negative (Negative) Urine Ketones Trace H (Negative) Urine Blood Negative (Negative) Urine Nitrite Negative (Negative) Urine Bilirubin Negative (Negative) Urine Urobilinogen Negative (Negative) Ur Leukocyte Esterase Negative (Negative) Adenovirus (PCR) Not Detected (NotDetected) B. pertussis DNA (PCR) Not Detected (NotDetected) B.parapertussis DNA PCR Not Detected (NotDetected) C. pneumoniae DNA (PCR) Not Detected (NotDetected) Coronavirus OC43 (PCR) Not Detected (NotDetected) Coronavirus HKU1 (PCR) Not Detected (NotDetected) Coronavirus 229E (PCR) Not Detected (NotDetected) SARS-CoV-2 (PCR) Not Detected (NotDetected) Coronavirus NL63 (PCR) Not Detected (NotDetected) Human Metapneumovir PCR Not Detected (NotDetected) Influenza Type A (PCR) Not Detected (NotDetected) Influenza Type B (PCR) Not Detected (NotDetected) M. pneumoniae (PCR) Not Detected (NotDetected) Parainfluenza 1 (PCR) Not Detected (NotDetected) Parainfluenza 2 (PCR) Not Detected (NotDetected) Parainfluenza 3 (PCR) Not Detected (NotDetected) Parainfluenza 4 (PCR) Not Detected (NotDetected) RSV (PCR) Not Detected (NotDetected) Entero/Rhino (PCR) Not Detected (NotDetected) Administered Medications Discontinued Medications Sodium Chloride (Nss) 500 mls @ 999 mls/hr IV .Q31M STA Stop: 03/26/23 16:33 Last Infusion: 03/26/23 20:03 Dose: Infused Documented By: Admin: 03/26/23 17:42 Dose: 999 mls/hr Documented By: TORREY Imaging Data Attestation: I personally reviewed and interpreted this imaging study as follows: My Impression: 1 view chest x-ray was obtained in the emergency department. My interpretation is no free air or definite infiltrate, final report below Radiologist's Impression: Chest X-Ray 03/26/23 16:03 SINGLE VIEW CHEST CLINICAL HISTORY: Atypical chest pain. FINDINGS: An AP, portable, upright chest radiograph is compared to study dated 03/17/2023 and correlated with chest CT dated 01/30/2023. A left subclavian central venous infusion port is unchanged in position. The heart is mildly enlarged noting atherosclerotic calcification of the thoracic aorta. The pulmonary vasculature is noncongested. Emphysema and chronic interstitial thickening is similar to previous. There is bibasilar scarring/atelectasis. No airspace consolidation or large pleural effusion is identified. No pneumothorax is seen. The skeletal structures are osteopenic. The bony thorax is grossly intact. Degenerative disc change is noted in the shoulders and thoracic spine. IMPRESSION: Cardiomegaly and emphysema with no acute cardiopulmonary abnormality. ACT 112: Negative or not required by law. Electronically signed by: Donte Canseco M.D. 03/26/2023 4:39 PM Discharge Plan Visit Data Chief Complaint: Illness Stated Complaint: HYPOTENSION ED Provider: Heriberto Bynum Discharge Problem: Acute upper gastrointestinal bleeding, Anemia, Weakness, Chest pain on exertion, Thrombocytopenia Patient Disposition: Being Evaluated by Hospitalist Forms Stand Alone Forms: [facility] Prescriptions Prescriptions: No Action (DME) Lift Chair Misc See Rx Instructions .Route Qty: 1 0RF Rx Instructions: As directed Dx:M51.36 Eliquis 5 mg tablet 5 mg PO BID Qty: 180 4RF potassium chloride 20 mEq tablet extended release 20 meq PO QAM Qty: 90 3RF atenolol 50 mg tablet 25 mg PO BID Qty: 90 3RF hydrochlorothiazide 25 mg tablet 25 mg PO QPM Qty: 90 3RF metformin 500 mg tablet extended release 24 hr 500 mg PO BID Qty: 180 3RF Patient Comments: has not started yet, waiting for rx to come Rx Instructions: 1 daily in am for 2 weeks then 1 twice a day amiodarone [Pacerone] 100 mg tablet 100 mg PO QAM Qty: 90 3RF albuterol sulfate 90 mcg/actuation HFA aerosol inhaler 2 puff inhalation Q4H PRN (Reason: shortness of breath or wheezing) Qty: 18 11RF fluticasone propion-salmeterol [Advair Diskus] 250-50 mcg/dose blister with device 1 inh inhalation BID Qty: 60 5RF Rx Instructions: WITH A RINSE OF MOUTH AFTERWARDS. fluticasone propionate 50 mcg/actuation spray,suspension 2 sprays intranasal DAILY PRN (Reason: Congestion) Qty: 16 coenzyme Q10 100 mg capsule 100 mg PO QAM ascorbic acid (vitamin C) 500 mg tablet 500 mg PO QPM Patient Comments: 500 MG PO DAILY; Osteo Bi-Flex Triple Strength 750 mg-644 mg- 30 mg-1 mg tablet 1 tab PO BID famotidine [Pepcid AC] 20 mg tablet 20 mg PO BID (DME) Wheeled Walker Misc See Rx Instructions .MEDSUPPLY Qty: 1 0RF Rx Instructions: As directed furosemide [Lasix] 40 mg tablet 40 mg PO DAILY PRN (Reason: edema) Hold Instructions: not using Artichoke Extract 0 mg 1 tab PO QAM PreserVision AREDS-2 [id number]-tfal-vi-mg Capsule 1 tab PO BID multivitamin Tablet 1 tab PO QAM fiber Capsule 1 cap PO QPM Barley Supplement 1 dose PO QPM acetaminophen [Tylenol] 325 mg Tablet 650 mg PO TID PRN (Reason: PAIN/FEVER) melatonin 10 mg Tablet 10 mg PO HS magnesium oxide 250 mg magnesium Tablet 250 mg PO QAM Vanessa-Sequels (iron-vit c) 200 mg (65 mg iron)-25 mg tablet extended release 1 tab PO QAM Referrals Referrals: Shweta Loyd MD [Primary Care Provider] - Discharge Problem: Anemia Qualifiers: Anemia type: unspecified type Qualified Code(s): D64.9 - Anemia, unspecified
--- NOTE | 2023-03-26 21:33 | History & Physical Report ---
Date of Service March 26, 2023 Assessment & Plan (1) GIB (gastrointestinal bleeding): Plan: 78yo male with history of colon cancer, diverticulosis and polyps, atrial fibrillation on Apixaban anticoagulation presenting with acute blood loss anemia from presumed GIB. Patient endorses symptomatic anemia with NIELSEN, exertional chest tightness, dizziness and lightheadedness. Heme+ stool in the ER Hgb of 7.4 from last 11.8 on 03/13/23 Patient is hemodynamically stable. No abdominal pain -Admit to medical with telemetry -Keep patient NPO -Maintain two large PIVs. Patient with 18g and 20g. He does have a port in left chest as well -Transfuse 2u PRBCs -Repeat CBC in AM -Protonix 40mg IV BID -Pepcid 20mg IV BID -GI consultation appreciated (2) Paroxysmal atrial fibrillation: Plan: Rate controlled. 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 He has also become more lightheaded and dizzy as well and has been unable to walk very far. Patient was recently diagnosed with bronchitis and was started on Augmentin. He had some mild symptoms with this but overall his symptoms started acutely yesterday. Patient reports that his stools are always black in color due to the iron supplement that he takes. He has had some constipation as well as nausea as well. Otherwise, denies fever, chills, cough, abdominal pain, GERD symptoms, vomiting or diarrhea. No urinary complaints. In the ER he is afebrile, elevated HR, BP is stable. Rectal exam with black stool, grossly Heme positive ER Course: Protonix 40mg iV NSS x 500mL Allergies Allergy/AdvReac Type Severity Reaction Status Date / Time lisinopril Allergy Severe Angioedema Verified 03/26/23 20:03 adhesive Allergy Intermediate Rash Verified 03/26/23 20:03 latex Allergy Intermediate Contact Verified 03/26/23 20:03 dermatitis Home Medications Medication Instructions Recorded Confirmed Type ascorbic acid (vitamin C) 500 mg 500 mg PO QPM 12/18/18 03/26/23 History tablet coenzyme Q10 100 mg capsule 100 mg PO QAM 12/18/18 03/26/23 History fluticasone propionate 50 2 sprays intranasal DAILY PRN 12/18/18 03/26/23 History mcg/actuation nasal Congestion #16 grams spray,suspension Artichoke Extract 1 tab PO QAM cholesterol 02/06/20 03/26/23 History vit C 250 mg-vit E 90 mg-zinc 40 1 tab PO BID 02/06/20 03/26/23 History mg-copper 1 bc-bajscu-maelya capsule (PreserVision AREDS-2) Barley Supplement 1 dose PO QPM 06/11/20 03/26/23 History fiber 1 cap PO QPM 06/11/20 03/26/23 History multivitamin 1 tab PO QAM 06/11/20 03/26/23 History Lift Chair #1 ea 05/11/21 03/17/23 Rx glucosamine 750 pg-hgtmdgzbcrm-jco 1 tab PO BID 09/16/21 03/26/23 History no1 644 mg-C 30 mg-jesu 1 mg tablet (Osteo Bi-Flex Triple Strength) famotidine 20 mg tablet (Pepcid AC) 20 mg PO BID 01/12/22 03/26/23 History Wheeled Walker #1 ea 01/21/22 03/17/23 Rx magnesium oxide 250 mg PO QAM 01/25/22 03/26/23 History melatonin 10 mg tablet 10 mg PO HS 01/25/22 03/26/23 History albuterol sulfate 90 mcg/actuation 2 puff inhalation Q4H PRN 05/09/22 03/26/23 Rx aerosol inhaler shortness of breath or wheezing #18 grams apixaban 5 mg tablet (Eliquis) 5 mg PO BID #180 tabs 05/30/22 03/26/23 Rx ferrous fumarate 200 mg (65 mg 1 tab PO QAM 06/10/22 03/26/23 History iron)-vit C 25 mg tablet,extend release (Vanessa-Sequels (iron-vit c)) potassium chloride 20 mEq 20 meq PO QAM #90 tabs 06/21/22 03/26/23 Rx tablet,extended release atenolol 50 mg tablet 25 mg (1/2 x 50 mg) PO BID #90 tabs 06/24/22 03/26/23 Rx hydrochlorothiazide 25 mg tablet 25 mg PO QPM #90 tabs 07/15/22 03/26/23 Rx metformin 500 mg tablet,extended 500 mg PO BID #180 tabs 09/12/22 03/26/23 Rx release 24 hr fluticasone 250 mcg-salmeterol 50 1 inh inhalation BID #60 ea 10/10/22 03/26/23 Rx mcg/dose blistr powdr for inhalation (Advair Diskus) furosemide 40 mg tablet (Lasix) 40 mg PO DAILY PRN edema 12/08/22 03/26/23 History amiodarone 100 mg tablet (Pacerone) 100 mg PO QAM #90 tabs 02/22/23 03/26/23 Rx acetaminophen 325 mg tablet 650 mg PO TID PRN PAIN/FEVER 03/26/23 03/26/23 History (Tylenol) Past Med/Surg History Medical History [place] (hard of hearing) wears hearing aids Diabetes mellitus, type 2 new dx, has not started metformin per Liver cancer dx 02/2022; current chemotherapy Colon cancer dx 02/2022; last chemo 08/30/22 Dysphagia (HFpEF) heart failure with preserved ejection fraction Second-degree heart block Sludge in gallbladder general surgery 01/27/22 "would not push to have [laparoscopic cholecystectomy] unless he has more symptoms..." Degenerative joint disease of right hip Pulmonary nodule Morbid obesity Carotid artery stenosis 50-69% stenosis L ICA, < 50% stenosis R ICA HTN (hypertension) controlled, stable per pt Macular degeneration [place] (hard of hearing) B/L DONATO Neuropathy feet bilat Atrial fibrillation follows with Dr. Stoddard; on eliquis COPD (chronic obstructive pulmonary disease) controlled, stable per pt; inh prn Sleep apnea Lz-BGH-fhyerfvul GERD (gastroesophageal reflux disease) Surgical History Hx of colonoscopy 02/2022 History of ablation of neoplasm of liver 11/11/22, [facility] History of cataract surgery right/left Port-A-Cath in place (06/16/22) Insertion of Access Port, left subclavian(Left) - Christian Gomez MD, FACS [facility] Hx of endoscopic retrograde [place]angiopancreatography [facility] [place] of total right hip arthroplasty History of tooth extraction S/P aneurysm repair Percutaneous Endovascular Aneurysm Repair 08/11/2020: Grade 2 view, MAC 4, ETT 8. History of carpal tunnel release Right History of right knee joint replacement RT. 12/22/16: SAB at L3-L4 + PNB. Family History Mother Breast cancer Father Blindness Sister No problems noted. Grandfather (Paternal) Stroke Grandfather (Maternal) Heart disease Grandmother (Maternal) No problems noted. Grandmother (Paternal) Pneumonia Other Family history of breast cancer No family history of adverse response to anesthesia Denies family history of Ovarian cancer Prostate cancer Myocardial infarction Colorectal cancer Social History Smoking Status: Never smoker Tobacco Type: Pipe Age Started Using Tobacco: 22; Age Quit Using Tobacco: 67; Second Hand Exposure: Yes (hx as child); Do You Dip or Chew Tobacco: No; Hx Alcohol Use: No Hx Substance Use: No Preferred Language: Israeli Communication Ability: Effective Visual Impairment: No Limitations Hearing Ability: Use of Hearing Aid Anesthesiology Resident Required: No Beliefs That Will Affect Care: None marital status: Current Living Situation: Spouse 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al status: retired 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; 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; How many Children do You have: 3 Feels Safe at Home: Yes Childhood Exposure to Second-Hand Smoke: Yes Diet: regular caffeine: Yes Dental Care, Regularly: Yes Physical Activity Frequency: Daily Seatbelt Use: always Sunscreen Use: Yes Assistive Devices: BiPap, Cane, Glasses, Hearing Aid - Bilateral and Scooter/Electric Scooter Review of Systems Review of Systems: All systems reviewed & are unremarkable except as noted in HPI & below Physical Exam Physical Exam: General: patient resting comfortably, NAD, non-toxic in appearance, AA&O x 4 Skin: warm, dry, intact, no rashes or lesions HEENT: NC/AT, PERRL, EOMI, anicteric sclera, conjunctiva without injection, external ear normal to inspection and nontender, nares patent, dry mucus membranes, dentition intact, no oropharyngeal lesions, neck supple, trachea midline, no LAD, no thyromegaly, no JVD Heart: +S1/S2, irregularly irregular, no m/r/g, port in left chest Lungs: equal air entry bilaterally, no rales/rhonchi/wheezes Abd: +BS, soft, NT/ND, no masses/organomegaly/ascites Ext: warm, 2+ pulses in UE/LE bilaterally, no clubbing/cyanosis or edema Neuro: nonfocal, patient AA&O x 4, speech intact, no facial droop, moving all extremities on command with equal strength 5/5 Results & Data Results & Data Vital Signs (Past 12 Hours) Vital Signs Temp Pulse Pulse Resp BP BP Pulse Ox 03/26/23 20:52 91 H 22 144/47 H 95 03/26/23 20:00 76 20 95 03/26/23 19:58 76 22 137/58 L 93 03/26/23 19:32 82 03/26/23 16:00 36.6 C 78 20 111/49 L 93 O2 Del Method 03/26/23 20:52 Room Air 03/26/23 20:00 Room Air 03/26/23 19:58 Room Air 03/26/23 19:32 03/26/23 16:00 Room Air Laboratory Results Laboratory Results WBC 16.71 K/ul (4.8-10.8) H 03/26/23 17:40 RBC 2.39 M/uL (4.70-6.10) L 03/26/23 17:40 Hgb 7.4 g/dl (14.0-18.0) L 03/26/23 17:40 Hct 23.7 % (42.0-52.0) L 03/26/23 17:40 MCV 99.2 fL (80.0-100.0) 03/26/23 17:40 MCH 31.0 pg (25.0-34.0) 03/26/23 17:40 MCHC 31.2 g/dL (32.0-36.0) L 03/26/23 17:40 RDW Std Deviation 71.7 fL (36.4-46.3) H 03/26/23 17:40 RDW Coeff of Salome 21.5 % (11.5-14.5) H 03/26/23 17:40 Plt Count 106 K/uL (130-400) L 03/26/23 17:40 MPV 11.5 fL (9.4-12.4) 03/26/23 17:40 Immature Gran % (Auto) 4.4 % 03/26/23 17:40 Neut % (Auto) 69.2 % 03/26/23 17:40 Lymph % (Auto) 11.5 % 03/26/23 17:40 [place] % (Auto) 13.4 % 03/26/23 17:40 Eos % (Auto) 1.0 % 03/26/23 17:40 Baso % (Auto) 0.5 % 03/26/23 17:40 Neut # (Auto) 11.55 K/uL (1.40-6.50) H 03/26/23 17:40 Lymph # (Auto) 1.92 K/uL (1.20-3.40) 03/26/23 17:40 [place] # (Auto) 2.24 K/uL (0.11-0.59) H 03/26/23 17:40 Eos # (Auto) 0.17 K/uL (0.00-0.50) 03/26/23 17:40 Baso # (Auto) 0.09 K/uL (0.00-0.20) 03/26/23 17:40 Immature Gran # (Auto) 0.74 K/uL (0.01-0.20) H 03/26/23 17:40 Absolute Nucleated RBC 0.19 K/uL (0.00-0.12) H 03/26/23 17:40 Nucleated RBC % (auto) 1.1 % 03/26/23 17:40 Toxic Granulation 1+ 03/26/23 17:40 Polychromasia 1+ 03/26/23 17:40 Anisocytosis Present 03/26/23 17:40 Stomatocytes 2+ 03/26/23 17:40 PT 12.5 Seconds (9.0-12.0) H 03/26/23 17:40 INR 1.2 (0.9-1.1) H 03/26/23 17:40 APTT 24 Seconds (21-31) 03/26/23 17:40 PTT Ratio 0.9 03/26/23 17:40 Sodium 144 mmol/L (136-145) 03/26/23 17:40 Potassium 4.0 mmol/L (3.5-5.1) 03/26/23 17:40 Chloride 107 mmol/L (98-107) 03/26/23 17:40 Carbon Dioxide 29 mmol/L (21-32) 03/26/23 17:40 Anion Gap 8 (3-11) 03/26/23 17:40 BUN 51 mg/dl (6-23) H 03/26/23 17:40 Creatinine 1.05 mg/dl (0.6-1.4) 03/26/23 17:40 Est Cr Clr Drug Dosing Not Reportable 03/26/23 17:40 Est GFR ( Amer) 79.5 ml/min 03/26/23 17:40 Est GFR (Non-Af Amer) 68.6 ml/min 03/26/23 17:40 BUN/Creatinine Ratio 48.6 (10-20) H 03/26/23 17:40 Glucose 104 mg/dl (70-99(Fasting)) H 03/26/23 17:40 Calcium 8.9 mg/dl (8.6-10.3) 03/26/23 17:40 Magnesium 2.4 mg/dl (1.7-2.4) 03/26/23 17:40 Total Bilirubin 0.6 mg/dl (0.2-1.0) 03/26/23 17:40 AST 41 U/L (13-39) H 03/26/23 17:40 ALT 33 U/L (7-52) 03/26/23 17:40 Alkaline Phosphatase 130 U/L (34-104) H 03/26/23 17:40 Troponin I High Sens 15.1 pg/ml (0-20) 03/26/23 21:20 Total Protein 7.2 gm/dl (6.0-8.3) 03/26/23 17:40 Albumin 3.3 gm/dl (3.4-5.0) L 03/26/23 17:40 Globulin 3.9 gm/dl (2.5-4.0) 03/26/23 17:40 Albumin/Globulin Ratio 0.8 (0.9-2) L 03/26/23 17:40 Lipase 36 U/L (11-82) 03/26/23 17:40 TSH 5.869 uIu/ml (0.300-4.500) H 03/26/23 17:40 Free T4 0.96 ng/dl (0.61-1.60) 03/26/23 17:40 Urine Color Yellow 03/26/23 17:30 Urine Appearance Clear (Clear) 03/26/23 17:30 Urine pH 6.0 (4.5-7.5) 03/26/23 17:30 Ur Specific [place] 1.023 (1.000-1.030) 03/26/23 17:30 Urine Protein Negative (Negative) 03/26/23 17:30 Urine Glucose (UA) Negative (Negative) 03/26/23 17:30 Urine Ketones Trace (Negative) H 03/26/23 17:30 Urine Blood Negative (Negative) 03/26/23 17:30 Urine Nitrite Negative (Negative) 03/26/23 17:30 Urine Bilirubin Negative (Negative) 03/26/23 17:30 Urine Urobilinogen Negative (Negative) 03/26/23 17:30 Ur Leukocyte Esterase Negative (Negative) 03/26/23 17:30 Adenovirus (PCR) Not Detected (NotDetected) 03/26/23 17:35 B. pertussis DNA (PCR) Not Detected (NotDetected) 03/26/23 17:35 B.parapertussis DNA PCR Not Detected (NotDetected) 03/26/23 17:35 C. pneumoniae DNA (PCR) Not Detected (NotDetected) 03/26/23 17:35 Coronavirus OC43 (PCR) Not Detected (NotDetected) 03/26/23 17:35 Coronavirus HKU1 (PCR) Not Detected (NotDetected) 03/26/23 17:35 Coronavirus 229E (PCR) Not Detected (NotDetected) 03/26/23 17:35 SARS-CoV-2 (PCR) Not Detected (NotDetected) 03/26/23 17:35 Coronavirus NL63 (PCR) Not Detected (NotDetected) 03/26/23 17:35 Human Metapneumovir PCR Not Detected (NotDetected) 03/26/23 17:35 Influenza Type A (PCR) Not Detected (NotDetected) 03/26/23 17:35 Influenza Type B (PCR) Not Detected (NotDetected) 03/26/23 17:35 M. pneumoniae (PCR) Not Detected (NotDetected) 03/26/23 17:35 Parainfluenza 1 (PCR) Not Detected (NotDetected) 03/26/23 17:35 Parainfluenza 2 (PCR) Not Detected (NotDetected) 03/26/23 17:35 Parainfluenza 3 (PCR) Not Detected (NotDetected) 03/26/23 17:35 Parainfluenza 4 (PCR) Not Detected (NotDetected) 03/26/23 17:35 RSV (PCR) Not Detected (NotDetected) 03/26/23 17:35 Entero/Rhino (PCR) Not Detected (NotDetected) 03/26/23 17:35 Blood Type A Positive 03/26/23 21:20 Antibody Screen NEGATIVE 03/26/23 21:20 Crossmatch See Detail 03/26/23 21:20 Impressions Chest X-Ray 03/26/23 16:03 SINGLE VIEW CHEST CLINICAL HISTORY: Atypical chest pain. FINDINGS: An AP, portable, upright chest radiograph is compared to study dated 03/17/2023 and correlated with chest CT dated 01/30/2023. A left subclavian central venous infusion port is unchanged in position. The heart is mildly enlarged noting atherosclerotic calcification of the thoracic aorta. The pulmonary vasculature is noncongested. Emphysema and chronic interstitial thickening is similar to previous. There is bibasilar scarring/atelectasis. No airspace consolidation or large pleural effusion is identified. No pneumothorax is seen. The skeletal structures are osteopenic. The bony thorax is grossly intact. Degenerative disc change is noted in the shoulders and thoracic spine. IMPRESSION: Cardiomegaly and emphysema with no acute cardiopulmonary abnormality. ACT 112: Negative or not required by law. Electronically signed by: Donte Canseco M.D. 03/26/2023 4:39 PM Code Status & VTE Plan VTE Prophylaxis Plan VTE Prophylaxis will be ordered: Yes PG Care Time/CCT Total # of Minutes Spent Total Time Spent with Patient: Total time spent is greater than 50% in coordination of care (as documented) at patient's floor/unit and/or counseling patient: Coding Level of Care Code 97459 INT INP/OBS CARE 3/75MIN Diagnoses GIB (gastrointestinal bleeding) K92.2 Paroxysmal atrial fibrillation I48.0 GERRY (obstructive sleep apnea) G47.33 Hypertension I10
[2023-03-27] MEDS ORDERED: ALBUTEROL HFA 8 GM INHALER INH PRN (01:20)
[2023-03-27] MEDS ORDERED: bisacodyL 10 MG SUPP PR PRN (01:20)
[2023-03-27 08:54] LABS: Hematocrit (blood only) 26.4 % (42.0-52.0); Hemoglobin 8.5 g/dl (14.0-18.0); Mean Corpuscular Hemoglobin 30.4 pg (25.0-34.0); Mean Corpuscular Hgb Conc 32.2 g/dL (32.0-36.0); Mean Corpuscular Volume 94.3 fL (80.0-100.0); Mean Platelet Volume 11.3 fL (9.4-12.4); Nucleated RBC # (auto) 0.13 K/uL (0.00-0.12); Nucleated RBC % (auto) 0.8 %; Platelet Count 110 K/uL (130-400); RDW Coefficient of Variation 21.4 % (11.5-14.5); White Blood Count 15.61 K/ul (4.8-10.8)
[2023-03-27] MEDS ORDERED: FAMOTIDINE 20 MG in SYRINGE 3 ML IV SCH (09:00)
[2023-03-27] MEDS ORDERED: PANTOprazole 40 MG in SYRINGE 0 ML IV SCH (09:00)
--- NOTE | 2023-03-27 09:10 | Gastrointestinal Consultation ---
Date of Consultation March 27, 2023 Assessment & Plan (1) Colon cancer metastasized to liver: (2) ABLA (acute blood loss anemia): (3) GIB (gastrointestinal bleeding): Continue Protonix 40 mg IV BID Transfuse PRN to maintain H/H around 8/24 as per hospitalist team Hold Apixaban at present Continue supportive care EGD now to evaluate for source of Upper GI bleeding History of Present Illness Reason for Consultation: Upper GI bleed Attending Physician: Mikel Fischer MD History of Present Illness Ross Ghosh is a 78 yo CM with an extensive PMHx including metastatic colon CA s/p chemo and Afib on chronic anticoagulation who presented to the ER last night with complaints of lightheadedness, dizziness, NIELSEN and chest tightness. Upon arrival to the ER, he was noted to have an H/H of 7.4/23.7. He did have heme + stool in the ER. He states that he has had several black bowel movements over the past week, however, he is taking an oral iron supplement, and often has black BM's. He was transfused 2 u PRBC and had an increase in his Hgb to 8.5. He was also started on Protonix 40 mg IV BID. His last EGD was in [address] Scott, and he was noted to have a Hiatal hernia at the time, but no other significant findings. He denies any current chest pain, SOB, lightheadedness or dizziness. He further denies any fevers, chills, nausea, vomiting, diarrhea, hematemesis, or BRBPR. He has no further complaints. Allergies Allergy/AdvReac Type Severity Reaction Status Date / Time lisinopril Allergy Severe Angioedema Verified 03/26/23 20:03 adhesive Allergy Intermediate Rash Verified 03/26/23 20:03 latex Allergy Intermediate Contact Verified 03/26/23 20:03 dermatitis Home Medications Medication Instructions Recorded Confirmed Type ascorbic acid (vitamin C) 500 mg 500 mg PO QPM 12/18/18 03/26/23 History tablet coenzyme Q10 100 mg capsule 100 mg PO QAM 12/18/18 03/26/23 History fluticasone propionate 50 2 sprays intranasal DAILY PRN 12/18/18 03/26/23 History mcg/actuation nasal Congestion #16 grams spray,suspension Artichoke Extract 1 tab PO QAM cholesterol 02/06/20 03/26/23 History vit C 250 mg-vit E 90 mg-zinc 40 1 tab PO BID 02/06/20 03/26/23 History mg-copper 1 yo-xnjekr-qkytig capsule (PreserVision AREDS-2) Barley Supplement 1 dose PO QPM 06/11/20 03/26/23 History fiber 1 cap PO QPM 06/11/20 03/26/23 History multivitamin 1 tab PO QAM 06/11/20 03/26/23 History Lift Chair #1 ea 05/11/21 03/17/23 Rx glucosamine 750 mg-rckikxxtajw-sxy 1 tab PO BID 09/16/21 03/26/23 History no1 644 mg-C 30 mg-jesu 1 mg tablet (Osteo Bi-Flex Triple Strength) famotidine 20 mg tablet (Pepcid AC) 20 mg PO BID 01/12/22 03/26/23 History Wheeled Walker #1 ea 01/21/22 03/17/23 Rx magnesium oxide 250 mg PO QAM 01/25/22 03/26/23 History melatonin 10 mg tablet 10 mg PO HS 01/25/22 03/26/23 History albuterol sulfate 90 mcg/actuation 2 puff inhalation Q4H PRN 05/09/22 03/26/23 Rx aerosol inhaler shortness of breath or wheezing #18 grams apixaban 5 mg tablet (Eliquis) 5 mg PO BID #180 tabs 05/30/22 03/26/23 Rx ferrous fumarate 200 mg (65 mg 1 tab PO QAM 06/10/22 03/26/23 History iron)-vit C 25 mg tablet,extend release (Vanessa-Sequels (iron-vit c)) potassium chloride 20 mEq 20 meq PO QAM #90 tabs 06/21/22 03/26/23 Rx tablet,extended release atenolol 50 mg tablet 25 mg (1/2 x 50 mg) PO BID #90 tabs 06/24/22 03/26/23 Rx hydrochlorothiazide 25 mg tablet 25 mg PO QPM #90 tabs 07/15/22 03/26/23 Rx metformin 500 mg tablet,extended 500 mg PO BID #180 tabs 09/12/22 03/26/23 Rx release 24 hr fluticasone 250 mcg-salmeterol 50 1 inh inhalation BID #60 ea 10/10/22 03/26/23 Rx mcg/dose blistr powdr for inhalation (Advair Diskus) furosemide 40 mg tablet (Lasix) 40 mg PO DAILY PRN edema 12/08/22 03/26/23 History amiodarone 100 mg tablet (Pacerone) 100 mg PO QAM #90 tabs 02/22/23 03/26/23 Rx acetaminophen 325 mg tablet 650 mg PO TID PRN PAIN/FEVER 03/26/23 03/26/23 History (Tylenol) Patient History Medical History [place] (hard of hearing) wears hearing aids Diabetes mellitus, type 2 new dx, has not started metformin per Liver cancer dx 02/2022; current chemotherapy Colon cancer dx 02/2022; last chemo 08/30/22 Dysphagia (HFpEF) heart failure with preserved ejection fraction Second-degree heart block Sludge in gallbladder general surgery 01/27/22 "would not push to have [laparoscopic cholecystectomy] unless he has more symptoms..." Degenerative joint disease of right hip Pulmonary nodule Morbid obesity Carotid artery stenosis 50-69% stenosis L ICA, < 50% stenosis R ICA HTN (hypertension) controlled, stable per pt Macular degeneration [place] (hard of hearing) B/L DONATO Neuropathy feet bilat Atrial fibrillation follows with Dr. Stoddard; on eliquis COPD (chronic obstructive pulmonary disease) controlled, stable per pt; inh prn Sleep apnea Vx-LTU-dblcnxkag GERD (gastroesophageal reflux disease) Surgical History Hx of colonoscopy 02/2022 History of ablation of neoplasm of liver 11/11/22, [facility] History of cataract surgery right/left Port-A-Cath in place (06/16/22) Insertion of Access Port, left subclavian(Left) - Christian Gomez MD, FACS [employer] Hx of endoscopic retrograde cholangiopancreatography [facility] [place] of total right hip arthroplasty History of tooth extraction S/P aneurysm repair Percutaneous Endovascular Aneurysm Repair 08/11/2020: Grade 2 view, MAC 4, ETT 8. History of carpal tunnel release Right History of right knee joint replacement RT. 12/22/16: SAB at L3-L4 + PNB. Family History Mother Breast cancer Father Blindness Sister No problems noted. Grandfather (Paternal) Stroke Grandfather (Maternal) Heart disease Grandmother (Maternal) No problems noted. Grandmother (Paternal) Pneumonia Other Family history of breast cancer No family history of adverse response to anesthesia Denies family history of Ovarian cancer Prostate cancer Myocardial infarction Colorectal cancer Social History Smoking Status: Never smoker Tobacco Type: Pipe Age Started Using Tobacco: 22; Age Quit Using Tobacco: 67; Second Hand Exposure: Yes (hx as child); Do You Dip or Chew Tobacco: No; Hx Alcohol Use: No Hx Substance Use: No Preferred Language: Swedish Communication Ability: Effective Visual Impairment: No Limitations Hearing Ability: Use of Hearing Aid Derrick Follower Required: No Beliefs That Will Affect Care: None marital status: Current Living Situation: Spouse 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al status: retired 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; 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 [employer]; How many Children do You have: 3 Feels Safe at Home: Yes Childhood Exposure to Second-Hand Smoke: Yes Diet: regular caffeine: Yes Dental Care, Regularly: Yes Physical Activity Frequency: Daily Seatbelt Use: always Sunscreen Use: Yes Assistive Devices: BiPap, Cane, Glasses, Hearing Aid - Bilateral and Scooter/Electric Scooter Review of Systems Review of Systems: All systems reviewed & are unremarkable except as noted in Subjective Physical Exam Constitutional: WD/WN, vitals as above (Chronic ill-appearing, NAD) Respiratory: normal respiratory effort, lungs clear to auscultation Cardiovascular: Rate/Rhythm: + irregularly irregular Gastrointestinal (Abdomen): normal bowel sounds, soft, nontender, no hepatosplenomegaly Skin: no rashes, warm and dry Psychiatric: A+Ox3, euthymic affect Results & Data Vital Signs (Past 12 Hours) Vital Signs Temp Pulse Pulse Resp BP BP Pulse Ox 03/27/23 07:18 75 03/27/23 06:07 79 16 120/86 94 03/27/23 06:00 80 16 120/86 92 03/27/23 05:37 79 16 149/77 H 91 03/27/23 04:42 76 16 136/61 92 01/01/24 04:37 76 16 136/61 92 03/27/23 04:07 36.7 C 81 16 122/65 92 03/27/23 03:52 36.8 C 77 20 138/71 94 03/27/23 03:32 36.9 C 78 20 139/66 93 03/27/23 02:10 82 16 130/61 94 03/27/23 02:03 36.7 C 84 22 145/69 H 97 03/27/23 02:00 81 16 95 03/27/23 01:51 81 03/27/23 01:03 36.8 C 78 20 103/64 94 03/27/23 00:03 79 20 152/60 H 93 03/26/23 23:33 36.8 C 83 20 121/76 94 03/26/23 23:29 84 03/26/23 23:18 36.9 C 80 19 138/60 94 03/26/23 23:00 36.8 C 85 20 129/57 L 92 03/26/23 21:54 94 03/26/23 21:52 89 L O2 Del Method O2 Flow Rate 03/27/23 07:18 03/27/23 06:07 2 03/27/23 06:00 Nasal Cannula 2 03/27/23 05:37 2 03/27/23 04:42 Nasal Cannula 2 03/27/23 04:37 2 03/27/23 04:07 2 03/27/23 03:52 2 03/27/23 03:32 2 03/27/23 02:10 2 03/27/23 02:03 2 03/27/23 02:00 Room Air 2 03/27/23 01:51 03/27/23 01:03 2 03/27/23 00:03 2 03/26/23 23:33 2 03/26/23 23:29 03/26/23 23:18 2 03/26/23 23:00 2 03/26/23 21:54 Nasal Cannula 2 03/26/23 21:52 Room Air PG Care Time/CCT Total # of Minutes Spent Total Time Spent with Patient: Total time spent is greater than 50% in coordination of care (as documented) at patient's floor/unit and/or counseling patient: Coding Level of Care Code 41050 INT INP/OBS CARE 3/75MIN Diagnoses Colon cancer metastasized to liver C18.9; C78.7 ABLA (acute blood loss anemia) D62 GIB (gastrointestinal bleeding) K92.2
[2023-03-27 09:12] LABS: BUN Creatinine Ratio 46.5 (10-20); Bilirubin Direct 0.2 mg/dl (0-0.2); Bilirubin,Total 0.8 mg/dl (0.2-1.0); Calcium 8.4 mg/dl (8.6-10.3); Creatinine Clr Calc Pharmacy 95.1 ml/min; Est GFR (African American) 97.6 ml/min; Est GFR (Non-African American) 84.2 ml/min; Potassium 3.7 mmol/L (3.5-5.1); Total Protein 6.4 gm/dl (6.0-8.3)
[2023-03-27] MEDS: FLUTICASONE PROPIONATE NA SPR 16 GM BTL PRN (09:18)
[2023-03-27] MEDS: FLUTICASONE/VILANTEROL 100/25MCG 14 PUFFS/INHALER INH SCH (09:18)
[2023-03-27] MEDS: ATENOLOL 25 MG TABLET PO SCH ×2 (09:19→20:20)
[2023-03-27] MEDS: AMIODARONE 200 MG TAB PO SCH (09:19)
--- NOTE | 2023-03-27 11:02 | Anesthesiology Consultation ---
Date of Service March 27, 2023 Assessment & Plan Chart Review Chart Review: Acceptable Risk for Surgery and Patient NOT seen in Pre Admission Testing Consults Requested none ASA ASA4 Proposed Anesthesia Anesthesia Type: MAC Risk / Benefits Reviewed With: PT / POA / Parent / Guardian, Accepts Plan and Informed Consent Obtained History Surgery Operation Date: 03/27/23 10:00 Proposed Procedures p EGD Dr. Gunner Car Case, DO Height/Weight Height: 5 ft 9 in Weight: 124 kg Allergies Allergy/AdvReac Type Severity Reaction Status Date / Time lisinopril Allergy Severe Angioedema Verified 03/26/23 20:03 adhesive Allergy Intermediate Rash Verified 03/26/23 20:03 latex Allergy Intermediate Contact Verified 03/26/23 20:03 dermatitis Medications Home Medications Medication Instructions Recorded Confirmed Last Taken ascorbic acid (vitamin C) 500 mg 500 mg PO QPM 12/18/18 03/26/23 03/25/23 tablet coenzyme Q10 100 mg capsule 100 mg PO QAM 12/18/18 03/26/23 03/26/23 fluticasone propionate 50 2 sprays intranasal DAILY PRN 12/18/18 03/26/23 11/23/22 mcg/actuation nasal Congestion #16 grams spray,suspension Artichoke Extract 1 tab PO QAM cholesterol 02/06/20 03/26/23 03/26/23 vit C 250 mg-vit E 90 mg-zinc 40 1 tab PO BID 02/06/20 03/26/23 03/26/23 mg-copper 1 [id number] capsule (PreserVision AREDS-2) Barley Supplement 1 dose PO QPM 06/11/20 03/26/23 03/25/23 fiber 1 cap PO QPM 06/11/20 03/26/23 03/25/23 multivitamin 1 tab PO QAM 06/11/20 03/26/23 03/26/23 Lift Chair #1 ea 05/11/21 03/17/23 Unknown glucosamine 750 [id number] 1 tab PO BID 09/16/21 03/26/23 03/26/23 no1 644 mg-C 30 mg-jesu 1 mg tablet (Osteo Bi-Flex Triple Strength) famotidine 20 mg tablet (Pepcid AC) 20 mg PO BID 01/12/22 03/26/23 03/26/23 Wheeled Walker #1 ea 01/21/22 03/17/23 Unknown magnesium oxide 250 mg PO QAM 01/25/22 03/26/23 03/26/23 melatonin 10 mg tablet 10 mg PO HS 01/25/22 03/26/23 03/25/23 albuterol sulfate 90 mcg/actuation 2 puff inhalation Q4H PRN 05/09/22 03/26/23 09/18/22 aerosol inhaler shortness of breath or wheezing #18 grams apixaban 5 mg tablet (Eliquis) 5 mg PO BID #180 tabs 05/30/22 03/26/23 03/26/23 ferrous fumarate 200 mg (65 mg 1 tab PO QAM 06/10/22 03/26/23 03/26/23 iron)-vit C 25 mg tablet,extend release (Vanessa-Sequels (iron-vit c)) potassium chloride 20 mEq 20 meq PO QAM #90 tabs 06/21/22 03/26/23 03/26/23 tablet,extended release atenolol 50 mg tablet 25 mg (1/2 x 50 mg) PO BID #90 tabs 06/24/22 03/26/23 03/26/23 hydrochlorothiazide 25 mg tablet 25 mg PO QPM #90 tabs 07/15/22 03/26/23 03/25/23 metformin 500 mg tablet,extended 500 mg PO BID #180 tabs 09/12/22 03/26/23 03/26/23 release 24 hr fluticasone 250 mcg-salmeterol 50 1 inh inhalation BID #60 ea 10/10/22 03/26/23 03/26/23 mcg/dose blistr powdr for inhalation (Advair Diskus) furosemide 40 mg tablet (Lasix) 40 mg PO DAILY PRN edema 12/08/22 03/26/23 Unknown amiodarone 100 mg tablet (Pacerone) 100 mg PO QAM #90 tabs 02/22/23 03/26/23 03/26/23 acetaminophen 325 mg tablet 650 mg PO TID PRN PAIN/FEVER 03/26/23 03/26/23 Unknown (Tylenol) Active Medications Generic Name Dose Route Start Last Admin Trade Name Freq PRN Reason Stop Dose Admin Amiodarone HCl 100 mg 03/27/23 09:00 03/27/23 09:19 Amiodarone 200 Mg Tab PO 04/26/23 08:59 100 mg QAM YANNA Administration Atenolol 25 mg 03/27/23 09:00 03/27/23 09:19 Atenolol 25 Mg Tablet PO 04/26/23 08:59 25 mg BID YANNA Administration Fluticasone Propionate 2 sprays 03/27/23 01:20 03/27/23 09:18 Fluticasone Propionate Na Spr 16 Gm Btl NA 04/26/23 01:19 2 sprays DAILY PRN Administration Congestion Fluticasone/Vilanterol 1 puffs 03/27/23 09:00 03/27/23 09:18 Fluticasone/Vilanterol 100/25mcg 14 Puffs/Inhaler INH 04/26/23 08:59 1 puffs DAILY YANNA Administration Famotidine 20 mg/ Syringe 5 mls @ 2.5 mls/min 03/27/23 09:00 03/27/23 09:17 IV 04/26/23 08:59 2.5 mls/min Q12H YANNA Administration Pantoprazole Sodium 40 mg/ 10 mls @ 5 mls/min 03/27/23 09:00 03/27/23 09:17 Syringe IV 04/26/23 08:59 5 mls/min Q12H YANNA Administration Past Medical History Medical History HAVASUPAI (hard of hearing) wears hearing aids Diabetes mellitus, type 2 new dx, has not started metformin per Liver cancer dx 02/2022; current chemotherapy Colon cancer dx 02/2022; last chemo 08/30/22 Dysphagia (HFpEF) heart failure with preserved ejection fraction Second-degree heart block Sludge in gallbladder general surgery 01/27/22 "would not push to have [laparoscopic cholecystectomy] unless he has more symptoms..." Degenerative joint disease of right hip Pulmonary nodule Morbid obesity Carotid artery stenosis 50-69% stenosis L ICA, < 50% stenosis R ICA HTN (hypertension) controlled, stable per pt Macular degeneration HAVASUPAI (hard of hearing) B/L DONATO Neuropathy feet bilat Atrial fibrillation follows with Dr. Stoddard; on eliquis COPD (chronic obstructive pulmonary disease) controlled, stable per pt; inh prn Sleep apnea [id number] GERD (gastroesophageal reflux disease) Exercise / Class Metabolic Activity II 4-5 Yardwork/Stairs/Walk up hill Past Family History Family History Mother Breast cancer Father Blindness Sister No problems noted. Grandfather (Paternal) Stroke Grandfather (Maternal) Heart disease Grandmother (Maternal) No problems noted. Grandmother (Paternal) Pneumonia Other Family history of breast cancer No family history of adverse response to anesthesia Denies family history of Ovarian cancer Prostate cancer Myocardial infarction Colorectal cancer Past Surgical History Surgical History Hx of colonoscopy 02/2022 History of ablation of neoplasm of liver 11/11/22, [facility] History of cataract surgery right/left Port-A-Cath in place (06/16/22) Insertion of Access Port, left subclavian(Left) - Christian Gomez MD, FACS [employer] Hx of endoscopic retrograde cholangiopancreatography [facility] [place] History of total right hip arthroplasty History of tooth extraction S/P aneurysm repair Percutaneous Endovascular Aneurysm Repair 08/11/2020: Grade 2 view, MAC 4, ETT 8. History of carpal tunnel release Right History of right knee joint replacement RT. 12/22/16: SAB at L3-L4 + PNB. Past Anesthesia History No Hx of Anesthesia Complications and No Family Hx of Anesthesia Complications History of PONV No Hx of PONV and No Hx of Motion Sickness Social History Smoking Status: Never smoker tobacco type: cigarettes Do You Dip or Chew Tobacco: No Hx Alcohol Use: No Hx Substance Use: No substance use type: does not use Physical Exam Vital Signs Last Vital Signs Temp 36.7 C 03/27/23 04:07 Pulse 83 03/27/23 09:16 Resp 22 03/27/23 09:16 BP 155/63 H 03/27/23 09:16 Pulse Ox 93 03/27/23 09:16 O2 Del Method Nasal Cannula 03/27/23 09:29 O2 Flow Rate 2 03/27/23 09:29 Constitutional + obese ENMT Mouth: + poor dentition (most teeth missing) Thyromental Distance: > or= 3.5 Finger Breadths Mallampati Class: II Neck normal visual inspection Respiratory normal respiratory effort Auscultation: lungs clear to auscultation bilaterally Cardiovascular Rate/Rhythm: regular rate and regular rhythm Psychiatric Orientation: alert Testing Laboratory Results 03/27/23 08:05 03/27/23 08:05 PT 12.5 Seconds (9.0-12.0) H 03/26/23 17:40 INR 1.2 (0.9-1.1) H 03/26/23 17:40 APTT 24 Seconds (21-31) 03/26/23 17:40 Urine Color Yellow 03/26/23 17:30 Urine Appearance Clear (Clear) 03/26/23 17:30 Urine pH 6.0 (4.5-7.5) 03/26/23 17:30 Ur Specific [place] 1.023 (1.000-1.030) 03/26/23 17:30 Urine Protein Negative (Negative) 03/26/23 17:30 Urine Glucose (UA) Negative (Negative) 03/26/23 17:30 Urine Ketones Trace (Negative) H 03/26/23 17:30 Urine Nitrite Negative (Negative) 03/26/23 17:30 Ur Leukocyte Esterase Negative (Negative) 03/26/23 17:30 Blood Type A Positive 03/26/23 21:20 Antibody Screen NEGATIVE 03/26/23 21:20
[2023-03-27] MEDS ORDERED: ePHEDrine sulfate 50 MG/ML AMP IV PRN (11:10)
[2023-03-27] MEDS ORDERED: fentaNYL citrate PF 100 MCG/2 ML VIAL IV PRN (11:10)
[2023-03-27] MEDS ORDERED: ONDANSETRON INJ 2 MG/ML 2 ML VIAL IV PRN (11:10)
[2023-03-27] MEDS ORDERED: ATROPINE SULFATE 0.1 MG/ML 10ML SYR IV PRN (11:10)
[2023-03-27] MEDS ORDERED: LIDOCAINE 2% 2 ML VIAL/AMP(20MG/ML) INFIL ONE (11:27)
[2023-03-27] MEDS ORDERED: PHENYLEPHRINE HCL 10 MG/ML VIAL ONE (11:27)
[2023-03-27] MEDS ORDERED: PROPOFOL IV EMULSION 10 MG/ML 20 ML VIAL IV ONE (11:27)
--- NOTE | 2023-03-27 11:36 | GI REPORT ---
Patient Name: Ross Ghosh Procedure Date: 03/27/2023 11:04 AM Date of : 1945 Admit Type: Inpatient Age: 78 Gender: Male Attending MD: Omar Martino DO, Procedure: Upper GI endoscopy Providers: Omar Martino DO Referring MD: Shweta Loyd MD Indications: Acute post hemorrhagic anemia, Melena Medicines: Monitored Anesthesia Care Complications: No immediate complications. Estimated Blood Loss: Estimated blood loss: none. Procedure: Pre-Anesthesia Assessment: - Prior to the procedure, a History and Physical was performed, and patient medications and allergies were reviewed. The patient's tolerance of previous anesthesia was also reviewed. The risks and benefits of the procedure and the sedation options and risks were discussed with the patient. All questions were answered, and informed consent was obtained. Prior Anticoagulants: The patient has taken Eliquis (apixaban), last dose was 1 day prior to procedure. ASA Grade Assessment: IV - A patient with severe systemic disease that is a constant threat to life. After reviewing the risks and benefits, the patient was deemed in satisfactory condition to undergo the procedure. After obtaining informed consent, the endoscope was passed under direct vision. Throughout the procedure, the patient's blood pressure, pulse, and oxygen saturations were monitored continuously. The Scope was introduced through the mouth, and advanced to the second part of duodenum. The upper GI endoscopy was accomplished without difficulty. The patient tolerated the procedure well. Findings: The esophagus was normal. Many non-bleeding cratered gastric ulcers with no stigmata of bleeding were found in the gastric antrum. The largest lesion was 5 mm in largest dimension. Biopsies were taken with a cold forceps for Helicobacter pylori testing. One non-bleeding cratered duodenal ulcer with a visible vessel was found in the duodenal bulb. The lesion was 10 mm in largest dimension. Area was successfully injected with 2 mL of a 0.1 mg/mL solution of epinephrine for hemostasis. Fulguration to ablate the lesion by bipolar probe was successful. Impression: - Normal esophagus. - Non-bleeding gastric ulcers with no stigmata of bleeding. Biopsied. - Non-bleeding duodenal ulcer with a visible vessel. Injected. Treated with bipolar cautery. Recommendation: - [facility]. - Clear liquid diet. - Give Protonix (pantoprazole): 8 mg/hr IV by continuous infusion for 3 days, then Protonix 40 mg by mouth twice daily for 8 weeks. - Await pathology results. Omar Martino, DO 03/27/2023 11:35:55 AM This report has been signed electronically. Note Initiated On: 03/27/2023 11:04 AM Number of Addenda: 0 I attest to the content of the Intraoperative Record and orders documented therein, exceptions below {[id number]}
--- NOTE | 2023-03-27 11:46 | Anesthesiology Progress Note ---
Date of Service March 27, 2023 Anesthesia Post Procedure Vital Signs Vital Signs: Temp Pulse Pulse Resp BP BP Pulse Ox 03/27/23 11:40 68 24 105/51 L 97 03/27/23 11:34 36 C L 72 24 107/55 L 93 03/27/23 09:29 03/27/23 09:16 83 22 155/63 H 93 03/27/23 07:18 75 03/27/23 06:07 79 16 120/86 94 03/27/23 06:00 80 16 120/86 92 03/27/23 05:37 79 16 149/77 H 91 03/27/23 04:42 76 16 136/61 92 03/27/23 04:37 76 16 136/61 92 03/27/23 04:07 36.7 C 81 16 122/65 92 03/27/23 03:52 36.8 C 77 20 138/71 94 03/27/23 03:32 36.9 C 78 20 139/66 93 03/27/23 02:10 82 16 130/61 94 03/27/23 02:03 36.7 C 84 22 145/69 H 97 03/27/23 02:00 81 16 95 03/27/23 01:51 81 03/27/23 01:03 36.8 C 78 20 103/64 94 03/27/23 00:03 79 20 152/60 H 93 03/26/23 23:33 36.8 C 83 20 121/76 94 03/26/23 23:29 84 03/26/23 23:18 36.9 C 80 19 138/60 94 03/26/23 23:00 36.8 C 85 20 129/57 L 92 03/26/23 21:54 94 03/26/23 21:52 89 L 03/26/23 20:52 91 H 22 144/47 H 95 03/26/23 20:00 76 20 95 03/26/23 19:58 76 22 137/58 L 93 03/26/23 19:32 82 03/26/23 16:00 36.6 C 78 20 111/49 L 93 O2 Del Method O2 Flow Rate 03/27/23 11:40 Oxymask 3 03/27/23 11:34 Oxymask 6 03/27/23 09:29 Nasal Cannula 2 03/27/23 09:16 Nasal Cannula 2 03/27/23 07:18 03/27/23 06:07 2 03/27/23 06:00 Nasal Cannula 2 03/27/23 05:37 2 03/27/23 04:42 Nasal Cannula 2 03/27/23 04:37 2 03/27/23 04:07 2 03/27/23 03:52 2 03/27/23 03:32 2 03/27/23 02:10 2 03/27/23 02:03 2 03/27/23 02:00 Room Air 2 03/27/23 01:51 03/27/23 01:03 2 03/27/23 00:03 2 03/26/23 23:33 2 03/26/23 23:29 03/26/23 23:18 2 03/26/23 23:00 2 03/26/23 21:54 Nasal Cannula 2 03/26/23 21:52 Room Air 03/26/23 20:52 Room Air 03/26/23 20:00 Room Air 03/26/23 19:58 Room Air 03/26/23 19:32 03/26/23 16:00 Room Air Transfer of Care Handoff Completed per policy Notes Mental Status: alert / awake / arousable Patient Amnestic to Procedure: Yes Nausea / Vomiting: adequately controlled Pain: adequately controlled Airway Patency, RR, SpO2: stable & adequate BP & HR: stable & adequate Hydration State: stable & adequate Anesthetic Complications: no major complications apparent
[2023-03-27] MEDS ORDERED: PANTOprazole 40 MG in DEXTROSE 5% MINI-B 100 ML IV SCH (12:45)
[2023-03-27] MEDS ORDERED: PANTOPRAZOLE BOLUS/DRIP IV STA (12:45)
[2023-03-27] MEDS ORDERED: PANTOprazole 80 MG in DEXTROSE 5% 100 ML IV ONE (13:00)
[2023-03-27 13:15] LABS: Hematocrit (blood only) 26.3 % (42.0-52.0); Hemoglobin 8.7 g/dl (14.0-18.0); Mean Corpuscular Hemoglobin 31.5 pg (25.0-34.0); Mean Corpuscular Hgb Conc 33.1 g/dL (32.0-36.0); Mean Corpuscular Volume 95.3 fL (80.0-100.0); Mean Platelet Volume 10.8 fL (9.4-12.4); Nucleated RBC # (auto) 0.23 K/uL (0.00-0.12); Nucleated RBC % (auto) 1.5 %; Platelet Count 109 K/uL (130-400); RDW Coefficient of Variation 21.7 % (11.5-14.5); RDW Standard Deviation 66.8 fL (36.4-46.3); Red Blood Count 2.76 M/uL (4.70-6.10); White Blood Count 15.69 K/ul (4.8-10.8)
[2023-03-27] MEDS: PANTOprazole 40 MG in DEXTROSE 5% MINI-B 100 ML IV SCH ×3 (13:21→22:58)
--- NOTE | 2023-03-27 13:55 | Hospitalist Progress Note ---
Date of Service March 27, 2023 Assessment & Plan (1) GIB (gastrointestinal bleeding): Plan: 78yo male with history of colon cancer, diverticulosis and polyps, atrial fibrillation on Apixaban anticoagulation presenting with acute blood loss anemia from presumed GIB. Patient endorses symptomatic anemia with NIELSEN, exertional chest tightness, dizziness and lightheadedness. -Heme+ stool in the ER -Hgb of 7.4 from last 11.8 on 03/13/23 --> received 2u PRBCs --> Hgb now 8.7, continue to trend -Maintain two large PIVs. Patient with 18g and 20g. He does have a port in left chest as well -GI consulted -EGD 03/27: non bleeding gastic ulcer bx for h.pylori and one nonbleeding duodenal ucler with visible vessel injected with epinephrine - Clear liquid diet - Recommend protonix 8mg/hr IV continuous x 3 days (2) Paroxysmal atrial fibrillation: Plan: Rate controlled. Patient on anticoagulation with Eliquis currently on hold in setting of GI bleed -Continue Amiodarone 100mg po daily -Continue Atenolol (3) GERRY (obstructive sleep apnea): Plan: Chronic -BiPAP qHS (4) Hypertension: Plan: Blood pressure mildly elevated -Continue Atenolol -Hold HCTZ (5) Elevated TSH: Plan: Not currently on medication, no hx of hypothyroid TSH 5.869, FreeT4 0.96 -Recommend recheck outpatient in one month (6) ABLA (acute blood loss anemia): Plan dispo: continued inpatient stay Patient's updated at bedside this afternoon Admission and Anticipated Discharge Date Admission Date: March 26, 2023 Supervising Physician Co-Signing Physician Notes Attending Attestation - Chart reviewed in detail, care plan d/w MAHI Dominguez. I agree with the rizzo components of her documentation. 78yo male with acute UGI bleeding 2nd to duodenal ulcer as found on EGD today. Visible vessel seen in the duodenal ulcer. S/p epi and cautery by Dr Martino. Acute blood loss anemia - has required 2 units of PRBCs since admission. Cont PPI drip x 3 days. Appreciate GI assistance. Mikel Fischer MD Subjective [id number] - Patient seen in the ER, sitting at side of bed after returning to the bathroom, SOB requiring O2. Denies any abdominal pain or further GI bleeding, melena, or hematochezia. Received chemo for colon cancer and radiation to liver. Does report 2-3 weeks ago was having frequent nose bleeds that would like 15-20 minutes. Has not had any nose bleeds in the last few days. Denies CP. Tele NSR 70-80s Review of Systems Review of Systems: All systems reviewed & are unremarkable except as noted in Subjective Physical Exam Physical Exam: General: WN/WD, NAD, VS as above Resp: increased respiratory effort after ambulation, but eventually able to catch breath, lungs clear to auscultation CV: RRR, no murmur, Abd: normal bowel sounds, non tender, no hepatosplenomegaly Extremities: Moves all extremities, mild b/l LE edema Neuro: A&O x3, Results & Data Results & Data Vital Signs (Past 12 Hours) Vital Signs Temp Pulse Pulse Resp BP BP Pulse Ox 03/27/23 13:25 36.3 C L 75 14 141/75 H 98 03/27/23 12:55 68 19 114/46 L 97 03/27/23 12:40 71 20 126/38 L 97 03/27/23 12:25 67 19 90/56 L 92 03/27/23 12:10 36.7 C 68 14 97/51 L 93 03/27/23 12:00 69 23 101/46 L 90 03/27/23 11:50 68 26 H 101/50 L 94 03/27/23 11:40 68 24 105/51 L 97 03/27/23 11:34 36 C L 72 24 107/55 L 93 03/27/23 09:29 03/27/23 09:16 83 22 155/63 H 93 03/27/23 07:18 75 03/27/23 06:07 79 16 120/86 94 03/27/23 06:00 80 16 120/86 92 03/27/23 05:37 79 16 149/77 H 91 03/27/23 04:42 76 16 136/61 92 03/27/23 04:37 76 16 136/61 92 03/27/23 04:07 36.7 C 81 16 122/65 92 03/27/23 03:52 36.8 C 77 20 138/71 94 03/27/23 03:32 36.9 C 78 20 139/66 93 03/27/23 02:10 82 16 130/61 94 03/27/23 02:03 36.7 C 84 22 145/69 H 97 03/27/23 02:00 81 16 95 03/27/23 01:51 81 O2 Del Method O2 Flow Rate 03/27/23 13:25 Nasal Cannula 3 03/27/23 12:55 Nasal Cannula 3 03/27/23 12:40 Nasal Cannula 3 03/27/23 12:25 Nasal Cannula 3 03/27/23 12:10 Nasal Cannula 3 03/27/23 12:00 Nasal Cannula 3 03/27/23 11:50 Nasal Cannula 3 03/27/23 11:40 Oxymask 3 03/27/23 11:34 Oxymask 6 03/27/23 09:29 Nasal Cannula 2 03/27/23 09:16 Nasal Cannula 2 03/27/23 07:18 03/27/23 06:07 2 03/27/23 06:00 Nasal Cannula 2 03/27/23 05:37 2 03/27/23 04:42 Nasal Cannula 2 03/27/23 04:37 2 Laboratory Results CBC and chemistry reviewed PG Care Time/CCT Total # of Minutes Spent Total Time Spent with Patient: Total time spent is greater than 50% in coordination of care (as documented) at patient's floor/unit and/or counseling patient: Coding Level of Care Code 05105 SUB INP/OBS CARE 2/35MIN Diagnoses GIB (gastrointestinal bleeding) K92.2 Paroxysmal atrial fibrillation I48.0 GERRY (obstructive sleep apnea) G47.33 Hypertension I10 Elevated TSH R79.89 ABLA (acute blood loss anemia) D62
--- NOTE | 2023-03-27 14:38 | Electrocardiogram Report ---
Test Reason : Blood Pressure : / mmHG Vent. Rate : 079 BPM Atrial Rate : 079 BPM P-R Int : 182 ms QRS Dur : 100 ms QT Int : 430 ms P-R-T Axes : 055 048 062 degrees QTc Int : 493 ms Normal sinus rhythm Incomplete right bundle branch block Prolonged QT Abnormal ECG When compared with ECG of 19-MAR-2022 12:05, Premature ventricular complexes are no longer Present T wave amplitude has decreased in Anterolateral leads Confirmed by Dakota Capellan ([id number]) on 03/27/2023 2:38:03 PM Referred By: Shweta Loyd Confirmed By:Dakota Capellan
[2023-03-27] MEDS: ONDANSETRON INJ 2 MG/ML 2 ML VIAL IV PRN (20:24)
[2023-03-27] MEDS ORDERED: MELATONIN 3 MG TAB PO SCH (21:00)
[2023-03-27 22:32] LABS: Hematocrit (blood only) 25.6 % (42.0-52.0); Hemoglobin 7.9 g/dl (14.0-18.0); Mean Corpuscular Hemoglobin 30.4 pg (25.0-34.0); Mean Corpuscular Hgb Conc 30.9 g/dL (32.0-36.0); Mean Corpuscular Volume 98.5 fL (80.0-100.0); Mean Platelet Volume 11.1 fL (9.4-12.4); Nucleated RBC # (auto) 0.33 K/uL (0.00-0.12); Nucleated RBC % (auto) 2.3 %; Platelet Count 121 K/uL (130-400); RDW Coefficient of Variation 21.9 % (11.5-14.5); RDW Standard Deviation 71.3 fL (36.4-46.3); White Blood Count 14.39 K/ul (4.8-10.8)
[2023-03-27] MEDS: ACETAMINOPHEN 325 MG TAB PO PRN (23:14)
[2023-03-28] MEDS: PANTOprazole 40 MG in DEXTROSE 5% MINI-B 100 ML IV SCH ×5 (04:26→23:55)
[2023-03-28 05:31] LABS: Albumin Globulin Ratio 0.9 (0.9-2); Albumin Level 2.8 gm/dl (3.4-5.0); Bilirubin,Total 0.6 mg/dl (0.2-1.0); Calcium 7.9 mg/dl (8.6-10.3); Creatinine Clr Calc Pharmacy 81.8 ml/min; Est GFR (African American) 84.4 ml/min; Est GFR (Non-African American) 72.8 ml/min; Globulin 3.1 gm/dl (2.5-4.0); Potassium 3.8 mmol/L (3.5-5.1); Total Protein 5.9 gm/dl (6.0-8.3)
[2023-03-28 06:26] LABS: Hematocrit (blood only) 21.7 % (42.0-52.0); Hemoglobin 6.8 g/dl (14.0-18.0); Mean Corpuscular Hemoglobin 31.1 pg (25.0-34.0); Mean Corpuscular Hgb Conc 31.3 g/dL (32.0-36.0); Mean Corpuscular Volume 99.1 fL (80.0-100.0); Platelet Count 124 K/uL (130-400); RDW Coefficient of Variation 21.9 % (11.5-14.5); RDW Standard Deviation 69.9 fL (36.4-46.3); Red Blood Count 2.19 M/uL (4.70-6.10); White Blood Count 15.11 K/ul (4.8-10.8)
[2023-03-28] MEDS ORDERED: SODIUM CHLORIDE 0.9% 250 ML IV PRN ×3 (06:32→19:17)
--- NOTE | 2023-03-28 06:38 | Communication Note ---
Date of Service: March 28, 2023 Overnight Hgb 7.9. Morning Hgb 6.8. Asymptomatic. Ordered 2 units prbc. H&H q6h. Resident Activity Tracking Resident Involvement: Resident Care Provided Care Provided: Adult [facility]
[2023-03-28] MEDS: ACETAMINOPHEN 325 MG TAB PO PRN (06:45)
[2023-03-28] MEDS: ONDANSETRON INJ 2 MG/ML 2 ML VIAL IV PRN (06:57)
[2023-03-28] MEDS: ATENOLOL 25 MG TABLET PO SCH (08:22)
[2023-03-28] MEDS: AMIODARONE 200 MG TAB PO SCH (08:24)
[2023-03-28] MEDS: FLUTICASONE/VILANTEROL 100/25MCG 14 PUFFS/INHALER INH SCH (08:25)
[2023-03-28] MEDS: FLUTICASONE PROPIONATE NA SPR 16 GM BTL PRN (08:25)
--- NOTE | 2023-03-28 09:52 | Gastroenterology Progress Note ---
Date of Service March 28, 2023 Assessment & Plan (1) GIB (gastrointestinal bleeding): Plan: Patient is s/p EGD with gastric and duodenal ulcers. duodenal ulcers were injected and treated with bipolar cautery. Overnight, hgb fell to 6.8 from 7.9. He is ordered two units of PRBC. blood pressure at bedside was 122/66. Discussed case with Dr. Martino who helped advised on plan. - continue to monitor hgb/hct. transfuse as needed. - contine with protonix drip x 3 days then transition to 40mg BID. - will order a stat CTA today to assess for any further active bleeding. - further recommendations to follow. Admission and Anticipated Discharge Date Admission Date: March 26, 2023 Supervising Physician Co-Signing Physician Notes Agree with ASHWIN Woods as above Abd: Soft, NT, ND, +BS Continue current therapy and supportive care Proceed with EGD now due to + CTA of the abdomen Subjective Patient tells me that since yesterday he has had 3-4 bowel movements. These were large, black, and bloody bowel movements per nursing. hgb overnight fell to 6.8 today 03/28/23. He has been ordered 2 units of PRBC which he is currently getting. he tells me he has had some nausea but controlled with antiemetics. no emesis. no reflux. no abdominal pain. he feels breathing is better today. EGD 03/27/23 nonbleeding gastric ulcers without stigmata of bleeding. nonbleeding duodenal ulcer with visible vessel. injected. treated with bipolar cautery. Physical Exam Constitutional: WD/WN, vitals as above Respiratory: normal respiratory effort, lungs clear to auscultation Cardiovascular: RRR, no murmur, no edema Gastrointestinal (Abdomen): normal bowel sounds, soft, nontender, no hepatosplenomegaly Psychiatric: Orientation: alert and oriented x 3 Results & Data Results & Data Vital Signs (Past 12 Hours) Vital Signs Temp Pulse Pulse Resp BP BP Pulse Ox 03/28/23 09:36 03/28/23 08:21 98.1 F 73 18 87/46 L 94 03/28/23 08:20 98.1 F 76 18 91/52 L 93 03/28/23 08:01 98.1 F 79 18 91/53 L 91 03/28/23 07:47 97.9 F 79 18 85/53 L 92 03/28/23 07:02 97.3 F L 78 22 112/62 93 03/28/23 05:27 97.9 F 74 16 106/62 93 03/28/23 00:41 97.5 F L 75 20 108/64 92 03/27/23 22:19 67 O2 Del Method O2 Flow Rate 03/28/23 09:36 Nasal Cannula 3 03/28/23 08:21 03/28/23 08:20 3 03/28/23 08:01 03/28/23 07:47 2 03/28/23 07:02 Nasal Cannula 2 03/28/23 05:27 Room Air 03/28/23 00:41 Room Air 03/27/23 22:19 PG Care Time/CCT Total # of Minutes Spent Total Time Spent with Patient: Total time spent is greater than 50% in coordination of care (as documented) at patient's floor/unit and/or counseling patient: Coding Level of Care Code 78350 SUB INP/OBS CARE 2/35MIN Diagnoses GIB (gastrointestinal bleeding) K92.2 Time Spent (min) 35
[2023-03-28] MEDS ORDERED: SODIUM CHLORIDE 0.9% 500 ML IV ONE ×2 (10:03→18:22)
[2023-03-28] MEDS ORDERED: OPTIRAY 320 125ml IV ONE (12:11)
--- NOTE | 2023-03-28 12:48 | CT Scan Report ---
CT angio abd pelvis wo/w con CLINICAL HISTORY: GI bleed. Colon cancer. COMPARISON STUDY: CT of the abdomen and pelvis January 30, 2023. PET/CT April 14, 2022. TECHNIQUE: Unenhanced and arterial phase imaging of the abdomen and pelvis was performed. Intravenous injection of 89 cc of Optiray 320 IV was uneventful. Sagittal and coronal reconstructions were viewe d as well as maximal intensity projections on an independent 3-D workstation. Automated exposure cont rol was utilized for the study. A dose lowering technique was utilized adhering to the principles of ALARA. FINDINGS: 1.9 cm subpleural right lower lobe nodule is unchanged from earlier exams. This is likely b enign. No pneumatosis, free air or portal venous gas is present. Multiple hypodense hepatic lesions a re similar to CT of January 30, 2023. These may reflect treated metastases. There are no new hepatic lesions. There is mild lobulated contour of the liver. The spleen, right adrenal gland and pancreas a re unremarkable. Nodularity of the left adrenal gland is unchanged. Kidneys are unremarkable. There i s no hydronephrosis. Note is made of a 6 mm round hypervascular focus within the duodenal bulb on elliot ge 148 of [id number]. This is not evident on the noncontrast portion of this exam. This favors a small focus of active bleeding. No additional intraluminal hyperdense foci within the bowel are present. There i s extensive colonic diverticulosis without evidence for acute diverticulitis. Known sigmoid colon naina jose lesion is not evident by CT. There is no lymphadenopathy. Truncated aortoiliac stent graft is in place. No rupture. No definite endoleak. Sac measures 5.7 x 4.5 cm. This is unchanged. Iliac limbs a re patent. Right hip arthroplasty is incidentally noted. IMPRESSION: 1. 6 mm round hypervascular focus within the duodenal bulb suggestive of a small focus of active blee alisson. Findings discussed with Dr. Martino at time of dictation. 2. Otherwise, unchanged appearance of the abdomen and pelvis since CT of January 30, 2023. Stable hyp odense hepatic lesions which may reflect treated lesions. No new hepatic lesions. 3. Extensive colonic diverticulosis. No evidence for acute diverticulitis. Known primary sigmoid lesi on not evident by CT. 4. No bowel obstruction. 5. Stable appearance of the bifurcated aortoiliac stent graft. No change in aneurysm sac size. ACT 112: Negative or not required by law. Electronically signed by: Austin Kaur M.D. 03/28/2023 12:47 PM
[2023-03-28] MEDS ORDERED: fentaNYL citrate PF 100 MCG/2 ML VIAL ONE (13:10)
[2023-03-28] MEDS ORDERED: LIDOCAINE 2% 2 ML VIAL/AMP(20MG/ML) INFIL ONE (13:10)
[2023-03-28] MEDS ORDERED: PROPOFOL IV EMULSION 10 MG/ML 20 ML VIAL IV ONE (13:10)
--- NOTE | 2023-03-28 13:18 | Anesthesiology Consultation ---
Date of Service March 28, 2023 Assessment & Plan (1) Encounter for pre-operative examination: Chart Review Chart Review: Acceptable Risk for Surgery and Patient NOT seen in Pre Admission Testing Consults Requested none History Surgery Operation Date: 03/27/23 10:00 Proposed Procedures p EGD Dr. Gunner Car Case, DO Operation Date: 03/28/23 10:35 Proposed Procedures p Esophagogastroduodenoscopy Moy Car Case, DO Height/Weight Height: 5 ft 9 in Weight: 124 kg Allergies Allergy/AdvReac Type Severity Reaction Status Date / Time lisinopril Allergy Severe Angioedema Verified 03/26/23 20:03 adhesive Allergy Intermediate Rash Verified 03/26/23 20:03 latex Allergy Intermediate Contact Verified 03/26/23 20:03 dermatitis Medications Home Medications Medication Instructions Recorded Confirmed Last Taken ascorbic acid (vitamin C) 500 mg 500 mg PO QPM 12/18/18 03/26/23 03/25/23 tablet coenzyme Q10 100 mg capsule 100 mg PO QAM 12/18/18 03/26/23 03/26/23 fluticasone propionate 50 2 sprays intranasal DAILY PRN 12/18/18 03/26/23 11/23/22 mcg/actuation nasal Congestion #16 grams spray,suspension Artichoke Extract 1 tab PO QAM cholesterol 02/06/20 03/26/23 03/26/23 vit C 250 mg-vit E 90 mg-zinc 40 1 tab PO BID 02/06/20 03/26/23 03/26/23 mg-copper 1 [id number] capsule (PreserVision AREDS-2) Barley Supplement 1 dose PO QPM 06/11/20 03/26/23 03/25/23 fiber 1 cap PO QPM 06/11/20 03/26/23 03/25/23 multivitamin 1 tab PO QAM 06/11/20 03/26/23 03/26/23 Lift Chair #1 ea 05/11/21 03/17/23 Unknown glucosamine 750 [id number] 1 tab PO BID 09/16/21 03/26/23 03/26/23 no1 644 mg-C 30 mg-jesu 1 mg tablet (Osteo Bi-Flex Triple Strength) famotidine 20 mg tablet (Pepcid AC) 20 mg PO BID 1003/26/23 03/26/23 Wheeled Walker #1 ea 01/21/22 03/17/23 Unknown magnesium oxide 250 mg PO QAM 01/25/22 03/26/23 03/26/23 melatonin 10 mg tablet 10 mg PO HS 01/25/22 03/26/23 03/25/23 albuterol sulfate 90 mcg/actuation 2 puff inhalation Q4H PRN 05/09/22 03/26/23 09/18/22 aerosol inhaler shortness of breath or wheezing #18 grams apixaban 5 mg tablet (Eliquis) 5 mg PO BID #180 tabs 05/30/22 03/26/23 03/26/23 ferrous fumarate 200 mg (65 mg 1 tab PO QAM 06/10/22 03/26/23 03/26/23 iron)-vit C 25 mg tablet,extend release (Vanessa-Sequels (iron-vit c)) potassium chloride 20 mEq 20 meq PO QAM #90 tabs 06/21/22 03/26/23 03/26/23 tablet,extended release atenolol 50 mg tablet 25 mg (1/2 x 50 mg) PO BID #90 tabs 06/24/22 03/26/23 03/26/23 hydrochlorothiazide 25 mg tablet 25 mg PO QPM #90 tabs 07/15/22 03/26/23 03/25/23 metformin 500 mg tablet,extended 500 mg PO BID #180 tabs 09/12/22 03/26/23 03/26/23 release 24 hr fluticasone 250 mcg-salmeterol 50 1 inh inhalation BID #60 ea 10/10/22 03/26/23 03/26/23 mcg/dose blistr powdr for inhalation (Advair Diskus) furosemide 40 mg tablet (Lasix) 40 mg PO DAILY PRN edema 12/08/22 03/26/23 Unknown amiodarone 100 mg tablet (Pacerone) 100 mg PO QAM #90 tabs 02/22/23 03/26/23 03/26/23 acetaminophen 325 mg tablet 650 mg PO TID PRN PAIN/FEVER 03/26/23 03/26/23 Unknown (Tylenol) Active Medications Generic Name Dose Route Start Last Admin Trade Name Freq PRN Reason Stop Dose Admin Acetaminophen 650 mg 03/27/23 01:20 03/28/23 06:45 Acetaminophen 325 Mg Tab PO 04/26/23 01:19 650 mg TID PRN Administration Pain or Fever Amiodarone HCl 100 mg 03/27/23 09:00 03/28/23 08:24 Amiodarone 200 Mg Tab PO 04/26/23 08:59 100 mg QAM YANNA Administration Atenolol 25 mg 03/27/23 09:00 03/28/23 08:22 Atenolol 25 Mg Tablet PO 04/26/23 08:59 Not Given BID YANNA Fluticasone Propionate 2 sprays 03/27/23 01:20 03/28/23 08:25 Fluticasone Propionate Na Spr 16 Gm Btl NA 04/26/23 01:19 2 sprays DAILY PRN Administration Congestion Fluticasone/Vilanterol 1 puffs 03/27/23 09:00 03/28/23 08:25 Fluticasone/Vilanterol 100/25mcg 14 Puffs/Inhaler INH 04/26/23 08:59 1 puffs DAILY YANNA Administration Pantoprazole Sodium 40 mg/ 100 mls @ 20 mls/hr 03/27/23 13:15 03/28/23 09:34 Dextrose IV 04/26/23 13:14 8 mg/hr Q5H YANNA 20 mls/hr Administration 8 MG/HR Melatonin 9 mg 03/27/23 21:00 03/27/23 20:22 Melatonin 3 Mg Tab PO 04/26/23 20:59 9 mg HS YANNA Administration Ondansetron HCl 4 mg 03/27/23 01:20 03/28/23 06:57 Ondansetron Inj 2 Mg/Ml 2 Ml Vial IV 04/26/23 01:19 4 mg Q6H PRN Administration Nausea And Vomiting Past Medical History Medical History [place] (hard of hearing) wears hearing aids Diabetes mellitus, type 2 new dx, has not started metformin per Liver cancer dx 02/2022; current chemotherapy Colon cancer dx 02/2022; last chemo 08/30/22 Dysphagia (HFpEF) heart failure with preserved ejection fraction Second-degree heart block Sludge in gallbladder general surgery 01/27/22 "would not push to have [laparoscopic cholecystectomy] unless he has more symptoms..." Degenerative joint disease of right hip Pulmonary nodule Morbid obesity Carotid artery stenosis 50-69% stenosis L ICA, < 50% stenosis R ICA HTN (hypertension) controlled, stable per pt Macular degeneration [place] (hard of hearing) B/L DONATO Neuropathy feet bilat Atrial fibrillation follows with Dr. Stoddard; on eliquis COPD (chronic obstructive pulmonary disease) controlled, stable per pt; inh prn Sleep apnea [id number] GERD (gastroesophageal reflux disease) Past Family History Family History Mother Breast cancer Father Blindness Sister No problems noted. Grandfather (Paternal) Stroke Grandfather (Maternal) Heart disease Grandmother (Maternal) No problems noted. Grandmother (Paternal) Pneumonia Other Family history of breast cancer No family history of adverse response to anesthesia Denies family history of Ovarian cancer Prostate cancer Myocardial infarction Colorectal cancer Past Surgical History Surgical History Hx of colonoscopy 02/2022 History of ablation of neoplasm of liver 11/11/22, [facility] History of cataract surgery right/left Port-A-Cath in place (06/16/22) Insertion of Access Port, left subclavian(Left) - Christian Gomez MD, FACS [employer] Hx of endoscopic retrograde cholangiopancreatography [facility] History of total right hip arthroplasty History of tooth extraction S/P aneurysm repair Percutaneous Endovascular Aneurysm Repair 08/11/2020: Grade 2 view, MAC 4, ETT 8. History of carpal tunnel release Right History of right knee joint replacement RT. 12/22/16: SAB at L3-L4 + PNB. Past Anesthesia History No Hx of Anesthesia Complications and No Family Hx of Anesthesia Complications History of PONV No Hx of PONV and No Hx of Motion Sickness Social History Smoking Status: Former smoker tobacco type: cigarettes Do You Dip or Chew Tobacco: No Hx Alcohol Use: No Hx Substance Use: No substance use type: does not use Physical Exam Vital Signs Last Vital Signs Temp 36.8 C 03/28/23 12:58 Pulse 94 H 03/28/23 12:58 Resp 18 03/28/23 12:58 BP 94/54 L 03/28/23 12:58 Pulse Ox 96 01/02/24 12:58 O2 Del Method Nasal Cannula 03/28/23 12:30 O2 Flow Rate 4 03/28/23 12:58 Testing Laboratory Results 03/28/23 04:59 03/28/23 04:59 PT 12.5 Seconds (9.0-12.0) H 03/26/23 17:40 INR 1.2 (0.9-1.1) H 03/26/23 17:40 APTT 24 Seconds (21-31) 03/26/23 17:40 Urine Color Yellow 03/26/23 17:30 Urine Appearance Clear (Clear) 03/26/23 17:30 Urine pH 6.0 (4.5-7.5) 03/26/23 17:30 Ur Specific [place] 1.023 (1.000-1.030) 03/26/23 17:30 Urine Protein Negative (Negative) 03/26/23 17:30 Urine Glucose (UA) Negative (Negative) 03/26/23 17:30 Urine Ketones Trace (Negative) H 03/26/23 17:30 Urine Nitrite Negative (Negative) 03/26/23 17:30 Ur Leukocyte Esterase Negative (Negative) 03/26/23 17:30 Blood Type A Positive 03/26/23 21:20 Antibody Screen NEGATIVE 03/26/23 21:20 03/28/23 03/28/23 12:27 08:08 POC Glucose 138 H 143 H Electrocardiogram Date: 03/26/23 DICTATED BY: Dakota Capellan MD Test Reason : Blood Pressure : / mmHG Vent. Rate : 079 BPM Atrial Rate : 079 BPM P-R Int : 182 ms QRS Dur : 100 ms QT Int : 430 ms P-R-T Axes : 055 048 062 degrees QTc Int : 493 ms Normal sinus rhythm Incomplete right bundle branch block Prolonged QT Abnormal ECG When compared with ECG of 19-MAR-2022 12:05, Premature ventricular complexes are no longer Present T wave amplitude has decreased in Anterolateral leads Confirmed by Dakota Capellan ([id number]) on 03/27/2023 2:38:03 PM
[2023-03-28] MEDS ORDERED: ATROPINE SULFATE 0.1 MG/ML 10ML SYR IV PRN (13:22)
[2023-03-28] MEDS ORDERED: ePHEDrine sulfate 50 MG/ML AMP IV PRN (13:22)
[2023-03-28] MEDS ORDERED: ONDANSETRON INJ 2 MG/ML 2 ML VIAL IV PRN (13:22)
[2023-03-28] MEDS ORDERED: fentaNYL citrate PF 100 MCG/2 ML VIAL IV PRN (13:22)
[2023-03-28] MEDS ORDERED: PHENYLEPHRINE HCL 10 MG/ML VIAL ONE (13:59)
--- NOTE | 2023-03-28 14:19 | GI REPORT ---
Patient Name: Ross Ghosh Procedure Date: 03/28/2023 1:09 PM Date of : 1945 Admit Type: Inpatient Age: 78 Gender: Male Attending MD: Omar Martino DO, Procedure: Upper GI endoscopy Providers: Omar Martino DO Referring MD: Shweta Loyd MD Indications: Acute post hemorrhagic anemia Medicines: General Anesthesia Complications: No immediate complications. Estimated Blood Loss: Estimated blood loss: none. Procedure: Pre-Anesthesia Assessment: - Prior to the procedure, a History and Physical was performed, and patient medications and allergies were reviewed. The patient's tolerance of previous anesthesia was also reviewed. The risks and benefits of the procedure and the sedation options and risks were discussed with the patient. All questions were answered, and informed consent was obtained. Prior Anticoagulants: The patient has taken Eliquis (apixaban), last dose was 2 days prior to procedure. ASA Grade Assessment: IV - A patient with severe systemic disease that is a constant threat to life. After reviewing the risks and benefits, the patient was deemed in satisfactory condition to undergo the procedure. After obtaining informed consent, the endoscope was passed under direct vision. Throughout the procedure, the patient's blood pressure, pulse, and oxygen saturations were monitored continuously. The Endoscope was introduced through the mouth, and advanced to the second part of duodenum. The upper GI endoscopy was accomplished without difficulty. The patient tolerated the procedure well. Findings: The esophagus was normal. Many non-bleeding cratered gastric ulcers with no stigmata of bleeding were found in the gastric antrum. One spurting cratered duodenal ulcer with a visible vessel was found in the duodenal bulb. The lesion was 10 mm in largest dimension. Area was unsuccessfully injected with 4 mL of a 0.1 mg/mL solution of epinephrine for hemostasis. For hemostasis, two hemostatic clips were successfully placed (MR conditional). Clip barrel drainer: [employer] Fulguration to ablate the lesion by bipolar probe was unsuccessful. To stop active bleeding, hemostatic spray was deployed. Five sprays were applied. There was no bleeding at the end of the procedure. Impression: - Normal esophagus. - Non-bleeding gastric ulcers with no stigmata of bleeding. - Spurting duodenal ulcer with a visible vessel. Treatment not successful. Clips (MR conditional) were placed. Clip barrel drainer: [employer] Treatment not successful. Treated with bipolar cautery. hemostatic spray applied. - No specimens collected. Recommendation: - [facility]. - NPO. - Continue present medications. - If patient has any further rebleeding, I would recommend a tertiary care center with IR capabilities for further treatment. Omar Car Case, DO 03/28/2023 2:19:12 PM This report has been signed electronically. Note Initiated On: 03/28/2023 1:09 PM Number of Addenda: 0 I attest to the content of the Intraoperative Record and orders documented therein, exceptions below {[id number]}
--- NOTE | 2023-03-28 16:25 | Anesthesiology Progress Note ---
Date of Service March 28, 2023 Anesthesia Post Procedure Vital Signs Vital Signs: Temp Pulse Pulse Pulse Pulse Resp BP 03/28/23 16:01 37.1 C 71 18 03/28/23 16:00 37.1 C 71 18 102/56 L 03/28/23 15:00 87 24 03/28/23 14:50 88 24 03/28/23 14:40 92 H 27 H 03/28/23 14:30 36.5 C 96 H 20 03/28/23 14:24 36.2 C L 97 H 37 H 03/28/23 13:16 36.9 C 94 H 18 107/59 L 03/28/23 12:58 36.8 C 94 H 18 94/54 L 03/28/23 12:30 36.9 C 87 18 03/28/23 11:45 36.7 C 85 18 145/71 H 03/28/23 09:51 36.5 C 83 18 100/52 L 03/28/23 09:36 03/28/23 08:51 36.7 C 85 20 91/51 L 03/28/23 08:21 36.7 C 73 18 87/46 L 03/28/23 08:20 36.7 C 76 18 91/52 L 03/28/23 08:01 36.7 C 79 18 91/53 L 03/28/23 07:47 36.6 C 79 18 85/53 L 03/28/23 07:02 36.3 C L 78 22 03/28/23 05:27 36.6 C 74 16 03/28/23 00:41 36.4 C L 75 20 03/27/23 22:19 67 03/27/23 20:17 36.7 C 80 20 03/27/23 19:30 BP Pulse Ox O2 Del Method O2 Flow Rate 03/28/23 16:01 102/56 L 95 Room Air 03/28/23 16:00 95 03/28/23 15:00 134/61 95 Oxymask 4 03/28/23 14:50 137/57 L 99 Oxymask 4 03/28/23 14:40 145/49 H 98 Oxymask 4 03/28/23 14:30 147/60 H 98 Oxymask 6 03/28/23 14:24 184/66 H 90 Oxymask 8 03/28/23 13:16 94 3 03/28/23 12:58 96 4 03/28/23 12:30 112/61 94 Nasal Cannula 2 03/28/23 11:45 97 3 03/28/23 09:51 90 03/28/23 09:36 Nasal Cannula 3 03/28/23 08:51 91 3 03/28/23 08:21 94 03/28/23 08:20 93 3 03/28/23 08:01 91 03/28/23 07:47 92 2 03/28/23 07:02 112/62 93 Nasal Cannula 2 03/28/23 05:27 106/62 93 Room Air 03/28/23 00:41 108/64 92 Room Air 03/27/23 22:19 03/27/23 20:17 128/65 97 Nasal Cannula 2 03/27/23 19:30 Nasal Cannula 2 Transfer of Care Handoff Completed per policy Notes Mental Status: alert / awake / arousable and participated in evaluation Patient Amnestic to Procedure: Yes Nausea / Vomiting: adequately controlled Pain: adequately controlled Airway Patency, RR, SpO2: stable & adequate BP & HR: stable & adequate Hydration State: stable & adequate Anesthetic Complications: no major complications apparent and Pt Satisfied with anesthetic care
--- NOTE | 2023-03-28 18:04 | Hospitalist Progress Note ---
Date of Service March 28, 2023 Assessment & Plan (1) GIB (gastrointestinal bleeding): Plan: 78yo male with history of colon cancer, diverticulosis and polyps, atrial fibrillation on Apixaban anticoagulation presenting with acute blood loss anemia from presumed GIB. Patient endorses symptomatic anemia with NIELSEN, exertional chest tightness, dizziness and lightheadedness. -Heme+ stool in the ER -03/26 Hgb of 7.4 from last 11.8 on 03/13/23 --> received 2u PRBCs --> 03/27 Hgb now 8.7, continue to trend Overnight 03/27 to 03/28 patient had multiple episodes of bloody diarrhea. - Hgb 6.8 --> recieved 2u PRBCs --> repeat H/h pending -Maintain two large PIVs. Patient with 18g and 20g. He does have a port in left chest as well -GI consulted -EGD 03/27: non bleeding gastic ulcer bx for h.pylori and one nonbleeding duodenal ucler with visible vessel injected with epinephrine - Recommend protonix 8mg/hr IV continuous x 3 days - CTA/P: 6mm hypervascular focus within the duodenal bulb suggestive of active bleed --> plan for repeat EGD - EGD 03/28: many non-bleeding cratered gastric ulcers without bleeding in the gastric antrum. One spurting cratered 10mm duodenal ulcer - 2 hemostastic clips were placed. Fulguration to alma the lesion by bipolar probe was unsucessful. Hemostatis spray deployed x 5. - Keep NPO - If any further bleeding will need transfer to tertiary care center, discussed with Dr. Martino and will not preemptively transfer at this time but will reeval in the AM. If requires transfer, pt prefers [facility]. (2) Paroxysmal atrial fibrillation: Plan: Rate controlled. Patient on anticoagulation with Eliquis currently on hold in setting of GI bleed -Hold Amiodarone 100mg until reeval in AM -Hold Atenolol (3) GERRY (obstructive sleep apnea): Plan: Chronic -BiPAP qHS (4) Hypertension: Plan: Now hypotensive given GI bleed - Fluid bolus NSS 500 cc x2 -Hold Atenolol -Hold HCTZ (5) Elevated TSH: Plan: Not currently on medication, no hx of hypothyroid TSH 5.869, FreeT4 0.96 -Recommend recheck outpatient in one month (6) ABLA (acute blood loss anemia): (7) Hemorrhagic shock: (8) Duodenal ulcer: (9) Gastric ulcer: Plan dispo: continued inpatient stay Admission and Anticipated Discharge Date Admission Date: March 26, 2023 Supervising Physician Co-Signing Physician Notes Attending Attestation - Chart reviewed in detail, care plan d/w PA Zuleyka Dominguez. I agree with the rizoz components of her documentation. 78yo male with acute UGI bleeding 2nd to duodenal ulcer as found on EGD 03/27/23. Visible vessel seen in the duodenal ulcer S/p epi and cautery by Dr Martino. Despite Rx of the duodenal ulcer yesterday he had multiple bright red blood bowel movements this am with subsequent development of hypotension/shock. 2 units PRBCs given this am along with fluid bolus. Ms Mcdaniel contacted [facility] urgently. CTA a/p obtained showing probable acute/active GI bleeding from the duodenum. Taken back to the endoscopy lab and underwent repeat EGD. Previously treated duodenal ulcer was bleeding again (was spurting/actively bleeding during the EGD). s/p Rx of the ulcer again with bipolar probe cautery, 2 clips, and hemospray x 5. Bleeding did stop with such. Post-EGD Hb was 7 - another unit of PRBCs ordered. Pt transferred to PCU for closer observation. Maintain strict NPO status. Maintain PPI drip. Serial H/H's. 3 additional units of blood are on hold in the event of re-bleeding. VERY LOW Threshold to transfer to tertiary care center where IR capability is present in the event he needed emergent embolization of the offending vessel. Appreciate Dr Martino's assistance. Of note - I discussed Mr Ghosh's care with the night-time physician who will be covering the service tonight. Mikel Fischer MD Subjective Patient evaluated early this morning after reports from RN about multiple episodes of bloody diarrhea. [place] lightheaded and dizzy while standing. Denies sweats, but reports cold rag on forehead feels good. Increase in abdominal pain this morning. Denies CP or SOB. Reevaluated this evening, around 6pm. Feeling better, color in face improved. However, very hungry. Discussed importance of not eating currently. tele - SR 70s Review of Systems Review of Systems: All systems reviewed & are unremarkable except as noted in Subjective Physical Exam Physical Exam: General: pale appearing face, lying in bed receiving blood transfusion, VS as above Resp:normal respiratory effort, lungs clear to auscultation CV: RRR, no murmur, Abd: normal bowel sounds, mild tenderness b/l lower quadrants Extremities: Moves all extremities, mild b/l LE edema Neuro: A&O x3, Results & Data Results & Data Vital Signs (Past 12 Hours) Vital Signs Temp Pulse Pulse Pulse Pulse Resp BP 03/28/23 17:01 36.6 C 90 18 98/50 L 03/28/23 16:33 36.8 C 88 18 124/65 03/28/23 16:01 37.1 C 71 18 03/28/23 16:00 37.1 C 71 18 102/56 L 03/28/23 15:00 87 24 03/28/23 14:50 88 24 03/28/23 14:40 92 H 27 H 03/28/23 14:30 36.5 C 96 H 20 03/28/23 14:24 36.2 C L 97 H 37 H 03/28/23 13:16 36.9 C 94 H 18 107/59 L 03/28/23 12:58 36.8 C 94 H 18 94/54 L 03/28/23 12:30 36.9 C 87 18 03/28/23 11:45 36.7 C 85 18 145/71 H 03/28/23 09:51 36.5 C 83 18 100/52 L 03/28/23 09:36 03/28/23 08:51 36.7 C 85 20 91/51 L 03/28/23 08:21 36.7 C 73 18 87/46 L 03/28/23 08:20 36.7 C 76 18 91/52 L 03/28/23 08:01 36.7 C 79 18 91/53 L 03/28/23 07:47 36.6 C 79 18 85/53 L 03/28/23 07:02 36.3 C L 78 22 BP Pulse Ox O2 Del Method O2 Flow Rate 03/28/23 17:01 95 03/28/23 16:33 91 03/28/23 16:01 102/56 L 95 Room Air 03/28/23 16:00 95 03/28/23 15:00 134/61 95 Oxymask 4 03/28/23 14:50 137/57 L 99 Oxymask 4 03/28/23 14:40 145/49 H 98 Oxymask 4 03/28/23 14:30 147/60 H 98 Oxymask 6 03/28/23 14:24 184/66 H 90 Oxymask 8 03/28/23 13:16 94 3 03/28/23 12:58 96 4 03/28/23 12:30 112/61 94 Nasal Cannula 2 03/28/23 11:45 97 3 03/28/23 09:51 90 03/28/23 09:36 Nasal Cannula 3 03/28/23 08:51 91 3 03/28/23 08:21 94 03/28/23 08:20 93 3 03/28/23 08:01 91 03/28/23 07:47 92 2 03/28/23 07:02 112/62 93 Nasal Cannula 2 PG Care Time/CCT Total # of Minutes Spent Total Time Spent with Patient: Total time spent is greater than 50% in coordination of care (as documented) at patient's floor/unit and/or counseling patient: Coding Level of Care Code 14882 SUB INP/OBS CARE 3/50MIN Diagnoses GIB (gastrointestinal bleeding) K92.2 Paroxysmal atrial fibrillation I48.0 GERRY (obstructive sleep apnea) G47.33 Hypertension I10 Elevated TSH R79.89 ABLA (acute blood loss anemia) D62 Hemorrhagic shock R57.8 Duodenal ulcer K26.9 Gastric ulcer K25.9
[2023-03-28] MEDS ORDERED: diphenhydrAMINE 50 MG/ML VIAL IV PRN (18:49)
[2023-03-28 18:59] LABS: Hematocrit (blood only) 21.1 % (42.0-52.0)
[2023-03-28] MEDS: ACETAMINOPHEN 1,000 MG/100 ML VIAL IV PRN (19:05)
[2023-03-28] MEDS ORDERED: HEPARIN 100 UNIT/ML 5ML FLUSH FLUSH PRN (20:23)
[2023-03-28 22:35] LABS: Appearance Urine Clear (Clear); Bilirubin Urine Negative (Negative); Blood Urine Negative (Negative); Color Urine Yellow; Glucose Urine UA Negative (Negative); Ketones Urine Negative (Negative); Leukocyte Esterase Urine Negative (Negative); Nitrite Urine Negative (Negative); Protein Urine Negative (Negative); Specific Gravity Urine 1.042 (1.000-1.030); Urobilinogen Urine Negative (Negative); pH Urine 5.5 (4.5-7.5)
[2023-03-29 00:07] LABS: Hematocrit (blood only) 22.3 % (42.0-52.0); Hemoglobin 7.1 g/dl (14.0-18.0)
[2023-03-29] MEDS ORDERED: SODIUM CHLORIDE 0.9% 250 ML IV PRN ×3 (01:03→15:38)
--- NOTE | 2023-03-29 01:04 | Communication Note ---
Date of Service: March 29, 2023 Hgb 7.1 s/p transfusion. Will transfuse an additional unit now. Recheck am labs. Resident Activity Tracking Resident Involvement: Resident Care Provided Care Provided: Adult [facility] Medicine
[2023-03-29] MEDS: ACETAMINOPHEN 1,000 MG/100 ML VIAL IV PRN (04:11)
[2023-03-29] MEDS: PANTOprazole 40 MG in DEXTROSE 5% MINI-B 100 ML IV SCH ×3 (05:19→16:42)
[2023-03-29 07:04] LABS: Hematocrit (blood only) 25.1 % (42.0-52.0)
[2023-03-29 09:06] LABS: Albumin Globulin Ratio 0.9 (0.9-2); Albumin Level 2.4 gm/dl (3.4-5.0); BUN Creatinine Ratio 34.7 (10-20); Bilirubin,Total 0.6 mg/dl (0.2-1.0); Calcium 7.3 mg/dl (8.6-10.3); Creatinine Clr Calc Pharmacy 83.5 ml/min; Est GFR (African American) 86.5 ml/min; Est GFR (Non-African American) 74.6 ml/min; Globulin 2.6 gm/dl (2.5-4.0); Potassium 3.6 mmol/L (3.5-5.1)
[2023-03-29 09:44] LABS: Anisocytosis Present; Basophils # (auto) 0.13 K/uL (0.00-0.20); Basophils % (auto) 0.6 %; Immature Granulocytes # (auto) 1.28 K/uL (0.01-0.20); Immature Granulocytes % (auto) 6.3 %; Lymphocytes # (auto) 1.55 K/uL (1.20-3.40); Lymphocytes % (auto) 7.6 %; Mean Corpuscular Hemoglobin 29.8 pg (25.0-34.0); Mean Platelet Volume 11.6 fL (9.4-12.4); Monocytes # (auto) 1.83 K/uL (0.11-0.59); Neutrophils # (auto) 15.34 K/uL (1.40-6.50); Neutrophils % (auto) 75.5 %; Nucleated RBC # (auto) 0.35 K/uL (0.00-0.12); Nucleated RBC % (auto) 1.7 %; Platelet Count 110 K/uL (130-400); RDW Coefficient of Variation 20.7 % (11.5-14.5); RDW Standard Deviation 57.1 fL (36.4-46.3); Red Blood Count 2.62 M/uL (4.70-6.10); Toxic Granulation 1+; White Blood Count 20.33 K/ul (4.8-10.8)
--- NOTE | 2023-03-29 09:49 | Hospitalist Progress Note ---
Date of Service March 29, 2023 Assessment & Plan (1) GIB (gastrointestinal bleeding): Plan: 78yo male with history of colon cancer, diverticulosis and polyps, atrial fibrillation on Apixaban anticoagulation presenting with acute blood loss anemia from presumed GIB. Patient endorses symptomatic anemia with NIELSEN, exertional chest tightness, dizziness and lightheadedness. -Heme+ stool in the ER -03/26 Hgb of 7.4 from last 11.8 on 03/13/23 --> received 2u PRBCs --> 03/27 Hgb now 8.7, continue to trend Overnight 03/27 to 03/28 patient had multiple episodes of bloody diarrhea, Hgb 6.8 --> received 2u PRBCs Overnight 03/28 to 03/29 hgb 7.0 --> received 2u PRBCs (total 6 units during hospital stay) 03/29 hgb 7.7 this morning, 7.8 this afternoon, continue q6 H&H -Maintain two large PIVs. Patient with 18g and 20g. He does have a port in left chest as well -GI consulted -EGD 03/27: non bleeding gastic ulcer bx for h.pylori and one nonbleeding duodenal ulcer with visible vessel injected with epinephrine - Recommend protonix 8mg/hr IV continuous x 3 days - CTA/P: 6mm hypervascular focus within the duodenal bulb suggestive of active bleed --> plan for repeat EGD - EGD 03/28: many non-bleeding cratered gastric ulcers without bleeding in the gastric antrum. One spurting cratered 10mm duodenal ulcer - 2 hemostatic clips were placed. Fulguration to alma the lesion by bipolar probe was unsucessful. Hemostatis spray deployed x 5. - If any further bleeding will need transfer to tertiary care center. If requires transfer, pt prefers [facility]. - 1/3 advanced to clear liquids - Continue IV PPI Will continue IV maintenance fluids with recent hypotension, reevaluate after seeing how patient tolerates diet advancement (2) Paroxysmal atrial fibrillation: Plan: Rate controlled. Patient on anticoagulation with Eliquis currently on hold in setting of GI bleed -Will restart Amiodarone 100mg in AM -Hold Atenolol (3) GERRY (obstructive sleep apnea): Plan: Chronic -BiPAP qHS (4) Hypertension: Plan: Now hypotensive given GI bleed - Given Fluid bolus NSS 500 cc x2 -resume Atenolol as above -Hold HCTZ (5) Elevated TSH: Plan: Not currently on medication, no hx of hypothyroid TSH 5.869, FreeT4 0.96 -Recommend recheck outpatient in one month (6) ABLA (acute blood loss anemia): (7) Hemorrhagic shock: (8) Duodenal ulcer: (9) Gastric ulcer: (10) Morbid obesity with BMI of 40.0-44.9, adult: Plan: Morbid obesity with BMI 40.4 Plan dispo: continued inpatient stay Admission and Anticipated Discharge Date Admission Date: March 26, 2023 Subjective 0930 - Patient lying in bed, looks better from yesterday, more color in his face. Asking to sit up in the chair. Still asking for food, again explained risk for rebleed. Discussion about his ulcers, says he was taking ibuprofen 600mg q 4-6 hr for knee/leg pain. Discussed with him that he will not be able to continue this. Reports his knee/leg pain has been controlled here, pain in back from laying in bed. No abdominal pain at present. No further episodes of diarrhea overnight. Tele - SR with [employer] 80-90s Review of Systems Review of Systems: All systems reviewed & are unremarkable except as noted in Subjective Physical Exam Physical Exam: General: lying in bed, more color to his face today, VS as above HEENT: dry mucosal membranes Resp:normal respiratory effort, lungs clear to auscultation, diminished in bases CV: RRR, no murmur, Abd: normal bowel sounds, nontender throughout Extremities: Moves all extremities, mild b/l LE edema R>L, but s/p R knee and hip replacement Neuro: A&O x3, pleasant but still requesting food. Results & Data Results & Data Vital Signs (Past 12 Hours) Vital Signs Temp Pulse Pulse Resp BP BP Pulse Ox 03/29/23 07:29 36.6 C 86 20 109/57 L 88 L 03/29/23 04:34 36.7 C 86 18 104/62 91 03/29/23 03:44 36.7 C 85 18 100/60 91 03/29/23 03:00 36.8 C 84 22 103/61 90 03/29/23 02:44 36.8 C 88 18 103/61 90 03/29/23 02:14 36.9 C 85 18 101/61 91 03/29/23 01:59 36.8 C 88 18 106/64 92 03/29/23 01:42 37.0 C 87 18 111/66 91 03/28/23 22:49 36.8 C 86 18 120/68 91 03/28/23 22:15 36.9 C 88 18 120/63 90 03/28/23 22:02 88 O2 Del Method O2 Flow Rate 03/29/23 07:29 Nasal Cannula 2 03/29/23 04:34 3 03/29/23 03:44 3 03/29/23 03:00 Nasal Cannula 03/29/23 02:44 3 Laboratory Results CBCs, chemsitry reviewed PG Care Time/CCT Total # of Minutes Spent Total Time Spent with Patient: Total time spent is greater than 50% in coordination of care (as documented) at patient's floor/unit and/or counseling patient: Coding Level of Care Code 88489 SUB INP/OBS CARE 235MIN Diagnoses GIB (gastrointestinal bleeding) K92.2 Paroxysmal atrial fibrillation I48.0 GERRY (obstructive sleep apnea) G47.33 Hypertension I10 Elevated TSH R79.89 ABLA (acute blood loss anemia) D62 Hemorrhagic shock R57.8 Duodenal ulcer K26.9 Gastric ulcer K25.9 Morbid obesity with BMI of 40.0-44.9, adult E66.01; Z68.41
[2023-03-29 09:56] LABS: Mean Corpuscular Hgb Conc 31.9 g/dL (32.0-36.0)
[2023-03-29] MEDS ORDERED: LACTATED RINGER'S 1,000 ML IV SCH (10:00)
--- NOTE | 2023-03-29 10:58 | Gastroenterology Progress Note ---
Date of Service March 29, 2023 Assessment & Plan (1) Duodenal ulcer: (2) GIB (gastrointestinal bleeding): Plan -Clear liquid diet today with slow dietary advancement as tolerated. -Continue PPI ggt for a total of 72 hours s/p EGD yesterday. -If any further bleeding, recommend tertiary center for IR embolization. -Continue supportive care per primary team. Admission and Anticipated Discharge Date Admission Date: March 26, 2023 Supervising Physician Co-Signing Physician Notes Agree with MONICA Sharma as above Abd: Soft, NT, ND, +BS Nursing reports bright red bloody BM Recommend transfer to Tertiary care center now for IR intervention Continue current therapy and supportive care Subjective Patient reports he is feeling well s/p repeat EGD yesterday with findings of duodenal ulcer with visible vessel s/p hemostasis with Endoclip placement and Hemospray. He states he is not having any further melena. He received 2 units of PRBCs last evening. Hemoglobin is 7.7 this morning. He reports feeling hungry and is requesting to be advanced from NPO status. Continues PPI ggt. Review of Systems Constitutional: no fever and no chills Gastrointestinal: as per Subjective / HPI Physical Exam Constitutional: WD/WN, vitals as above Respiratory: normal respiratory effort, lungs clear to auscultation Cardiovascular: RRR, no murmur, no edema Gastrointestinal (Abdomen): normal bowel sounds, soft, nontender, no hepatosplenomegaly Results & Data Results & Data Vital Signs (Past 12 Hours) Vital Signs Temp Pulse Pulse Resp BP BP Pulse Ox 03/29/23 10:37 84 03/29/23 08:00 03/29/23 07:29 36.6 C 86 20 109/57 L 88 L 03/29/23 04:34 36.7 C 86 18 104/62 91 03/29/23 03:44 36.7 C 85 18 100/60 91 03/29/23 03:00 36.8 C 84 22 103/61 90 03/29/23 02:44 36.8 C 88 18 103/61 90 03/29/23 02:14 36.9 C 85 18 101/61 91 03/29/23 01:59 36.8 C 88 18 106/64 92 03/29/23 01:42 37.0 C 87 18 111/66 91 O2 Del Method O2 Flow Rate 03/29/23 10:37 03/29/23 08:00 Nasal Cannula 3 03/29/23 07:29 Nasal Cannula 2 03/29/23 04:34 3 03/29/23 03:44 3 03/29/23 03:00 Nasal Cannula 03/29/23 02:44 3 03/29/23 02:14 3 03/29/23 01:59 3 03/29/23 01:42 3 PG Care Time/CCT Total # of Minutes Spent Total Time Spent with Patient: Total time spent is greater than 50% in coordination of care (as documented) at patient's floor/unit and/or counseling patient: Coding Level of Care Code 22318 SUB INP/OBS CARE 350MIN Diagnoses Duodenal ulcer K26.9 GIB (gastrointestinal bleeding) K92.2
[2023-03-29] MEDS: FLUTICASONE/VILANTEROL 100/25MCG 14 PUFFS/INHALER INH SCH (11:22)
[2023-03-29 12:44] LABS: Hematocrit (blood only) 24.9 % (42.0-52.0); Hemoglobin 7.8 g/dl (14.0-18.0)
--- NOTE | 2023-03-29 16:02 | XRay Report ---
XR chest 1V portable HISTORY: 78 years-old Male SOB acute shortness of breath COMPARISON: Chest radiograph 03/26/2023, CTA abdomen and pelvis 03/28/2023. TECHNIQUE: AP view of the chest FINDINGS: Cardiac silhouette is enlarged. Left subclavian Bxshbs-a-Xdmm catheter is unchanged. Chronic intersti tial coarsening. No pneumothorax, pleural effusion or overt pulmonary edema. 1.9 cm solid nodule in t he right lower lobe is better seen on the CT study from 03/28/2023. Unchanged mild bibasilar atelectasi s versus scarring. Degenerative changes of the shoulders and spine. IMPRESSION: 1. Cardiomegaly without acute process. 2. Mild bibasilar atelectasis/scarring. ACT 112: Negative or not required by law. The above report was generated using voice recognition software. It may contain grammatical, syntax o r spelling errors. Electronically signed by: Gonzalo Sanz M.D. 03/29/2023 4:00 PM
--- NOTE | 2023-03-29 16:20 | Communication Note ---
Date of Service: March 29, 2023 Notified by RN this afternoon about 400mL bloody stool. GI made aware. Patient denied transfer to [facility]. Was accepted for transfer to [facility] ICU step down unit, Dr. Brian. Le. Patient had another blood stool, 200 mL. Decision was made for ICU transfer, french drawer aware. Will plan for ICU to ICU transfer to [facility]. NPO at this time. 1 unit PRBC this afternoon. 3 units on hold.
--- NOTE | 2023-03-29 18:36 | Discharge Summary ---
Discharge Summary Date of Service March 29, 2023 Notes For Next Care Provider Patient with recurrent GI bleed. Had two EGDs while in patient in attempt to achieve hemostasis but ultimately still bled. At that point required transfer to [facility] via helicopter for IR procedure. Seems to be some discression on if patient was taking NSAIDs or Tylenol on a daily basis at home. I provided education that he should not be taking any NSAIDs with his eliquis, but please make sure this is understood in the outpatient setting. All of his afib medications were on hold while he was here, I suspect they will be able to be restarted after GI bleed is fixed, but will have to follow up ba sed on [facility]. 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 He has also become more lightheaded and dizzy as well and has been unable to walk very far. Patient was recently diagnosed with bronchitis and was started on Augmentin. He had some mild symptoms with this but overall his symptoms started acutely yesterday. Patient reports that his stools are always black in color due to the iron supplement that he takes. He has had some constipation as well as nausea as well. Otherwise, denies fever, chills, cough, abdominal pain, GERD symptoms, vomiting or diarrhea. No urinary complaints. In the ER he is afebrile, elevated HR, BP is stable. Rectal exam with black stool, grossly Heme positive ER Course: Protonix 40mg iV NSS x 500mL Principal Dx & Hospital Course #1 = Principal Diagnosis (1) GIB (gastrointestinal bleeding): 78yo male with history of colon cancer, diverticulosis and polyps, atrial fibrillation on Apixaban anticoagulation presenting with acute blood loss anemia from presumed GIB. Patient endorses symptomatic anemia with NIELSEN, exertional chest tightness, dizziness and lightheadedness. -Heme+ stool in the ER -03/26 Hgb of 7.4 from last 11.8 on 03/13/23 --> received 2u PRBCs --> 03/27 Hgb now 8.7, continue to trend Overnight 03/27 to 03/28 patient had multiple episodes of bloody diarrhea, Hgb 6.8 --> received 2u PRBCs Overnight 03/28 to 03/29 hgb 7.0 --> received 2u PRBCs (total 6 units during hospital stay) 03/29 hgb 7.7 this morning, 7.8 this afternoon, continue q6 H&H -Maintain two large PIVs. Patient with 18g and 20g. He does have a port in left chest as well -GI consulted -EGD 03/27: non bleeding gastic ulcer bx for h.pylori and one nonbleeding duodenal ulcer with visible vessel injected with epinephrine - Recommend protonix 8mg/hr IV continuous x 3 days - CTA/P: 6mm hypervascular focus within the duodenal bulb suggestive of active bleed --> plan for repeat EGD - EGD 03/28: many non-bleeding cratered gastric ulcers without bleeding in the gastric antrum. One spurting cratered 10mm duodenal ulcer - 2 hemostatic clips were placed. Fulguration to alma the lesion by bipolar probe was unsucessful. Hemostatis spray deployed x 5. - If any further bleeding will need transfer to tertiary care center. - 03/29 advanced to clear liquids - Continue IV PPI Around lunch time, received message from RN that patient had bloody diarrhea --> patient immediately made NPO, GI (Dr. Martino) made aware and began process for transfer to tertiary center. Trasnfuse additonal unit of PRBCs (7 total for hospital stay) Attempted first to transfer [facility], as patient preference and closer, but could not accept due to insurance purposes and bed availbility. Proceeded to begin process for [facility] they were able to accept to IMCU (ICU stepdown unit) but did not have a bed available and did not have a time frame. Patient continued to have another episode of bloody stool. At this time, cased with discussed with Dr. Garcia, corrections nurse, and pt was transferred to our ICU and transfer process initiated for ICU to ICU transfer to [facility]. Patient transported via helicopter. (2) Paroxysmal atrial fibrillation: Rate controlled. Patient on anticoagulation with Eliquis currently on hold in setting of GI bleed - Amiodarone on hold at time of transfer -Hold Atenolol (3) GERRY (obstructive sleep apnea): Chronic -BiPAP qHS (4) Hypertension: Now hypotensive given GI bleed - Given Fluid bolus NSS 500 cc x2 -atenolol on hold at time of transfer -Hold HCTZ (5) Elevated TSH: Not currently on medication, no hx of hypothyroid TSH 5.869, FreeT4 0.96 -Recommend recheck outpatient in one month (6) ABLA (acute blood loss anemia): (7) Hemorrhagic shock: (8) Duodenal ulcer: (9) Gastric ulcer: (10) Morbid obesity with BMI of 40.0-44.9, adult: Morbid obesity with BMI 40.4 Plan dispo: transfer to [facility] Patient with acute active GI bleed provided critical care with fluid bolus, additional units of blood and coordination of care with GI, transfer center and [facility] to arrange ICU to ICU air transfer. Discharge Exam General: lying in bed, anxious given state of health, VS as above HEENT: dry mucosal membranes Resp:normal respiratory effort, lungs clear to auscultation, diminished in bases CV: RRR, no murmur, Abd: normal bowel sounds, nontender throughout Extremities: Moves all extremities, mild b/l LE edema R>L, but s/p R knee and hip replacement Neuro: A&O x3, Updated Medication List Medication Instructions Recorded Confirmed Type ascorbic acid (vitamin C) 500 mg 500 mg PO QPM 12/18/18 03/26/23 History tablet coenzyme Q10 100 mg capsule 100 mg PO QAM 12/18/18 03/26/23 History fluticasone propionate 50 2 sprays intranasal DAILY PRN 12/18/18 03/26/23 History mcg/actuation nasal Congestion #16 grams spray,suspension Artichoke Extract 1 tab PO QAM cholesterol 02/06/20 03/26/23 History vit C 250 mg-vit E 90 mg-zinc 40 1 tab PO BID 02/06/20 03/26/23 History mg-copper 1 [id number]-ikydcf capsule (PreserVision AREDS-2) Barley Supplement 1 dose PO QPM 06/11/20 03/26/23 History fiber 1 cap PO QPM 06/11/20 03/26/23 History multivitamin 1 tab PO QAM 06/11/20 03/26/23 History Lift Chair #1 ea 05/11/21 03/17/23 Rx glucosamine 750 lj-tygauzztpww-pop 1 tab PO BID 09/16/21 03/26/23 History no1 644 mg-C 30 mg-jesu 1 mg tablet (Osteo Bi-Flex Triple Strength) famotidine 20 mg tablet (Pepcid AC) 20 mg PO BID 01/12/22 03/26/23 History Wheeled Walker #1 ea 01/21/22 03/17/23 Rx magnesium oxide 250 mg PO QAM 01/25/22 03/26/23 History melatonin 10 mg tablet 10 mg PO HS 01/25/22 03/26/23 History albuterol sulfate 90 mcg/actuation 2 puff inhalation Q4H PRN 05/09/22 03/26/23 Rx aerosol inhaler shortness of breath or wheezing #18 grams apixaban 5 mg tablet (Eliquis) 5 mg PO BID #180 tabs 05/30/22 03/26/23 Rx ferrous fumarate 200 mg (65 mg 1 tab PO QAM 06/10/22 03/26/23 History iron)-vit C 25 mg tablet,extend release (Vanessa-Sequels (iron-vit c)) potassium chloride 20 mEq 20 meq PO QAM #90 tabs 06/21/22 03/26/23 Rx tablet,extended release atenolol 50 mg tablet 25 mg (1/2 x 50 mg) PO BID #90 tabs 06/24/22 03/26/23 Rx hydrochlorothiazide 25 mg tablet 25 mg PO QPM #90 tabs 07/15/22 03/26/23 Rx metformin 500 mg tablet,extended 500 mg PO BID #180 tabs 09/12/22 03/26/23 Rx release 24 hr fluticasone 250 mcg-salmeterol 50 1 inh inhalation BID #60 ea 10/10/22 03/26/23 Rx mcg/dose blistr powdr for inhalation (Advair Diskus) furosemide 40 mg tablet (Lasix) 40 mg PO DAILY PRN edema 12/08/22 03/26/23 History amiodarone 100 mg tablet (Pacerone) 100 mg PO QAM #90 tabs 02/22/23 03/26/23 Rx acetaminophen 325 mg tablet 650 mg PO TID PRN PAIN/FEVER 03/26/23 03/26/23 History (Tylenol) ondansetron HCl (PF) 4 mg/2 mL 4 mg (2 mL) IV Q6H PRN Nausea 10 03/29/23 Rx injection solution days #1 mL Hospital Stay Data Consultations 03/26/23 21:01 ED Decision to Admit Stat 03/26/23 21:31 Consult Gastroenterology Routine 03/29/23 14:07 Burn CD for patient Stat Procedures Performed Operation Date: 03/28/23 10:35 Actual Procedures p Esophagogastroduodenoscopy with hemostasis - Omar Car Case, DO Diagnostic Imagining Performed 03/28/23 09:53 CTA abd pelvis wo/w con [CT angio abd pelvis wo/w con] Stat Pending Results Patient Have Any Pending Studies at Discharge: No Discharge Instructions Given to Patient (Per Discharging Provider) Mr. Augie Camacho were hospitalized after having acute blood loss anemia from an upper GI bleed. You underwent and EGD on 03/27 that did not show any active bleeding, but multiple gastric ulcers. There was one ulcer that had a blood vessel in it and that was injected with lidocaine to prevent bleeding. After advancing you to a clear liquid diet, you began to have bloody diarrhea again and CT scan showed active bleeding in your stomach. On 03/28 you had a second EGD that showed numerous ulcers, one with an active bleed that was difficult to get stopped. But eventually did stop after surgical clips and hemostatic spray. On 03/29 after the diet was advanced to clear liquids, you again had large amount of bloody stool and decision was made to transfer you to a higher level of care to have an IR procedure to stop the bleeding. While you were here, we were holding your afib medications (eliquis, Atenolol and Amiodarone) these will be restarted at the discretion of the next hospital. Of note: your TSH was elevated during your stay, but the free T4 test was normal. Your PCP should recheck this in one month. Total Time Total Time Spent Total Time Spent (In Minutes): Over 90 minutes of critcal care time Coding Level of Care Code None Diagnoses GIB (gastrointestinal bleeding) K92.2 Paroxysmal atrial fibrillation I48.0 GERRY (obstructive sleep apnea) G47.33 Hypertension I10 Elevated TSH R79.89 ABLA (acute blood loss anemia) D62 Hemorrhagic shock R57.8 Duodenal ulcer K26.9 Gastric ulcer K25.9 Morbid obesity with BMI of 40.0-44.9, adult E66.01; Z68.41 Time Spent (min) 90 Comment critical care time
--- NOTE | 2023-03-30 09:35 | Billing Data ---
Date of Service March 30, 2023 Coding Level of Care Code 87862 CRITICAL CARE 1ST 30-74M Time Spent (min) 90 Comment critical care time
== END 2023-03-29 17:34 | disposition short-term general hospital (02) | DRG 377 ==
LOC: ED 15:45 → EDINP 21:31 → SUATTDRO 21:31 → EDINP 03-27 01:20 → 2W 03-27 14:57 → 2S 03-28 21:39 → 1E 03-29 16:52

== ENCOUNTER 2024-06-04 09:33 | Inpatient (IN) ==
--- NOTE | 2024-06-04 10:01 | Emergency Department Note ---
History of Present Illness General Chief complaint: Abnormal Labs/Diagnostic Testing Stated complaint: abn labs, feet edema, uti symptoms Time Seen by Provider: 06/04/24 09:42 History of Present Illness Maximum Pain Intensity: 6 This is a 79-year-old male with a complex past medical history to include COPD, atrial fibrillation on oral anticoagulation, GERRY, HTN, GERD currently undergoing infusions every 2 weeks at the cancer center locally noting history of metastatic colon cancer. The patient notes that as of recent has been for feeling fatigued, overall dry but trying to orally hydrate with minimal success. Patient notes that food does not taste normal to him anymore. Patient notes that he has laboratory studies drawn every 2 weeks. Last of which was yesterday as an outpatient. Today he presented for his normal infusion at the [facility] and notes that the infusion was not performed noting lab abnormalities. Per review of the EMR the patient was noted to have an interval increase in total bilirubin now in the 7 range. Patient notes about a week now of lower extremity edema and orthopnea. No fevers, chills, chest pain or shortness of breath no abdominal pain. He notes chronic dysuria. Of note, although he has been utilizing acetaminophen for pain, he has not exceeded package recommendations and the use of acetaminophen for him is not new. Home Medications Medication Instructions Recorded Confirmed Type ascorbic acid (vitamin C) 500 mg 500 mg PO QPM 12/18/18 06/04/24 History tablet coenzyme Q10 100 mg capsule 100 mg PO QAM 12/18/18 06/04/24 History vit C 250 mg-vit E 90 mg-zinc 40 1 tab PO BID 02/06/20 06/04/24 History mg-copper 1 [id number] capsule (PreserVision AREDS-2) multivitamin 1 tab PO QAM 06/11/20 06/04/24 History Lift Chair #1 ea 05/11/21 02/05/24 Rx Wheeled Walker #1 ea 01/21/22 02/05/24 Rx magnesium oxide 250 mg PO QAM 01/25/22 06/04/24 History acetaminophen 325 mg tablet 650 mg PO TID PRN PAIN/FEVER 03/26/23 06/04/24 History (Tylenol) albuterol sulfate 90 mcg/actuation 2 puff inhalation Q4H PRN prn 05/19/23 06/04/24 History aerosol inhaler glucosamine 750 [id number] 1 tab PO BID 05/19/23 06/04/24 History no1 644 mg-C 30 mg-jesu 1 mg tablet (Osteo Bi-Flex Triple Strength) atenolol 50 mg tablet 25 mg (1/2 x 50 mg) PO BID #90 tabs 12/14/23 06/04/24 Rx metformin 500 mg tablet,extended 500 mg PO BID #180 tabs 01/29/24 06/04/24 Rx release 24 hr amiodarone 100 mg tablet (Pacerone) 100 mg PO QAM #90 tabs 02/05/24 06/04/24 Rx gabapentin 300 mg capsule 300 mg PO HS 04/22/24 06/04/24 History trifluridine 15 mg-tipiracil 6.14 0 tab PO BID 04/22/24 06/04/24 History mg tablet (Lonsurf) valacyclovir 1 gram tablet 1,000 mg PO BID 04/22/24 06/04/24 History hydrochlorothiazide 25 mg tablet 25 mg PO QPM #90 tabs 05/27/24 06/04/24 Rx apixaban 5 mg tablet (Eliquis) 5 mg PO BID 06/04/24 06/04/24 History dronabinol 5 mg capsule 5 mg PO BID PRN Nausea And Vomiting 06/04/24 06/04/24 History latanoprost 0.005 % eye drops 1 drp OPB HS 06/04/24 06/04/24 History oxycodone 5 mg tablet 5 mg PO DIRECTED PRN Pain 06/04/24 06/04/24 History pantoprazole 40 mg tablet,delayed 40 mg PO BID 06/04/24 06/04/24 History release psyllium husk 0.52 gram capsule 0.52 g PO HS 06/04/24 06/04/24 History (Fiber-Caps (psyllium husk)) Allergies Allergy/AdvReac Type Severity Reaction Status Date / Time lisinopril Allergy Severe Angioedema Verified 06/04/24 12:08 adhesive Allergy Intermediate Rash Verified 06/04/24 12:08 latex Allergy Intermediate Contact Verified 06/04/24 12:08 dermatitis Past Med/Surg History Problem List Elevated LFTs Elevated bilirubin (Acute) Transaminitis (Acute) Decrease in appetite (Acute) Fatigue (Acute) Jaundice (Acute) Anterior epistaxis (Acute) Right rotator cuff tear arthropathy Diarrhea Submandibular sialoadenitis (~04/2023) Submandibular sialolithiasis Swelling, mass, or lump in head and neck Morbid obesity with BMI of 40.0-44.9, adult Gastric ulcer Duodenal ulcer Hemorrhagic shock Elevated TSH ABLA (acute blood loss anemia) Thrombocytopenia (Acute) Chest pain on exertion (Acute) Weakness (Acute) Anemia (Acute) Acute upper gastrointestinal bleeding (Acute) Colon cancer metastasized to liver (Chronic) History of ablation of neoplasm of liver 11/11/22, [facility] Diabetes mellitus Elevated blood sugar Peripheral edema Liver metastases (Acute) Adenocarcinoma of colon (Acute) Tinea cruris Diverticulitis Liver lesion Urinary retention Leukocytosis Anemia (Acute) Rectal bleeding S/P total right hip arthroplasty Dysphagia Enlarged tongue (HFpEF) heart failure with preserved ejection fraction Status post right hip replacement Hypoxia Biliary colic Chest pain 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 Pulmonary nodule Pes anserinus tendonitis of right lower extremity Statin myopathy (Acute) Allergic rhinitis Right knee pain AAA (abdominal aortic aneurysm) without rupture Paroxysmal atrial fibrillation Carotid artery stenosis 50-69% stenosis L ICA, < 50% stenosis R ICA Lumbar spondylosis History of total right knee replacement Sciatica Left knee DJD Paroxysmal atrial flutter LVH (left ventricular hypertrophy) Hypercholesterolemia Hypertension Nocturnal hypoxemia GERD (gastroesophageal reflux disease) (Chronic) Carotid stenosis, left (Acute) Family history of breast cancer GERRY (obstructive sleep apnea) (Chronic) Non-healing skin lesion (Chronic) Atrial flutter with rapid ventricular response (Chronic) Medical History Cirrhosis Swelling, mass, or lump in head and neck 09/2023, sent to ENT, found to have a stone in his submandibular gland Allergic rhinitis History of abdominal aortic aneurysm (AAA) repaired in 2020 Heart failure with preserved ejection fraction f/u [facility] cardio Weakness in b/l legs Rectal bleeding 12/04/23, one episode Pulmonary nodule Peripheral edema no current issues Lumbar spondylolysis Hypertension Hypercholesteremia Hemorrhagic shock hx 03/2023, "due to bleeding gastric ulcer" GERD (gastroesophageal reflux disease) Dysphagia w/food and water, "no trouble with juices" Hx of diverticulitis of colon Carotid artery stenosis 50-69% stenosis L ICA, < 50% stenosis R ICA History of anemia no current issues History of gastric ulcer [facility], transferred to [facility] Diabetes mellitus, type 2 NIDDM Liver cancer dx 02/2022;last chemo 09/13/23 and radiation completed 12/2022 Colon cancer dx 02/2022; last chemo 09/13/23 Second-degree heart block Sludge in gallbladder general surgery 01/27/22 "would not push to have [laparoscopic cholecystectomy] unless he has more symptoms..." Morbid obesity HTN (hypertension) controlled, stable per pt Macular degeneration [place] (hard of hearing) B/L DONATO Neuropathy feet bilat Atrial fibrillation follows with Dr. Stoddard; on eliquis COPD (chronic obstructive pulmonary disease) controlled, stable per pt; daily and prn inh Sleep apnea [id number] Surgical History History of esophagogastroduodenoscopy (EGD) History of ablation of neoplasm of liver 11/11/22, [facility] Hx of colonoscopy History of cataract surgery right/left Port-A-Cath in place (06/16/22) Insertion of Access Port, left subclavian(Left) - Christian Gomez MD, FACS [employer] Hx of endoscopic retrograde cholangiopancreatography [facility] History of total right hip arthroplasty History of tooth extraction S/P aneurysm repair Percutaneous Endovascular Aneurysm Repair 08/11/2020: Grade 2 view, MAC 4, ETT 8. History of carpal tunnel release Right History of right knee joint replacement RT. 12/22/16: SAB at L3-L4 + PNB. Family History Mother Breast cancer Father Blindness Sister No problems noted. Grandfather (Paternal) Stroke Grandfather (Maternal) Heart disease Grandmother (Maternal) No problems noted. Grandmother (Paternal) Pneumonia Other Family history of breast cancer No family history of adverse response to anesthesia Denies family history of Ovarian cancer Prostate cancer Myocardial infarction Colorectal cancer Social History Smoking Status: Former smoker Tobacco Type: Pipe Age Started Using Tobacco: 22; Age Quit Using Tobacco: 67; Second Hand Exposure: Yes (hx as child); Do You Dip or Chew Tobacco: No; Hx Alcohol Use: No Hx Substance Use: No Preferred Language: Polish Communication Ability: Effective Visual Impairment: No Limitations Hearing Ability: Use of Hearing Aid Chiropractic Practice Manager Required: No Beliefs That Will Affect Care: None marital status: Current Living Situation: Spouse 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al status: retired 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; 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; How many Children do You have: 3 Feels Safe at Home: Yes Childhood Exposure to Second-Hand Smoke: Yes Diet: regular caffeine: Yes Dental Care, Regularly: Yes Physical Activity Frequency: Daily Seatbelt Use: always Sunscreen Use: Yes Assistive Devices: BiPap, Cane, Glasses, Hearing Aid - Bilateral, Scooter/Electric Scooter and Walker Review of Systems A total of 10 systems reviewed and were otherwise negative Physical Exam Vital Signs Vital Signs - 24 hr 06/04/24 09:36 06/04/24 10:06 06/04/24 10:26 Temperature 36.9 C Temperature Source Temporal Artery Scan Pulse Rate 74 70 68 Pulse Rate [Apical] Pulse Rate from SpO2 Sensor 70 Respiratory Rate 20 23 Respiratory Effort / Characteristics Respiratory Depth Respiratory Pattern Blood Pressure 113/61 109/56 L Blood Pressure [Right Arm] Blood Pressure Mean 78 73 Blood Pressure Mean [Right Arm] Blood Pressure Position [Right Arm] Pulse Oximetry 94 94 Oxygen Delivery Method Room Air Sepsis Recent Fever Within 48 Hours No Sepsis New/Unexplained Change in Mental Status N/A Sepsis Action Taken by Nursing No Action Required 06/04/24 10:51 06/04/24 11:00 06/04/24 11:00 Temperature Temperature Source Pulse Rate 67 68 Pulse Rate [Apical] 67 Pulse Rate from SpO2 Sensor 67 Respiratory Rate 22 20 20 Respiratory Effort / Characteristics Non-Labored Spontaneous Respiratory Depth Normal Respiratory Pattern Regular Blood Pressure 110/58 L 108/56 L Blood Pressure [Right Arm] 108/56 L Blood Pressure Mean 75 88 Blood Pressure Mean [Right Arm] 73 Blood Pressure Position [Right Arm] Semi-fowlers Pulse Oximetry 94 94 95 Oxygen Delivery Method Room Air Room Air Room Air Sepsis Recent Fever Within 48 Hours Sepsis New/Unexplained Change in Mental Status Sepsis Action Taken by Nursing 06/04/24 11:00 06/04/24 11:45 06/04/24 12:00 Temperature Temperature Source Pulse Rate 72 68 Pulse Rate [Apical] Pulse Rate from SpO2 Sensor 69 Respiratory Rate 27 H 24 Respiratory Effort / Characteristics Respiratory Depth Respiratory Pattern Blood Pressure 108/56 L 142/75 H Blood Pressure [Right Arm] Blood Pressure Mean 88 98 Blood Pressure Mean [Right Arm] Blood Pressure Position [Right Arm] Pulse Oximetry 93 Oxygen Delivery Method Sepsis Recent Fever Within 48 Hours Sepsis New/Unexplained Change in Mental Status Sepsis Action Taken by Nursing 06/04/24 12:37 06/04/24 12:41 06/04/24 13:00 Temperature Temperature Source Pulse Rate 69 Pulse Rate [Apical] 71 Pulse Rate from SpO2 Sensor 69 Respiratory Rate 16 23 Respiratory Effort / Characteristics Respiratory Depth Respiratory Pattern Blood Pressure 132/68 116/92 Blood Pressure [Right Arm] 132/68 Blood Pressure Mean 94 100 Blood Pressure Mean [Right Arm] 89 Blood Pressure Position [Right Arm] Sitting Pulse Oximetry 93 93 Oxygen Delivery Method Room Air Sepsis Recent Fever Within 48 Hours Sepsis New/Unexplained Change in Mental Status Sepsis Action Taken by Nursing 06/04/24 13:00 06/04/24 13:27 06/04/24 13:39 Temperature Temperature Source Pulse Rate 70 66 Pulse Rate [Apical] Pulse Rate from SpO2 Sensor 71 66 Respiratory Rate 33 H 19 Respiratory Effort / Characteristics Respiratory Depth Respiratory Pattern Blood Pressure 116/92 154/78 H Blood Pressure [Right Arm] Blood Pressure Mean 98 103 Blood Pressure Mean [Right Arm] Blood Pressure Position [Right Arm] Pulse Oximetry 94 92 Oxygen Delivery Method Sepsis Recent Fever Within 48 Hours Sepsis New/Unexplained Change in Mental Status Sepsis Action Taken by Nursing 06/04/24 14:00 06/04/24 14:30 06/04/24 14:30 Temperature Temperature Source Pulse Rate Pulse Rate [Apical] 75 Pulse Rate from SpO2 Sensor Respiratory Rate 20 Respiratory Effort / Characteristics Non-Labored Spontaneous Respiratory Depth Normal Respiratory Pattern Regular Blood Pressure 127/62 147/68 H Blood Pressure [Right Arm] 147/68 H Blood Pressure Mean 94 77 Blood Pressure Mean [Right Arm] 94 Blood Pressure Position [Right Arm] Semi-fowlers Pulse Oximetry 94 Oxygen Delivery Method Room Air Sepsis Recent Fever Within 48 Hours Sepsis New/Unexplained Change in Mental Status Sepsis Action Taken by Nursing 06/04/24 14:30 06/04/24 14:30 06/04/24 14:34 Temperature Temperature Source Pulse Rate 72 71 Pulse Rate [Apical] Pulse Rate from SpO2 Sensor 72 Respiratory Rate 19 Respiratory Effort / Characteristics Respiratory Depth Respiratory Pattern Blood Pressure 147/68 H 147/68 H Blood Pressure [Right Arm] Blood Pressure Mean 77 77 Blood Pressure Mean [Right Arm] Blood Pressure Position [Right Arm] Pulse Oximetry 91 Oxygen Delivery Method Sepsis Recent Fever Within 48 Hours Sepsis New/Unexplained Change in Mental Status Sepsis Action Taken by Nursing 06/04/24 15:04 06/04/24 15:30 06/04/24 16:00 Temperature Temperature Source Pulse Rate 76 72 75 Pulse Rate [Apical] Pulse Rate from SpO2 Sensor 72 75 Respiratory Rate 20 24 19 Respiratory Effort / Characteristics Respiratory Depth Respiratory Pattern Blood Pressure 125/65 131/79 Blood Pressure [Right Arm] Blood Pressure Mean 85 108 Blood Pressure Mean [Right Arm] Blood Pressure Position [Right Arm] Pulse Oximetry 95 93 93 Oxygen Delivery Method Room Air Sepsis Recent Fever Within 48 Hours Sepsis New/Unexplained Change in Mental Status Sepsis Action Taken by Nursing 06/04/24 16:24 Temperature Temperature Source Pulse Rate Pulse Rate [Apical] Pulse Rate from SpO2 Sensor Respiratory Rate 20 Respiratory Effort / Characteristics Non-Labored Spontaneous Respiratory Depth Normal Respiratory Pattern Regular Blood Pressure Blood Pressure [Right Arm] Blood Pressure Mean Blood Pressure Mean [Right Arm] Blood Pressure Position [Right Arm] Pulse Oximetry Oxygen Delivery Method Sepsis Recent Fever Within 48 Hours Sepsis New/Unexplained Change in Mental Status Sepsis Action Taken by Nursing VITAL SIGNS - Vital signs and nursing notes were reviewed. Stable and afebrile. GENERAL -79-year-old male appearing his stated age who is in no acute distress. Communicates well with provider and answers questions appropriately. SKIN - Without rashes. No meningeal or petechial rash. Jaundiced. HEAD - NC/AT. EYES - PERRL with EOMI bilaterally. Sclera icteric. EARS - No deformities of external structures noted on gross examination bilaterally. NOSE - Midline and without cyanosis. No epistaxis or purulent drainage noted. MOUTH/OROPHARYNX - Without perioral cyanosis. NECK - Neck with FROM. Supple to palpation. LUNGS - CTA CARDIAC - RRR ABDOMEN - Abdominal contour normal without pulsations or visible masses. BS normoactive all four quadrants. No tenderness, palpable masses, hepatosplenomegaly, or ascites noted. EXTREMITIES - No clubbing or peripheral cyanosis. Mild bilateral lower extremity edema without asymmetry. +5/5 strength noted in UE/LE bilaterally. NEUROLOGIC - Cranial nerves II through XII grossly intact. PSYCH -alert, oriented and pleasant on exam Course Administered Medications Sodium Chloride (Nss) 1,000 mls @ 80 mls/hr IV .[id number] YANNA Stop: 06/05/24 10:29 Last Admin: 06/04/24 10:45 Dose: 80 mls/hr [place]ed [place] [facility] [place] Medications Cefepime HCl (Maxipime 2000mg) 2,000 mg in 20 mls @ 5 mls/min IV NOW STA; Protocol Stop: 06/04/24 10:39 Last Admin: 06/04/24 10:49 Dose: 5 mls/min Documented By: EDMUNDO Ioversol (Optiray 320 100ml) 94 ml IV ONCE ONE Stop: 06/04/24 11:15 Last Admin: 06/04/24 11:14 Dose: 94 ml Documented By: MARC Morphine Sulfate (Morphine Sulfate 2 Mg/Ml Carp) 2 mg IV NOW STA Stop: 06/04/24 14:41 Last Admin: 06/04/24 15:10 Dose: 2 mg Documented By: RADHA Medical Decision Making Laboratory Data 06/04/24 10:05 06/04/24 10:05 Lab Results 06/04/24 06/04/24 06/04/24 Range/Units 10:05 10:40 11:47 WBC 9.20 (4.8-10.8) K/ul RBC 3.36 L (4.70-6.10) M/uL Hgb 10.6 L (14.0-18.0) g/dl Hct 31.2 L (42.0-52.0) % MCV 92.9 (80.0-100.0) fL MCH 31.5 (25.0-34.0) pg MCHC 34.0 (32.0-36.0) g/dL RDW Std Deviation 68.0 H (36.4-46.3) fL RDW Coeff of Salome 21.1 H (11.5-14.5) % Plt Count 213 (130-400) K/uL MPV 10.6 (9.4-12.4) fL Immature Gran % (Auto) 0.7 % Neut % (Auto) 74.1 % Lymph % (Auto) 12.0 % [place] % (Auto) 11.8 % Eos % (Auto) 1.0 % Baso % (Auto) 0.4 % Neut # (Auto) 6.82 H (1.40-6.50) K/uL Lymph # (Auto) 1.10 L (1.20-3.40) K/uL [place] # (Auto) 1.09 H (0.11-0.59) K/uL Eos # (Auto) 0.09 (0.00-0.50) K/uL Baso # (Auto) 0.04 (0.00-0.20) K/uL Immature Gran # (Auto) 0.06 (0.01-0.20) K/uL Toxic Granulation 1+ Toxic Vacuolation 1+ Polychromasia 1+ Target Cells 2+ PT 17.4 H (9.0-12.0) Seconds INR 1.7 H (0.9-1.1) APTT 40 H (21-31) Seconds PTT Ratio 1.5 Sodium 137 (136-145) mmol/L Potassium 3.4 L (3.5-5.1) mmol/L Chloride 98 (98-107) mmol/L Carbon Dioxide 30 (21-32) mmol/L Anion Gap 9 (3-11) BUN 23 (6-23) mg/dl Creatinine 0.62 (0.6-1.4) mg/dl Est Cr Clr Drug Dosing Not Reportable eGFR 98.44 BUN/Creatinine Ratio 37.1 H (10-20) Glucose 133 H (70-99(Fasting)) mg/dl Lactate 4.9 H* (0.4-2.0) mmol/L Calcium 9.0 (8.6-10.3) mg/dl Magnesium 1.9 (1.7-2.4) mg/dl Total Bilirubin 7.4 H (0.2-1.0) mg/dl Direct Bilirubin 5.1 H (0-0.2) mg/dl AST 208 H (13-39) U/L ALT 100 H (7-52) U/L Alkaline Phosphatase 777 H (34-104) U/L Troponin I High Sens 16.8 (0-20) pg/ml B-Natriuretic Peptide 178 H (0-100) pg/ml Total Protein 6.5 (6.0-8.3) gm/dl Albumin 2.5 L (3.4-5.0) gm/dl Lipase 14 (11-82) U/L Procalcitonin 0.48 (0-0.5) ng/ml TSH 3.435 (0.300-4.500) uIu/ml Urine Color Dark Yellow Urine Appearance Clear (Clear) Urine pH 5.5 (4.5-7.5) Ur Specific [place] 1.036 H (1.000-1.030) Urine Protein Trace H (Negative) Urine Glucose (UA) Negative (Negative) Urine Ketones Trace H (Negative) Urine Blood Negative (Negative) Urine Nitrite Positive A (Negative) Urine Bilirubin 3+ H (Negative) Urine Urobilinogen Positive H (Negative) Ur Leukocyte Esterase 1+ H (Negative) Urine WBC (Auto) 6-10 H (0-5) /hpf Urine RBC (Auto) 0-2 (0-2) /hpf U Hyaline Cast (Auto) 0-2 (0-2) /lpf U Epithel Cells (Auto) 0-2 (0-2) /hpf Urine Bacteria (Auto) 1+ H (None Seen) Urine Mucus Present A (None Prsent) Adenovirus (PCR) Not Detected (NotDetected) B. pertussis DNA (PCR) Not Detected (NotDetected) B.parapertussis DNA PCR Not Detected (NotDetected) C. pneumoniae DNA (PCR) Not Detected (NotDetected) Coronavirus OC43 (PCR) Not Detected (NotDetected) Coronavirus HKU1 (PCR) Not Detected (NotDetected) Coronavirus 229E (PCR) Not Detected (NotDetected) SARS-CoV-2 (PCR) Not Detected (NotDetected) Coronavirus NL63 (PCR) Not Detected (NotDetected) Human Metapneumovir PCR Not Detected (NotDetected) Influenza Type A (PCR) Not Detected (NotDetected) Influenza Type B (PCR) Not Detected (NotDetected) M. pneumoniae (PCR) Not Detected (NotDetected) Parainfluenza 1 (PCR) Not Detected (NotDetected) Parainfluenza 2 (PCR) Not Detected (NotDetected) Parainfluenza 3 (PCR) Not Detected (NotDetected) Parainfluenza 4 (PCR) Not Detected (NotDetected) RSV (PCR) Not Detected (NotDetected) Entero/Rhino (PCR) Not Detected (NotDetected) 06/04/24 Range/Units 12:26 WBC (4.8-10.8) K/ul RBC (4.70-6.10) M/uL Hgb (14.0-18.0) g/dl Hct (42.0-52.0) % MCV (80.0-100.0) fL MCH (25.0-34.0) pg MCHC (32.0-36.0) g/dL RDW Std Deviation (36.4-46.3) fL RDW Coeff of Salome (11.5-14.5) % Plt Count (130-400) K/uL MPV (9.4-12.4) fL Immature Gran % (Auto) % Neut % (Auto) % Lymph % (Auto) % [place] % (Auto) % Eos % (Auto) % Baso % (Auto) % Neut # (Auto) (1.40-6.50) K/uL Lymph # (Auto) (1.20-3.40) K/uL [place] # (Auto) (0.11-0.59) K/uL Eos # (Auto) (0.00-0.50) K/uL Baso # (Auto) (0.00-0.20) K/uL Immature Gran # (Auto) (0.01-0.20) K/uL Toxic Granulation Toxic Vacuolation Polychromasia Target Cells PT (9.0-12.0) Seconds INR (0.9-1.1) APTT (21-31) Seconds PTT Ratio Sodium (136-145) mmol/L Potassium (3.5-5.1) mmol/L Chloride (98-107) mmol/L Carbon Dioxide (21-32) mmol/L Anion Gap (3-11) BUN (6-23) mg/dl Creatinine (0.6-1.4) mg/dl Est Cr Clr Drug Dosing eGFR BUN/Creatinine Ratio (10-20) Glucose (70-99(Fasting)) mg/dl Lactate 4.6 H* (0.4-2.0) mmol/L Calcium (8.6-10.3) mg/dl Magnesium (1.7-2.4) mg/dl Total Bilirubin (0.2-1.0) mg/dl Direct Bilirubin (0-0.2) mg/dl AST (13-39) U/L ALT (7-52) U/L Alkaline Phosphatase (34-104) U/L Troponin I High Sens (0-20) pg/ml B-Natriuretic Peptide (0-100) pg/ml Total Protein (6.0-8.3) gm/dl Albumin (3.4-5.0) gm/dl Lipase (11-82) U/L Procalcitonin (0-0.5) ng/ml TSH (0.300-4.500) uIu/ml Urine Color Urine Appearance (Clear) Urine pH (4.5-7.5) Ur Specific [place] (1.000-1.030) Urine Protein (Negative) Urine Glucose (UA) (Negative) Urine Ketones (Negative) Urine Blood (Negative) Urine Nitrite (Negative) Urine Bilirubin (Negative) Urine Urobilinogen (Negative) Ur Leukocyte Esterase (Negative) Urine WBC (Auto) (0-5) /hpf Urine RBC (Auto) (0-2) /hpf U Hyaline Cast (Auto) (0-2) /lpf U Epithel Cells (Auto) (0-2) /hpf Urine Bacteria (Auto) (None Seen) Urine Mucus (None Prsent) Adenovirus (PCR) (NotDetected) B. pertussis DNA (PCR) (NotDetected) B.parapertussis DNA PCR (NotDetected) C. pneumoniae DNA (PCR) (NotDetected) Coronavirus OC43 (PCR) (NotDetected) Coronavirus HKU1 (PCR) (NotDetected) Coronavirus 229E (PCR) (NotDetected) SARS-CoV-2 (PCR) (NotDetected) Coronavirus NL63 (PCR) (NotDetected) Human Metapneumovir PCR (NotDetected) Influenza Type A (PCR) (NotDetected) Influenza Type B (PCR) (NotDetected) M. pneumoniae (PCR) (NotDetected) Parainfluenza 1 (PCR) (NotDetected) Parainfluenza 2 (PCR) (NotDetected) Parainfluenza 3 (PCR) (NotDetected) Parainfluenza 4 (PCR) (NotDetected) RSV (PCR) (NotDetected) Entero/Rhino (PCR) (NotDetected) Imaging Data Radiologist's Impression: Chest X-Ray 06/04/24 09:54 XR chest 1V portable CLINICAL HISTORY: orthopnea, weakness COMPARISON STUDY: 03/29/2023 and 03/26/2023 FINDINGS: There is increased opacity in the left lung base. There is mild blunting of the left costophrenic angle. Linear opacities at the right lung base are unchanged and likely a component of discoid atelectasis with low lung volumes. Cardiac silhouette is within normal limits in size. There is a left- sided subclavian venous catheter identified with the tip superimposed on the right atrium. IMPRESSION: Patchy left basilar infiltrate with a small left pleural effusion. ACT 112: Negative or not required by law. Electronically signed by: Griselda Hackett M.D. 06/04/2024 10:26 AM Abdomen/Pelvis CT 06/04/24 12:03 CT OF THE ABDOMEN AND PELVIS WITHOUT CONTRAST CLINICAL HISTORY: Increasing bilirubin. Fatigue. Metastatic colon cancer. COMPARISON STUDY: CT of the abdomen and pelvis February 12, 2024. TECHNIQUE: Axial images of the abdomen and pelvis were obtained without IV contrast. Images were reviewed in the axial, sagittal, and coronal planes. Automated exposure control was utilized for the study. A dose lowering technique was utilized adhering to the principles of ALARA. FINDINGS: Numerous pulmonary nodules within the visualized lung bases have developed since CT of February 12, 2024. Index right lower lobe nodule on image 3 of 369 measures 1.8 cm. There is emphysema. Lower lung groundglass opacities favor atelectasis. There is no pneumatosis, free air or portal venous gas. Extensive hepatic metastatic disease has slightly progressed since CT of February 12, 2024. The lesions now appear confluent. Nodularity of the liver surface is again noted. Small abdominal collaterals are present. There is no biliary or pancreatic ductal dilatation. Excreted contrast within the collecting systems and bladder is noted. There is no evidence for a bowel obstruction. There is extensive colonic diverticulosis. There is mild wall thickening of the sigmoid colon. No significant inflammation is present. Ava hepatis lymphadenopathy is similar to prior exam. Index node measures 2.2 x 1.8 cm. There is trace fluid within the pelvis. A 1.6 and a left adrenal nodule has mildly increased in size. The spleen, right adrenal gland and pancreas are unremarkable. Bifurcated aortoiliac stent graft is in place. Interstitial sac is unchanged, measuring 5.6 cm. No evidence for rupture. Right hip arthroplasty is incidentally noted. There are no suspicious lesions within the visualized skeletal structures. IMPRESSION: 1. Significant progression of extensive hepatic metastases since CT of February 12, 2024. Nodularity of the liver may represent cirrhosis or pseudocirrhosis. Small collaterals raise the possibility of portal hypertension. Trace ascites. 2. Interval development of numerous pulmonary metastases within the lung bases. 3. Extensive colonic diverticulosis. No evidence for acute diverticulitis. 4. No bowel obstruction. 5. No significant change in ava hepatis lymphadenopathy. 6. Stable appearance of the aneurysm sac following placement of a bifurcated aortoiliac stent graft. ACT 112: Negative or not required by law. Electronically signed by: Austin Kaur M.D. 06/04/2024 1:06 PM [facility] Narrative Patient was seen and evaluated as above in room C07. Review was performed of triage nursing notes and vital signs. I did review pertinent previous visits and patient history. After obtaining a thorough history and physical examination the above work up was performed. Patient presents to us today for evaluation of abnormal laboratory studies as obtained in the outpatient setting yesterday with progressive lower extremity edema, orthopnea, fatigue, decreased appetite and poor intake. The patient does have several comorbidities. [facility] 2 weeks. The patient on examination is jaundiced. Vital signs overall stable at this time. He denies any fever. EKG per my interpretation reveals sinus rhythm with first-degree AV block at a rate of 72 bpm. QTc 481. QRS 84. No ST elevation on this rhythm tracing Options of care were discussed with patient as well as at bedside. IV access was established. Labs were drawn. No leukocytosis. Downtrending hemoglobin now 10.6. INR 1.7. Potassium 3.4. Evidence of mild dehydration noting BUN/creatinine ratio at 37.1. No evidence of REKHA today. Glucose 133. T. bili now 7.4, up from yesterday at 7.3. There is an uptrending AST and ALT now at 208 and 100. Alk phos 777. Troponin is within normal range and low suspicion for ACS at this time. BNP is elevated at 178. Lipase normal. Procalcitonin 0.48. TSH reveals euthyroid state. Urinalysis does reveal positive nitrates, bilirubin, urobilinogen, leukocytes, white blood cells, bacteria and mucus. Although many of these findings may be secondary to the patient's underlying liver metastasis, infection also possible. Chest x-ray was performed. This was reviewed and per my interpretation does reveal potential left lower infiltrate with pleural effusion. At this time I will cover with IV antibiotics in the event this may be of infectious ideology but we will also proceed with coverage that would adequately treat urinary infection as well. IV cefepime ordered. No current cultures to review in the EMR to guide therapy otherwise. Blood cultures pending from today. At this time I do believe the CT scan of the abdomen/pelvis is warranted to further assess the patient's significant interval change of bilirubin compared to blood draw from just a few weeks ago in the setting of known hepatic metastasis. Benefit versus risk of IV contrast on the CT scan reviewed with patient and at bedside. At this time through shared medical decision making we will proceed as at this time renal function is appropriate. Unfortunately the port access device and the IVs continue to not allow the contrast to adequately infused. Patient was brought back from CT. I did change the CT scan to without contrast at least temporarily to proceed with imaging. CT results as above. Significant progression of extensive hepatic metastasis noted. Lactate did result and I was notified at 11:53 AM. Lactate was 4.9. I did not order the 30ml/kg fluid bolus as I have an overall low suspicion for sepsis at this time. He is not significantly hypotensive. No significant tachycardia. There is no fever. Furthermore, the patient does have an elevated BNP, and appears to be volume overloaded at least in the lower extremities noting the edema. Will continue with gentle hydration at this time. 1411: I discussed presentation with GI noting the CT scan findings as above as well as the laboratory studies and patient presentation. I spoke with Dr. Arzola. He came to evaluate the patient. Please refer to his documentation. Plan at this time is inpatient management. Case discussed with the hospitalist service. Please refer to further documentation regarding his stay. I did order the patient IV morphine for pain as well. It is felt that the benefit outweighed risk GCS: 15 In the evaluation and treatment of this patient the following differential diagnoses were entertained: UTI, sepsis, dehydration, REKHA, progression of metastasis, among others Impression & Plan Jaundice, Anemia, Weakness, Adenocarcinoma of colon, Liver metastases, Fatigue, Decrease in appetite, Transaminitis, Elevated bilirubin Discharge Plan Visit Data Chief Complaint: Abnormal Labs/Diagnostic Testing Stated Complaint: abn labs, feet edema, uti symptoms ED Provider: Lion Mauricio ED Midlevel Provider: Mike Lindquist Discharge Problem: Jaundice, Anemia, Weakness, Adenocarcinoma of colon, Liver metastases, Fatigue, Decrease in appetite, Transaminitis, Elevated bilirubin Patient Disposition: Admitted As Inpatient Condition: Fair Forms Stand Alone Forms: My [facility] Prescriptions Prescriptions: No Action (DME) Lift Chair Misc See Rx Instructions .Route Qty: 1 0RF Rx Instructions: As directed Dx:M51.36 atenolol 50 mg tablet 25 mg PO BID Qty: 90 3RF Hold Instructions: Resume on 04/26/23. metformin 500 mg tablet extended release 24 hr 500 mg PO BID Qty: 180 3RF Hold Instructions: Resume on 04/26/23. Patient Comments: has not started yet, waiting for rx to come Rx Instructions: 1 daily in am for 2 weeks then 1 twice a day amiodarone [Pacerone] 100 mg tablet 100 mg PO QAM Qty: 90 3RF Hold Instructions: Resume on 04/26/23. hydrochlorothiazide 25 mg tablet 25 mg PO QPM Qty: 90 3RF Hold Instructions: Resume on 04/26/23. coenzyme Q10 100 mg capsule 100 mg PO QAM Hold Instructions: Resume on 04/26/23. ascorbic acid (vitamin C) 500 mg tablet 500 mg PO QPM Hold Instructions: Resume on 04/26/23. Patient Comments: 500 MG PO DAILY; (DME) Jigar Walker Pending Sale To [facility] See Rx Instructions .MEDSUPPLY Qty: 1 0RF Rx Instructions: As directed Lonsurf 15-6.14 mg tablet 0 tab PO BID Rx Instructions: Currently on hold per spouse. must administer with food (with morning and evening meals); on Days 1 through 5 and Days 8 through 12 of 28-day cycle valacyclovir 1 gram tablet 1,000 mg PO BID Rx Instructions: Start Date 05/21/24 x30 day supply, then patient will start stating 500mg by mouth twice daily gabapentin 300 mg capsule 300 mg PO HS PreserVision AREDS-2 [id number] [id number]-emnf-lm-mg Capsule 1 tab PO BID Hold Instructions: Resume on 04/26/23. multivitamin Tablet 1 tab PO QAM Hold Instructions: Resume on 04/26/23. acetaminophen [Tylenol] 325 mg Tablet 650 mg PO TID PRN (Reason: PAIN/FEVER) Hold Instructions: Resume on 04/26/23. magnesium oxide 250 mg magnesium Tablet 250 mg PO QAM Hold Instructions: Resume on 04/26/23. Osteo Bi-Flex Triple Strength 750 mg-644 mg- 30 mg-1 mg Tablet 1 tab PO BID albuterol sulfate 90 mcg/actuation HFA aerosol inhaler 2 puff inhalation Q4H PRN (Reason: prn) Rx Instructions: INHALE 2 PUFFS EVERY 4 HOURS NEEDED FOR SHORTNESS OF BREATH OR WHEEZING. latanoprost 0.005 % drops 1 drp OPB HS dronabinol 5 mg capsule 5 mg PO BID PRN (Reason: Nausea And Vomiting) Rx Instructions: Before Meals oxycodone 5 mg tablet 5 mg PO DIRECTED PRN (Reason: Pain) Rx Instructions: Every 6-8 hours psyllium husk [Fiber-Caps (psyllium husk)] 0.52 gram Capsule 0.52 g PO HS Eliquis 5 mg tablet 5 mg PO BID pantoprazole 40 mg tablet,delayed release (DR/EC) 40 mg PO BID Rx Instructions: TAKE 1 TABLET TWICE A DAY Referrals Referrals: Shweta Loyd MD [Primary Care Provider] -
--- NOTE | 2024-06-04 10:27 | XRay Report ---
XR chest 1V portable CLINICAL HISTORY: orthopnea, weakness COMPARISON STUDY: 03/29/2023 and 03/26/2023 FINDINGS: There is increased opacity in the left lung base. There is mild blunting of the left costop hrenic angle. Linear opacities at the right lung base are unchanged and likely a component of discoid atelectasis with low lung volumes. Cardiac silhouette is within normal limits in size. There is a le ft-sided subclavian venous catheter identified with the tip superimposed on the right atrium. IMPRESSION: Patchy left basilar infiltrate with a small left pleural effusion. ACT 112: Negative or not required by law. Electronically signed by: Griselda Hackett M.D. 06/04/2024 10:26 AM
[2024-06-04 10:31] LABS: Basophils # (auto) 0.04 K/uL (0.00-0.20); Basophils % (auto) 0.4 %; Eosinophils # (auto) 0.09 K/uL (0.00-0.50); Hematocrit (blood only) 31.2 % (42.0-52.0); Hemoglobin 10.6 g/dl (14.0-18.0); Immature Granulocytes # (auto) 0.06 K/uL (0.01-0.20); Immature Granulocytes % (auto) 0.7 %; Mean Corpuscular Hemoglobin 31.5 pg (25.0-34.0); Mean Corpuscular Volume 92.9 fL (80.0-100.0); Mean Platelet Volume 10.6 fL (9.4-12.4); Monocytes # (auto) 1.09 K/uL (0.11-0.59); Monocytes % (auto) 11.8 %; Neutrophils # (auto) 6.82 K/uL (1.40-6.50); Neutrophils % (auto) 74.1 %; Platelet Count 213 K/uL (130-400); RDW Coefficient of Variation 21.1 % (11.5-14.5); Red Blood Count 3.36 M/uL (4.70-6.10)
[2024-06-04 10:44] LABS: Alanine Aminotransferase 100 U/L (7-52); Albumin Level 2.5 gm/dl (3.4-5.0); Alkaline Phosphatase 777 U/L (34-104); Anion Gap 9 (3-11); Aspartate Aminotransferase 208 U/L (13-39); BUN Creatinine Ratio 37.1 (10-20); Bilirubin Direct 5.1 mg/dl (0-0.2); Bilirubin,Total 7.4 mg/dl (0.2-1.0); Blood Urea Nitrogen 23 mg/dl (6-23); Carbon Dioxide 30 mmol/L (21-32); Chloride 98 mmol/L (98-107); Glucose 133 mg/dl (70-99(Fasting)); Lipase 14 U/L (11-82); Magnesium 1.9 mg/dl (1.7-2.4); Potassium 3.4 mmol/L (3.5-5.1); Sodium 137 mmol/L (136-145); Total Protein 6.5 gm/dl (6.0-8.3)
[2024-06-04] MEDS: SODIUM CHLORIDE 0.9% 1,000 ML IV SCH (10:45)
[2024-06-04 10:49] LABS: Troponin I High Sensitivity 16.8 pg/ml (0-20)
[2024-06-04] MEDS: CEFEPIME 2000MG 2,000 MG/20 ML SYR IV STA (10:49)
[2024-06-04 10:53] LABS: INR 1.7 (0.9-1.1); Partial Thromboplastin Ratio 1.5; Partial Thromboplastin Time 40 Seconds (21-31); Polychromasia 1+; Prothrombin Time 17.4 Seconds (9.0-12.0); Target Cells 2+; Toxic Granulation 1+; Toxic Vacuolation 1+
[2024-06-04 10:58] LABS: Thyroid Stimulating Hormone 3.435 uIu/ml (0.300-4.500)
[2024-06-04] MEDS: OPTIRAY 320 100ml IV ONE (11:14)
[2024-06-04 12:00] LABS: Adenovirus PCR Not Detected (NotDetected); Bordetella parapertussis PCR Not Detected (NotDetected); Bordetella pertussis PCR Not Detected (NotDetected); Chlamydia pneumoniae PCR Not Detected (NotDetected); Coronavirus 229E PCR Not Detected (NotDetected); Coronavirus CoV-2 (COVID19)PCR Not Detected (NotDetected); Coronavirus HKU1 PCR Not Detected (NotDetected); Coronavirus NL63 PCR Not Detected (NotDetected); Coronavirus OC43PCR Not Detected (NotDetected); Human Metapneumovirus PCR Not Detected (NotDetected); Influenza A PCR Not Detected (NotDetected); Influenza B PCR Not Detected (NotDetected); Mycoplasma pneumoniae PCR Not Detected (NotDetected); Parainfluenza Virus 1 PCR Not Detected (NotDetected); Parainfluenza Virus 2 PCR Not Detected (NotDetected); Parainfluenza Virus 3 PCR Not Detected (NotDetected); Parainfluenza Virus 4 PCR Not Detected (NotDetected); Respiratory Syncytial VirusPCR Not Detected (NotDetected); Rhinovirus/Enterovirus PCR Not Detected (NotDetected)
[2024-06-04 12:03] LABS: Appearance Urine Clear (Clear); Bilirubin Urine 3+ (Negative); Blood Urine Negative (Negative); Cast Urine Automated 0-2 /lpf (0-2); Color Urine Dark Yellow; Glucose Urine UA Negative (Negative); Ketones Urine Trace (Negative); Leukocyte Esterase Urine 1+ (Negative); Nitrite Urine Positive (Negative); Protein Urine Trace (Negative); RBC Urine Automated 0-2 /hpf (0-2); Specific Gravity Urine 1.036 (1.000-1.030); Urobilinogen Urine Positive (Negative); pH Urine 5.5 (4.5-7.5)
[2024-06-04 12:14] LABS: Mucus Urine Present (None Prsent)
[2024-06-04 12:15] LABS: Bacteria Urine Automated 1+ (None Seen); Epithelial Cell Urine Auto 0-2 /hpf (0-2)
--- NOTE | 2024-06-04 13:08 | CT Scan Report ---
CT OF THE ABDOMEN AND PELVIS WITHOUT CONTRAST CLINICAL HISTORY: Increasing bilirubin. Fatigue. Metastatic colon cancer. COMPARISON STUDY: CT of the abdomen and pelvis February 12, 2024. TECHNIQUE: Axial images of the abdomen and pelvis were obtained without IV contrast. Images were revi ewed in the axial, sagittal, and coronal planes. Automated exposure control was utilized for the gamal dy. A dose lowering technique was utilized adhering to the principles of ALARA. FINDINGS: Numerous pulmonary nodules within the visualized lung bases have developed since CT of [facility] 2023. Index right lower lobe nodule on image 3 of 369 measures 1.8 cm. There is emphysema. L ower lung groundglass opacities favor atelectasis. There is no pneumatosis, free air or portal venous gas. Extensive hepatic metastatic disease has slightly progressed since CT of February 12, 2024. The lesions now appear confluent. Nodularity of the liver surface is again noted. Small abdominal collat erals are present. There is no biliary or pancreatic ductal dilatation. Excreted contrast within the collecting systems and bladder is noted. There is no evidence for a bowel obstruction. There is exten sive colonic diverticulosis. There is mild wall thickening of the sigmoid colon. No significant infla mmation is present. Dedra hepatis lymphadenopathy is similar to prior exam. Index node measures 2.2 x 1.8 cm. There is trace fluid within the pelvis. A 1.6 and a left adrenal nodule has mildly increased in size. The spleen, right adrenal gland and pancreas are unremarkable. Bifurcated aortoiliac stent graft is in place. Interstitial sac is unchanged, measuring 5.6 cm. No evidence for rupture. Right hi p arthroplasty is incidentally noted. There are no suspicious lesions within the visualized skeletal structures. IMPRESSION: 1. Significant progression of extensive hepatic metastases since CT of February 12, 2024. Nodularity of the liver may represent cirrhosis or pseudocirrhosis. Small collaterals raise the possibility of p ortal hypertension. Trace ascites. 2. Interval development of numerous pulmonary metastases within the lung bases. 3. Extensive colonic diverticulosis. No evidence for acute diverticulitis. 4. No bowel obstruction. 5. No significant change in dedra hepatis lymphadenopathy. 6. Stable appearance of the aneurysm sac following placement of a bifurcated aortoiliac stent graft. ACT 112: Negative or not required by law. Electronically signed by: Austin Kaur M.D. 06/04/2024 1:06 PM
[2024-06-04] MEDS: MoRPHine SULFATE 2 MG/ML CARP IV STA (15:10)
--- NOTE | 2024-06-04 15:14 | Emergency Department Note ---
ED Visit Note I was consulted by the Advanced Practice Provider Mike Lindquist PA-C. I performed a substantive portion of the visit including all aspects of medical decision making. .
--- NOTE | 2024-06-04 15:32 | Gastrointestinal Consultation ---
Date of Consultation June 04, 2024 Assessment & Plan (1) Elevated bilirubin: 79-year-old male with a complex past medical history to include COPD, atrial fibrillation on oral anticoagulation, GERRY, HTN, GERD, history of colon cancer with mets to liver (he is status postchemotherapy, microwave ablation of liver lesions and partial resection)currently undergoing infusions every 2 weeks at the cancer center locally noting history of metastatic colon cancer. The patient notes that as of recent has been for feeling fatigued, overall dry but trying to orally hydrate with minimal success. Labs done yesterday showed jaundice with a bilirubin over 7. Per review of the EMR the patient was noted to have an interval increase in total bilirubin now in the [address] here shows progression of his metastatic colon cancer with numerous hepatic metastasis and pulmonary metastasis. He does appear to have advanced fibrosis or cirrhosis of the liver as well. This certainly could be from his prior microwave ablation resection and nodular regenerative hyperplasia. His biliary tree looks normal on CT scan. I would like to get a ultrasound of his biliary tree to confirm this and make sure that there is no ductal dilation from extrinsic compression from lymph nodes from metastatic colon cancer. However if this is negative, I suspect that jaundice elevated bilirubin is mainly from his innumerable hepatic metastasis and progressive fibrosis of the liver from his prior therapies. Very limited options at this point and no benefit of an ERCP unless we see dilated ducts. GI will follow. Appreciate oncology input who knows the patient well (2) Transaminitis: See above (3) Colon cancer metastasized to liver: (4) Cirrhosis: See above History of Present Illness Reason for Consultation: Jaundice and elevated LFTs Requesting Physician: Dr. Xavier History of Present Illness 79-year-old male with a complex past medical history to include COPD, atrial fibrillation on oral anticoagulation, GERRY, HTN, GERD, history of colon cancer with mets to liver (he is status postchemotherapy, microwave ablation of liver lesions and partial resection)currently undergoing infusions every 2 weeks at the cancer center locally noting history of metastatic colon cancer. The patie nt notes that as of recent has been for feeling fatigued, overall dry but trying to orally hydrate with minimal success. Labs done yesterday showed jaundice with a bilirubin over 7. Per review of the EMR the patient was noted to have an interval increase in total bilirubin now in the 7 range. Patient notes about a week now of lower extremity edema and orthopnea. CT done here: Significant progression of extensive hepatic metastases since CT of February 12, 2024. Nodularity of the liver may represent cirrhosis or pseudocirrhosis. Small collaterals raise the possibility of portal hypertension. Trace ascites. 2. Interval development of numerous pulmonary metastases within the lung bases. The patient's noticed that he had become yellower over the past 2 weeks and that his urine was extremely dark for the last 2 weeks. Patient denies any abdominal pain but feels weak with some shortness of breath and lower extremity edema Allergies Allergy/AdvReac Type Severity Reaction Status Date / Time lisinopril Allergy Severe Angioedema Verified 06/04/24 12:08 adhesive Allergy Intermediate Rash Verified 06/04/24 12:08 latex Allergy Intermediate Contact Verified 06/04/24 12:08 dermatitis Home Medications Medication Instructions Recorded Confirmed Type ascorbic acid (vitamin C) 500 mg 500 mg PO QPM 12/18/18 06/04/24 History tablet coenzyme Q10 100 mg capsule 100 mg PO QAM 12/18/18 06/04/24 History vit C 250 mg-vit E 90 mg-zinc 40 1 tab PO BID 02/06/20 06/04/24 History mg-copper 1 gc-teudve-vyvbbe capsule (PreserVision AREDS-2) multivitamin 1 tab PO QAM 06/11/20 06/04/24 History Lift Chair #1 ea 05/11/21 02/05/24 Rx Wheeled Walker #1 ea 01/21/22 02/05/24 Rx magnesium oxide 250 mg PO QAM 01/25/22 06/04/24 History acetaminophen 325 mg tablet 650 mg PO TID PRN PAIN/FEVER 03/26/23 06/04/24 History (Tylenol) albuterol sulfate 90 mcg/actuation 2 puff inhalation Q4H PRN prn 05/19/23 06/04/24 History aerosol inhaler glucosamine 750 zx-kothmttfapa-ced 1 tab PO BID 05/19/23 06/04/24 History no1 644 mg-C 30 mg-jesu 1 mg tablet (Osteo Bi-Flex Triple Strength) atenolol 50 mg tablet 25 mg (1/2 x 50 mg) PO BID #90 tabs 12/14/23 06/04/24 Rx metformin 500 mg tablet,extended 500 mg PO BID #180 tabs 01/29/24 06/04/24 Rx release 24 hr amiodarone 100 mg tablet (Pacerone) 100 mg PO QAM #90 tabs 02/05/24 06/04/24 Rx gabapentin 300 mg capsule 300 mg PO HS 04/22/24 06/04/24 History trifluridine 15 mg-tipiracil 6.14 0 tab PO BID 04/22/24 06/04/24 History mg tablet (Lonsurf) valacyclovir 1 gram tablet 1,000 mg PO BID 04/22/24 06/04/24 History hydrochlorothiazide 25 mg tablet 25 mg PO QPM #90 tabs 05/27/24 06/04/24 Rx apixaban 5 mg tablet (Eliquis) 5 mg PO BID 06/04/24 06/04/24 History dronabinol 5 mg capsule 5 mg PO BID PRN Nausea And Vomiting 06/04/24 06/04/24 History latanoprost 0.005 % eye drops 1 drp OPB HS 06/04/24 06/04/24 History oxycodone 5 mg tablet 5 mg PO DIRECTED PRN Pain 06/04/24 06/04/24 History pantoprazole 40 mg tablet,delayed 40 mg PO BID 06/04/24 06/04/24 History release psyllium husk 0.52 gram capsule 0.52 g PO HS 06/04/24 06/04/24 History (Fiber-Caps (psyllium husk)) Patient History Medical History (Updated 06/04/24 @ 15:35 by James Arzola MD) Cirrhosis Swelling, mass, or lump in head and neck 09/2023, sent to ENT, found to have a stone in his submandibular gland Allergic rhinitis History of abdominal aortic aneurysm (AAA) repaired in 2020 Heart failure with preserved ejection fraction f/u [facility] cardio Weakness in b/l legs Rectal bleeding 12/04/23, one episode Pulmonary nodule Peripheral edema no current issues Lumbar spondylolysis Hypertension Hypercholesteremia Hemorrhagic shock hx 03/2023, "due to bleeding gastric ulcer" GERD (gastroesophageal reflux disease) Dysphagia w/food and water, "no trouble with juices" Hx of diverticulitis of colon Carotid artery stenosis 50-69% stenosis L ICA, < 50% stenosis R ICA History of anemia no current issues History of gastric ulcer 03/26/2023 bleeding admitted to [facility], Dr Martino--surgical intervention stopped bleeding, transferred to [facility] Diabetes mellitus, type 2 NIDDM Liver cancer dx 02/2022;last chemo 09/13/23 and radiation completed 12/2022 Colon cancer dx 02/2022; last chemo 09/13/23 Second-degree heart block Sludge in gallbladder general surgery 01/27/22 "would not push to have [laparoscopic cholecystectomy] unless he has more symptoms..." Morbid obesity HTN (hypertension) controlled, stable per pt Macular degeneration [place] (hard of hearing) B/L [place] Neuropathy feet bilat Atrial fibrillation follows with Dr. Stoddard; on eliquis COPD (chronic obstructive pulmonary disease) controlled, stable per pt; daily and prn inh Sleep apnea [id number]-[id number] Surgical History History of esophagogastroduodenoscopy (EGD) History of ablation of neoplasm of liver 11/11/22, [facility] Hx of colonoscopy History of cataract surgery right/left Port-A-Cath in place (06/16/22) Insertion of Access Port, left subclavian(Left) - Christian Gomez MD, FACS [employer] Hx of endoscopic retrograde cholangiopancreatography [facility] History of total right hip arthroplasty History of tooth extraction S/P aneurysm repair Percutaneous Endovascular Aneurysm Repair 08/11/2020: Grade 2 view, MAC 4, ETT 8. History of carpal tunnel release Right History of right knee joint replacement RT. 12/22/16: SAB at L3-L4 + PNB. Family History Mother Breast cancer Father Blindness Sister No problems noted. Grandfather (Paternal) Stroke Grandfather (Maternal) Heart disease Grandmother (Maternal) No problems noted. Grandmother (Paternal) Pneumonia Other Family history of breast cancer No family history of adverse response to anesthesia Denies family history of Ovarian cancer Prostate cancer Myocardial infarction Colorectal cancer Social History Smoking Status: Former smoker Tobacco Type: Pipe Age Started Using Tobacco: 22; Age Quit Using Tobacco: 67; Second Hand Exposure: Yes (hx as child); Do You Dip or Chew Tobacco: No; Hx Alcohol Use: No Hx Substance Use: No Preferred Language: Yi Communication Ability: Effective Visual Impairment: No Limitations Hearing Ability: Use of Hearing Aid Choke Setter Required: No Beliefs That Will Affect Care: None marital status: Current Living Situation: Spouse 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al status: retired 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; 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; How many Children do You have: 3 Feels Safe at Home: Yes Childhood Exposure to Second-Hand Smoke: Yes Diet: regular caffeine: Yes Dental Care, Regularly: Yes Physical Activity Frequency: Daily Seatbelt Use: always Sunscreen Use: Yes Assistive Devices: BiPap, Cane, Glasses, Hearing Aid - Bilateral, Scooter/Electric Scooter and Walker Review of Systems Review of Systems: All systems reviewed & are unremarkable except as noted in HPI & below Physical Exam Physical Exam: Physical Exam: General: Ill-appearing male who is jaundiced but comfortable and in no apparent distress HEENT: EOMI, PERRL, sclera anicteric Neck: trachea midline, no lad Lungs: CTA b, bilateral bs present Heart: RRR, no M and edema 1+ in lower extremities Abd: soft, NT/ND, NABS, mildly distended Musculoskeletal: no c/c, normal strength B Neuro: CN2-12 intact, normal gait, normal strength Psych: normal affect and mood, euthymic. Results & Data Vital Signs (Past 12 Hours) Vital Signs Temp Pulse Pulse Resp BP BP Pulse Ox 06/04/24 15:04 76 20 95 06/04/24 14:34 71 06/04/24 14:30 75 20 147/68 H 94 06/04/24 13:39 66 19 92 06/04/24 13:27 70 33 H 154/78 H 94 06/04/24 13:00 116/92 06/04/24 13:00 69 23 116/92 93 06/04/24 12:41 71 16 132/68 93 06/04/24 12:37 132/68 06/04/24 12:00 68 24 142/75 H 93 06/04/24 11:45 72 27 H 06/04/24 11:00 108/56 L 06/04/24 11:00 67 20 108/56 L 95 06/04/24 11:00 68 20 108/56 L 94 06/04/24 10:51 67 22 110/58 L 94 06/04/24 10:26 68 06/04/24 10:06 70 23 109/56 L 94 06/04/24 09:36 36.9 C 74 20 113/61 94 O2 Del Method 06/04/24 15:04 Room Air 06/04/24 14:34 06/04/24 14:30 Room Air 06/04/24 13:39 06/04/24 13:27 06/04/24 13:00 06/04/24 13:00 06/04/24 12:41 Room Air 06/04/24 12:37 06/04/24 12:00 06/04/24 11:45 06/04/24 11:00 06/04/24 11:00 Room Air 06/04/24 11:00 Room Air 06/04/24 10:51 Room Air 06/04/24 10:26 06/04/24 10:06 06/04/24 09:36 Room Air PG Care Time/CCT Total # of Minutes Spent Total Time Spent with Patient: Total time spent is greater than 50% in coordination of care (as documented) at patient's floor/unit and/or counseling patient: Coding Level of Care Code 02653 INT INP/OBS CARE 3/75MIN Diagnoses Elevated bilirubin R17 Transaminitis R74.01 Colon cancer metastasized to liver C18.9; C78.7 Cirrhosis K74.60
--- NOTE | 2024-06-04 16:04 | History & Physical Report ---
Date of Service June 04, 2024 Assessment & Plan (1) Colon cancer metastasized to liver: (2) Paroxysmal atrial fibrillation: (3) Elevated LFTs: (4) Anemia: Plan This patient is a 79-year-old male with a history of metastatic colon cancer with mets to the liver and lung s/p postchemotherapy, microwave ablation of liver lesions, and partial colectomy currently on chemotherapy with Lonsurf and bevacizumab, COPD, atrial flutter on Eliquis, HTN, GERD, severe GERRY, PAD/AAA s/p aortoiliac stent graft, on auto BiPAP, and DM2 who presents to the ER after being told he had abnormal liver tests on outpatient oncology labs. His total bilirubin is elevated at 7.4 up from two 1 month ago. His AST, ALT, and alkaline phosphatase are all also up even further. His CT A/P unfortunately shows development of numerous pulmonary nodules at the lung bases, and extensive hepatic metastatic disease progressed since 01/2024 and nodularity of liver which may represent cirrhosis or pseudocirrhosis. He reports that he has been having difficulty tasting things lately and generalized fatigue. He was seen by GI in the ER who recommended ultrasound of the biliary tract to look for dilation to confirm there is none-if there were dilatation, could potentially benefit from ERCP and stent placement, but most likely this is a result of progressive liver metastases. He will be admitted for further workup for worsening LFTs and an obstructive pattern in the setting of metastatic colon cancer. #Elevated LFTs/metastatic colon cancer with mets to liver and lung-patient with T. bili 7, direct bili 5, AST ALT in the 200s and alk phos in the 700s, increased from previous. CT A/P with new pulmonary metastases and increased liver metastases. Increased LFTs almost certainly from progression of metastatic cancer to the liver, but GI recommends ultrasound of the biliary tract to look for impingement of lymphadenopathy on a bile duct. -Admit to medical/surgical unit -Trend LFTs -Check RUQ ultrasound-if needs GI intervention, would likely need transfer out, but does not seem likely -Consult hematology/oncology to discuss future options for treatment given it seems that he has progressed despite current treatment -Hold home trifluridine-tipiracil due to contraindication with elevated bilirubin -Will not consult palliative medicine at this time as patient wants to speak with oncology first and says he wants to continue on with any possible treatments -Continue valacyclovir which I presume is for prophylaxis while on chemotherapy? #UTI-UA is abnormal which could be some false positive from bilirubin in the urine. However, with WBCs and bacteria seen on microscopy -Continue cefepime -Follow urine culture, blood cultures drawn in the ER #Anemia-hemoglobin 10.6, normocytic, decreased from thirteen 1 month ago but is on chemotherapy. No bleeding from anywhere that he is noted. TSH is normal -Check iron studies, B12, folate in the morning -Follow CBC # Paroxysmal atrial flutter on Eliquis/HTN/PAD s/p AAA repair with graft-in sinus rhythm here with first-degree block. Follows with [facility] cardiology. Blood pressures here are normal -Continue amiodarone, Eliquis -Continue atenolol, but hold home HCTZ #DM2-on metformin at home -Hold metformin -NovoLog supplemental insulin, BSG's, diabetic diet -Continue gabapentin #COPD/severe GERRY on auto BiPAP-no acute issues, not hypoxic -Albuterol as needed -He is not using his BiPAP recently since he had a tooth removed and has pain with using the mask #GERD/constipation-no acute issues -Continue PPI twice daily -Continue home fiber -MiraLAX as needed #Right shoulder pain-from recent accident -Oxycodone as needed for pain DVT prophylaxis-Adela Saravia Disposition-admit to medical/surgical unit History of Present Illness Chief Complaint: Abnormal outpatient labs Primary Care Provider: Shweta Loyd MD This patient is a 79-year-old male with a history of metastatic colon cancer with mets to the liver and lung s/p postchemotherapy, microwave ablation of liver lesions, and partial colectomy currently on chemotherapy with Lonsurf and bevacizumab, COPD, atrial flutter on Eliquis, HTN, GERD, severe GERRY on auto BiPAP, PAD/AAA s/p aortoiliac stent graft, and DM2 who presents to the ER after being told he had abnormal liver tests on outpatient oncology labs. His total bilirubin is elevated at 7.4 up from two 1 month ago. His AST, ALT, and alkaline phosphatase are all also up even further. His CT A/P unfortunately shows development of numerous pulmonary nodules at the lung bases, and extensive hepatic metastatic disease progressed since 01/2024 and nodularity of liver which may represent cirrhosis or pseudocirrhosis. He reports that he has been having difficulty tasting things lately and generalized fatigue. He felt short of breath a couple of days ago but it resolved with use of his albuterol inhaler. He did not notice that he was jaundiced as he reports he does not look himself in the mirror. He was seen by GI in the ER who recommended ultrasound of the biliary tract to look for biliary ductal dilation-if there were dilatation, could potentially benefit from ERCP and stent placement, but most likely this is a result of progressive liver metastases. He will be admitted for further workup for worsening LFTs and an obstructive pattern in the setting of metastatic colon cancer. Of note, the patient tells me "I am not done fighting yet." He is interested in hearing about any further treatment options despite progression of his cancer on treatment. Allergies Allergy/AdvReac Type Severity Reaction Status Date / Time lisinopril Allergy Severe Angioedema Verified 06/04/24 12:08 adhesive Allergy Intermediate Rash Verified 06/04/24 12:08 latex Allergy Intermediate Contact Verified 06/04/24 12:08 dermatitis Home Medications Medication Instructions Recorded Confirmed Type ascorbic acid (vitamin C) 500 mg 500 mg PO QPM 12/18/18 06/04/24 History tablet coenzyme Q10 100 mg capsule 100 mg PO QAM 12/18/18 06/04/24 History vit C 250 mg-vit E 90 mg-zinc 40 1 tab PO BID 02/06/20 06/04/24 History mg-copper 1 [id number] capsule (PreserVision AREDS-2) multivitamin 1 tab PO QAM 06/11/20 06/04/24 History Lift Chair #1 ea 05/11/21 02/05/24 Rx Wheeled Walker #1 ea 01/21/22 02/05/24 Rx magnesium oxide 250 mg PO QAM 01/25/22 06/04/24 History acetaminophen 325 mg tablet 650 mg PO TID PRN PAIN/FEVER 03/26/23 06/04/24 History (Tylenol) albuterol sulfate 90 mcg/actuation 2 puff inhalation Q4H PRN prn 05/19/23 06/04/24 History aerosol inhaler glucosamine 750 kh-egazdlkhnam-tez 1 tab PO BID 05/19/23 06/04/24 History no1 644 mg-C 30 mg-jesu 1 mg tablet (Osteo Bi-Flex Triple Strength) atenolol 50 mg tablet 25 mg (1/2 x 50 mg) PO BID #90 tabs 12/14/23 06/04/24 Rx metformin 500 mg tablet,extended 500 mg PO BID #180 tabs 01/29/24 06/04/24 Rx release 24 hr amiodarone 100 mg tablet (Pacerone) 100 mg PO QAM #90 tabs 02/05/24 06/04/24 Rx gabapentin 300 mg capsule 300 mg PO HS 04/22/24 06/04/24 History trifluridine 15 mg-tipiracil 6.14 0 tab PO BID 04/22/24 06/04/24 History mg tablet (Lonsurf) valacyclovir 1 gram tablet 1,000 mg PO BID 04/22/24 06/04/24 History hydrochlorothiazide 25 mg tablet 25 mg PO QPM #90 tabs 05/27/24 06/04/24 Rx apixaban 5 mg tablet (Eliquis) 5 mg PO BID 06/04/24 06/04/24 History dronabinol 5 mg capsule 5 mg PO BID PRN Nausea And Vomiting 06/04/24 06/04/24 History latanoprost 0.005 % eye drops 1 drp OPB HS 06/04/24 06/04/24 History oxycodone 5 mg tablet 5 mg PO DIRECTED PRN Pain 06/04/24 06/04/24 History pantoprazole 40 mg tablet,delayed 40 mg PO BID 06/04/24 06/04/24 History release psyllium husk 0.52 gram capsule 0.52 g PO HS 06/04/24 06/04/24 History (Fiber-Caps (psyllium husk)) Past Med/Surg History Problem List Elevated LFTs Elevated bilirubin (Acute) Transaminitis (Acute) Decrease in appetite (Acute) Fatigue (Acute) Jaundice (Acute) Anterior epistaxis (Acute) Right rotator cuff tear arthropathy Diarrhea Submandibular sialoadenitis (~04/2023) Submandibular sialolithiasis Swelling, mass, or lump in head and neck Morbid obesity with BMI of 40.0-44.9, adult Gastric ulcer Duodenal ulcer Hemorrhagic shock Elevated TSH ABLA (acute blood loss anemia) Thrombocytopenia (Acute) Chest pain on exertion (Acute) Weakness (Acute) Anemia (Acute) Acute upper gastrointestinal bleeding (Acute) Colon cancer metastasized to liver (Chronic) History of ablation of neoplasm of liver 11/11/22, [facility] Diabetes mellitus Elevated blood sugar Peripheral edema Liver metastases (Acute) Adenocarcinoma of colon (Acute) Tinea cruris Diverticulitis Liver lesion Urinary retention Leukocytosis Anemia (Acute) Rectal bleeding S/P total right hip arthroplasty Dysphagia Enlarged tongue (HFpEF) heart failure with preserved ejection fraction Status post right hip replacement Hypoxia Biliary colic Chest pain 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 Pulmonary nodule Pes anserinus tendonitis of right lower extremity Statin myopathy (Acute) Allergic rhinitis Right knee pain AAA (abdominal aortic aneurysm) without rupture Paroxysmal atrial fibrillation Carotid artery stenosis 50-69% stenosis L ICA, < 50% stenosis R ICA Lumbar spondylosis History of total right knee replacement Sciatica Left knee DJD Paroxysmal atrial flutter LVH (left ventricular hypertrophy) Hypercholesterolemia Hypertension Nocturnal hypoxemia GERD (gastroesophageal reflux disease) (Chronic) Carotid stenosis, left (Acute) Family history of breast cancer GERRY (obstructive sleep apnea) (Chronic) Non-healing skin lesion (Chronic) Atrial flutter with rapid ventricular response (Chronic) Medical History Cirrhosis Swelling, mass, or lump in head and neck 09/2023, sent to ENT, found to have a stone in his submandibular gland Allergic rhinitis History of abdominal aortic aneurysm (AAA) repaired in 2020 Heart failure with preserved ejection fraction f/u [facility] cardio Weakness in b/l legs Rectal bleeding 12/04/23, one episode Pulmonary nodule Peripheral edema no current issues Lumbar spondylolysis Hypertension Hypercholesteremia Hemorrhagic shock hx 03/2023, "due to bleeding gastric ulcer" GERD (gastroesophageal reflux disease) Dysphagia w/food and water, "no trouble with juices" Hx of diverticulitis of colon Carotid artery stenosis 50-69% stenosis L ICA, < 50% stenosis R ICA History of anemia no current issues History of gastric ulcer 03/26/[address] ROMARIO Case--surgical intervention stopped bleeding, [place] [facility] [place] mellitus, type 2 NIDDM Liver cancer dx 02/2022;last chemo 09/13/23 and radiation completed 12/2022 Colon cancer dx 02/2022; last chemo 09/13/23 Second-degree heart block Sludge in gallbladder general surgery 01/27/22 "would not push to have [laparoscopic cholecystectomy] unless he has more symptoms..." Morbid obesity HTN (hypertension) controlled, stable per pt Macular degeneration CURYUNG (hard of hearing) B/L DONATO Neuropathy feet bilat Atrial fibrillation follows with Dr. Stoddard; on eliquis COPD (chronic obstructive pulmonary disease) controlled, stable per pt; daily and prn inh Sleep apnea [id number] Surgical History History of esophagogastroduodenoscopy (EGD) History of ablation of neoplasm of liver 11/11/22, [facility] Hx of colonoscopy History of cataract surgery right/left Port-A-Cath in place (06/16/22) Insertion of Access Port, left subclavian(Left) - Christian Gomez MD, FACS [employer] [place] [facility] [place] of total right hip arthroplasty History of tooth extraction S/P aneurysm repair Percutaneous Endovascular Aneurysm Repair 08/11/2020: Grade 2 view, MAC 4, ETT 8. History of carpal tunnel release Right History of right knee joint replacement RT. 12/22/16: SAB at L3-L4 + PNB. Family History Mother Breast cancer Father Blindness Sister No problems noted. Grandfather (Paternal) Stroke Grandfather (Maternal) Heart disease Grandmother (Maternal) No problems noted. Grandmother (Paternal) Pneumonia Other Family history of breast cancer No family history of adverse response to anesthesia Denies family history of Ovarian cancer Prostate cancer Myocardial infarction Colorectal cancer Social History Smoking Status: Former smoker Tobacco Type: Pipe Age Started Using Tobacco: 22; Age Quit Using Tobacco: 67; Second Hand Exposure: Yes (hx as child); Do You Dip or Chew Tobacco: No; Hx Alcohol Use: No Hx Substance Use: No Preferred Language: Cypriot Communication Ability: Effective Visual Impairment: No Limitations Hearing Ability: Use of Hearing Aid Repairer Art Objects Required: No Beliefs That Will Affect Care: None marital status: Current Living Situation: Spouse 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al status: retired 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; 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; How many Children do You have: 3 Feels Safe at Home: Yes Childhood Exposure to Second-Hand Smoke: Yes Diet: regular caffeine: Yes Dental Care, Regularly: Yes Physical Activity Frequency: Daily Seatbelt Use: always Sunscreen Use: Yes Assistive Devices: BiPap, Cane, Glasses, Hearing Aid - Bilateral, Scooter/Electric Scooter and Walker Review of Systems Review of Systems: All systems reviewed & are unremarkable except as noted in HPI & below Physical Exam Constitutional: WD/WN, vitals as above Eyes: + scleral abnormality (Scleral icterus) Respiratory: normal respiratory effort, lungs clear to auscultation Cardiovascular: Rate/Rhythm: regular rate and regular rhythm Heart Sounds: no murmur Extremities: + edema (2+ pitting edema of the feet and legs bilateral) Gastrointestinal (Abdomen): normal bowel sounds, soft, nontender, no hepatosplenomegaly Musculoskeletal: Positive tenderness to palpation over right shoulder Skin: + jaundice Psychiatric: A+Ox3, euthymic affect Results & Data Results & Data Vital Signs (Past 12 Hours) Vital Signs Temp Pulse Pulse Resp BP BP Pulse Ox 06/04/24 15:04 76 20 95 06/04/24 14:34 71 06/04/24 14:30 75 20 147/68 H 94 06/04/24 13:39 66 19 92 06/04/24 13:27 70 33 H 154/78 H 94 06/04/24 13:00 116/92 06/04/24 13:00 69 23 116/92 93 06/04/24 12:41 71 16 132/68 93 06/04/24 12:37 132/68 06/04/24 12:00 68 24 142/75 H 93 06/04/24 11:45 72 27 H 06/04/24 11:00 108/56 L 06/04/24 11:00 67 20 108/56 L 95 06/04/24 11:00 68 20 108/56 L 94 06/04/24 10:51 67 22 110/58 L 94 06/04/24 10:26 68 06/04/24 10:06 70 23 109/56 L 94 06/04/24 09:36 36.9 C 74 20 113/61 94 O2 Del Method 06/04/24 15:04 Room Air 06/04/24 14:34 06/04/24 14:30 Room Air 06/04/24 13:39 06/04/24 13:27 06/04/24 13:00 06/04/24 13:00 06/04/24 12:41 Room Air 06/04/24 12:37 06/04/24 12:00 06/04/24 11:45 06/04/24 11:00 06/04/24 11:00 Room Air 06/04/24 11:00 Room Air 06/04/24 10:51 Room Air 06/04/24 10:26 06/04/24 10:06 06/04/24 09:36 Room Air Laboratory Results CBC, BMP, LFTs, INR, lactate, magnesium, troponin, BNP, lipase, procalcitonin, TSH, UA, respiratory BioFire reviewed Diagnostic Findings Chest X-Ray 06/04/24 09:54 XR chest 1V portable CLINICAL HISTORY: orthopnea, weakness COMPARISON STUDY: 03/29/2023 and 03/26/2023 FINDINGS: There is increased opacity in the left lung base. There is mild blunting of the left costophrenic angle. Linear opacities at the right lung base are unchanged and likely a component of discoid atelectasis with low lung volumes. Cardiac silhouette is within normal limits in size. There is a left- sided subclavian venous catheter identified with the tip superimposed on the right atrium. IMPRESSION: Patchy left basilar infiltrate with a small left pleural effusion. ACT 112: Negative or not required by law. Electronically signed by: Griselda Hackett M.D. 06/04/2024 10:26 AM Abdomen/Pelvis CT 06/04/24 12:03 CT OF THE ABDOMEN AND PELVIS WITHOUT CONTRAST CLINICAL HISTORY: Increasing bilirubin. Fatigue. Metastatic colon cancer. COMPARISON STUDY: CT of the abdomen and pelvis February 12, 2024. TECHNIQUE: Axial images of the abdomen and pelvis were obtained without IV contrast. Images were reviewed in the axial, sagittal, and coronal planes. Automated exposure control was utilized for the study. A dose lowering technique was utilized adhering to the principles of ALARA. FINDINGS: Numerous pulmonary nodules within the visualized lung bases have developed since CT of February 12, 2024. Index right lower lobe nodule on image 3 of 369 measures 1.8 cm. There is emphysema. Lower lung groundglass opacities favor atelectasis. There is no pneumatosis, free air or portal venous gas. Extensive hepatic metastatic disease has slightly progressed since CT of February 12, 2024. The lesions now appear confluent. Nodularity of the liver surface is again noted. Small abdominal collaterals are present. There is no biliary or pancreatic ductal dilatation. Excreted contrast within the collecting systems and bladder is noted. There is no evidence for a bowel obstruction. There is extensive colonic diverticulosis. There is mild wall thickening of the sigmoid colon. No significant inflammation is present. Ava hepatis lymphadenopathy is similar to prior exam. Index node measures 2.2 x 1.8 cm. There is trace fluid within the pelvis. A 1.6 and a left adrenal nodule has mildly increased in size. The spleen, right adrenal gland and pancreas are unremarkable. Bifurcated aortoiliac stent graft is in place. Interstitial sac is unchanged, measuring 5.6 cm. No evidence for rupture. Right hip arthroplasty is incidentally noted. There are no suspicious lesions within the visualized skeletal structures. IMPRESSION: 1. Significant progression of extensive hepatic metastases since CT of February 12, 2024. Nodularity of the liver may represent cirrhosis or pseudocirrhosis. Small collaterals raise the possibility of portal hypertension. Trace ascites. 2. Interval development of numerous pulmonary metastases within the lung bases. 3. Extensive colonic diverticulosis. No evidence for acute diverticulitis. 4. No bowel obstruction. 5. No significant change in ava hepatis lymphadenopathy. 6. Stable appearance of the aneurysm sac following placement of a bifurcated aortoiliac stent graft. ACT 112: Negative or not required by law. Electronically signed by: Austin Kaur M.D. 06/04/2024 1:06 PM ECG Additional Comments: ECG on 06/04/2024 at 9:55 AM with sinus rhythm, first-degree AV block, rate 72, flattened T waves in inferior and anterior leads, nonspecific Code Status & VTE Plan Code Status Full code VTE Prophylaxis Plan VTE Prophylaxis will be ordered: Yes PG Care Time/CCT Total # of Minutes Spent Total Time Spent with Patient: Total time spent is greater than 50% in coordination of care (as documented) at patient's floor/unit and/or counseling patient: Coding Level of Care Code 37566 INT INP/OBS CARE Diagnoses Colon cancer metastasized to liver C18.9; C78.7 Paroxysmal atrial fibrillation I48.0 Elevated LFTs R79.89 Anemia D64.9
[2024-06-04] MEDS ORDERED: GLUCAGON FOR INJ 1 MG VIAL SQ PRN (18:12)
[2024-06-04] MEDS ORDERED: POLYETHYLENE (MIRALAX) 17 GM PACK PO PRN (18:12)
[2024-06-04] MEDS ORDERED: GLUCOSE 40% GEL 15 GM TUBE PO PRN (18:12)
[2024-06-04] MEDS ORDERED: CARBOHYDRATES FOR HYPOGLYCEMIA PO PRN (18:12)
[2024-06-04] MEDS ORDERED: ONDANSETRON INJ 2 MG/ML 2 ML VIAL IV PRN (18:12)
[2024-06-04] MEDS ORDERED: GLUCOSE 10 TAB/TUBE PO PRN (18:12)
[2024-06-04] MEDS ORDERED: DEXTROSE 50% 50 ML SYRINGE IV PRN (18:12)
[2024-06-04] MEDS ORDERED: MAGNESIUM HYDROXIDE SUSP 30 ML UDC PO PRN (18:12)
[2024-06-04] MEDS ORDERED: ALBUTEROL HFA 8 GM INHALER INH PRN (18:12)
[2024-06-04] MEDS ORDERED: droNABinol 2.5 MG CAP PO PRN (18:28)
--- NOTE | 2024-06-04 18:34 | Ultrasound Report ---
EXAM: US Abdomen Limited Right Upper Quadrant INDICATION: Metastatic disease. Elevated liver functions. TECHNIQUE: Real-time ultrasound of the right upper quadrant with image documentation. COMPARISON: 01/05/2022 FINDINGS: Liver: Nodular. Heterogeneously echogenic. Enlarged to 22.6 cm long. There is no defined or measurable mass. Trace amounts of fluid around the liver. Gallbladder: Sludge in the gallbladder. Upper normal wall thickness of 3 mm. No pericholecystic fluid. Common bile duct: No significant abnormality noted. No stones. No dilation. Pancreas: No significant abnormality noted. Right kidney: 13.0 cm long. Normal cortical thickness and echotexture. No mass, stone or hydronephrosis. IMPRESSION: 1. Sludge in the gallbladder with upper normal wall thickness. If additional imaging is clinically warranted to assess the gallbladder, consider HIDA scan depending on hepatic function. 2. Heterogeneous cirrhotic appearance of the liver without evident mass. ACT 112: N/A Electronically signed by Caroline Rodriguez 06-04-2024 6:34 PM
[2024-06-04] MEDS: oxyCODONE HCL IR 5 MG TAB (IMMEDIATE RELEASE) PO PRN (20:01)
[2024-06-04] MEDS: INSULIN ASPART PER UNIT CHARGE SC SCH (21:32)
[2024-06-04] MEDS: valACYclovir HCL 500 MG TABLET PO SCH (21:33)
[2024-06-04] MEDS: GABAPENTIN 300 MG CAP PO SCH (21:33)
[2024-06-04] MEDS: ATENOLOL 25 MG TABLET PO SCH (21:33)
[2024-06-04] MEDS: PANTOprazole 40 MG TAB PO SCH (21:33)
[2024-06-04] MEDS: PSYLLIUM or GUAR GUM FIBER 4GM PACKET PO SCH (21:33)
[2024-06-04] MEDS: APIXABAN 5 MG TABLET PO SCH (21:33)
[2024-06-04] MEDS: LATANOPROST 0.005% OP SOLN 2.5 ML BTL OPB SCH (22:45)
[2024-06-04] MEDS: CEFEPIME 2000MG 2,000 MG/20 ML SYR IV SCH (22:45)
[2024-06-05] MEDS: CALCIUM CARBONATE 500 MG CHEWABLE TAB PO PRN (02:21)
[2024-06-05] MEDS: ACETAMINOPHEN 325 MG TAB PO PRN (06:15)
--- NOTE | 2024-06-05 06:18 | Electrocardiogram Report ---
Test Reason : Blood Pressure : */* mmHG Vent. Rate : 72 BPM Atrial Rate : 72 BPM P-R Int : 218 ms QRS Dur : 84 ms QT Int : 440 ms P-R-T Axes : 43 -8 7 degrees QTcB Int : 481 ms Sinus rhythm with 1st degree A-V block Inferior infarct , age undetermined Prolonged QT Nonspecific T wave abnormality Abnormal ECG When compared with ECG of 26-Mar-2023 17:33, CT interval has increased Inferior infarct is now Present Nonspecific T wave abnormality now evident in Inferior leads Nonspecific T wave abnormality now evident in Anterior leads Confirmed by Vincent Duff ([id number]) on 06/05/2024 6:17:50 AM Referred By: REFERRED SELF Confirmed By: Vincent Duff
[2024-06-05] MEDS: HEPARIN 100 UNIT/ML 5ML FLUSH FLUSH PRN (06:40)
[2024-06-05 07:11] LABS: Basophils # (auto) 0.04 K/uL (0.00-0.20); Basophils % (auto) 0.4 %; Eosinophils # (auto) 0.07 K/uL (0.00-0.50); Eosinophils % (auto) 0.7 %; Hematocrit (blood only) 31.6 % (42.0-52.0); Immature Granulocytes # (auto) 0.07 K/uL (0.01-0.20); Immature Granulocytes % (auto) 0.7 %; Lymphocytes # (auto) 1.33 K/uL (1.20-3.40); Lymphocytes % (auto) 14.2 %; Mean Corpuscular Hemoglobin 32.2 pg (25.0-34.0); Mean Corpuscular Hgb Conc 34.8 g/dL (32.0-36.0); Mean Corpuscular Volume 92.4 fL (80.0-100.0); Mean Platelet Volume 10.6 fL (9.4-12.4); Monocytes % (auto) 13.8 %; Neutrophils # (auto) 6.58 K/uL (1.40-6.50); Neutrophils % (auto) 70.2 %; Platelet Count 221 K/uL (130-400); RDW Coefficient of Variation 21.3 % (11.5-14.5); Red Blood Count 3.42 M/uL (4.70-6.10); White Blood Count 9.39 K/ul (4.8-10.8)
[2024-06-05 07:31] LABS: Anisocytosis Present; Polychromasia 1+; Target Cells 2+
--- NOTE | 2024-06-05 07:32 | Hospitalist Progress Note ---
Date of Service June 05, 2024 Assessment & Plan (1) Colon cancer metastasized to liver: (2) Paroxysmal atrial fibrillation: (3) Elevated LFTs: (4) Anemia: Plan This patient is a 79-year-old male with a history of metastatic colon cancer with mets to the liver and lung s/p postchemotherapy, microwave ablation of liver lesions, and partial colectomy currently on chemotherapy with Lonsurf and bevacizumab, COPD, atrial flutter on Eliquis, HTN, GERD, severe GERRY, PAD/AAA s/p aortoiliac stent graft, on auto BiPAP, and DM2 who presented to the ER after being told he had abnormal liver tests on outpatient oncology labs. He was admitted for further workup for worsening LFTs and an obstructive pattern in the setting of metastatic colon cancer. #Elevated LFTs/metastatic colon cancer with mets to liver and lung- - T. bili at admission was 7; today is 7.8 , direct bili was 5, today is 4.7 - AST remains high at 197, ALT has reduced to 99; alk phos remains in 700s, - GI recommended ultrasound of the biliary tract which showed enlarged liver without evidence of biliary track obstruction GI has signed off -Consulted hematology/oncology, awaiting recommendations -Holding home trifluridine-tipiracil due to contraindication with elevated bilirubin -Continue valacyclovir -Trend LFTs -Consider palliative medicine consult #UTI-UA is abnormal which could be some false positive from bilirubin in the urine. Pt is afebrile, WBC is normal and pt denies UTI symptoms. -Discontinue cefepime -Follow urine culture, blood cultures drawn in the ER #Anemia-hemoglobin is 11 today, normocytic, decreased from thirteen 1 month ago but is on chemotherapy. No bleeding from anywhere that he is noted. TSH is normal -Check iron studies, B12, folate: returned as normal -Follow CBC # Paroxysmal atrial flutter on Eliquis/HTN/PAD s/p AAA repair with graft-in sinus rhythm here with first-degree block. Follows with [facility] [address] cardiology. Blood pressures here are normal -Continue amiodarone, Eliquis -Continue atenolol, but hold home HCTZ #DM2-on metformin at home -Hold metformin -NovoLog supplemental insulin, BSG's, diabetic diet -Continue gabapentin #COPD/severe GERRY on auto BiPAP-no acute issues, not hypoxic -Albuterol as needed -He is not using his BiPAP recently since he had a tooth removed and has pain with using the mask #GERD/constipation-no acute issues -Continue PPI twice daily -Continue home fiber -MiraLAX as needed #Right shoulder pain-from recent accident -Oxycodone as needed for pain DVT prophylaxis-Adela Saravia Disposition-admit to medical/surgical unit Admission and Anticipated Discharge Date Admission Date: June 04, 2024 Supervising Physician Co-Signing Physician Notes I personally examined the patient and verified all rizzo points of history and exam, discussed case, and agree with decision making with Dr Resendez lots of lower back pain. mostly in buttock region on L. frustrated with pain. awaiting further input from oncology. vitals noted fatigued, appearing somewhat uncomfortable. heent nc at mmm. skin noticeably jaundiced. L buttock region musculature is area of pain although not reliably reproducible to palpation - but does reproduce with stretching ROM (flex at hip, internal rotation) - with this, post isometric relaxation OMT done x3 repeititions. worsening metastatic colon cancer - unfortunately prognosis poor and hospice may be best/only option, but understandably he would like to discuss any meaningful options with oncology first back pain - appearing muscular - OMT, mag IV, voltaren gel, heat pad, scheduled tylenol anticoagulated otherwise as above Subjective This morning, pt reports he doesn't have his hearing aides and very hard of hearing. He reportedly denies nausea, vomiting, headache, chest pain, or SOB. He c/o back discomfort and his position in the bed. Review of Systems Review of Systems: per HPI Physical Exam Physical Exam: General: Ill-appearing male who is jaundiced but comfortable and in no apparent distress HEENT: EOMI, PERRL, sclera anicteric Neck: trachea midline, no lymphadenopathy Lungs: CTAB, bilateral bs present Heart: RRR, no murmurs noted and edema 2+ in lower extremities Abd: soft, NT/ND, NABS, mildly distended Musculoskeletal: R UE with strength deficit due to pain, LUE and B LE strength is WFL Neuro: CN2-12 intact, normal gait, normal strength Results & Data Results & Data Vital Signs (Past 12 Hours) Vital Signs Temp Pulse Resp BP Pulse Ox O2 Del Method 06/04/24 20:24 36.7 C 86 16 132/80 93 Room Air Resident Activity Tracking Resident Involvement: Resident Care Provided Care Provided: Adult Hospital Medicine
--- NOTE | 2024-06-05 07:43 | Oncology Consultation ---
Date of Consultation June 05, 2024 History of Present Illness Attending Physician: Kiet Rosa DO Allergies Allergy/AdvReac Type Severity Reaction Status Date / Time lisinopril Allergy Severe Angioedema Verified 06/04/24 12:08 adhesive Allergy Intermediate Rash Verified 06/04/24 12:08 latex Allergy Intermediate Contact Verified 06/04/24 12:08 dermatitis Home Medications Medication Instructions Recorded Confirmed Type ascorbic acid (vitamin C) 500 mg 500 mg PO QPM 12/18/18 06/04/24 History tablet coenzyme Q10 100 mg capsule 100 mg PO QAM 12/18/18 06/04/24 History vit C 250 mg-vit E 90 mg-zinc 40 1 tab PO BID 02/06/20 06/04/24 History mg-copper 1 fr-eugaoe-xjafuc capsule (PreserVision AREDS-2) multivitamin 1 tab PO QAM 06/11/20 06/04/24 History Lift Chair #1 ea 05/11/21 02/05/24 Rx Wheeled Walker #1 ea 01/21/22 02/05/24 Rx magnesium oxide 250 mg PO QAM 01/25/22 06/04/24 History acetaminophen 325 mg tablet 650 mg PO TID PRN PAIN/FEVER 03/26/23 06/04/24 History (Tylenol) albuterol sulfate 90 mcg/actuation 2 puff inhalation Q4H PRN prn 05/19/23 06/04/24 History aerosol inhaler glucosamine 750 gy-exattmakyoi-awg 1 tab PO BID 05/19/23 06/04/24 History no1 644 mg-C 30 mg-jesu 1 mg tablet (Osteo Bi-Flex Triple Strength) atenolol 50 mg tablet 25 mg (1/2 x 50 mg) PO BID #90 tabs 12/14/23 06/04/24 Rx metformin 500 mg tablet,extended 500 mg PO BID #180 tabs 01/29/24 06/04/24 Rx release 24 hr amiodarone 100 mg tablet (Pacerone) 100 mg PO QAM #90 tabs 02/05/24 06/04/24 Rx gabapentin 300 mg capsule 300 mg PO HS 04/22/24 06/04/24 History trifluridine 15 mg-tipiracil 6.14 0 tab PO BID 04/22/24 06/04/24 History mg tablet (Lonsurf) valacyclovir 1 gram tablet 1,000 mg PO BID 04/22/24 06/04/24 History hydrochlorothiazide 25 mg tablet 25 mg PO QPM #90 tabs 05/27/24 06/04/24 Rx apixaban 5 mg tablet (Eliquis) 5 mg PO BID 06/04/24 06/04/24 History dronabinol 5 mg capsule 5 mg PO BID PRN Nausea And Vomiting 06/04/24 06/04/24 History latanoprost 0.005 % eye drops 1 drp OPB HS 06/04/24 06/04/24 History oxycodone 5 mg tablet 5 mg PO DIRECTED PRN Pain 06/04/24 06/04/24 History pantoprazole 40 mg tablet,delayed 40 mg PO BID 06/04/24 06/04/24 History release psyllium husk 0.52 gram capsule 0.52 g PO HS 06/04/24 06/04/24 History (Fiber-Caps (psyllium husk)) Patient History Medical History Cirrhosis Swelling, mass, or lump in head and neck 09/2023, sent to ENT, found to have a stone in his submandibular gland Allergic rhinitis History of abdominal aortic aneurysm (AAA) repaired in 2020 Heart failure with preserved ejection fraction f/u [facility] st[facility] cardio Weakness in b/l legs Rectal bleeding 12/04/23, one episode Pulmonary nodule Peripheral edema no current issues Lumbar spondylolysis Hypertension Hypercholesteremia Hemorrhagic shock hx 03/2023, "due to bleeding gastric ulcer" GERD (gastroesophageal reflux disease) Dysphagia w/food and water, "no trouble with juices" Hx of diverticulitis of colon Carotid artery stenosis 50-69% stenosis L ICA, < 50% stenosis R ICA History of anemia no current issues History of gastric ulcer 03/26/[address] ROMARIO Case--surgical intervention stopped bleeding, [place] [facility] Diabetes mellitus, type 2 NIDDM Liver cancer dx 02/2022;last chemo 09/13/23 and radiation completed 12/2022 Colon cancer dx 02/2022; last chemo 09/13/23 Second-degree heart block Sludge in gallbladder general surgery 01/27/22 "would not push to have [laparoscopic cholecystectomy] unless he has more symptoms..." Morbid obesity HTN (hypertension) controlled, stable per pt Macular degeneration [place] (hard of hearing) B/L [place]O Neuropathy feet bilat Atrial fibrillation follows with Dr. Stoddard; on eliquis COPD (chronic obstructive pulmonary disease) controlled, stable per pt; daily and prn inh Sleep apnea Kr-PEP-cxebloris Surgical History History of esophagogastroduodenoscopy (EGD) History of ablation of neoplasm of liver 11/11/22, [facility] Hx of colonoscopy History of cataract surgery right/left Port-A-Cath in place (06/16/22) Insertion of Access Port, left subclavian(Left) - Christian Gomez MD, FACS [employer] Hx of endoscopic retrograde cholangiop[place]reat[place] [facility] [place] of total right hip arthroplasty History of tooth extraction S/P aneurysm repair Percutaneous Endovascular Aneurysm Repair 08/11/2020: Grade 2 view, MAC 4, ETT 8. History of carpal tunnel release Right History of right knee joint replacement RT. 12/22/16: SAB at L3-L4 + PNB. Family History Mother Breast cancer Father Blindness Sister No problems noted. Grandfather (Paternal) Stroke Grandfather (Maternal) Heart disease Grandmother (Maternal) No problems noted. 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 Required: No Beliefs That Will Affect Care: None marital status: Current Living Situation: Spouse 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al status: retired 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
[2024-06-05 07:44] LABS: Albumin Level 2.3 gm/dl (3.4-5.0); BUN Creatinine Ratio 31.7 (10-20); Bilirubin Direct 4.7 mg/dl (0-0.2); Bilirubin,Total 7.8 mg/dl (0.2-1.0); Calcium 8.5 mg/dl (8.6-10.3); Creatinine Clr Calc Pharmacy 127.8 ml/min; Potassium 3.7 mmol/L (3.5-5.1)
[2024-06-05 08:03] LABS: Ferritin 982.3 ng/ml (8-388)
[2024-06-05 08:17] LABS: Vitamin B12 > 1500 pg/ml (180-914)
[2024-06-05] MEDS: AMIODARONE 200 MG TAB PO SCH (08:37)
[2024-06-05] MEDS: MAGNESIUM OXIDE 400 MG TAB PO SCH (08:37)
[2024-06-05 10:06] LABS: Estimated Average Glucose 100 mg/dl; Hemoglobin A1C 5.1 % (4.5-5.6)
--- NOTE | 2024-06-05 10:14 | Gastroenterology Progress Note ---
Date of Service June 05, 2024 Assessment & Plan (1) Elevated LFTs: Plan: 79 year old male with a history of metastatic colon cancer to the liver and lung s/p postchemotherapy, microwave ablation of liver lesions and partial colectomy currently on chemotherapy with Lonsurf and bevacizumab, COPD, atrial flutter on Eliquis, HTN, GERD, severe GERRY, PAD/AAA s/p aortoiliac stent graft, on auto BiPAP, and DM2 admitted w/ abnormal LFTs ABD US w/o any common bile duct abnormality - no stones or dilation appreciated. CT does show significant progression of extensive hepatic metastases, nodularity of the liver and interval development of numerous pulmonary metastases within the lung bases. Suspect his LFT elevation is related to the hepatic metastasis and progressive fibrosis of the liver from his prior therapies. Will await hematology evaluation. Recall GI as needed. I spent a total of 40 minutes on the date of service in review of patient's record, and previously obtained information in person and appropriate medical visit, discussion and education of plan, with patient and/or caregiver, placing orders for tests/referral/procedures as medically necessary and documentation of pertinent clinical information in patient's medical records for their visit today. Admission and Anticipated Discharge Date Admission Date: June 04, 2024 Supervising Physician Co-Signing Physician Notes I personally saw and examined the patient. I have reviewed the chart and agree with the documentation provided by the TELECOMMUNICATIONS ANALYST including discussion about the assessment, treatment and plan. Briefly, ultrasound unfortunately did not show any common bile duct dilatation. I suspect his jaundice is from his diffuse intrahepatic metastasis and now cirrhosis. Limited options from a GI standpoint. We will sign off. Suggest follow-up with oncology and consideration for hospice care Subjective Pt was seen and evaluated, chart reviewed. Hearing aids have this AM and is very hard of hearing. Denies abd pain. No nausea/vomiting. Review of Systems Review of Systems: All other findings negative except as noted in HPI. Physical Exam Constitutional: WD/WN, vitals as above Respiratory: normal respiratory effort Cardiovascular: Rate/Rhythm: regular rate Gastrointestinal (Abdomen): normal bowel sounds, soft, nontender, no hepatosplenomegaly Skin: no rashes, warm and dry +jaundince Results & Data Results & Data Vital Signs (Past 12 Hours) Vital Signs Temp Pulse Resp BP Pulse Ox O2 Del Method 06/05/24 09:10 98.2 F 93 Room Air 06/05/24 07:40 97.5 F L 77 16 108/64 89 L Room Air Laboratory Results 06/05/24 06/05/24 06/04/24 Range/Units 07:19 06:39 20:22 WBC 9.39 (4.8-10.8) K/ul RBC 3.42 L (4.70-6.10) M/uL Hgb 11.0 L (14.0-18.0) g/dl Hct 31.6 L (42.0-52.0) % MCV 92.4 (80.0-100.0) fL MCH 32.2 (25.0-34.0) pg MCHC 34.8 (32.0-36.0) g/dL RDW Std Deviation 69.0 H (36.4-46.3) fL RDW Coeff of Salome 21.3 H (11.5-14.5) % Plt Count 221 (130-400) K/uL MPV 10.6 (9.4-12.4) fL Immature Gran % (Auto) 0.7 % Neut % (Auto) 70.2 % Lymph % (Auto) 14.2 % Nicholas % (Auto) 13.8 % Eos % (Auto) 0.7 % Baso % (Auto) 0.4 % Neut # (Auto) 6.58 H (1.40-6.50) K/uL Lymph # (Auto) 1.33 (1.20-3.40) K/uL Nicholas # (Auto) 1.30 H (0.11-0.59) K/uL Eos # (Auto) 0.07 (0.00-0.50) K/uL Baso # (Auto) 0.04 (0.00-0.20) K/uL Immature Gran # (Auto) 0.07 (0.01-0.20) K/uL Toxic Granulation Toxic Vacuolation Polychromasia 1+ Anisocytosis Present Target Cells 2+ PT (9.0-12.0) Seconds INR (0.9-1.1) APTT (21-31) Seconds PTT Ratio Sodium 138 (136-145) mmol/L Potassium 3.7 (3.5-5.1) mmol/L Chloride 100 (98-107) mmol/L Carbon Dioxide 34 H (21-32) mmol/L Anion Gap 4 (3-11) BUN 19 (6-23) mg/dl Creatinine 0.60 (0.6-1.4) mg/dl Est Cr Clr Drug Dosing 127.8 eGFR 99.42 BUN/Creatinine Ratio 31.7 H (10-20) Glucose 106 H (70-99(Fasting)) mg/dl POC Glucose 97 119 H (70-99) mg/dl Estimat Average Glucose 100 mg/dl Hemoglobin A1c 5.1 (4.5-5.6) % Lactate (0.4-2.0) mmol/L Calcium 8.5 L (8.6-10.3) mg/dl Magnesium (1.7-2.4) mg/dl Iron 61 (35-175) mcg/dl TIBC 168 L (250-450) mcg/dl Transferrin 120 L (200-360) mg/dl Transferrin % Sat 36 (20-50) % Ferritin 982.3 H (8-388) ng/ml Total Bilirubin 7.8 H (0.2-1.0) mg/dl Direct Bilirubin 4.7 H (0-0.2) mg/dl AST 197 H (13-39) U/L ALT 99 H (7-52) U/L Alkaline Phosphatase 716 H (34-104) U/L Troponin I High Sens (0-20) pg/ml B-Natriuretic Peptide (0-100) pg/ml Total Protein 6.0 (6.0-8.3) gm/dl Albumin 2.3 L (3.4-5.0) gm/dl Lipase (11-82) U/L Vitamin B12 > 1500 H (180-914) pg/ml Folate 10.90 (>5.38) ng/ml Procalcitonin (0-0.5) ng/ml TSH (0.300-4.500) uIu/ml Urine Color Urine Appearance (Clear) Urine pH (4.5-7.5) Ur Specific [place] (1.000-1.030) Urine Protein (Negative) Urine Glucose (UA) (Negative) Urine Ketones (Negative) Urine Blood (Negative) Urine Nitrite (Negative) Urine Bilirubin (Negative) Urine Urobilinogen (Negative) Ur Leukocyte Esterase (Negative) Urine WBC (Auto) (0-5) /hpf Urine RBC (Auto) (0-2) /hpf U Hyaline Cast (Auto) (0-2) /lpf U Epithel Cells (Auto) (0-2) /hpf Urine Bacteria (Auto) (None Seen) Urine Mucus (None Prsent) Adenovirus (PCR) (NotDetected) B. pertussis DNA (PCR) (NotDetected) B.parapertussis DNA PCR (NotDetected) C. pneumoniae DNA (PCR) (NotDetected) Coronavirus OC43 (PCR) (NotDetected) Coronavirus HKU1 (PCR) (NotDetected) Coronavirus 229E (PCR) (NotDetected) SARS-CoV-2 (PCR) (NotDetected) Coronavirus NL63 (PCR) (NotDetected) Human Metapneumovir PCR (NotDetected) Influenza Type A (PCR) (NotDetected) Influenza Type B (PCR) (NotDetected) M. pneumoniae (PCR) (NotDetected) Parainfluenza 1 (PCR) (NotDetected) Parainfluenza 2 (PCR) (NotDetected) Parainfluenza 3 (PCR) (NotDetected) Parainfluenza 4 (PCR) (NotDetected) RSV (PCR) (NotDetected) Entero/Rhino (PCR) (NotDetected) 06/04/24 06/04/24 06/04/24 Range/Units 12:26 11:47 10:40 WBC (4.8-10.8) K/ul RBC (4.70-6.10) M/uL Hgb (14.0-18.0) g/dl Hct (42.0-52.0) % MCV (80.0-100.0) fL MCH (25.0-34.0) pg MCHC (32.0-36.0) g/dL RDW Std Deviation (36.4-46.3) fL RDW Coeff of Salome (11.5-14.5) % Plt Count (130-400) K/uL MPV (9.4-12.4) fL Immature Gran % (Auto) % Neut % (Auto) % Lymph % (Auto) % Nicholas % (Auto) % Eos % (Auto) % Baso % (Auto) % Neut # (Auto) (1.40-6.50) K/uL Lymph # (Auto) (1.20-3.40) K/uL Nicholas # (Auto) (0.11-0.59) K/uL Eos # (Auto) (0.00-0.50) K/uL Baso # (Auto) (0.00-0.20) K/uL Immature Gran # (Auto) (0.01-0.20) K/uL Toxic Granulation Toxic Vacuolation Polychromasia Anisocytosis Target Cells PT (9.0-12.0) Seconds INR (0.9-1.1) APTT (21-31) Seconds PTT Ratio Sodium (136-145) mmol/L Potassium (3.5-5.1) mmol/L Chloride (98-107) mmol/L Carbon Dioxide (21-32) mmol/L Anion Gap (3-11) BUN (6-23) mg/dl Creatinine (0.6-1.4) mg/dl Est Cr Clr Drug Dosing eGFR BUN/Creatinine Ratio (10-20) Glucose (70-99(Fasting)) mg/dl POC Glucose (70-99) mg/dl Estimat Average Glucose mg/dl Hemoglobin A1c (4.5-5.6) % Lactate 4.6 H* 4.9 H* (0.4-2.0) mmol/L Calcium (8.6-10.3) mg/dl Magnesium (1.7-2.4) mg/dl Iron (35-175) mcg/dl TIBC (250-450) mcg/dl Transferrin (200-360) mg/dl Transferrin % Sat (20-50) % Ferritin (8-388) ng/ml Total Bilirubin (0.2-1.0) mg/dl Direct Bilirubin (0-0.2) mg/dl AST (13-39) U/L ALT (7-52) U/L Alkaline Phosphatase (34-104) U/L Troponin I High Sens (0-20) pg/ml B-Natriuretic Peptide (0-100) pg/ml Total Protein (6.0-8.3) gm/dl Albumin (3.4-5.0) gm/dl Lipase (11-82) U/L Vitamin B12 (180-914) pg/ml Folate (>5.38) ng/ml Procalcitonin (0-0.5) ng/ml TSH (0.300-4.500) uIu/ml Urine Color Dark Yellow Urine Appearance Clear (Clear) Urine pH 5.5 (4.5-7.5) Ur Specific [place] 1.036 H (1.000-1.030) Urine Protein Trace H (Negative) Urine Glucose (UA) Negative (Negative) Urine Ketones Trace H (Negative) Urine Blood Negative (Negative) Urine Nitrite Positive A (Negative) Urine Bilirubin 3+ H (Negative) Urine Urobilinogen Positive H (Negative) Ur Leukocyte Esterase 1+ H (Negative) Urine WBC (Auto) 6-10 H (0-5) /hpf Urine RBC (Auto) 0-2 (0-2) /hpf U Hyaline Cast (Auto) 0-2 (0-2) /lpf U Epithel Cells (Auto) 0-2 (0-2) /hpf Urine Bacteria (Auto) 1+ H (None Seen) Urine Mucus Present A (None Prsent) Adenovirus (PCR) Not Detected (NotDetected) B. pertussis DNA (PCR) Not Detected (NotDetected) B.parapertussis DNA PCR Not Detected (NotDetected) C. pneumoniae DNA (PCR) Not Detected (NotDetected) Coronavirus OC43 (PCR) Not Detected (NotDetected) Coronavirus HKU1 (PCR) Not Detected (NotDetected) Coronavirus 229E (PCR) Not Detected (NotDetected) SARS-CoV-2 (PCR) Not Detected (NotDetected) Coronavirus NL63 (PCR) Not Detected (NotDetected) Human Metapneumovir PCR Not Detected (NotDetected) Influenza Type A (PCR) Not Detected (NotDetected) Influenza Type B (PCR) Not Detected (NotDetected) M. pneumoniae (PCR) Not Detected (NotDetected) Parainfluenza 1 (PCR) Not Detected (NotDetected) Parainfluenza 2 (PCR) Not Detected (NotDetected) Parainfluenza 3 (PCR) Not Detected (NotDetected) Parainfluenza 4 (PCR) Not Detected (NotDetected) RSV (PCR) Not Detected (NotDetected) Entero/Rhino (PCR) Not Detected (NotDetected) 06/04/24 Range/Units 10:05 WBC 9.20 (4.8-10.8) K/ul RBC 3.36 L (4.70-6.10) M/uL Hgb 10.6 L (14.0-18.0) g/dl Hct 31.2 L (42.0-52.0) % MCV 92.9 (80.0-100.0) fL MCH 31.5 (25.0-34.0) pg MCHC 34.0 (32.0-36.0) g/dL RDW Std Deviation 68.0 H (36.4-46.3) fL RDW Coeff of Salome 21.1 H (11.5-14.5) % Plt Count 213 (130-400) K/uL MPV 10.6 (9.4-12.4) fL Immature Gran % (Auto) 0.7 % Neut % (Auto) 74.1 % Lymph % (Auto) 12.0 % Nicholas % (Auto) 11.8 % Eos % (Auto) 1.0 % Baso % (Auto) 0.4 % Neut # (Auto) 6.82 H (1.40-6.50) K/uL Lymph # (Auto) 1.10 L (1.20-3.40) K/uL Nicholas # (Auto) 1.09 H (0.11-0.59) K/uL Eos # (Auto) 0.09 (0.00-0.50) K/uL Baso # (Auto) 0.04 (0.00-0.20) K/uL Immature Gran # (Auto) 0.06 (0.01-0.20) K/uL Toxic Granulation 1+ Toxic Vacuolation 1+ Polychromasia 1+ Anisocytosis Target Cells 2+ PT 17.4 H (9.0-12.0) Seconds INR 1.7 H (0.9-1.1) APTT 40 H (21-31) Seconds PTT Ratio 1.5 Sodium 137 (136-145) mmol/L Potassium 3.4 L (3.5-5.1) mmol/L Chloride 98 (98-107) mmol/L Carbon Dioxide 30 (21-32) mmol/L Anion Gap 9 (3-11) BUN 23 (6-23) mg/dl Creatinine 0.62 (0.6-1.4) mg/dl Est Cr Clr Drug Dosing Not Reportable eGFR 98.44 BUN/Creatinine Ratio 37.1 H (10-20) Glucose 133 H (70-99(Fasting)) mg/dl POC Glucose (70-99) mg/dl Estimat Average Glucose mg/dl Hemoglobin A1c (4.5-5.6) % Lactate (0.4-2.0) mmol/L Calcium 9.0 (8.6-10.3) mg/dl Magnesium 1.9 (1.7-2.4) mg/dl Iron (35-175) mcg/dl TIBC (250-450) mcg/dl Transferrin (200-360) mg/dl Transferrin % Sat (20-50) % Ferritin (8-388) ng/ml Total Bilirubin 7.4 H (0.2-1.0) mg/dl Direct Bilirubin 5.1 H (0-0.2) mg/dl AST 208 H (13-39) U/L ALT 100 H (7-52) U/L Alkaline Phosphatase 777 H (34-104) U/L Troponin I High Sens 16.8 (0-20) pg/ml B-Natriuretic Peptide 178 H (0-100) pg/ml Total Protein 6.5 (6.0-8.3) gm/dl Albumin 2.5 L (3.4-5.0) gm/dl Lipase 14 (11-82) U/L Vitamin B12 (180-914) pg/ml Folate (>5.38) ng/ml Procalcitonin 0.48 (0-0.5) ng/ml TSH 3.435 (0.300-4.500) uIu/ml Urine Color Urine Appearance (Clear) Urine pH (4.5-7.5) Ur Specific [place] (1.000-1.030) Urine Protein (Negative) Urine Glucose (UA) (Negative) Urine Ketones (Negative) Urine Blood (Negative) Urine Nitrite (Negative) Urine Bilirubin (Negative) Urine Urobilinogen (Negative) Ur Leukocyte Esterase (Negative) Urine WBC (Auto) (0-5) /hpf Urine RBC (Auto) (0-2) /hpf U Hyaline Cast (Auto) (0-2) /lpf U Epithel Cells (Auto) (0-2) /hpf Urine Bacteria (Auto) (None Seen) Urine Mucus (None Prsent) Adenovirus (PCR) (NotDetected) B. pertussis DNA (PCR) (NotDetected) B.parapertussis DNA PCR (NotDetected) C. pneumoniae DNA (PCR) (NotDetected) Coronavirus OC43 (PCR) (NotDetected) Coronavirus HKU1 (PCR) (NotDetected) Coronavirus 229E (PCR) (NotDetected) SARS-CoV-2 (PCR) (NotDetected) Coronavirus NL63 (PCR) (NotDetected) Human Metapneumovir PCR (NotDetected) Influenza Type A (PCR) (NotDetected) Influenza Type B (PCR) (NotDetected) M. pneumoniae (PCR) (NotDetected) Parainfluenza 1 (PCR) (NotDetected) Parainfluenza 2 (PCR) (NotDetected) Parainfluenza 3 (PCR) (NotDetected) Parainfluenza 4 (PCR) (NotDetected) RSV (PCR) (NotDetected) Entero/Rhino (PCR) (NotDetected) PG Care Time/CCT Total # of Minutes Spent Total Time Spent with Patient: Total time spent is greater than 50% in coordination of care (as documented) at patient's floor/unit and/or counseling patient: Coding Level of Care Code 06852 SUB INP/OBS CARE 2/35MIN Diagnoses Elevated LFTs R79.89
[2024-06-05] MEDS: MoRPHine SULFATE 2 MG/ML CARP IV PRN (13:54)
[2024-06-05] MEDS: MoRPHine SULFATE 2 MG/ML CARP IV STA (16:32)
[2024-06-05] MEDS: MAGNESIUM SULFATE / D5W 1 GM/100 ML BAG IV SCH (16:33)
[2024-06-05] MEDS: DICLOFENAC SOD 1% GEL 100 GM TUBE EXT SCH (18:05)
--- NOTE | 2024-06-05 18:48 | Billing Data ---
Date of Service June 05, 2024 Coding Level of Care Code 65371 SUB INP/OBS CARE MIN
[2024-06-06 06:36] LABS: Basophils # (auto) 0.05 K/uL (0.00-0.20); Basophils % (auto) 0.5 %; Eosinophils # (auto) 0.12 K/uL (0.00-0.50); Eosinophils % (auto) 1.1 %; Hematocrit (blood only) 32.8 % (42.0-52.0); Hemoglobin 11.4 g/dl (14.0-18.0); Immature Granulocytes # (auto) 0.08 K/uL (0.01-0.20); Immature Granulocytes % (auto) 0.7 %; Lymphocytes # (auto) 1.57 K/uL (1.20-3.40); Lymphocytes % (auto) 14.6 %; Mean Corpuscular Hemoglobin 32.3 pg (25.0-34.0); Mean Corpuscular Hgb Conc 34.8 g/dL (32.0-36.0); Mean Corpuscular Volume 92.9 fL (80.0-100.0); Mean Platelet Volume 10.7 fL (9.4-12.4); Monocytes # (auto) 1.38 K/uL (0.11-0.59); Monocytes % (auto) 12.9 %; Neutrophils # (auto) 7.53 K/uL (1.40-6.50); Neutrophils % (auto) 70.2 %; Platelet Count 244 K/uL (130-400); RDW Coefficient of Variation 21.4 % (11.5-14.5); RDW Standard Deviation 69.5 fL (36.4-46.3); Red Blood Count 3.53 M/uL (4.70-6.10); White Blood Count 10.73 K/ul (4.8-10.8)
[2024-06-06 06:57] LABS: INR 1.9 (0.9-1.1); Prothrombin Time 19.4 Seconds (9.0-12.0)
[2024-06-06 06:59] LABS: Albumin Globulin Ratio 0.6 (0.9-2); Albumin Level 2.5 gm/dl (3.4-5.0); BUN Creatinine Ratio 31.4 (10-20); Bilirubin,Total 8.5 mg/dl (0.2-1.0); Calcium 8.9 mg/dl (8.6-10.3); Creatinine Clr Calc Pharmacy 109.5 ml/min; Globulin 4.1 gm/dl (2.5-4.0); Potassium 3.8 mmol/L (3.5-5.1); Total Protein 6.6 gm/dl (6.0-8.3)
[2024-06-06 07:00] LABS: Anisocytosis Present; Polychromasia 2+; Target Cells 2+
[2024-06-06] MEDS: SODIUM CHLORIDE 0.65% NA SOLN 45 ML (OCEAN) ONE (12:39)
[2024-06-06] MEDS ORDERED: VANCOMYCIN CONSULT ACTIVE PRN (16:05)
[2024-06-06] MEDS: LACTATED RINGER'S 1,000 ML IV ONE ×3 (16:23→20:01)
[2024-06-06] MEDS: MIDODRINE HCL 2.5 MG TAB PO SCH (16:28)
[2024-06-06] MEDS: MIDODRINE HCL 2.5 MG TAB PO ONE (16:36)
--- NOTE | 2024-06-06 16:41 | Hospitalist Progress Note ---
Date of Service June 06, 2024 Assessment & Plan (1) Colon cancer metastasized to liver: (2) Paroxysmal atrial fibrillation: (3) Elevated LFTs: (4) Anemia: Plan This patient is a 79-year-old male with a history of metastatic colon cancer with mets to the liver and lung s/p postchemotherapy, microwave ablation of liver lesions, and partial colectomy currently on chemotherapy with Lonsurf and bevacizumab, COPD, atrial flutter on Eliquis, HTN, GERD, severe GERRY, PAD/AAA s/p aortoiliac stent graft, on auto BiPAP, and DM2 who presented to the ER after being told he had abnormal liver tests on outpatient oncology labs. He was admitted for further workup for worsening LFTs and an obstructive pattern in the setting of metastatic colon cancer. Later in the morning, pt c/o rigors. In the afternoon, RN reported hypotension in range of 80's/40's. #Sepsis Pt remained afebrile, no tachycardia and denied SOB, abdominal pain, N/V/D, headache. No elevated WBC on AM Labs. However, with immunocompromised state along with symptoms of rigors and hypotension, decided to treat for sepsis. - Repeated blood cultures obtained in am - IVF bolus and midodrine 10 mg given in afternoon following reports of hypotension. - Monitor vitals q1-2h - Consider transfer to med/tele - Consider transfer to ICU if requires norepinephrine for blood pressure control #Elevated LFTs/metastatic colon cancer with mets to liver and lung- - T. bili at admission was 7; today is 7.8 , direct bili was 5, today is 4.7 - AST remains high at 197, ALT has reduced to 99; alk phos remains in 700s, - GI recommended ultrasound of the biliary tract which showed enlarged liver without evidence of biliary track obstruction GI has signed off -Consulted hematology/oncology Pt and decided to see Dr. Jeff in the outpatient setting -Holding home trifluridine-tipiracil due to contraindication with elevated bilirubin -Continue valacyclovir -Trend LFTs -Consider palliative medicine consult #UTI-UA is abnormal which could be some false positive from bilirubin in the urine. Pt is afebrile, WBC is normal and pt denies UTI symptoms. -Discontinue cefepime -Urine culture from 06/04 negative - Blood cultures drawn on 06/04- no growth after 48 hours #Anemia-hemoglobin remians 11 today, normocytic, decreased from thirteen 1 month ago but is on chemotherapy. No bleeding from anywhere that he is noted. TSH is normal -Iron studies, B12, folate: returned as normal 06/05 -Follow CBC # Paroxysmal atrial flutter on Eliquis/HTN/PAD s/p AAA repair with graft-in sinus rhythm here with first-degree block. Follows with [facility] cardiology. Blood pressures here are normal -Continue amiodarone, Eliquis -Holding atenolol and HCTZ #DM2-on metformin at home -Hold metformin -NovoLog supplemental insulin, BSG's, diabetic diet -Continue gabapentin #COPD/severe GERRY on auto BiPAP-no acute issues, not hypoxic -Albuterol as needed -He is not using his BiPAP recently since he had a tooth removed and has pain with using the mask #GERD/constipation-no acute issues -Continue PPI twice daily -Continue home fiber -MiraLAX as needed #Right shoulder pain-from recent accident -Oxycodone as needed for pain DVT prophylaxis-Adela Saravia Disposition-admit to medical/surgical unit Admission and Anticipated Discharge Date Admission Date: June 04, 2024 Supervising Physician Co-Signing Physician Notes I personally examined the patient and verified all rizzo points of history and exam, discussed case, and agree with decision making with Dr Resendez had shaking chills x 1 this AM, then really hot after. a few hours later BP started getting lower- no sx other than fatigue - no weak/lightheaded/dizzy, no sob no focal sx. vitals noted - BP initially in ~85-90/45 range then on reassess after 1L LR was down to ~80/45. fatigued but nad heent nc at mmm. cardio distant but reg lungs cta b/l no r/r/w good effort abd soft mild distention but nontender no guarding no rebound. ext b/l LE edema no erythema no calf tenderness. skin no cellulitis rashes/erythema. does have marked jaundice hypotension - fairly sudden onset. in the context of rigors, have to assume bacteremia / sepsis until proven otherwise - giving fluid boluses and frequently reassessing; vanco (biggest suspicion would be line infection) and cefepime (empiric coverage due to severe sepsis/septic shock). had started midodrine while lower BP was more nebulous - will continue for now as it may be helpful. -strongly suspect septic shock - managing as above -no CP/SOB or other reason to suspect cardiogenic -does have worsening INR and bili on labs - highly doubt progressed to fulminant hepatic failure - but given that it's not impossible checking repeat INR/CMP brenna -no evidence of bleeding but frail on eliquis - check CBC brenna --->discussed with ICU in case their assistance is needed; signed out to overnight coverage as well --->extensive discussions with at the bedside worsening metastatic colon cancer - unfortunately prognosis poor and hospice may be best/only option, but understandably he would like to discuss any meaningful options with oncology first - primary oncologist in office next week. back pain - appearing muscular - OMT, mag IV, voltaren gel, heat pad, scheduled tylenol yesterday --> seems to have helped a good deal although still bothering him anticoagulated otherwise as above Subjective This morning, pt reports he is feeling well. He was eating his breakfast and sitting up in a chair. Pt denies CP, SOB, Nausea, vomiting, diarrhea, rashes, dizziness or low back pain. Review of Systems Review of Systems: per HPI Physical Exam Physical Exam: General: Ill-appearing male who is jaundiced but comfortable and in no apparent distress HEENT: EOMI, PERRL, sclera anicteric Neck: trachea midline, no lymphadenopathy Lungs: CTAB, bilateral bs present Heart: RRR, no murmurs noted and edema 2+ in lower extremities, edema at bilateral arms- non pitting Abd: soft, NT/ND, NABS, mildly distended Musculoskeletal: R UE with strength deficit due to pain, LUE and B LE strength is WFL Neuro: CN2-12 intact Results & Data Results & Data Vital Signs (Past 12 Hours) Vital Signs Temp Pulse Resp BP Pulse Ox O2 Del Method 06/06/24 16:32 74/44 L 06/06/24 16:27 75/45 L 06/06/24 16:17 84/44 L 06/06/24 15:19 86/48 L 06/06/24 15:06 90/53 L 06/06/24 15:02 85 20 88/53 L 92 Room Air 06/06/24 14:56 87 90/55 L 06/06/24 14:45 36.5 C 88 20 83/45 L 95 Room Air 06/06/24 08:29 74 118/74 06/06/24 08:23 36.5 C 71 20 101/62 95 Room Air Resident Activity Tracking Resident Involvement: Resident Care Provided Care Provided: Adult [facility]
--- NOTE | 2024-06-06 16:53 | Pharmacy Report ---
Pharmacy PK ABX Note - Date of Service June 06, 2024 - Assessment and Plan Assessment 79 year old M receiving vancomycin for concerns for bacteremia. Blood cultures pending. PMHx significant for colon cancer with mets to liver. Plan Vancomycin * Loading dose: 2500 mg IV x 1 * Maintenance dose: 1250 mg IV every 12 hours * Regimen is predicted to achieve target AUC/ANDREW of 400-600 mg/L.hr * Plan to order vancomycin level if continued >48 hours Pharmacy will continue to follow and will adjust dose/frequency as necessary. Thank you. Pharmacy has transitioned to AUC monitoring for vancomycin. AUC/ANDREW is the preferred PK/PD target and is associated with decreased risk of nephrotoxicity compared to traditional trough targets.
[2024-06-06] MEDS: VANCOMYCIN HCL 2,500 MG in SODIUM CHLORIDE 0.9% 500 ML IV ONE (17:38)
[2024-06-06] MEDS: CEFEPIME 2000MG 2,000 MG/20 ML SYR IV SCH (18:46)
[2024-06-06 19:27] LABS: Albumin Globulin Ratio 0.6 (0.9-2); BUN Creatinine Ratio 24.2 (10-20); Bilirubin,Total 7.5 mg/dl (0.2-1.0); Calcium 8.5 mg/dl (8.6-10.3); Creatinine Clr Calc Pharmacy 63.9 ml/min; Globulin 3.4 gm/dl (2.5-4.0); Potassium 3.8 mmol/L (3.5-5.1); Total Protein 5.4 gm/dl (6.0-8.3)
[2024-06-06 19:39] LABS: INR 2.5 (0.9-1.1); Prothrombin Time 25.4 Seconds (9.0-12.0)
[2024-06-06] MEDS: ALBUMIN 5% 250 ML IV ONE (22:09)
[2024-06-06 23:16] LABS: BUN Creatinine Ratio 25.7 (10-20); Calcium 8.3 mg/dl (8.6-10.3); Creatinine Clr Calc Pharmacy 67.8 ml/min; Potassium 3.5 mmol/L (3.5-5.1)
--- NOTE | 2024-06-06 23:17 | XRay Report ---
Exam(s): XR CXR 1 VIEW EXAM: XR Chest, 1 View CLINICAL HISTORY: Reason for exam: crackles, looking for inf source. TECHNIQUE: Frontal view of the chest. COMPARISON: 06/04/2024 FINDINGS: Lungs: Patchy airspace opacities in the lungs bilaterally. Pleural space: No pleural effusion. No pneumothorax. Heart: Unremarkable. No cardiomegaly. Tubes, lines and devices: Port-A-Cath in place. IMPRESSION: Patchy airspace opacities in the lungs bilaterally. Pneumonia a possibility in the appropriate clinical setting. Electronically signed by: Ted Kelly MD 06/06/24 23:16 PM
[2024-06-07] MEDS: VANCOMYCIN HCL 1,250 MG in SODIUM CHLORIDE 0.9% 250 ML IV SCH (03:02)
--- NOTE | 2024-06-07 06:49 | Hospitalist Progress Note ---
Date of Service June 07, 2024 Assessment & Plan (1) Colon cancer metastasized to liver: (2) Paroxysmal atrial fibrillation: (3) Elevated LFTs: (4) Anemia: Plan This patient is a 79-year-old male with a history of metastatic colon cancer with mets to the liver and lung s/p postchemotherapy, microwave ablation of liver lesions, and partial colectomy currently on chemotherapy with Lonsurf and bevacizumab, COPD, atrial flutter on Eliquis, HTN, GERD, severe GERRY, PAD/AAA s/p aortoiliac stent graft, on auto BiPAP, and DM2 who presented to the ER after being told he had abnormal liver tests on outpatient oncology labs. He was admitted for further workup for worsening LFTs and an obstructive pattern in the setting of metastatic colon cancer. Later in the morning, pt c/o rigors. In the afternoon, RN reported hypotension in range of 80's/40's. #Sepsis Pt remained afebrile, no tachycardia and denied SOB, abdominal pain, N/V/D, headache. No elevated WBC on AM Labs. However, with immunocompromised state along with symptoms of rigors and hypotension, decided to treat for sepsis. CXR from 06/06 showed possible consolidation at RLL. - Repeated blood cultures obtained in am - IVF bolus x 3L on 06/06 - Continue midodrine 10 mg - Monitor vitals q1-2h - Continue IV cefepime and vancomycin - Consider transfer to ICU if requires norepinephrine for blood pressure control #Elevated LFTs/metastatic colon cancer with mets to liver and lung- - T. bili at admission was 7; today is 7.8 , direct bili was 5, today is 4.7 - AST remains high at 197, ALT has reduced to 99; alk phos remains in 700s, - GI recommended ultrasound of the biliary tract which showed enlarged liver without evidence of biliary track obstruction GI has signed off -Consulted hematology/oncology Pt and decided to see Dr. Jeff in the outpatient setting -Holding home trifluridine-tipiracil due to contraindication with elevated bilirubin -Continue valacyclovir -Trend LFTs -Consider palliative medicine consult #UTI-UA is abnormal which could be some false positive from bilirubin in the urine. Pt is afebrile, WBC is normal and pt denies UTI symptoms. -Discontinue cefepime -Urine culture from 06/04 negative - Blood cultures drawn on 06/04- no growth after 48 hours #Anemia-hemoglobin remians 11 today, normocytic, decreased from thirteen 1 month ago but is on chemotherapy. No bleeding from anywhere that he is noted. TSH is normal -Iron studies, B12, folate: returned as normal 06/05 -Follow CBC # Paroxysmal atrial flutter on Eliquis/HTN/PAD s/p AAA repair with graft-in sinus rhythm here with first-degree block. Follows with [facility] cardiology. Blood pressures here are normal -Continue amiodarone, Eliquis -Holding atenolol and HCTZ #DM2-on metformin at home -Hold metformin -NovoLog supplemental insulin, BSG's, diabetic diet -Continue gabapentin #COPD/severe GERRY on auto BiPAP-no acute issues, not hypoxic -Albuterol as needed -He is not using his BiPAP recently since he had a tooth removed and has pain with using the mask #GERD/constipation-no acute issues -Continue PPI twice daily -Continue home fiber -MiraLAX as needed #Right shoulder pain-from recent accident -Oxycodone as needed for pain DVT prophylaxis-Manjit, SCDs Disposition-admit to medical/surgical unit Admission and Anticipated Discharge Date Admission Date: June 04, 2024 Subjective Overnight, pt received 3L of IVF and monitored vitals. Pt was transfered to PCU, ICU was curbsided in case he was in need of pressers. Chest XR was taken showing patchy airspace opacities bilaterally indicating possible pneumonia. Pt has remained afebrile, normal WBC and HR. This morning, Review of Systems Review of Systems: per HPI Physical Exam Physical Exam: General: Ill-appearing male who is jaundiced but comfortable and in no apparent distress HEENT: EOMI, PERRL, sclera anicteric Neck: trachea midline, no lymphadenopathy Lungs: CTAB, bilateral bs present Heart: RRR, no murmurs noted and edema 2+ in lower extremities, edema at bilateral arms- non pitting Abd: soft, NT/ND, NABS, mildly distended Musculoskeletal: R UE with strength deficit due to pain, LUE and B LE strength is WFL Neuro: CN2-12 intact Results & Data Results & Data Vital Signs (Past 12 Hours) Vital Signs Temp Pulse Pulse Resp BP BP Pulse Ox 06/07/24 03:29 36.8 C 72 20 105/60 90 06/07/24 01:33 69 17 92 06/07/24 01:31 116/56 L 06/07/24 01:31 116/56 L 06/07/24 01:31 116/56 L 06/07/24 01:31 116/56 L 06/07/24 01:29 78 06/07/24 01:15 112/62 06/07/24 01:15 112/62 06/07/24 01:12 68 16 91 06/07/24 01:03 72 22 91 06/07/24 01:00 116/60 06/07/24 01:00 116/60 06/07/24 01:00 116/60 06/07/24 01:00 116/60 06/07/24 01:00 116/60 06/07/24 01:00 116/60 06/07/24 01:00 116/60 06/07/24 00:54 74 23 91 06/07/24 00:45 77 21 91 06/07/24 00:45 110/60 06/07/24 00:45 110/60 06/07/24 00:45 110/60 06/07/24 00:45 110/60 06/07/24 00:45 110/60 06/07/24 00:45 110/60 06/07/24 00:33 75 22 92 06/07/24 00:30 118/55 L 06/07/24 00:30 118/55 L 06/07/24 00:30 118/55 L 06/07/24 00:30 118/55 L 06/07/24 00:30 118/55 L 06/07/24 00:30 118/55 L 06/07/24 00:30 118/55 L 06/07/24 00:30 118/55 L 06/07/24 00:30 118/55 L 06/07/24 00:27 76 25 H 92 06/07/24 00:15 112/52 L 06/07/24 00:15 112/52 L 06/07/24 00:15 112/52 L 06/07/24 00:15 112/52 L 06/07/24 00:15 112/52 L 06/07/24 00:15 112/52 L 06/07/24 00:01 109/53 L 06/07/24 00:01 109/53 L 06/06/24 23:47 103/70 06/06/24 23:47 103/70 06/06/24 23:30 73 19 92 06/06/24 23:30 108/53 L 06/06/24 23:30 108/53 L 06/06/24 23:30 108/53 L 06/06/24 23:15 114/56 L 06/06/24 23:06 36.8 C 75 18 90/49 L 92 06/06/24 19:24 80 82/40 L 89 L 06/06/24 19:20 06/06/24 19:02 80/44 L O2 Del Method O2 Flow Rate 06/07/24 03:29 Oxymask 3 06/07/24 01:33 06/07/24 01:31 06/07/24 01:31 06/07/24 01:31 06/07/24 01:31 06/07/24 01:29 06/07/24 01:15 06/07/24 01:15 06/07/24 01:12 06/07/24 01:03 06/07/24 01:00 06/07/24 01:00 06/07/24 01:00 06/07/24 01:00 06/07/24 01:00 06/07/24 01:00 06/07/24 01:00 06/07/24 00:54 06/07/24 00:45 06/07/24 00:45 06/07/24 00:45 06/07/24 00:45 06/07/24 00:45 06/07/24 00:45 06/07/24 00:45 06/07/24 00:33 06/07/24 00:30 06/07/24 00:30 06/07/24 00:30 06/07/24 00:30 06/07/24 00:30 06/07/24 00:30 06/07/24 00:30 06/07/24 00:30 06/07/24 00:30 06/07/24 00:27 06/07/24 00:15 06/07/24 00:15 06/07/24 00:15 06/07/24 00:15 06/07/24 00:15 06/07/24 00:15 06/07/24 00:01 06/07/24 00:01 06/06/24 23:47 06/06/24 23:47 06/06/24 23:30 06/06/24 23:30 06/06/24 23:30 06/06/24 23:30 06/06/24 23:15 06/06/24 23:06 Nasal Cannula 06/06/24 19:24 Oxymask 4 06/06/24 19:20 Oxymask 3 06/06/24 19:02
[2024-06-07 08:38] LABS: Basophils # (auto) 0.04 K/uL (0.00-0.20); Basophils % (auto) 0.3 %; Eosinophils # (auto) 0.11 K/uL (0.00-0.50); Hematocrit (blood only) 32.3 % (42.0-52.0); Hemoglobin 11.1 g/dl (14.0-18.0); Immature Granulocytes # (auto) 0.09 K/uL (0.01-0.20); Immature Granulocytes % (auto) 0.8 %; Lymphocytes # (auto) 0.99 K/uL (1.20-3.40); Lymphocytes % (auto) 8.6 %; Mean Corpuscular Hemoglobin 32.5 pg (25.0-34.0); Mean Corpuscular Hgb Conc 34.4 g/dL (32.0-36.0); Mean Corpuscular Volume 94.4 fL (80.0-100.0); Mean Platelet Volume 10.7 fL (9.4-12.4); Monocytes # (auto) 0.48 K/uL (0.11-0.59); Monocytes % (auto) 4.2 %; Neutrophils # (auto) 9.82 K/uL (1.40-6.50); Neutrophils % (auto) 85.1 %; Platelet Count 191 K/uL (130-400); RDW Coefficient of Variation 21.9 % (11.5-14.5); RDW Standard Deviation 72.6 fL (36.4-46.3); Red Blood Count 3.42 M/uL (4.70-6.10); White Blood Count 11.53 K/ul (4.8-10.8)
[2024-06-07 08:46] LABS: Albumin Globulin Ratio 0.6 (0.9-2); Albumin Level 2.4 gm/dl (3.4-5.0); BUN Creatinine Ratio 27.3 (10-20); Bilirubin,Total 9.5 mg/dl (0.2-1.0); Calcium 8.5 mg/dl (8.6-10.3); Creatinine Clr Calc Pharmacy 69.7 ml/min; Globulin 3.7 gm/dl (2.5-4.0); Potassium 3.9 mmol/L (3.5-5.1); Total Protein 6.1 gm/dl (6.0-8.3)
--- NOTE | 2024-06-07 09:18 | Pharmacy Report ---
Pharmacy PK ABX Note - Date of Service June 07, 2024 - Assessment and Plan Assessment 06/07: * Day #2 of abx. Afebrile. Mild leukocytosis. SCr worsened to 1.20 mg/dL, down to 1.10 mg/dL this AM. 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 * No growth in any cultures. Cefepime ordered empirically and will fall off tomorrow. * Due to worsening renal fxn, previously ordered maintenance dose is now supratherapeutic so will empirically decrease vanc dose today. 06/06: 79 year old M receiving vancomycin for concerns for bacteremia. Blood cultures pending. PMHx significant for colon cancer with mets to liver. Plan Vancomycin * Loading dose: 2500 mg IV x 1 * Maintenance dose: 1250 mg IV every 12 hours with expected AUC/ANDREW of 682 mg/L.hr and 60% risk of REKHA given worsened renal fxn. * CHANGE maintenance dose to 1000 mg IV every 12 hours. Predicted to achieve target AUC/ANDREW of 400-600 mg/L.hr (559 to be exact) * Random level ordered for 06/08/24 Pharmacy will continue to follow and will adjust dose/frequency as necessary. Thank you. Pharmacy has transitioned to AUC monitoring for vancomycin. AUC/ANDREW is the preferred PK/PD target and is associated with decreased risk of nephrotoxicity compared to traditional trough targets.
[2024-06-07 09:19] LABS: Polychromasia 1+; Target Cells 1+
[2024-06-07 13:52] LABS: Specific Gravity Urine 1.025 (1.000-1.030)
[2024-06-07 13:59] LABS: Appearance Urine Clear (Clear); Color Urine Orange
[2024-06-07 14:02] LABS: RBC Urine Automated 0-2 /hpf (0-4); Renal Epithelial Cells Urine Present /lpf (None Presnt)
[2024-06-07 14:03] LABS: Bacteria Urine Automated None Seen (Negative); Mucus Urine Present (None Prsent)
--- NOTE | 2024-06-07 14:11 | Discharge Summary ---
Date of Service June 07, 2024 Admission HPI Per Admitting Provider This patient is a 79-year-old male with a history of metastatic colon cancer with mets to the liver and lung s/p postchemotherapy, microwave ablation of liver lesions, and partial colectomy currently on chemotherapy with Lonsurf and bevacizumab, COPD, atrial flutter on Eliquis, HTN, GERD, severe GERRY on auto BiPAP, PAD/AAA s/p aortoiliac stent graft, and DM2 who presents to the ER after being told he had abnormal liver tests on outpatient oncology labs. His total bilirubin is elevated at 7.4 up from two 1 month ago. His AST, ALT, and alkaline phosphatase are all also up even further. His CT A/P unfortunately s hows development of numerous pulmonary nodules at the lung bases, and extensive hepatic metastatic disease progressed since 01/2024 and nodularity of liver which may represent cirrhosis or pseudocirrhosis. He reports that he has been having difficulty tasting things lately and generalized fatigue. He felt short of breath a couple of days ago but it resolved with use of his albuterol inhaler. He did not notice that he was jaundiced as he reports he does not look himself in the mirror. He was seen by GI in the ER who recommended ultrasound of the biliary tract to look for biliary ductal dilation-if there were dilatation, could potentially benefit from ERCP and stent placement, but most likely this is a result of progressive liver metastases. He will be admitted for further workup for worsening LFTs and an obstructive pattern in the setting of metastatic colon cancer. Of note, the patient tells me "I am not done fighting yet." He is interested in hearing about any further treatment options despite progression of his cancer on treatment. Principal Diagnosis Progression of Metastatic colon cancer, sepsis Discharge Exam General: Ill-appearing male who is jaundiced but comfortable and in no apparent distress HEENT: EOMI, PERRL, sclera anicteric Neck: trachea midline, no lymphadenopathy Lungs: Scattered rhonci noted at bilateral Heart: RRR, no murmurs noted and edema 2+ in lower extremities, edema at bilateral arms- non pitting Abd: soft, NT/ND, NABS, mildly distended Musculoskeletal: R UE with strength deficit due to pain, LUE and B LE strength is WFL Neuro: A & O x 2, pt is unsure of day Discharge Data Allergies Allergy/AdvReac Type Severity Reaction Status Date / Time lisinopril Allergy Severe Angioedema Verified 06/04/24 12:08 adhesive Allergy Intermediate Rash Verified 06/04/24 12:08 latex Allergy Intermediate Contact Verified 06/04/24 12:08 dermatitis Consultations 06/04/24 14:24 ED Decision to Admit Stat 06/04/24 16:36 Consult Gastroenterology Routine 06/04/24 18:12 Consult Hematology Routine Ordered Studies 06/04/24 12:03 CT abd pelvis wo con Stat 06/04/24 16:40 US liver Stat Hospital Course (1) Colon cancer metastasized to liver: (2) Paroxysmal atrial fibrillation: (3) Elevated LFTs: (4) Anemia: Plan This patient is a 79-year-old male with a history of metastatic colon cancer with mets to the liver and lung s/p postchemotherapy, microwave ablation of liver lesions, and partial colectomy currently on chemotherapy with Lonsurf and bevacizumab, COPD, atrial flutter on Eliquis, HTN, GERD, severe GERRY, PAD/AAA s/p aortoiliac stent graft, on auto BiPAP, and DM2 who presented to the ER after being told he had abnormal liver tests on outpatient oncology labs. He was admitted for further workup for worsening LFTs and an obstructive pattern in the setting of metastatic colon cancer. Later in the morning, pt c/o rigors. In the afternoon, RN reported hypotension in range of 80's/40's. Today, BP is soft, but stable. New oxygen requirement at 3L via oxymask. #Sepsis Pt remained afebrile, no tachycardia and denied SOB, abdominal pain, N/V/D, headache. No elevated WBC on AM Labs. However, with immunocompromised state along with symptoms of rigors and hypotension, decided to treat for sepsis. CXR from 06/06 showed possible consolidation at RLL. - Blood cultures drawn on 06/04- no growth after 48 hours - Repeat blood culture from 06/06- no growth at 24 hrs - IVF bolus x 3L on 06/06 - Continue midodrine 10 mg - Monitor vitals q1-2h - Continue IV cefepime and vancomycin Discharge to home with Augmentin and doxycycline - New oxygen requirement at 3L due to recent IVF Home with supplemental oxygen #Elevated LFTs/metastatic colon cancer with mets to liver and lung- - T. bili at admission was 7; today is 7.8 , direct bili was 5, today is 4.7 - AST remains high at 197, ALT has reduced to 99; alk phos remains in 700s, - GI recommended ultrasound of the biliary tract which showed enlarged liver without evidence of biliary track obstruction GI has signed off -Consulted hematology/oncology Pt and decided to see Dr. Jeff in the outpatient setting -Holding home trifluridine-tipiracil due to contraindication with elevated bilirubin -Continue valacyclovir - Pt and request DC to home with hospice consult #UTI-UA is abnormal which could be some false positive from bilirubin in the urine. Pt is afebrile, WBC is normal and pt denies UTI symptoms. -Discontinue cefepime 06/05 due to negative Urine culture from 06/04 - Repeat UA 06/07 with sepsis #Anemia-hemoglobin remains 11.1 today, normocytic, decreased from 13- 1 month ago, but is on chemotherapy. No bleeding from anywhere that he is noted. TSH is normal -Iron studies, B12, folate: returned as normal 06/05 -Follow CBC # Paroxysmal atrial flutter on Eliquis/HTN/PAD s/p AAA repair with graft-in sinus rhythm here with first-degree block. Follows with [facility] cardiology. Blood pressures here are normal -Continue amiodarone, Eliquis -Holding atenolol and HCTZ #DM2-on metformin at home -Hold metformin -NovoLog supplemental insulin, BSG's, diabetic diet -Continue gabapentin #COPD/severe GERRY on auto BiPAP-no acute issues, not hypoxic -Albuterol as needed -He is not using his BiPAP recently since he had a tooth removed and has pain with using the mask #GERD/constipation-no acute issues -Continue PPI twice daily -Continue home fiber -MiraLAX as needed #Right shoulder pain-from recent accident -Oxycodone as needed for pain DVT prophylaxis-Adela Saravia Disposition-upgraded to PCU on 06/06 Total Time Total Time Spent Total Time Spent (In Minutes): >30 Discharge Plan Discharge Items Patient Disposition: Hospice - Home Reason For Visit: ELEVATED LFTS, MET COLON CA Discharge Diagnosis: Sepsis, Metastatic colon cancer Condition on Discharge: Fair Activity: Resume your previous activity Non-emergency contact: Primary Care Provider Call non-emergency contact if: your symptoms worsen Follow-up/Referrals: Shweta Loyd MD [Primary Care Provider] - Diet: Regular Addtl Attending Provider Instructions: You were admitted for elevations in your liver function testing lab results. Imaging showed progression of metastases in the liver and lungs. Gastroenterology consulted and did not feel they were needed at this time. Oncology consult was cancelled per your request in favor of consulting your own oncologist after hospital discharge. While awaiting hospital consults, you began having signs of sepsis including chills/shivering and very low blood pressure. We gave 3L of IV fluids and starte d broad spectrum antibiotics. Your blood pressures stabilized, however, the extra fluids caused some congestion in your lungs. Supplemental oxygen is helping to maintain your oxygen saturation. You voiced your desire to return home with a hospice consult. Therefore, we have arranged for home oxygen and we will send prescriptions to your pharmacy for oral antibiotics and pain medication (if your need it for comfort). New prescriptions sent to [facility]: Augmentin 875/125mg take twice daily for 7 days. Last dose will be 06/14 Doxycycline 100mg take twice daily for 7 days. Last dose will be 3/21 Morphine (use as directed for pain) You may resume your previous home medications or under the advice of hospice. Please follow up with your oncologist and your PCP to update them on your choice to use Hospice services. Thank you for choosing [facility] for your health care and allowing us to be apart of your care team. Pending Studies at Discharge: Yes Studies:: Blood culture Stand-Alone Forms: My [facility] [employer], Smoking Cessation Medications and DC Order Prescriptions: New morphine concentrate 100 mg/5 mL (20 mg/mL) solution 5 mg PO Q3H PRN (Reason: pain) Qty: 15 0RF amoxicillin-pot clavulanate 875-125 mg tablet 1 tab PO BID Qty: 14 0RF doxycycline hyclate 100 mg capsule 100 mg PO BID 7 Days Qty: 14 0RF Continued (DME) Lift Chair Misc See Rx Instructions .Route Qty: 1 0RF Rx Instructions: As directed Dx:M51.36 atenolol 50 mg tablet 25 mg PO BID Qty: 90 3RF Hold Instructions: Resume on 04/26/23. metformin 500 mg tablet extended release 24 hr 500 mg PO BID Qty: 180 3RF Hold Instructions: Resume on 04/26/23. Patient Comments: has not started yet, waiting for rx to come Rx Instructions: 1 daily in am for 2 weeks then 1 twice a day amiodarone [Pacerone] 100 mg tablet 100 mg PO QAM Qty: 90 3RF Hold Instructions: Resume on 04/26/23. hydrochlorothiazide 25 mg tablet 25 mg PO QPM Qty: 90 3RF Hold Instructions: Resume on 04/26/23. coenzyme Q10 100 mg capsule 100 mg PO QAM Hold Instructions: Resume on 04/26/23. ascorbic acid (vitamin C) 500 mg tablet 500 mg PO QPM Hold Instructions: Resume on 04/26/23. Patient Comments: 500 MG PO DAILY; (DME) Jigar Kelly See Rx Instructions .MEDSUPPLY Qty: 1 0RF Rx Instructions: As directed Lonsurf 15-6.14 mg tablet 0 tab PO BID Rx Instructions: Currently on hold per spouse. must administer with food (with morning and evening meals); on Days 1 through 5 and Days 8 through 12 of 28-day cycle valacyclovir 1 gram tablet 1,000 mg PO BID Rx Instructions: Start Date 05/21/24 x30 day supply, then patient will start stating 500mg by mouth twice daily gabapentin 300 mg capsule 300 mg PO HS PreserVision AREDS-2 [id number]-mg Capsule 1 tab PO BID Hold Instructions: Resume on 04/26/23. multivitamin Tablet 1 tab PO QAM Hold Instructions: Resume on 04/26/23. acetaminophen [Tylenol] 325 mg Tablet 650 mg PO TID PRN (Reason: PAIN/FEVER) Hold Instructions: Resume on 04/26/23. magnesium oxide 250 mg magnesium Tablet 250 mg PO QAM Hold Instructions: Resume on 04/26/23. Osteo Bi-Flex Triple Strength 750 mg-644 mg- 30 mg-1 mg Tablet 1 tab PO BID albuterol sulfate 90 mcg/actuation HFA aerosol inhaler 2 puff inhalation Q4H PRN (Reason: prn) Rx Instructions: INHALE 2 PUFFS EVERY 4 HOURS NEEDED FOR SHORTNESS OF BREATH OR WHEEZING. latanoprost 0.005 % drops 1 drp OPB HS dronabinol 5 mg capsule 5 mg PO BID PRN (Reason: Nausea And Vomiting) Rx Instructions: Before Meals oxycodone 5 mg tablet 5 mg PO DIRECTED PRN (Reason: Pain) Rx Instructions: Every 6-8 hours psyllium husk [Fiber-Caps (psyllium husk)] 0.52 gram Capsule 0.52 g PO HS Eliquis 5 mg tablet 5 mg PO BID pantoprazole 40 mg tablet,delayed release (DR/EC) 40 mg PO BID Rx Instructions: TAKE 1 TABLET TWICE A DAY Discharge Orders: Discharge Order (Routine); Ordered 06/07/24 Ordered By: Nenita Resendez Admission Data Admit Date/Time: 06/04/24 16:33 Attending Provider: Kiet Rosa Admit Provider: Natividad Brennan Primary Care Provider: Shweta Loyd Other Providers: Natividad Brennan; James Arzola; Le Jeff; [facility] Other Interventions: Discharge Summary Assessment (RN) Last Done: 06/07/24 16:10 Supervising Physician Co-Signing Physician Notes I personally examined the patient and verified all rizzo points of history and exam, discussed case, and agree with decision making with Dr Resendez feels ok not sob. after extensive discussions it becomes clear that he wants to go home with hospice, and wants to be able to get home brenna. we help facilitate this. answered all questions/'s questions and offered guidance to the best of my ability. vitals noted, fatigued but nad. markedly jaundiced. breathing unlabored ~86% on RA but without obvious dyspnea. no focal neuro deficits outside of hearing loss hypotension - fairly sudden onset. in the context of rigors, have to assume bacteremia / sepsis / septic shock - main possible source would be gram positive bacteremia vs urinary +/- gram negative bacteremia from urinary source. lung findings more c/w pulmonary edema (see below). on empiric vanco/cefepime. after discussion of wanting to go home with hospice - clarified that this would potentially lead to more rapid decline from possible infection - he understands and is OK with this - discussed treating w PO abx given that infections can be uncomfortable (in his case chills/sweats). it's also possible that it is all distributive shock from worsening third spacing/liver failure related to the cancer - but not clear at this time (and therefore was managing as septic shock) hypoxia/new O2 requirement - pulmonary edema. required 3L isotonic fluids to stabilize shock - but with cancer/malnutrition some fluid inevitably leaked into lungs. having just been hypotensive through the night, diuresing this off would not be safe - fortunately fairly low O2 requirement and no actual dyspnea. manage w O2/symptom control worsening metastatic colon cancer - unfortunately prognosis poor and hospice almost certainly best/only option, and as his situation has progressed he has opted to go home with hospice - expressed desire to get home brenna -> case management assistance in this was greatly appreciated back pain - appearing muscular - symptomatic control. otherwise as above Resident Activity Tracking Resident Involvement: Resident Care Provided Care Provided: Adult Hospital Medicine
[2024-06-07] MEDS: VANCOMYCIN HCL 1,000 MG in SODIUM CHLORIDE 0.9% 250 ML IV SCH (14:12)
[2024-06-07 15:51] VITALS: RESP 20; TEMP 98.2; O2SAT 93
[2024-06-07 16:27] VITALS: BP 108/64; PULSE 68
[2024-06-07] MEDS: HEPARIN 100 UNIT/ML 5ML FLUSH FLUSH STA (16:42)
[2024-06-07 17:11] LABS: A calco-baum cmplx NotReported Not Detected (NotDetected); Bact fragilis Not Reported Not Detected (NotDetected); Blood Culture Id Panel See PCR Comment (NotDetected); C auris Not Reported Not Detected (NotDetected); CTX-M Resistant Gene Not Detected (NotDetected); Calbicans Not Reported Not Detected (NotDetected); Candida glabrata Not Reported Not Detected (NotDetected); Candida krusei Not Reported Not Detected (NotDetected); Cneoformans/gatti Not Reported Not Detected (NotDetected); Cparapsilosis Not Reported Not Detected (NotDetected); E cloacae compx Not Reported Not Detected (NotDetected); Efaecalis Not Reported Not Detected (NotDetected); Efaecium Not Reported Not Detected (NotDetected); Enterobacterales DETECTED (NotDetected); Enterobacterales Not Reported DETECTED (NotDetected); Escherichia coli Not Reported DETECTED (NotDetected); H influenzae Not Reported Not Detected (NotDetected); IMP Resistant Gene Not Detected (NotDetected); K aerogenes Not Reported Not Detected (NotDetected); KPC Resistant Gene Not Detected (NotDetected); Koxytoca Not Reported Not Detected (NotDetected); Kpneumoniae grp Not Reported Not Detected (NotDetected); Lmonocyt Not Reported Not Detected (NotDetected); N meningitidis Not Reported Not Detected (NotDetected); NDM Resistant Gene Not Detected (NotDetected); OXA 48 Like Resistant Gene Not Detected (NotDetected); P aeruginosa Not Reported Not Detected (NotDetected); Proteus spp Not Reported Not Detected (NotDetected); Salmonella spp Not Reported Not Detected (NotDetected); Staph lugdunensis Not Reported Not Detected (NotDetected); Staph spp. Not Reported Not Detected (NotDetected); Staphaureus Not Reported Not Detected (NotDetected); Staphepi Not Reported Not Detected (NotDetected); Stenmaltophilia Not Reported Not Detected (NotDetected); Strep agal(GrpB) Not Reported Not Detected (NotDetected); Strep pneum Not Reported Not Detected (NotDetected); Strep pyog (GrpA) Not Reported Not Detected (NotDetected); Strep spp Not Reported Not Detected (NotDetected); VIM Resistant Gene Not Detected (NotDetected); mcr-1 Colistin Resistant Gene Not Detected (NotDetected)
--- NOTE | 2024-06-07 17:28 | Billing Data ---
Date of Service June 07, 2024 Coding Level of Care Code 55539 INP/OBS DISCH >30 MIN
[2024-06-10 06:18] LABS: A calco-baum cmplx NotReported Not Detected (NotDetected); Bact fragilis Not Reported Not Detected (NotDetected); Blood Culture Id Panel PCR Panel Negative (NotDetected); C auris Not Reported Not Detected (NotDetected); Calbicans Not Reported Not Detected (NotDetected); Candida glabrata Not Reported Not Detected (NotDetected); Candida krusei Not Reported Not Detected (NotDetected); Cneoformans/gatti Not Reported Not Detected (NotDetected); Cparapsilosis Not Reported Not Detected (NotDetected); E cloacae compx Not Reported Not Detected (NotDetected); Efaecalis Not Reported Not Detected (NotDetected); Efaecium Not Reported Not Detected (NotDetected); Enterobacterales Not Reported Not Detected (NotDetected); Escherichia coli Not Reported Not Detected (NotDetected); H influenzae Not Reported Not Detected (NotDetected); K aerogenes Not Reported Not Detected (NotDetected); Koxytoca Not Reported Not Detected (NotDetected); Kpneumoniae grp Not Reported Not Detected (NotDetected); Lmonocyt Not Reported Not Detected (NotDetected); N meningitidis Not Reported Not Detected (NotDetected); P aeruginosa Not Reported Not Detected (NotDetected); Proteus spp Not Reported Not Detected (NotDetected); Salmonella spp Not Reported Not Detected (NotDetected); Staph lugdunensis Not Reported Not Detected (NotDetected); Staph spp. Not Reported Not Detected (NotDetected); Staphaureus Not Reported Not Detected (NotDetected); Staphepi Not Reported Not Detected (NotDetected); Stenmaltophilia Not Reported Not Detected (NotDetected); Strep agal(GrpB) Not Reported Not Detected (NotDetected); Strep pneum Not Reported Not Detected (NotDetected); Strep pyog (GrpA) Not Reported Not Detected (NotDetected); Strep spp Not Reported Not Detected (NotDetected)
== END 2024-06-07 16:52 | disposition hospice, home (50) | DRG 871 ==
LOC: ED 09:33 → 3E 16:33 → SUATTDRO 16:33 → 3E 17:25 → 2E 06-06 18:33